=== PATIENT | male | born 1965 | race African-American/Black ===

== ENCOUNTER 2018-05-06 07:35 | Inpatient (IN) | payer MEDICAID, OTHER ==
[~2018-05-06] VITALS: Ht 160 cm; Wt 54.7 kg
[~2018-05-06 07:35] MED LIST: CYCL10TA2 PO; HYDR-3164 PO; PRED20TA PO
[2018-05-06] MEDS ORDERED: IV NORMAL SALINE 1000ML BAG 1,000 ML IV SCH (08:00)
[2018-05-06 08:07] LABS: BASO % 1 % (0-3); EOS % 0 % (0-3); HEMATOCRIT 49.2 % (39.0-53.0); HEMOGLOBIN 16.2 g/dL (13.0-17.5); LYMPH # 1.6 x10^3/uL (1.0-4.8); LYMPH % 26 % (24-48); MEAN CORPUSCULAR HEMOGLOBIN 30 pg (25-35); MEAN CORPUSCULAR HGB CONC 33 g/dL (31-37); MEAN CORPUSCULAR VOLUME 92 fL (79-100); MONO # 0.5 x10^3/uL (0.0-1.1); MONO % 8 % (0-9); NEUT % 65 % (31-73); PLATELET COUNT 282 x10^3/uL (140-400); RED BLOOD COUNT 5.33 x10^6/uL (4.30-5.70); RED CELL DISTRIBUTION WIDTH 13.8 % (11.5-14.5); WHITE BLOOD COUNT 6.2 x10^3/uL (4.0-11.0)
[2018-05-06] MEDS ORDERED: ONDANSETRON PF 4 MG/2 ML VIAL. IV ONE ×2 (08:15→09:30)
[2018-05-06] MEDS: fentaNYL PF VIAL 100 MCG/2 ML VIAL IV PRN ×3 (08:19→11:18)
[2018-05-06 08:38] LABS: CALCIUM 9.4 mg/dL (8.5-10.1); CREATININE 0.8 mg/dL (0.7-1.3); GFR 123.3; POTASSIUM 4.1 mmol/L (3.5-5.1)
[2018-05-06 08:43] LABS: ALBUMIN 3.9 g/dL (3.4-5.0); ALBUMIN/GLOBULIN RATIO 0.8 (1.0-1.7); TOTAL BILIRUBIN 0.5 mg/dL (0.2-1.0); TOTAL PROTEIN 8.7 g/dL (6.4-8.2)
[2018-05-06 08:44] LABS: BILIRUBIN,URINE NEGATIVE (NEG); CLARITY,URINE CLEAR; COLOR,URINE YELLOW; NITRITE,URINE NEGATIVE (NEG); PH,URINE 7.5; PROTEIN,URINE NEGATIVE (NEG-TRACE)
[2018-05-06 08:53] LABS: AMORPHOUS SEDIMENT,UR PRESENT /HPF; BACTERIA,URINE FEW /HPF (0-FEW); RBC,URINE 0 /HPF (0-2); WBC,URINE OCC /HPF (0-4)
[2018-05-06] MEDS ORDERED: IOHEXOL 300 MG/ML 100ML VIAL. IV ONE (09:30)
[2018-05-06] MEDS ORDERED: CONTRAST GIVEN. MC PRN (09:30)
[2018-05-06 09:32] LABS: PLT ESTIMATE ADEQUATE (ADEQUATE)
--- NOTE | 2018-05-06 10:09 | RAD ---
CT ABD PELV W/ IV CONTRST ONLY Indication: Right-sided abdominal pain for 2 days. Exposure: One or more of the following individualized dose reduction techniques were utilized for this examination: 1. Automated exposure control 2. Adjustment of the mA and/or kV according to patient size 3. Use of iterative reconstruction technique. Comparison: None are available. Contrast: Intravenous contrast was given. No oral contrast per request. FINDINGS: Lung bases are clear. Small hypodense focus at the anterior left liver measures 15 mm diameter. Could represent a small focal area of fatty deposition or small lesion such as cyst or hemangioma. Spleen unremarkable Hypodense mass of the pancreas at about its mid aspect measures 3.3 cm. This measures greater density than would be seen with a simple cyst. The pancreatic tail distal to this mass is severely atrophic with dilatation of the pancreatic duct at 4 mm. There may be a second smaller hypodense mass at the pancreatic head, measuring 6 mm. No adrenal mass. Low-density lesion of the left upper kidney measures 12 Hounsfield units. Symmetric renal enhancement. No calcified gallstone. The aorta demonstrates calcification but no gross aneurysm. No evidence of pathologically enlarged lymph nodes. No evidence of bowel obstruction. There is moderate retained stool in the colon. No definite acute colitis. A tubular structure. The right lower quadrant, may represent a normal appendix but difficult to be certain. Exam limited due to the paucity of fat in this patient and lack of oral contrast. Urinary bladder not well visualized, not very distended. No evidence of free fluid or pneumoperitoneum. No evidence of bone destruction. IMPRESSION: 1. There is a 3.3 cm mass of the pancreas with distal pancreatic atrophy and ductal dilatation. Nonspecific, but malignant etiology is possible. Workup is necessary. 2. Structure identified in the right lower quadrant may represent normal appendix but difficult to be certain. No definite acute findings. 3. Small hypodense lesion of the anterior liver, may just represent focal fatty deposition or possibly a small lesion such as cyst or hemangioma. In the context of pancreatic mass, however, recommend follow-up CT or MRI. 4. The above findings were discussed with Dr. Juan Monet in the emergency room at 10:02 AM on 05/06/2018. Electronically signed by: Cristian Peter MD (05/06/2018 10:04 AM) [facility]
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
[2018-05-06] MEDS ORDERED: cloNIDine HCL 0.1 MG TABLET PO ONE (11:15)
[2018-05-06] MEDS ORDERED: LACTULOSE 20 GM/30 ML SOLUTION. PO PRN (11:30)
[2018-05-06] MEDS ORDERED: MAGNESIUM HYDROXIDE 2,400 MG/30 ML ORAL.SUSP. PO PRN (11:30)
[2018-05-06] MEDS ORDERED: diphenhydrAMINE 50 MG/ML VIAL IVP ONE (11:30)
[2018-05-06] MEDS ORDERED: ACETAMINOPHEN 325 MG TABLET. PO PRN (11:30)
[2018-05-06] MEDS ORDERED: BISACODYL 10 MG SUPP.RECT. PR PRN (11:30)
[2018-05-06] MEDS ORDERED: METOCLOPRAMIDE HCL 10 MG/2 ML VIAL. IV ONE (11:30)
[2018-05-06] MEDS ORDERED: ONDANSETRON PF 4 MG/2 ML VIAL. IV PRN (11:45)
[2018-05-06] MEDS ORDERED: fentaNYL PF VIAL 100 MCG/2 ML VIAL IV PRN (11:45)
[2018-05-06 12:30] VITALS: BP 148/94
[2018-05-06] MEDS: IV NORMAL SALINE 1000ML BAG 1,000 ML IV SCH ×2 (13:22→21:49)
[2018-05-06] MEDS: oxyCODONE IR 5 MG TABLET PO PRN ×3 (13:27→21:49)
[2018-05-06 15:00] VITALS: BP 130/79
--- NOTE | 2018-05-06 15:05 | PDOC1 ---
History and Physical Date of Admission Date of Admission 05/06/2018 Identification/Chief Complaint Chief Complaint Nica kay Source Source: Chart review, Patient History of Present Illness History of Present Illness Patient is a 53-year-old gentleman with past medical history of hepatitis C and B apparently who was in his usual state of health until approximately 4-5 days prior to his admission. Patient can complain of some discomfort over his lower abdomen. That has progressively gotten worse. Patient is a history of chronic back pain and he is disabled. The patient denies any dietary transgressions denies diarrhea, hematochezia, hematemesis has been reported. The patient has not had treatment for his hepatitis C. Of notice that he has a history of IV drug abuse and according to nursing staff apparently he used heroine last time on the day prior to his admission. Patient has had very poor appetite lately and according to the significant other has had an unintentional weight loss over the last month very noticeable. Noticed that patient has a brother who of pancreatic cancer couple years back. Patient is an avid smoker as well. Patient was evaluated in the emergency department and CAT scan revealed a pancreatic mass of 3.3 cm in diameter. Very suspicious for malignancy and especially in a patient with family history of prostatic cancer and smoking which are too great risk factors for distal disease. Reassurance has been provided to the patient the present time the patient is in good spirits and with better pain control compared to admission. Time of care has been explained in detail to the patient and all concerns were addressed to the best of my abilities. Current Problem List Problem List Problems Medical Problems: (1) Hypertension Status: Acute (2) Intractable abdominal pain Status: Acute (3) Intractable vomiting Status: Acute Current Medications Current Medications Current Medications Medications (Trade) Dose Ordered Sig/Alice Start Time Stop Time Status Last Admin Dose Admin Acetaminophen (Tylenol) 650 mg PRN Q6HRS PRN 05/06/18 11:30 Bisacodyl (Dulcolax Supp) 10 mg PRN DAILY PRN 05/06/18 11:30 Clonidine HCl (Catapres) 0.2 mg 1X ONCE 05/06/18 11:15 05/06/18 11:16 DC 05/06/18 11:17 0.2 MG Diphenhydramine HCl (Benadryl) 25 mg 1X ONCE 05/06/18 11:30 05/06/18 11:31 DC 05/06/18 11:26 25 MG Enoxaparin Sodium (Lovenox 40mg Syringe) 40 mg Q24H 05/06/18 21:00 Fentanyl Citrate (Fentanyl 2ml Vial) 50 mcg PRN Q1HR PRN 05/06/18 11:45 05/07/18 11:44 Hydromorphone HCl (Dilaudid) 0.4 mg PRN Q1HR PRN 05/06/18 11:30 Info (CONTRAST GIVEN -- Rx MONITORING) 1 each PRN DAILY PRN 05/06/18 09:30 05/08/18 09:29 Iohexol (Omnipaque 300 Mg/ml) 75 ml 1X ONCE 05/06/18 09:30 05/06/18 09:31 DC Lactulose (Lactulose) 20 gm PRN Q12HR PRN 05/06/18 11:30 Magnesium Hydroxide (Milk Of Magnesia) 2,400 mg PRN Q12HR PRN 05/06/18 11:30 Metoclopramide HCl (Reglan Vial) 10 mg 1X ONCE 05/06/18 11:30 05/06/18 11:31 DC 05/06/18 11:26 10 MG Ondansetron HCl (Zofran) 4 mg PRN Q8HRS PRN 05/06/18 11:45 05/07/18 11:44 Oxycodone HCl (Roxicodone) 5 mg PRN Q3HRS PRN 05/06/18 11:30 05/06/18 13:27 5 MG Senna/Docusate Sodium (Senna Plus) 1 tab BID 05/06/18 21:00 Sodium Chloride 1,000 ml @ 125 mls/hr Q8H 05/06/18 11:36 05/07/18 11:35 05/06/18 13:22 125 MLS/HR Zolpidem Tartrate (Ambien) 5 mg PRN QHS PRN 05/06/18 11:30 Allergies Allergies Allergies Coded Allergies Type Severity Reaction Last Updated Verified ibuprofen Allergy Intermediate rash 11/11/15 Yes ROS Review of System CONSTITUTIONAL: No fever or chills EYES: No recent changes SKIN: No rash or itching CARDIOVASCULAR: No chest pain, syncope, palpitations, or edema RESPIRATORY: No SOB or cough GASTROINTESTINAL: No nausea, vomiting or abdominal pain NEUROLOGICAL: No headaches or weakness ENDOCRINE: No cold or heat intolerance GENITOURINARY: No urgency or frequency of urination MUSCULOSKELETAL: No back pain or joint pain LYMPHATICS: No enlarged lymph nodes PSYCHIATRIC: No anxiety or depression Physical Exam Physical Exam GEN.: No apparent distress. Alert and oriented. HEENT: Head is normocephalic, atraumatic NECK: Supple. LUNGS: Clear to auscultation. HEART: RRR, S1, S2 present. Peripheral pulses intact ABDOMEN: Soft, nontender. Positive bowel sounds. EXTREMITIES: Without any cyanosis. NEUROLOGIC: Normal speech, normal tone PSYCHIATRIC: Normal affect, normal mood. SKIN: No ulcerations Vitals Vitals Vital Signs Date Time Temp Pulse Resp B/P (MAP) Pulse Ox O2 Delivery O2 Flow Rate FiO2 05/06/18 13:27 Room Air 05/06/18 12:30 98.5 63 18 148/94 (112) 97 98.5 Labs Labs Laboratory Tests Test 05/06/18 07:57 05/06/18 08:10 05/06/18 08:33 White Blood Count 6.2 x10^3/uL (4.0-11.0) Red Blood Count 5.33 x10^6/uL (4.30-5.70) Hemoglobin 16.2 g/dL (13.0-17.5) Hematocrit 49.2 % (39.0-53.0) Mean Corpuscular Volume 92 fL (79-100) Mean Corpuscular Hemoglobin 30 pg (25-35) Mean Corpuscular Hemoglobin Concent 33 g/dL (31-37) Red Cell Distribution Width 13.8 % (11.5-14.5) Platelet Count 282 x10^3/uL (140-400) Neutrophils (%) (Auto) 65 % (31-73) Lymphocytes (%) (Auto) 26 % (24-48) Monocytes (%) (Auto) 8 % (0-9) Eosinophils (%) (Auto) 0 % (0-3) Basophils (%) (Auto) 1 % (0-3) Neutrophils # (Auto) 4.0 x10^3uL (1.8-7.7) Lymphocytes # (Auto) 1.6 x10^3/uL (1.0-4.8) Monocytes # (Auto) 0.5 x10^3/uL (0.0-1.1) Eosinophils # (Auto) 0.0 x10^3/uL (0.0-0.7) Basophils # (Auto) 0.0 x10^3/uL (0.0-0.2) Platelet Estimate Adequate (ADEQUATE) Large Platelets Few Giant Platelets Few Sodium Level 137 mmol/L (136-145) Potassium Level 4.1 mmol/L (3.5-5.1) Chloride Level 99 mmol/L (98-107) Carbon Dioxide Level 26 mmol/L (21-32) Anion Gap 12 (6-14) Blood Urea Nitrogen 16 mg/dL (8-26) Creatinine 0.8 mg/dL (0.7-1.3) Estimated GFR (Cockcroft-Gault) 123.3 BUN/Creatinine Ratio 20 (6-20) Glucose Level 115 mg/dL (70-99) Calcium Level 9.4 mg/dL (8.5-10.1) Total Bilirubin 0.5 mg/dL (0.2-1.0) Aspartate Amino Transf (AST/SGOT) 79 U/L (15-37) Alanine Aminotransferase (ALT/SGPT) 139 U/L (16-63) Alkaline Phosphatase 107 U/L (46-116) Total Protein 8.7 g/dL (6.4-8.2) Albumin 3.9 g/dL (3.4-5.0) Albumin/Globulin Ratio 0.8 (1.0-1.7) Lipase 212 U/L (73-393) Urine Collection Type Unknown Urine Color Yellow Urine Clarity Clear Urine pH 7.5 Urine Specific [place] 1.025 Urine Protein Negative mg/dL (NEG-TRACE) Urine Glucose (UA) Negative mg/dL (NEG) Urine Ketones (Stick) Negative mg/dL (NEG) Urine Blood Negative (NEG) Urine Nitrite Negative (NEG) Urine Bilirubin Negative (NEG) Urine Urobilinogen Dipstick 1.0 mg/dL (0.2 mg/dL) Urine Leukocyte Esterase Negative (NEG) Urine RBC 0 /HPF (0-2) Urine WBC Occ /HPF (0-4) Urine Amorphous Sediment Present /HPF Urine Bacteria Few /HPF (0-FEW) Urine Mucus Mod /LPF Laboratory Tests Test 05/06/18 07:57 05/06/18 08:10 05/06/18 08:33 White Blood Count 6.2 x10^3/uL (4.0-11.0) Red Blood Count 5.33 x10^6/uL (4.30-5.70) Hemoglobin 16.2 g/dL (13.0-17.5) Hematocrit 49.2 % (39.0-53.0) Mean Corpuscular Volume 92 fL (79-100) Mean Corpuscular Hemoglobin 30 pg (25-35) Mean Corpuscular Hemoglobin Concent 33 g/dL (31-37) Red Cell Distribution Width 13.8 % (11.5-14.5) Platelet Count 282 x10^3/uL (140-400) Neutrophils (%) (Auto) 65 % (31-73) Lymphocytes (%) (Auto) 26 % (24-48) Monocytes (%) (Auto) 8 % (0-9) Eosinophils (%) (Auto) 0 % (0-3) Basophils (%) (Auto) 1 % (0-3) Neutrophils # (Auto) 4.0 x10^3uL (1.8-7.7) Lymphocytes # (Auto) 1.6 x10^3/uL (1.0-4.8) Monocytes # (Auto) 0.5 x10^3/uL (0.0-1.1) Eosinophils # (Auto) 0.0 x10^3/uL (0.0-0.7) Basophils # (Auto) 0.0 x10^3/uL (0.0-0.2) Platelet Estimate Adequate (ADEQUATE) Large Platelets Few Giant Platelets Few Sodium Level 137 mmol/L (136-145) Potassium Level 4.1 mmol/L (3.5-5.1) Chloride Level 99 mmol/L (98-107) Carbon Dioxide Level 26 mmol/L (21-32) Anion Gap 12 (6-14) Blood Urea Nitrogen 16 mg/dL (8-26) Creatinine 0.8 mg/dL (0.7-1.3) Estimated GFR (Cockcroft-Gault) 123.3 BUN/Creatinine Ratio 20 (6-20) Glucose Level 115 mg/dL (70-99) Calcium Level 9.4 mg/dL (8.5-10.1) Total Bilirubin 0.5 mg/dL (0.2-1.0) Aspartate Amino Transf (AST/SGOT) 79 U/L (15-37) Alanine Aminotransferase (ALT/SGPT) 139 U/L (16-63) Alkaline Phosphatase 107 U/L (46-116) Total Protein 8.7 g/dL (6.4-8.2) Albumin 3.9 g/dL (3.4-5.0) Albumin/Globulin Ratio 0.8 (1.0-1.7) Lipase 212 U/L (73-393) Urine Collection Type Unknown Urine Color Yellow Urine Clarity Clear Urine pH 7.5 Urine Specific [place] 1.025 Urine Protein Negative mg/dL (NEG-TRACE) Urine Glucose (UA) Negative mg/dL (NEG) Urine Ketones (Stick) Negative mg/dL (NEG) Urine Blood Negative (NEG) Urine Nitrite Negative (NEG) Urine Bilirubin Negative (NEG) Urine Urobilinogen Dipstick 1.0 mg/dL (0.2 mg/dL) Urine Leukocyte Esterase Negative (NEG) Urine RBC 0 /HPF (0-2) Urine WBC Occ /HPF (0-4) Urine Amorphous Sediment Present /HPF Urine Bacteria Few /HPF (0-FEW) Urine Mucus Mod /LPF VTE Prophylaxis Ordered VTE Prophylaxis Devices: No VTE Pharmacological Prophylaxi: Yes Assessment/Plan Assessment/Plan Pancreatic mass Unintentional weight loss over the last month or 15 pounds suspicious for malignancy related weight loss History of hepatitis C History of illegal drug abuse History of tobacco abuse COPD Plan: admit to medical floor MRCP on tuesday pain management monitor hemodynamics further recommendation based on clinical course DVT proophylaxis: HANH Sandoval MD May 06, 2018 15:05
[2018-05-06] MEDS: HYDROmorphone 2 MG/ML VIAL IV PRN ×2 (15:48→23:16)
[2018-05-06] MEDS: NICOTINE 21MG PATCH. TD PRN (15:49)
[2018-05-06 19:35] VITALS: BP 132/84
[2018-05-06] MEDS: ZOLPIDEM 5 MG TABLET. PO PRN ×2 (21:49→23:16)
[2018-05-06] MEDS: SENNOSIDES/DOCUSATE 8.6/50MG TABLET. PO SCH (21:50)
[2018-05-06] MEDS: ENOXAPARIN 40 MG/0.4 ML SYRINGE. SQ SCH (21:51)
[2018-05-06 23:19] VITALS: BP 133/86
[2018-05-07] VITALS (7 sets, daily range): BP systolic 149–197; BP diastolic 73–116
[2018-05-07] MEDS: ONDANSETRON PF 4 MG/2 ML VIAL. IV PRN ×2 (04:07→15:53)
[2018-05-07] MEDS: IV NORMAL SALINE 1000ML BAG 1,000 ML IV SCH ×2 (07:27→17:00)
[2018-05-07] MEDS: LABETALOL 20 MG/4 ML DISP.SYRIN. IVP PRN ×2 (07:29→21:00)
[2018-05-07] MEDS: NICOTINE 21MG PATCH. TD PRN (08:57)
[2018-05-07] MEDS: oxyCODONE IR 5 MG TABLET PO PRN (08:58)
[2018-05-07] MEDS: HYDROmorphone 2 MG/ML VIAL IV PRN ×2 (08:58→15:56)
[2018-05-07] MEDS: SENNOSIDES/DOCUSATE 8.6/50MG TABLET. PO SCH ×2 (09:00→21:00)
[2018-05-07] MEDS ORDERED: PROCHLORPERAZINE 5 MG TABLET. PO PRN ×2 (10:30→10:45)
--- NOTE | 2018-05-07 11:04 | PDOC ---
PROGRESS NOTES History of Present Illness History of Present Illness Assessment/Plan Assessment/Plan Pancreatic mass 3.3 cm mass of the pancreas with distal pancreatic atrophy and ductal dilatation. Unintentional weight loss over the last month or 15 pounds suspicious for malignancy related weight loss History of hepatitis C History of illegal drug abuse History of tobacco abuse history of hep b/c with IV drug use COPD PERSISTENT NAUSEA Plan: MRCP admit to medical floor MRCP on 05/08 pain management monitor hemodynamics further recommendation based on clinical course DVT proophylaxis: lovenox Vitals Vitals Vital Signs Date Time Temp Pulse Resp B/P (MAP) Pulse Ox O2 Delivery O2 Flow Rate FiO2 05/07/18 08:58 97 Room Air 05/07/18 07:29 57 188/100 05/07/18 07:00 98.9 20 98.9 Physical Exam Physical Exam Physical Exam Physical Exam GEN.: No apparent distress. Alert and oriented. HEENT: Head is normocephalic, atraumatic NECK: Supple. LUNGS: Clear to auscultation. HEART: RRR, S1, S2 present. Peripheral pulses intact ABDOMEN: Soft, nontender. Positive bowel sounds. EXTREMITIES: Without any cyanosis. NEUROLOGIC: Normal speech, normal tone PSYCHIATRIC: Normal affect, normal mood. SKIN: No ulcerations General: Alert, Oriented X3, Cooperative, mild distress Heart: Regular rate Lungs: Clear Extremities: No clubbing, No cyanosis, No edema Skin: No significant lesion Labs LABS CT ABD PELV W/ IV CONTRST ONLY Indication: Right-sided abdominal pain for 2 days. Exposure: One or more of the following individualized dose reduction techniques were utilized for this examination: 1. Automated exposure control 2. Adjustment of the mA and/or kV according to patient size 3. Use of iterative reconstruction technique. Comparison: None are available. Contrast: Intravenous contrast was given. No oral contrast per request. FINDINGS: Lung bases are clear. Small hypodense focus at the anterior left liver measures 15 mm diameter. Could represent a small focal area of fatty deposition or small lesion such as cyst or hemangioma. Spleen unremarkable Hypodense mass of the pancreas at about its mid aspect measures 3.3 cm. This measures greater density than would be seen with a simple cyst. The pancreatic tail distal to this mass is severely atrophic with dilatation of the pancreatic duct at 4 mm. There may be a second smaller hypodense mass at the pancreatic head, measuring 6 mm. No adrenal mass. Low-density lesion of the left upper kidney measures 12 Hounsfield units. Symmetric renal enhancement. No calcified gallstone. The aorta demonstrates calcification but no gross aneurysm. No evidence of pathologically enlarged lymph nodes. No evidence of bowel obstruction. There is moderate retained stool in the colon. No definite acute colitis. A tubular structure. The right lower quadrant, may represent a normal appendix but difficult to be certain. Exam limited due to the paucity of fat in this patient and lack of oral contrast. Urinary bladder not well visualized, not very distended. No evidence of free fluid or pneumoperitoneum. No evidence of bone destruction. 3.3 cm mass of the pancreas with distal pancreatic atrophy and ductal dilatation. Nonspecific, but malignant etiology is possible. Workup is necessary. Assessment and Plan Assessmemt and Plan Problems Medical Problems: (1) Hypertension Status: Acute (2) Intractable abdominal pain Status: Acute (3) Intractable vomiting Status: Acute Comment Review of Relevant I have reviewed the following items himanshu (where applicable) has been applied. Labs Laboratory Tests Test 05/06/18 07:57 05/06/18 08:10 05/06/18 08:33 White Blood Count 6.2 x10^3/uL (4.0-11.0) Red Blood Count 5.33 x10^6/uL (4.30-5.70) Hemoglobin 16.2 g/dL (13.0-17.5) Hematocrit 49.2 % (39.0-53.0) Mean Corpuscular Volume 92 fL (79-100) Mean Corpuscular Hemoglobin 30 pg (25-35) Mean Corpuscular Hemoglobin Concent 33 g/dL (31-37) Red Cell Distribution Width 13.8 % (11.5-14.5) Platelet Count 282 x10^3/uL (140-400) Neutrophils (%) (Auto) 65 % (31-73) Lymphocytes (%) (Auto) 26 % (24-48) Monocytes (%) (Auto) 8 % (0-9) Eosinophils (%) (Auto) 0 % (0-3) Basophils (%) (Auto) 1 % (0-3) Neutrophils # (Auto) 4.0 x10^3uL (1.8-7.7) Lymphocytes # (Auto) 1.6 x10^3/uL (1.0-4.8) Monocytes # (Auto) 0.5 x10^3/uL (0.0-1.1) Eosinophils # (Auto) 0.0 x10^3/uL (0.0-0.7) Basophils # (Auto) 0.0 x10^3/uL (0.0-0.2) Platelet Estimate Adequate (ADEQUATE) Large Platelets Few Giant Platelets Few Sodium Level 137 mmol/L (136-145) Potassium Level 4.1 mmol/L (3.5-5.1) Chloride Level 99 mmol/L (98-107) Carbon Dioxide Level 26 mmol/L (21-32) Anion Gap 12 (6-14) Blood Urea Nitrogen 16 mg/dL (8-26) Creatinine 0.8 mg/dL (0.7-1.3) Estimated GFR (Cockcroft-Gault) 123.3 BUN/Creatinine Ratio 20 (6-20) Glucose Level 115 mg/dL (70-99) Calcium Level 9.4 mg/dL (8.5-10.1) Total Bilirubin 0.5 mg/dL (0.2-1.0) Aspartate Amino Transf (AST/SGOT) 79 U/L (15-37) Alanine Aminotransferase (ALT/SGPT) 139 U/L (16-63) Alkaline Phosphatase 107 U/L (46-116) Total Protein 8.7 g/dL (6.4-8.2) Albumin 3.9 g/dL (3.4-5.0) Albumin/Globulin Ratio 0.8 (1.0-1.7) Lipase 212 U/L (73-393) Urine Collection Type Unknown Urine Color Yellow Urine Clarity Clear Urine pH 7.5 Urine Specific [place] 1.025 Urine Protein Negative mg/dL (NEG-TRACE) Urine Glucose (UA) Negative mg/dL (NEG) Urine Ketones (Stick) Negative mg/dL (NEG) Urine Blood Negative (NEG) Urine Nitrite Negative (NEG) Urine Bilirubin Negative (NEG) Urine Urobilinogen Dipstick 1.0 mg/dL (0.2 mg/dL) Urine Leukocyte Esterase Negative (NEG) Urine RBC 0 /HPF (0-2) Urine WBC Occ /HPF (0-4) Urine Amorphous Sediment Present /HPF Urine Bacteria Few /HPF (0-FEW) Urine Mucus Mod /LPF Medications Current Medications Fentanyl Citrate (Fentanyl 2ml Vial) 50 mcg PRN Q15MIN PRN IV PAIN GREATER THAN 3/10 Last administered on 05/06/18 11:18; Start 05/06/18 at 08:00; Stop 01/13 at 07:59; Status DC Sodium Chloride 1,000 ml @ 1,000 mls/hr Q1H IV Last administered on 05/06/18at 08:20; Start 05/06/18 at 08:00; Stop 05/06/18 at 08:59; Status DC Ondansetron HCl (Zofran) 4 mg 1X ONCE IV Last administered on 05/06/18 08:19; Start 05/06/18 at 08:15; Stop 05/06/18 at 08:16; Status DC Ondansetron HCl (Zofran) 4 mg 1X ONCE IV Last administered on 05/06/18at 09:25; Start 05/06/18 at 09:30; Stop 05/06/18 at 09:31; Status DC Iohexol (Omnipaque 300 Mg/ml) 75 ml 1X ONCE IV ; Start 05/06/18 at 09:30; Stop 05/06/18 at 09:31; Status DC Info (CONTRAST GIVEN -- Rx MONITORING) 1 each PRN DAILY PRN MC SEE COMMENTS; Start 05/06/18 at 09:30; Stop 05/08/18 at 09:29 Clonidine HCl (Catapres) 0.2 mg 1X ONCE PO Last administered on 05/06/18 11:17 ; Start 05/06/18 at 11:15; Stop 05/06/18 at 11:16; Status DC Metoclopramide HCl (Reglan Vial) 10 mg 1X ONCE IV Last administered on 11:26; Start 05/06/18 at 11:30; Stop 05/06/18 at 11:31; Status DC Diphenhydramine HCl (Benadryl) 25 mg 1X ONCE IVP Last administered on 11:26; Start 05/06/18 at 11:30; Stop 05/06/18 at 11:31; Status DC Ondansetron HCl (Zofran) 4 mg PRN Q6HRS PRN IV NAUSEA/VOMITING, 1sT CHOICE Last administered on 05/07/18at 04:07; Start 05/06/18 at 11:30 Zolpidem Tartrate (Ambien) 5 mg PRN QHS PRN PO INSOMNIA, MAY REPEAT IN 1HR Last administered on 05/06/18 23:16; Start 05/06/18 at 11:30 Oxycodone HCl (Roxicodone) 5 mg PRN Q3HRS PRN PO BREAKTHROUGH PAIN Last administered on 05/07/18 08:58; Start 05/06/18 at 11:30 Hydromorphone HCl (Dilaudid) 0.4 mg PRN Q1HR PRN IV PAIN Last administered on 08:58; Start 05/06/18 at 11:30 Acetaminophen (Tylenol) 650 mg PRN Q6HRS PRN PO Headaches, Temp > 101.5F; Start 05/06/18 at 11:30 Senna/Docusate Sodium (Senna Plus) 1 tab BID PO Last administered on 05/06/18 21:50; Start 05/06/18 at 21:00 Magnesium Hydroxide (Milk Of Magnesia) 2,400 mg PRN Q12HR PRN PO CONSTIPATION 1ST CHOICE; Start 05/06/18 at 11:30 Lactulose (Lactulose) 20 gm PRN Q12HR PRN PO CONSTIPATION 2ND CHOICE; Start 05/06/18 at 11:30 Bisacodyl (Dulcolax Supp) 10 mg PRN DAILY PRN [place] CONSTIPATION; Start 05/06/18 at 11:30 Enoxaparin Sodium (Lovenox 40mg Syringe) 40 mg Q24H SQ Last administered on 05/06 21:51; Start 05/06/18 at 21:00 Ondansetron HCl (Zofran) 4 mg PRN Q8HRS PRN IV NAUSEA/VOMITING Last administered on 05/07/18 08:57; Start 05/06/18 at 11:45; Stop 05/07/18 at 10:35 ; Status DC Fentanyl Citrate (Fentanyl 2ml Vial) 50 mcg PRN Q1HR PRN IV PAIN Last administered on 05/07/18 04:04; Start 05/06/18 at 11:45; Stop 05/07/18 at 11:44 Sodium Chloride 1,000 ml @ 125 mls/hr Q8H IV Last administered on 05/07/18 07 :27; Start 05/06/18 at 11:36; Stop 05/07/18 at 11:35 Nicotine (Nicoderm Cq 21mg) 1 patch PRN DAILY PRN TD SMOKING CESSATION Last administered on 05/07/18at 08:57; Start 05/06/18 at 15:30 Labetalol HCl (Normodyne Iv Push) 10 mg PRN Q4HRS PRN IVP HYPERTENSION, SEE COMMENTS Last administered on 05/07/18at 07:29; Start 05/07/18 at 06:15 Lorazepam (Ativan) 0.5 mg PRN Q6HRS PRN IV ANXIETY / AGITATION Last administered on 05/07/18 11:00; Start 05/07/18 at 10:30 Prochlorperazine Maleate (Compazine) 5 mg PRN Q6HRS PRN PO NAUSEA/VOMITING, 2nd CHOICE Last administered on 05/07/18at 11:01; Start 05/07/18 at 10:30 Prochlorperazine Maleate (Compazine) 10 mg PRN Q6HRS PRN PO NAUSEA/VOMITING, 2nd CHOICE; Start 05/07/18 at 10:45 Active Scripts Active Prednisone 20 Mg Tablet 40 Mg PO DAILY Cyclobenzaprine Hcl 10 Mg Tablet 10 Mg PO TID [place] 5-325 Tablet (Acetaminophen/Hydrocodone Bitart) 1 Each Tablet 1 Tab PO PRN Q6HRS PRN Vitals/I & O Vital Sign - Last 24 Hours 05/06/18 05/06/18 05/06/18 05/06/18 11:17 11:18 11:45 12:05 Pulse 66 64 62 Resp 18 18 18 B/P (MAP) 198/101 216/105 (142) 139/95 (110) Pulse Ox 99 97 97 O2 Delivery Room Air Room Air Room Air 05/06/18 05/06/18 05/06/18 05/06/18 12:30 12:30 13:00 13:27 Temp 98.5 98.5 Pulse 63 Resp 18 B/P (MAP) 148/94 (112) Pulse Ox 97 O2 Delivery Room Air Room Air Room Air Room Air 05/06/18 05/06/18 05/06/18 05/06/18 15:00 15:48 17:49 17:51 Pulse 70 Resp 18 B/P (MAP) 130/79 (96) Pulse Ox 98 O2 Delivery Room Air Room Air Room Air Room Air 05/06/18 05/06/18 05/06/18 05/06/18 18:45 19:35 20:00 23:19 Temp 98.2 98.4 98.2 98.4 Pulse 66 68 Resp 18 18 B/P (MAP) 132/84 (100) 133/86 (102) Pulse Ox 98 96 O2 Delivery Room Air Room Air Room Air Room Air 05/07/18 05/07/18 05/07/18 05/07/18 03:42 04:45 07:00 07:29 Temp 97.5 98.9 97.5 98.9 Pulse 60 60 63 57 Resp 18 20 B/P (MAP) 186/112 (136) 173/94 (120) 197/116 (143) 188/100 Pulse Ox 99 97 O2 Delivery Room Air Room Air 05/07/18 05/07/18 08:58 08:58 Pulse Ox 97 97 O2 Delivery Room Air Room Air Intake and Output 05/06/18 05/06/18 05/07/18 15:01 23:01 07:01 Intake Total 1000 ml 1180 ml Balance 1000 ml 1180 ml GIO HERNANDEZ MD May 07, 2018 11:04
[2018-05-07] MEDS ORDERED: diphenhydrAMINE HCL 25 MG CAPSULE PO PRN (14:15)
--- NOTE | 2018-05-07 14:18 | PDOC2 ---
CONSULT Date of Consult Date of Consult DATE: 05/07/18 TIME: 14:15 Reason for Consult Reason for Consult: Weight loss/n/v/pancreatic mass with fhx of pancreatic cancer Current Problem List Problem List Problems Medical Problems: (1) Hypertension Status: Acute (2) Intractable abdominal pain Status: Acute (3) Intractable vomiting Status: Acute Current Medications Current Medications Current Medications Fentanyl Citrate (Fentanyl 2ml Vial) 50 mcg PRN Q15MIN PRN IV PAIN GREATER THAN 3/10 Last administered on 05/06/18at 11:18; Start 05/06/18 at 08:00; Stop 01/13 at 07:59; Status DC Sodium Chloride 1,000 ml @ 1,000 mls/hr Q1H IV Last administered on 05/06/18at 08:20; Start 05/06/18 at 08:00; Stop 05/06/18 at 08:59; Status DC Ondansetron HCl (Zofran) 4 mg 1X ONCE IV Last administered on 05/06/18at 08:19; Start 05/06/18 at 08:15; Stop 05/06/18 at 08:16; Status DC Ondansetron HCl (Zofran) 4 mg 1X ONCE IV Last administered on 05/06/18at 09:25; Start 05/06/18 at 09:30; Stop 05/06/18 at 09:31; Status DC Iohexol (Omnipaque 300 Mg/ml) 75 ml 1X ONCE IV ; Start 05/06/18 at 09:30; Stop 05/06/18 at 09:31; Status DC Info (CONTRAST GIVEN -- Rx MONITORING) 1 each PRN DAILY PRN MC SEE COMMENTS; Start 05/06/18 at 09:30; Stop 05/08/18 at 09:29 Clonidine HCl (Catapres) 0.2 mg 1X ONCE PO Last administered on 05/06/18at 11:17 ; Start 05/06/18 at 11:15; Stop 05/06/18 at 11:16; Status DC Metoclopramide HCl (Reglan Vial) 10 mg 1X ONCE IV Last administered on at 11:26; Start 05/06/18 at 11:30; Stop 05/06/18 at 11:31; Status DC Diphenhydramine HCl (Benadryl) 25 mg 1X ONCE IVP Last administered on 11:26; Start 05/06/18 at 11:30; Stop 05/06/18 at 11:31; Status DC Ondansetron HCl (Zofran) 4 mg PRN Q6HRS PRN IV NAUSEA/VOMITING, 1sT CHOICE Last administered on 05/07/18 04:07; Start 05/06/18 at 11:30 Zolpidem Tartrate (Ambien) 5 mg PRN QHS PRN PO INSOMNIA, MAY REPEAT IN 1HR Last administered on 05/06/18 23:16; Start 05/06/18 at 11:30 Oxycodone HCl (Roxicodone) 5 mg PRN Q3HRS PRN PO BREAKTHROUGH PAIN Last administered on 05/07/18 08:58; Start 05/06/18 at 11:30 Hydromorphone HCl (Dilaudid) 0.4 mg PRN Q1HR PRN IV PAIN Last administered on 08:58; Start 05/06/18 at 11:30 Acetaminophen (Tylenol) 650 mg PRN Q6HRS PRN PO Headaches, Temp > 101.5F; Start 05/06/18 at 11:30 Senna/Docusate Sodium (Senna Plus) 1 tab BID PO Last administered on 05/06/18 21:50; Start 05/06/18 at 21:00 Magnesium Hydroxide (Milk Of Magnesia) 2,400 mg PRN Q12HR PRN PO CONSTIPATION 1ST CHOICE; Start 05/06/18 at 11:30 Lactulose (Lactulose) 20 gm PRN Q12HR PRN PO CONSTIPATION 2ND CHOICE; Start 05/06/18 at 11:30 Bisacodyl (Dulcolax Supp) 10 mg PRN DAILY PRN [place] CONSTIPATION; Start 05/06/18 at 11:30 Enoxaparin Sodium (Lovenox 40mg Syringe) 40 mg Q24H SQ Last administered on 05/06 21:51; Start 05/06/18 at 21:00 Ondansetron HCl (Zofran) 4 mg PRN Q8HRS PRN IV NAUSEA/VOMITING Last administered on 05/07/18 08:57; Start 05/06/18 at 11:45; Stop 05/07/18 at 10:35 ; Status DC Fentanyl Citrate (Fentanyl 2ml Vial) 50 mcg PRN Q1HR PRN IV PAIN Last administered on 05/07/18at 04:04; Start 05/06/18 at 11:45; Stop 05/07/18 at 11:44 ; Status DC Sodium Chloride 1,000 ml @ 125 mls/hr Q8H IV Last administered on 05/07/18at 07 :27; Start 05/06/18 at 11:36; Stop 05/07/18 at 11:35; Status DC Nicotine (Nicoderm Cq 21mg) 1 patch PRN DAILY PRN TD SMOKING CESSATION Last administered on 05/07/18at 08:57; Start 05/06/18 at 15:30 Labetalol HCl (Normodyne Iv Push) 10 mg PRN Q4HRS PRN IVP HYPERTENSION, 1ST CHOICE Last administered on 05/07/18at 07:29; Start 05/07/18 at 06:15 Lorazepam (Ativan) 0.5 mg PRN Q6HRS PRN IV ANXIETY / AGITATION Last administered on 05/07/18at 11:00; Start 05/07/18 at 10:30 Prochlorperazine Maleate (Compazine) 5 mg PRN Q6HRS PRN PO NAUSEA/VOMITING, 2nd CHOICE Last administered on 05/07/18at 11:01; Start 05/07/18 at 10:30 Prochlorperazine Maleate (Compazine) 10 mg PRN Q6HRS PRN PO NAUSEA/VOMITING, 2nd CHOICE; Start 05/07/18 at 10:45 Hydralazine HCl (Apresoline Inj) 10 mg PRN Q6HRS PRN IVP ELEVATED BP, 2ND CHOICE; Start 05/07/18 at 12:15 Active Scripts Active Prednisone 20 Mg Tablet 40 Mg PO DAILY Cyclobenzaprine Hcl 10 Mg Tablet 10 Mg PO TID [place] 5-325 Tablet (Acetaminophen/Hydrocodone Bitart) 1 Each Tablet 1 Tab PO PRN Q6HRS PRN Allergies Allergies: Coded Allergies: ibuprofen (Verified Allergy, Intermediate, rash, 11/11/15) Vitals VITALS Vital Signs Date Time Temp Pulse Resp B/P (MAP) Pulse Ox O2 Delivery O2 Flow Rate FiO2 05/07/18 12:25 149/73 (98) 05/07/18 11:00 98.7 65 18 98 Room Air 98.7 Labs Labs Laboratory Tests Test 05/06/18 07:57 05/06/18 08:10 05/06/18 08:33 White Blood Count 6.2 x10^3/uL (4.0-11.0) Red Blood Count 5.33 x10^6/uL (4.30-5.70) Hemoglobin 16.2 g/dL (13.0-17.5) Hematocrit 49.2 % (39.0-53.0) Mean Corpuscular Volume 92 fL (79-100) Mean Corpuscular Hemoglobin 30 pg (25-35) Mean Corpuscular Hemoglobin Concent 33 g/dL (31-37) Red Cell Distribution Width 13.8 % (11.5-14.5) Platelet Count 282 x10^3/uL (140-400) Neutrophils (%) (Auto) 65 % (31-73) Lymphocytes (%) (Auto) 26 % (24-48) Monocytes (%) (Auto) 8 % (0-9) Eosinophils (%) (Auto) 0 % (0-3) Basophils (%) (Auto) 1 % (0-3) Neutrophils # (Auto) 4.0 x10^3uL (1.8-7.7) Lymphocytes # (Auto) 1.6 x10^3/uL (1.0-4.8) Monocytes # (Auto) 0.5 x10^3/uL (0.0-1.1) Eosinophils # (Auto) 0.0 x10^3/uL (0.0-0.7) Basophils # (Auto) 0.0 x10^3/uL (0.0-0.2) Platelet Estimate Adequate (ADEQUATE) Large Platelets Few Giant Platelets Few Sodium Level 137 mmol/L (136-145) Potassium Level 4.1 mmol/L (3.5-5.1) Chloride Level 99 mmol/L (98-107) Carbon Dioxide Level 26 mmol/L (21-32) Anion Gap 12 (6-14) Blood Urea Nitrogen 16 mg/dL (8-26) Creatinine 0.8 mg/dL (0.7-1.3) Estimated GFR (Cockcroft-Gault) 123.3 BUN/Creatinine Ratio 20 (6-20) Glucose Level 115 mg/dL (70-99) Calcium Level 9.4 mg/dL (8.5-10.1) Total Bilirubin 0.5 mg/dL (0.2-1.0) Aspartate Amino Transf (AST/SGOT) 79 U/L (15-37) Alanine Aminotransferase (ALT/SGPT) 139 U/L (16-63) Alkaline Phosphatase 107 U/L (46-116) Total Protein 8.7 g/dL (6.4-8.2) Albumin 3.9 g/dL (3.4-5.0) Albumin/Globulin Ratio 0.8 (1.0-1.7) Lipase 212 U/L (73-393) Urine Collection Type Unknown Urine Color Yellow Urine Clarity Clear Urine pH 7.5 Urine Specific [place] 1.025 Urine Protein Negative mg/dL (NEG-TRACE) Urine Glucose (UA) Negative mg/dL (NEG) Urine Ketones (Stick) Negative mg/dL (NEG) Urine Blood Negative (NEG) Urine Nitrite Negative (NEG) Urine Bilirubin Negative (NEG) Urine Urobilinogen Dipstick 1.0 mg/dL (0.2 mg/dL) Urine Leukocyte Esterase Negative (NEG) Urine RBC 0 /HPF (0-2) Urine WBC Occ /HPF (0-4) Urine Amorphous Sediment Present /HPF Urine Bacteria Few /HPF (0-FEW) Urine Mucus Mod /LPF Assessment/Plan Assessment/Plan Pancreatic mass- with fhx of pancreatic cancer and personal history of hep b/c with IV drug use Plan Ca 19-9 level MRCP FNA with either CT guidance and/or EUS possible hep b/c anti-viral therapy if aptient can remain drug free Full note4 dictated SAMIR ALBERTS MD May 07, 2018 14:18
[2018-05-07] MEDS: hydrALAZINE 20 MG/ML VIAL. IVP PRN (15:55)
[2018-05-07 16:29] LABS: BASO % 1 % (0-3); EOS % 0 % (0-3); HEMOGLOBIN 16.2 g/dL (13.0-17.5); LYMPH # 1.9 x10^3/uL (1.0-4.8); LYMPH % 30 % (24-48); MEAN CORPUSCULAR HEMOGLOBIN 31 pg (25-35); MEAN CORPUSCULAR HGB CONC 33 g/dL (31-37); MEAN CORPUSCULAR VOLUME 93 fL (79-100); MONO # 0.7 x10^3/uL (0.0-1.1); MONO % 11 % (0-9); NEUT # 3.6 x10^3uL (1.8-7.7); NEUT % 58 % (31-73); PLATELET COUNT 254 x10^3/uL (140-400); RED BLOOD COUNT 5.28 x10^6/uL (4.30-5.70); RED CELL DISTRIBUTION WIDTH 13.5 % (11.5-14.5); WHITE BLOOD COUNT 6.1 x10^3/uL (4.0-11.0)
[2018-05-07 16:32] LABS: CALCIUM 9.2 mg/dL (8.5-10.1); CREATININE 0.8 mg/dL (0.7-1.3); GFR 123.3; POTASSIUM 3.8 mmol/L (3.5-5.1)
[2018-05-07] MEDS: ENOXAPARIN 40 MG/0.4 ML SYRINGE. SQ SCH (20:59)
--- NOTE | 2018-05-07 21:25 | CONS ---
DATE OF CONSULTATION: 05/07/2018 GASTROENTEROLOGY CONSULTATION REASON FOR CONSULTATION: Hep B, hep C, weight loss and pancreatic mass on CT scan. HISTORY OF PRESENT ILLNESS: This is a 53-year-old -[place] gentleman who past medical history is significant for long-standing heroin abuse as well as hep B, hep C and hypertension, admitted to the hospital with intractable discomfort and pain, may in fact have been going through withdrawal. It may explain his nausea and vomiting. He is also worried for the fact that his brother had pancreatic cancer and several years ago. He is a smoker as well. PAST MEDICAL HISTORY: IV drug use with heroin, hep B, hep C and chronic hypertension. ALLERGIES: IBUPROFEN. MEDICATIONS: Include hydralazine, Ativan, labetalol, nicotine, bisacodyl, lactulose, magnesium hydroxide, oxycodone and zolpidem. FAMILY AND SOCIAL HISTORY: Positive for pancreatic cancer with his brother. He is a smoker. REVIEW OF SYSTEMS: Per records. PHYSICAL EXAMINATION: GENERAL: Reveals a thin -[place] male. VITAL SIGNS: Temperature is 97, pulse 65, respiratory rate is 18 and blood pressure is 197/96. HEENT EXAMINATION: Reveals a normocephalic, atraumatic head. Pupils and extraocular muscles are not tested. Sclerae anicteric. NECK: Supple. LUNGS: Clear. CARDIOVASCULAR EXAMINATION: Reveals an S1 and S2, without S3, S4 or appreciable murmur. ABDOMEN: Examination reveals a soft abdomen with epigastric tenderness to palpation, without appreciable hepatosplenomegaly. EXTREMITIES: Examination reveals no cyanosis, clubbing or edema. LABORATORY STUDIES: Sodium 137, potassium 4.1, chloride 99, bicarb 26, BUN 16, creatinine 0.8, glucose 115 and calcium 9.4. Total bilirubin 0.5, AST of 79, ALT 139 and alkaline phosphatase 107. Total protein 8.7. Albumin 3.9. Lipase 212. Hemoglobin is 16.2, hematocrit is 49.2, white count is 6.2 and platelet count 282,000. CT scan reveals a 3-cm distal pancreatic mass with atrophy of the gland distally to this and ductal dilatation. CA 19-9 and MRCP are presently pending. IMPRESSION AND PLAN: Abdominal pain, weight loss and polypharmacy abuse, most likely is multifactorial in etiology and family history of pancreatic cancer. Pancreatic cancer in this patient certainly is possible as well as chronic hepatitis B and hep C. Therefore, recommend awaiting CA 19-9 levels and MRCP to further assess symptoms. Fine-needle aspiration with EUS and/or with CT-guided aspiration would potential be needed. SAMIR ALBERTS MD DR: JACKSON/silas JOB#: [id number] / [id number]
[2018-05-08] MEDS: ONDANSETRON PF 4 MG/2 ML VIAL. IV PRN ×2 (01:44→09:05)
[2018-05-08] MEDS: HYDROmorphone 2 MG/ML VIAL IV PRN ×2 (01:45→09:05)
[2018-05-08 01:49] VITALS: BP 164/101
[2018-05-08] MEDS: hydrALAZINE 20 MG/ML VIAL. IVP PRN ×2 (01:54→08:52)
[2018-05-08 03:18] VITALS: BP 144/83
[2018-05-08 04:22] LABS: BASO % 1 % (0-3); EOS % 0 % (0-3); HEMATOCRIT 46.9 % (39.0-53.0); HEMOGLOBIN 15.7 g/dL (13.0-17.5); LYMPH # 2.3 x10^3/uL (1.0-4.8); LYMPH % 34 % (24-48); MEAN CORPUSCULAR HEMOGLOBIN 31 pg (25-35); MEAN CORPUSCULAR HGB CONC 33 g/dL (31-37); MEAN CORPUSCULAR VOLUME 92 fL (79-100); MONO # 0.9 x10^3/uL (0.0-1.1); MONO % 13 % (0-9); NEUT # 3.5 x10^3uL (1.8-7.7); NEUT % 51 % (31-73); PLATELET COUNT 276 x10^3/uL (140-400); RED BLOOD COUNT 5.13 x10^6/uL (4.30-5.70); RED CELL DISTRIBUTION WIDTH 13.7 % (11.5-14.5); WHITE BLOOD COUNT 6.8 x10^3/uL (4.0-11.0)
[2018-05-08 04:43] LABS: ALBUMIN 3.7 g/dL (3.4-5.0); ALBUMIN/GLOBULIN RATIO 0.8 (1.0-1.7); CALCIUM 9.6 mg/dL (8.5-10.1); CREATININE 0.7 mg/dL (0.7-1.3); GFR 143.9; TOTAL BILIRUBIN 0.9 mg/dL (0.2-1.0); TOTAL PROTEIN 8.5 g/dL (6.4-8.2)
[2018-05-08 04:44] LABS: POTASSIUM 4.2 mmol/L (3.5-5.1)
[2018-05-08 07:00] VITALS: BP 175/104
[2018-05-08] MEDS: SENNOSIDES/DOCUSATE 8.6/50MG TABLET. PO SCH (08:46)
[2018-05-08] MEDS: IV NORMAL SALINE 1000ML BAG 1,000 ML IV SCH (09:04)
--- NOTE | 2018-05-08 09:46 | PDOC ---
PROGRESS NOTES History of Present Illness History of Present Illness Assessment/Plan Assessment/Plan Pancreatic mass 3.3 cm mass of the pancreas with distal pancreatic atrophy and ductal dilatation. Unintentional weight loss over the last month or 15 pounds suspicious for malignancy related weight loss History of hepatitis C History of illegal drug abuse History of tobacco abuse history of hep b/c with IV drug use elevated ca 19-9 COPD PERSISTENT NAUSEA Plan: MRI ABDOMEN TODAY admit MRCP on 05/08 pain management monitor hemodynamics further recommendation based on clinical course DVT proophylaxis: lovenox Vitals Vitals Vital Signs Date Time Temp Pulse Resp B/P (MAP) Pulse Ox O2 Delivery O2 Flow Rate FiO2 05/08/18 09:05 16 Room Air 05/08/18 08:52 79 175/104 05/08/18 07:00 99.5 94 99.5 Physical Exam Physical Exam Physical Exam Physical Exam GEN.: No apparent distress. Alert and oriented. HEENT: Head is normocephalic, atraumatic NECK: Supple. LUNGS: Clear to auscultation. HEART: RRR, S1, S2 present. Peripheral pulses intact ABDOMEN: Soft, nontender. Positive bowel sounds. EXTREMITIES: Without any cyanosis. NEUROLOGIC: Normal speech, normal tone PSYCHIATRIC: Normal affect, normal mood. SKIN: No ulcerations General: Alert, Oriented X3, Cooperative, mild distress Heart: Regular rate Lungs: Clear Abdomen: Normal bowel sounds Extremities: No clubbing, No cyanosis, No edema Skin: No significant lesion Labs LABS Laboratory Tests Test 05/07/18 15:15 05/08/18 03:15 05/08/18 03:45 White Blood Count 6.1 x10^3/uL (4.0-11.0) 6.8 x10^3/uL (4.0-11.0) Red Blood Count 5.28 x10^6/uL (4.30-5.70) 5.13 x10^6/uL (4.30-5.70) Hemoglobin 16.2 g/dL (13.0-17.5) 15.7 g/dL (13.0-17.5) Hematocrit 49.0 % (39.0-53.0) 46.9 % (39.0-53.0) Mean Corpuscular Volume 93 fL (79-100) 92 fL (79-100) Mean Corpuscular Hemoglobin 31 pg (25-35) 31 pg (25-35) Mean Corpuscular Hemoglobin Concent 33 g/dL (31-37) 33 g/dL (31-37) Red Cell Distribution Width 13.5 % (11.5-14.5) 13.7 % (11.5-14.5) Platelet Count 254 x10^3/uL (140-400) 276 x10^3/uL (140-400) Neutrophils (%) (Auto) 58 % (31-73) 51 % (31-73) Lymphocytes (%) (Auto) 30 % (24-48) 34 % (24-48) Monocytes (%) (Auto) 11 % (0-9) 13 % (0-9) Eosinophils (%) (Auto) 0 % (0-3) 0 % (0-3) Basophils (%) (Auto) 1 % (0-3) 1 % (0-3) Neutrophils # (Auto) 3.6 x10^3uL (1.8-7.7) 3.5 x10^3uL (1.8-7.7) Lymphocytes # (Auto) 1.9 x10^3/uL (1.0-4.8) 2.3 x10^3/uL (1.0-4.8) Monocytes # (Auto) 0.7 x10^3/uL (0.0-1.1) 0.9 x10^3/uL (0.0-1.1) Eosinophils # (Auto) 0.0 x10^3/uL (0.0-0.7) 0.0 x10^3/uL (0.0-0.7) Basophils # (Auto) 0.0 x10^3/uL (0.0-0.2) 0.0 x10^3/uL (0.0-0.2) Sodium Level 136 mmol/L (136-145) 132 mmol/L (136-145) Potassium Level 3.8 mmol/L (3.5-5.1) 4.2 mmol/L (3.5-5.1) Chloride Level 97 mmol/L (98-107) 98 mmol/L (98-107) Carbon Dioxide Level 28 mmol/L (21-32) 23 mmol/L (21-32) Anion Gap 11 (6-14) 11 (6-14) Blood Urea Nitrogen 6 mg/dL (8-26) 7 mg/dL (8-26) Creatinine 0.8 mg/dL (0.7-1.3) 0.7 mg/dL (0.7-1.3) Estimated GFR (Cockcroft-Gault) 123.3 143.9 Glucose Level 105 mg/dL (70-99) 113 mg/dL (70-99) Lactic Acid Level 2.2 mmol/L (0.4-2.0) Calcium Level 9.2 mg/dL (8.5-10.1) 9.6 mg/dL (8.5-10.1) Lipase 1241 U/L (73-393) BUN/Creatinine Ratio 10 (6-20) Total Bilirubin 0.9 mg/dL (0.2-1.0) Aspartate Amino Transf (AST/SGOT) 63 U/L (15-37) Alanine Aminotransferase (ALT/SGPT) 124 U/L (16-63) Alkaline Phosphatase 105 U/L (46-116) Total Protein 8.5 g/dL (6.4-8.2) Albumin 3.7 g/dL (3.4-5.0) Albumin/Globulin Ratio 0.8 (1.0-1.7) Assessment and Plan Assessmemt and Plan Problems Medical Problems: (1) Hypertension Status: Acute (2) Intractable abdominal pain Status: Acute (3) Intractable vomiting Status: Acute Comment Review of Relevant I have reviewed the following items himanshu (where applicable) has been applied. Labs Laboratory Tests Test 05/07/18 15:15 05/08/18 03:15 05/08/18 03:45 White Blood Count 6.1 x10^3/uL (4.0-11.0) 6.8 x10^3/uL (4.0-11.0) Red Blood Count 5.28 x10^6/uL (4.30-5.70) 5.13 x10^6/uL (4.30-5.70) Hemoglobin 16.2 g/dL (13.0-17.5) 15.7 g/dL (13.0-17.5) Hematocrit 49.0 % (39.0-53.0) 46.9 % (39.0-53.0) Mean Corpuscular Volume 93 fL (79-100) 92 fL (79-100) Mean Corpuscular Hemoglobin 31 pg (25-35) 31 pg (25-35) Mean Corpuscular Hemoglobin Concent 33 g/dL (31-37) 33 g/dL (31-37) Red Cell Distribution Width 13.5 % (11.5-14.5) 13.7 % (11.5-14.5) Platelet Count 254 x10^3/uL (140-400) 276 x10^3/uL (140-400) Neutrophils (%) (Auto) 58 % (31-73) 51 % (31-73) Lymphocytes (%) (Auto) 30 % (24-48) 34 % (24-48) Monocytes (%) (Auto) 11 % (0-9) 13 % (0-9) Eosinophils (%) (Auto) 0 % (0-3) 0 % (0-3) Basophils (%) (Auto) 1 % (0-3) 1 % (0-3) Neutrophils # (Auto) 3.6 x10^3uL (1.8-7.7) 3.5 x10^3uL (1.8-7.7) Lymphocytes # (Auto) 1.9 x10^3/uL (1.0-4.8) 2.3 x10^3/uL (1.0-4.8) Monocytes # (Auto) 0.7 x10^3/uL (0.0-1.1) 0.9 x10^3/uL (0.0-1.1) Eosinophils # (Auto) 0.0 x10^3/uL (0.0-0.7) 0.0 x10^3/uL (0.0-0.7) Basophils # (Auto) 0.0 x10^3/uL (0.0-0.2) 0.0 x10^3/uL (0.0-0.2) Sodium Level 136 mmol/L (136-145) 132 mmol/L (136-145) Potassium Level 3.8 mmol/L (3.5-5.1) 4.2 mmol/L (3.5-5.1) Chloride Level 97 mmol/L (98-107) 98 mmol/L (98-107) Carbon Dioxide Level 28 mmol/L (21-32) 23 mmol/L (21-32) Anion Gap 11 (6-14) 11 (6-14) Blood Urea Nitrogen 6 mg/dL (8-26) 7 mg/dL (8-26) Creatinine 0.8 mg/dL (0.7-1.3) 0.7 mg/dL (0.7-1.3) Estimated GFR (Cockcroft-Gault) 123.3 143.9 Glucose Level 105 mg/dL (70-99) 113 mg/dL (70-99) Lactic Acid Level 2.2 mmol/L (0.4-2.0) Calcium Level 9.2 mg/dL (8.5-10.1) 9.6 mg/dL (8.5-10.1) Lipase 1241 U/L (73-393) BUN/Creatinine Ratio 10 (6-20) Total Bilirubin 0.9 mg/dL (0.2-1.0) Aspartate Amino Transf (AST/SGOT) 63 U/L (15-37) Alanine Aminotransferase (ALT/SGPT) 124 U/L (16-63) Alkaline Phosphatase 105 U/L (46-116) Total Protein 8.5 g/dL (6.4-8.2) Albumin 3.7 g/dL (3.4-5.0) Albumin/Globulin Ratio 0.8 (1.0-1.7) Laboratory Tests Test 05/07/18 15:15 05/08/18 03:15 05/08/18 03:45 White Blood Count 6.1 x10^3/uL (4.0-11.0) 6.8 x10^3/uL (4.0-11.0) Red Blood Count 5.28 x10^6/uL (4.30-5.70) 5.13 x10^6/uL (4.30-5.70) Hemoglobin 16.2 g/dL (13.0-17.5) 15.7 g/dL (13.0-17.5) Hematocrit 49.0 % (39.0-53.0) 46.9 % (39.0-53.0) Mean Corpuscular Volume 93 fL (79-100) 92 fL (79-100) Mean Corpuscular Hemoglobin 31 pg (25-35) 31 pg (25-35) Mean Corpuscular Hemoglobin Concent 33 g/dL (31-37) 33 g/dL (31-37) Red Cell Distribution Width 13.5 % (11.5-14.5) 13.7 % (11.5-14.5) Platelet Count 254 x10^3/uL (140-400) 276 x10^3/uL (140-400) Neutrophils (%) (Auto) 58 % (31-73) 51 % (31-73) Lymphocytes (%) (Auto) 30 % (24-48) 34 % (24-48) Monocytes (%) (Auto) 11 % (0-9) 13 % (0-9) Eosinophils (%) (Auto) 0 % (0-3) 0 % (0-3) Basophils (%) (Auto) 1 % (0-3) 1 % (0-3) Neutrophils # (Auto) 3.6 x10^3uL (1.8-7.7) 3.5 x10^3uL (1.8-7.7) Lymphocytes # (Auto) 1.9 x10^3/uL (1.0-4.8) 2.3 x10^3/uL (1.0-4.8) Monocytes # (Auto) 0.7 x10^3/uL (0.0-1.1) 0.9 x10^3/uL (0.0-1.1) Eosinophils # (Auto) 0.0 x10^3/uL (0.0-0.7) 0.0 x10^3/uL (0.0-0.7) Basophils # (Auto) 0.0 x10^3/uL (0.0-0.2) 0.0 x10^3/uL (0.0-0.2) Sodium Level 136 mmol/L (136-145) 132 mmol/L (136-145) Potassium Level 3.8 mmol/L (3.5-5.1) 4.2 mmol/L (3.5-5.1) Chloride Level 97 mmol/L (98-107) 98 mmol/L (98-107) Carbon Dioxide Level 28 mmol/L (21-32) 23 mmol/L (21-32) Anion Gap 11 (6-14) 11 (6-14) Blood Urea Nitrogen 6 mg/dL (8-26) 7 mg/dL (8-26) Creatinine 0.8 mg/dL (0.7-1.3) 0.7 mg/dL (0.7-1.3) Estimated GFR (Cockcroft-Gault) 123.3 143.9 Glucose Level 105 mg/dL (70-99) 113 mg/dL (70-99) Lactic Acid Level 2.2 mmol/L (0.4-2.0) Calcium Level 9.2 mg/dL (8.5-10.1) 9.6 mg/dL (8.5-10.1) Lipase 1241 U/L (73-393) BUN/Creatinine Ratio 10 (6-20) Total Bilirubin 0.9 mg/dL (0.2-1.0) Aspartate Amino Transf (AST/SGOT) 63 U/L (15-37) Alanine Aminotransferase (ALT/SGPT) 124 U/L (16-63) Alkaline Phosphatase 105 U/L (46-116) Total Protein 8.5 g/dL (6.4-8.2) Albumin 3.7 g/dL (3.4-5.0) Albumin/Globulin Ratio 0.8 (1.0-1.7) Medications Current Medications Fentanyl Citrate (Fentanyl 2ml Vial) 50 mcg PRN Q15MIN PRN IV PAIN GREATER THAN 3/10 Last administered on 05/06/18at 11:18; Start 05/06/18 at 08:00; Stop 01/13 at 07:59; Status DC Sodium Chloride 1,000 ml @ 1,000 mls/hr Q1H IV Last administered on 05/06/18at 08:20; Start 05/06/18 at 08:00; Stop 05/06/18 at 08:59; Status DC Ondansetron HCl (Zofran) 4 mg 1X ONCE IV Last administered on 05/06/18at 08:19; Start 05/06/18 at 08:15; Stop 05/06/18 at 08:16; Status DC Ondansetron HCl (Zofran) 4 mg 1X ONCE IV Last administered on 05/06/18at 09:25; Start 05/06/18 at 09:30; Stop 05/06/18 at 09:31; Status DC Iohexol (Omnipaque 300 Mg/ml) 75 ml 1X ONCE IV ; Start 05/06/18 at 09:30; Stop 05/06/18 at 09:31; Status DC Info (CONTRAST GIVEN -- Rx MONITORING) 1 each PRN DAILY PRN MC SEE COMMENTS; Start 05/06/18 at 09:30; Stop 05/08/18 at 09:29; Status DC Clonidine HCl (Catapres) 0.2 mg 1X ONCE PO Last administered on 05/06/18 11:17 ; Start 05/06/18 at 11:15; Stop 05/06/18 at 11:16; Status DC Metoclopramide HCl (Reglan Vial) 10 mg 1X ONCE IV Last administered on 11:26; Start 05/06/18 at 11:30; Stop 05/06/18 at 11:31; Status DC Diphenhydramine HCl (Benadryl) 25 mg 1X ONCE IVP Last administered on 11:26; Start 05/06/18 at 11:30; Stop 05/06/18 at 11:31; Status DC Ondansetron HCl (Zofran) 4 mg PRN Q6HRS PRN IV NAUSEA/VOMITING, 1sT CHOICE Last administered on 05/08/18 09:05; Start 05/06/18 at 11:30 Zolpidem Tartrate (Ambien) 5 mg PRN QHS PRN PO INSOMNIA, MAY REPEAT IN 1HR Last administered on 05/06/18 23:16; Start 05/06/18 at 11:30 Oxycodone HCl (Roxicodone) 5 mg PRN Q3HRS PRN PO BREAKTHROUGH PAIN Last administered on 05/07/18 08:58; Start 05/06/18 at 11:30 Hydromorphone HCl (Dilaudid) 0.4 mg PRN Q1HR PRN IV PAIN Last administered on 09:05; Start 05/06/18 at 11:30 Acetaminophen (Tylenol) 650 mg PRN Q6HRS PRN PO Headaches, Temp > 101.5F; Start 05/06/18 at 11:30 Senna/Docusate Sodium (Senna Plus) 1 tab BID PO Last administered on 05/06/18 21:50; Start 05/06/18 at 21:00 Magnesium Hydroxide (Milk Of Magnesia) 2,400 mg PRN Q12HR PRN PO CONSTIPATION 1ST CHOICE; Start 05/06/18 at 11:30 Lactulose (Lactulose) 20 gm PRN Q12HR PRN PO CONSTIPATION 2ND CHOICE; Start 05/06/18 at 11:30 Bisacodyl (Dulcolax Supp) 10 mg PRN DAILY PRN AR CONSTIPATION; Start 05/06/18 at 11:30 Enoxaparin Sodium (Lovenox 40mg Syringe) 40 mg Q24H SQ Last administered on 20:59; Start 05/06/18 at 21:00 Ondansetron HCl (Zofran) 4 mg PRN Q8HRS PRN IV NAUSEA/VOMITING Last administered on 05/07/18 08:57; Start 05/06/18 at 11:45; Stop 05/07/18 at 10:35 ; Status DC Fentanyl Citrate (Fentanyl 2ml Vial) 50 mcg PRN Q1HR PRN IV PAIN Last administered on 05/07/18 04:04; Start 05/06/18 at 11:45; Stop 05/07/18 at 11:44 ; Status DC Sodium Chloride 1,000 ml @ 125 mls/hr Q8H IV Last administered on 05/07/18 07 :27; Start 05/06/18 at 11:36; Stop 05/07/18 at 11:35; Status DC Nicotine (Nicoderm Cq 21mg) 1 patch PRN DAILY PRN TD SMOKING CESSATION Last administered on 05/07/18 08:57; Start 05/06/18 at 15:30 Labetalol HCl (Normodyne Iv Push) 10 mg PRN Q4HRS PRN IVP HYPERTENSION, 1ST CHOICE Last administered on 05/07/18 21:00; Start 05/07/18 at 06:15 Lorazepam (Ativan) 0.5 mg PRN Q6HRS PRN IV ANXIETY / AGITATION Last administered on 05/07/18 21:00; Start 05/07/18 at 10:30 Prochlorperazine Maleate (Compazine) 5 mg PRN Q6HRS PRN PO NAUSEA/VOMITING, 2nd CHOICE Last administered on 2/10/19at 11:01; Start 05/07/18 at 10:30 Prochlorperazine Maleate (Compazine) 10 mg PRN Q6HRS PRN PO NAUSEA/VOMITING, 2nd CHOICE; Start 05/07/18 at 10:45 Hydralazine HCl (Apresoline Inj) 10 mg PRN Q6HRS PRN IVP ELEVATED BP, 2ND CHOICE Last administered on 05/08/18at 08:52; Start 05/07/18 at 12:15 Diphenhydramine HCl (Benadryl) 50 mg PRN Q6HRS PRN PO ITCHING; Start 05/07/18 at 14:15 Sodium Chloride 1,000 ml @ 80 mls/hr [id number] IV Last administered on at 09:04; Start 05/07/18 at 17:00 Active Scripts Active Prednisone 20 Mg Tablet 40 Mg PO DAILY Cyclobenzaprine Hcl 10 Mg Tablet 10 Mg PO TID [place] 5-325 Tablet (Acetaminophen/Hydrocodone Bitart) 1 Each Tablet 1 Tab PO PRN Q6HRS PRN Vitals/I & O Vital Sign - Last 24 Hours 05/07/18 05/07/18 05/07/18 05/07/18 11:00 12:25 14:36 15:00 Temp 98.7 98.7 98.7 98.7 Pulse 65 64 Resp 18 18 B/P (MAP) 197/96 (129) 149/73 (98) 196/112 (140) Pulse Ox 98 97 O2 Delivery Room Air Room Air Room Air 05/07/18 05/07/18 05/07/18 05/07/18 15:55 15:56 19:30 19:42 Temp 98.5 98.5 Pulse 65 83 Resp 18 B/P (MAP) 149/73 177/88 (117) Pulse Ox 98 98 O2 Delivery Room Air Room Air Room Air 05/07/18 05/07/18 05/08/18 05/08/18 20:00 21:00 01:45 01:49 Temp 98.5 98.5 Pulse 83 81 Resp 18 B/P (MAP) 177/88 164/101 (122) Pulse Ox 98 98 O2 Delivery Room Air Room Air Room Air 2/11/19 2/11/19 2/11/19 2/11/19 01:54 03:18 07:00 08:52 Temp 98.9 99.5 98.9 99.5 Pulse 81 77 79 79 Resp 20 18 B/P (MAP) 164/101 144/83 (103) 175/104 (127) 175/104 Pulse Ox 95 94 O2 Delivery Room Air Room Air 05/08/18 09:05 Resp 16 O2 Delivery Room Air Intake and Output 05/07/18 05/07/18 05/08/18 15:01 23:01 07:01 Intake Total 240 ml Output Total 500 ml Balance 240 ml -500 ml GIO HERNANDEZ MD May 08, 2018 09:46
--- NOTE | 2018-05-08 10:02 | PDOC ---
Subjective: Subjective: Awaiting MRI, some abd pain and ongoing hiccups. Objective: Vital Signs: Vital Signs Date Time Temp Pulse Resp B/P (MAP) Pulse Ox O2 Delivery O2 Flow Rate FiO2 05/08/18 09:48 18 Room Air 05/08/18 08:52 79 175/104 05/08/18 07:00 99.5 94 99.5 Labs: Laboratory Tests Test 05/07/18 15:15 05/08/18 03:15 05/08/18 03:45 White Blood Count 6.1 x10^3/uL 6.8 x10^3/uL Red Blood Count 5.28 x10^6/uL 5.13 x10^6/uL Hemoglobin 16.2 g/dL 15.7 g/dL Hematocrit 49.0 % 46.9 % Mean Corpuscular Volume 93 fL 92 fL Mean Corpuscular Hemoglobin 31 pg 31 pg Mean Corpuscular Hemoglobin Concent 33 g/dL 33 g/dL Red Cell Distribution Width 13.5 % 13.7 % Platelet Count 254 x10^3/uL 276 x10^3/uL Neutrophils (%) (Auto) 58 % 51 % Lymphocytes (%) (Auto) 30 % 34 % Monocytes (%) (Auto) 11 % 13 % Eosinophils (%) (Auto) 0 % 0 % Basophils (%) (Auto) 1 % 1 % Neutrophils # (Auto) 3.6 x10^3uL 3.5 x10^3uL Lymphocytes # (Auto) 1.9 x10^3/uL 2.3 x10^3/uL Monocytes # (Auto) 0.7 x10^3/uL 0.9 x10^3/uL Eosinophils # (Auto) 0.0 x10^3/uL 0.0 x10^3/uL Basophils # (Auto) 0.0 x10^3/uL 0.0 x10^3/uL Sodium Level 136 mmol/L 132 mmol/L Potassium Level 3.8 mmol/L 4.2 mmol/L Chloride Level 97 mmol/L 98 mmol/L Carbon Dioxide Level 28 mmol/L 23 mmol/L Anion Gap 11 11 Blood Urea Nitrogen 6 mg/dL 7 mg/dL Creatinine 0.8 mg/dL 0.7 mg/dL Estimated GFR (Cockcroft-Gault) 123.3 143.9 Glucose Level 105 mg/dL 113 mg/dL Lactic Acid Level 2.2 mmol/L Calcium Level 9.2 mg/dL 9.6 mg/dL Lipase 1241 U/L BUN/Creatinine Ratio 10 Total Bilirubin 0.9 mg/dL Aspartate Amino Transf (AST/SGOT) 63 U/L Alanine Aminotransferase (ALT/SGPT) 124 U/L Alkaline Phosphatase 105 U/L Total Protein 8.5 g/dL Albumin 3.7 g/dL Albumin/Globulin Ratio 0.8 Imaging: CT A/P 05/06 IMPRESSION: 1. There is a 3.3 cm mass of the pancreas with distal pancreatic atrophy and ductal dilatation. Nonspecific, but malignant etiology is possible. Workup is necessary. 2. Structure identified in the right lower quadrant may represent normal appendix but difficult to be certain. No definite acute findings. 3. Small hypodense lesion of the anterior liver, may just represent focal fatty deposition or possibly a small lesion such as cyst or hemangioma. In the context of pancreatic mass, however, recommend follow-up CT or MRI. 4. The above findings were discussed with Dr. Juan Monet in the emergency room at 10:02 AM on 05/06/2018. PE: GEN: slightly uncomfortable, hiccups LUNGS: CTAB HEART: RRR ABD: epigastric discomfort NEURO/PSYCH: A & O 3 A/P: Abd pain, hiccups, weight loss Elevated lipase Abnormal CT - non-specific 3.3cm pancreatic mass w/ distal pancreatic atrophy and ductal dilatation, small hypodense lesion of anterior liver (possibly cyst or hemangioma or focal fatty deposition) H/o IVDU HTN -- MRCP planned for today, await this. [id number] pending. Will check viral hepatitis serologies for confirmation/completeness, also tox screen. JESSICA HOFFMAN May 08, 2018 10:02
[2018-05-08] MEDS ORDERED: PANTOPRAZOLE IV PUSH 40 MG VIAL. IVP SCH (10:15)
[2018-05-08 10:39] LABS: BARBITURATES NEG (NEG); BENZODIAZEPINES NEG (NEG); CANNABINOIDS NEG (NEG); COCAINE NEG (NEG); METHADONE NEG (NEG)
[2018-05-08 10:43] LABS: AMPHETAMINE/METHAMPHETAMINE NEG (NEG)
[2018-05-08 10:54] LABS: PHENCYCLIDINE POS (NEG)
[2018-05-08 10:55] LABS: OPIATES POS (NEG)
[2018-05-08 11:00] VITALS: BP 155/95
--- NOTE | 2018-05-08 13:12 | NUR ---
SW following for discharge planning. Discussed with RN, RN advised pt lives with a friend. Pt having an MRI of abdomen today. SW referral states heroin history, although RN believes pt used heroin two days before coming to [facility]. SW will continue to follow.
--- NOTE | 2018-05-08 16:01 | NUR ---
Patient was reported by his friend that he had put on his jacket and left and would be right back, no staff witnessed this happen. Security was notified regarding this. Security then contacted [facility] for home check. Patient has been gone for multiple hours and is considered to have eloped.
--- NOTE | 2018-05-08 16:06 | NUR ---
SW following. Dr. Gonzalez advised pt left AMA. No further SW needs.
[2018-05-10 11:25] LABS: HCV ULTRA QUANT PCR 1170000 IU/mL (.)
== END 2018-05-08 16:00 | disposition left against medical advice (07) | DRG 439 ==
LOC: ER 07:35 → 4 NORTH 11:34
PROVIDERS: ADMIT Internal Medicine; ATTEND Internal Medicine
DX: K86.89 Other specified diseases of pancreas (principal); B18.1 Chronic viral hepatitis B without delta-agent; I10 Essential (primary) hypertension; B19.20 Unspecified viral hepatitis C without hepatic coma; G89.29 Other chronic pain; F17.200 Nicotine dependence, unspecified, uncomplicated; J44.9 Chronic obstructive pulmonary disease, unspecified; R06.6 Hiccough; R74.8 Abnormal levels of other serum enzymes; F11.10 Opioid abuse, uncomplicated; Z53.21 Procedure and treatment not carried out due to patient leaving prior to being seen by health care provider; Z88.6 Allergy status to analgesic agent; Z80.0 Family history of malignant neoplasm of digestive organs
CPT/HCPCS: 36415; 74177; 80048; 80053; 80307; 81001; 83605; 83690; 85025; 86301; 86705; 86709; 86803; 87340; 87521; 96361; 96374; 96375; 96376; C9113; J0360; J1170; J1200; J1650; J2060; J2405; J2765; J3010; J3490; J7030; Q0164; 99285-25

== ENCOUNTER 2018-05-31 17:00 | Emergency (ER) | payer OTHER ==
[~2018-05-31] VITALS: Ht 175.3 cm; Wt 65.8 kg
[2018-05-31 17:37] LABS: BILIRUBIN,URINE NEGATIVE (NEG); CLARITY,URINE CLEAR; COLOR,URINE YELLOW; NITRITE,URINE NEGATIVE (NEG); PROTEIN,URINE NEGATIVE (NEG-TRACE); UROBILINOGEN,URINE 0.2 mg/dL (0.2 mg/dL)
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
[2018-05-31 17:51] LABS: BACTERIA,URINE 0 /HPF (0-FEW); RBC,URINE 0 /HPF (0-2); SQUAMOUS EPITHELIAL CELL,UR OCC /LPF; WBC,URINE OCC /HPF (0-4)
[2018-05-31 17:52] LABS: BASO % 1 % (0-3); EOS # 0.2 x10^3/uL (0.0-0.7); EOS % 3 % (0-3); HEMATOCRIT 42.7 % (39.0-53.0); HEMOGLOBIN 14.1 g/dL (13.0-17.5); LYMPH # 1.9 x10^3/uL (1.0-4.8); LYMPH % 37 % (24-48); MEAN CORPUSCULAR HEMOGLOBIN 31 pg (25-35); MEAN CORPUSCULAR HGB CONC 33 g/dL (31-37); MEAN CORPUSCULAR VOLUME 93 fL (79-100); MONO # 0.6 x10^3/uL (0.0-1.1); MONO % 13 % (0-9); NEUT # 2.3 x10^3uL (1.8-7.7); NEUT % 47 % (31-73); PLATELET COUNT 184 x10^3/uL (140-400); RED BLOOD COUNT 4.61 x10^6/uL (4.30-5.70); RED CELL DISTRIBUTION WIDTH 14.2 % (11.5-14.5)
--- NOTE | 2018-05-31 17:55 | RAD ---
CT HEAD WO CONTRAST History: Altered mental status Comparison: 11/11/2015 Technique: Noncontrast CT imaging was performed of the head. Exposure: One or more of the following individualized dose reduction techniques were utilized for this examination: 1. Automated exposure control 2. Adjustment of the mA and/or kV according to patient size 3. Use of iterative reconstruction technique. Findings: No acute extra-axial or parenchymal hemorrhage is identified. There is no significant intra-axial mass effect, midline shift, or extra-axial fluid collection. The maradiaga-white differentiation of the major vascular territories is preserved. The ventricles, sulci, and cisterns are within normal limits in size and configuration. Mastoid air cells are aerated. There is posterior left maxillary sinus mucous retention cyst 1.8 cm. No acute calvarial abnormality is identified. Impression: 1. No acute intracranial abnormality is identified. Electronically signed by: Arnulfo Gresham MD (05/31/2018 5:52 PM) [facility]
[2018-05-31 18:02] LABS: PROTHROMBIN TIME PATIENT 13.2 SEC (11.7-14.0)
[2018-05-31 18:06] LABS: CALCIUM 9.2 mg/dL (8.5-10.1); CREATININE 0.7 mg/dL (0.7-1.3); GFR 143.9; POTASSIUM 4.1 mmol/L (3.5-5.1)
[2018-05-31 18:12] LABS: ALBUMIN 3.7 g/dL (3.4-5.0); ALBUMIN/GLOBULIN RATIO 0.9 (1.0-1.7); MAGNESIUM 2.2 mg/dL (1.8-2.4); TOTAL BILIRUBIN 0.3 mg/dL (0.2-1.0); TOTAL PROTEIN 7.7 g/dL (6.4-8.2)
[2018-05-31 18:20] LABS: SALIC 7.9 mg/dL (2.8-20.0)
[2018-05-31 18:21] LABS: ACETAMIN < 2 mcg/ml (10-30)
[2018-05-31 18:37] LABS: BARBITURATES NEG (NEG); BENZODIAZEPINES NEG (NEG); CANNABINOIDS NEG (NEG); COCAINE NEG (NEG); METHADONE NEG (NEG); OPIATES POS (NEG); PHENCYCLIDINE POS (NEG)
[2018-05-31 18:43] LABS: AMPHETAMINE/METHAMPHETAMINE NEG (NEG)
[2018-05-31 19:00] VITALS: BP 186/100
--- NOTE | 2018-05-31 19:44 | EKG ---
[facility] [address] [place] [address] Test Date: 2018-05-31 Test Time: 17:56:30 Pat Name: RUDDY CHANG Department: Room: Gender: M Law Clerk: KOMAL : 1965 Requested By: JESSICA STRICKLAND Order Number: [id number] Reading MD: Manuel Pantoja MD Measurements Intervals [place] Rate: 80 P: 56 IN: 150 QRS: 28 QRSD: 84 T: 39 QT: 342 QTc: 398 Interpretive Statements SINUS RHYTHM Electronically Signed On 06-01-2018 11:16:17 SPECIAL EDUCATION PROFESSOR by Manuel Pantoja MD
== END 2018-05-31 19:37 | disposition home or self-care (01) ==
LOC: ER 17:00
DX: R41.82 Altered mental status, unspecified (principal); F16.10 Hallucinogen abuse, uncomplicated; F19.10 Other psychoactive substance abuse, uncomplicated; Z88.8 Allergy status to other drugs, medicaments and biological substances
CPT/HCPCS: 36415; 70450; 80053; 80307; 80329; 81001; 82140; 83735; 84484; 85025; 85610; 85730; 93005; 99284; G0480; G6039

== ENCOUNTER → 2018-06-05 | Outpatient (CLI) | payer OTHER ==
[2018-05-31 19:00] VITALS: BP 186/100
[~2018-06-05] MED LIST changes: +AMLO5TAB10 PO; +CARV3.1210 PO; +DOCU-109 PO; +LISI10TA2 PO; +LORA-434 PO; +MORP15TA3 PO; +MORP30TA83 PO; +NALO25TA2 PO; +OXYC1TAB22 PO; +POLY17PO28 PO; +Pantoprazole PO
--- NOTE | 2018-06-05 09:59 | RAD ---
MRCP WO CONTRAST dated 06/05/2018 8:15 AM Indication: ABDOMINAL PAIN, ABNORMAL LABS, NO SX HX, NO PRIORS abnormal CT .. Comparison: CT dated 05/06/2018. Technique: Routine multiplanar multisequence imaging performed. Sequences performed to include thin and thick slab MRCP images in 3-D rotational reconstructed MRCP images. No contrast administered. Findings: Again noted is a masslike area of signal abnormality at the pancreatic body/tail. The lesion is hypointense in signal on T1 and heterogeneous and mildly hyperintense on T2, measuring about 4.2 cm maximum dimension. There is associated diffusion restriction. Evaluation is somewhat limited in the absence of contrast material. There is atrophy of the pancreatic tail with dilation of the distal pancreatic duct, unchanged. Minimal inflammatory stranding in the peripancreatic fat in the region. No peripancreatic fluid collection or ascites. Pancreatic head is unremarkable. The intrahepatic and extra hepatic biliary tree are normal in caliber. No filling defect or ampullary mass. The proximal pancreatic duct is normal in caliber. Gallbladder unremarkable. There multiple T2 hyperintense nodular foci within the liver show associated diffusion restriction. Largest lesion is located in the medial segment left lobe and measures 1.4 cm maximum dimension. There are at least 4 lesions in the left lobe and 6 lesions in the right lobe, most of which measure 10 mm in size or less. Spleen is normal in size. There is a T2 hyperintense focus at the midpole left kidney that measures 3.1 cm, likely cyst. Right kidney unremarkable. No hydronephrosis. Adrenal glands unremarkable. There are a few borderline enlarged lymph nodes of the arcadio hepatis and portacaval region measuring up to 12 mm short axis. There are also borderline enlarged lymph nodes at the left periaortic region and perigastric region. No apparent bony abnormality. IMPRESSION: 1. Heterogeneous mass at the pancreatic body/tail, most consistent with primary pancreatic malignancy. This is probably not significantly changed from the recent CT. There is atrophy of the pancreatic tail with dilation of the distal pancreatic duct. 2. Multiple liver lesions, indeterminate in the absence of contrast material but most consistent with metastatic disease. 3. Mild lymphadenopathy at the arcadio hepatis and retroperitoneum, reactive versus neoplastic. Electronically signed by: Cristian Collins MD (06/05/2018 9:55 AM) [facility]
== END | disposition home or self-care (01) ==
LOC: MRI 08:10
PROVIDERS: ATTEND Internal Medicine Gastroenterology
DX: K86.89 Other specified diseases of pancreas (principal); K76.89 Other specified diseases of liver; R59.0 Localized enlarged lymph nodes; R79.9 Abnormal finding of blood chemistry, unspecified
CPT/HCPCS: 74181

== ENCOUNTER 2018-06-13 09:40 | Emergency (ER) | payer OTHER ==
[~2018-06-13] VITALS: Ht 162.6 cm; Wt 63.5 kg
[~2018-06-13 09:40] MED LIST changes: -AMLO5TAB10 PO; -CARV3.1210 PO; -DOCU-109 PO; -LISI10TA2 PO; -LORA-434 PO; -MORP15TA3 PO; -MORP30TA83 PO; -NALO25TA2 PO; -OXYC1TAB22 PO; -POLY17PO28 PO; -Pantoprazole PO
[2018-06-13] MEDS ORDERED: ONDANSETRON PF 4 MG/2 ML VIAL. IV ONE (10:30)
[2018-06-13] MEDS ORDERED: IV NORMAL SALINE 1000ML BAG 1,000 ML IV ONE (10:30)
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
[2018-06-13 11:12] LABS: BASO % 1 % (0-3); EOS # 0.1 x10^3/uL (0.0-0.7); EOS % 1 % (0-3); HEMATOCRIT 44.4 % (39.0-53.0); HEMOGLOBIN 14.6 g/dL (13.0-17.5); LYMPH # 1.3 x10^3/uL (1.0-4.8); LYMPH % 19 % (24-48); MEAN CORPUSCULAR HEMOGLOBIN 31 pg (25-35); MEAN CORPUSCULAR HGB CONC 33 g/dL (31-37); MEAN CORPUSCULAR VOLUME 93 fL (79-100); MONO # 0.8 x10^3/uL (0.0-1.1); MONO % 12 % (0-9); NEUT # 4.7 x10^3uL (1.8-7.7); NEUT % 68 % (31-73); PLATELET COUNT 234 x10^3/uL (140-400); RED BLOOD COUNT 4.76 x10^6/uL (4.30-5.70); RED CELL DISTRIBUTION WIDTH 14.5 % (11.5-14.5); WHITE BLOOD COUNT 6.9 x10^3/uL (4.0-11.0)
[2018-06-13 11:17] LABS: CALCIUM 9.7 mg/dL (8.5-10.1); CREATININE 0.7 mg/dL (0.7-1.3); GFR 143.9
[2018-06-13 11:21] LABS: PROTHROMBIN TIME PATIENT 12.8 SEC (11.7-14.0)
[2018-06-13 11:25] LABS: ALBUMIN 4.1 g/dL (3.4-5.0); ALBUMIN/GLOBULIN RATIO 0.9 (1.0-1.7); TOTAL BILIRUBIN 0.5 mg/dL (0.2-1.0); TOTAL PROTEIN 8.7 g/dL (6.4-8.2)
[2018-06-13 12:25] LABS: BILIRUBIN,URINE NEGATIVE (NEG); CLARITY,URINE CLOUDY; COLOR,URINE YELLOW; NITRITE,URINE NEGATIVE (NEG); PROTEIN,URINE 30 mg/dL (NEG-TRACE)
[2018-06-13 12:28] VITALS: BP 165/79
--- NOTE | 2018-06-13 12:32 | RAD ---
EXAM: Frontal view of the chest, AP views of the abdomen in upright and supine positions. CLINICAL INDICATION: abdominal pain and vomiting COMPARISON: CT 05/06/2018. MRI 06/05/2018 FINDINGS: The heart is not enlarged. Mediastinal and hilar contours are normal. Calcified granuloma left mid-upper lung. No focal parenchymal airspace opacity. No pleural effusion or pneumothorax. No abnormal small or large bowel dilatation. Moderate colonic stool content. There is a relative absence of small bowel loops in the central upper abdomen, possibly decompressed bowel loops however soft tissue mass effect is not excluded. Soft tissue mass was not seen on recent prior abdominal MRI and therefore likely decompressed bowel loops.. No suspicious calcifications are seen. No free intraperitoneal gas. Impression: 1. No evidence for acute cardiopulmonary process 2. No evidence of bowel obstruction. Electronically signed by: Bishop Andres MD (06/13/2018 12:29 PM) [id number]
[2018-06-13 12:33] LABS: AMORPHOUS SEDIMENT,UR PRESENT /HPF; AMPHETAMINE/METHAMPHETAMINE NEG (NEG); BACTERIA,URINE FEW /HPF (0-FEW); BARBITURATES NEG (NEG); BENZODIAZEPINES NEG (NEG); CANNABINOIDS NEG (NEG); COCAINE NEG (NEG); METHADONE NEG (NEG); OPIATES POS (NEG); PHENCYCLIDINE POS (NEG); RBC,URINE 0 /HPF (0-2)
== END 2018-06-13 13:10 | disposition home or self-care (01) ==
LOC: ER 09:40
DX: R10.13 Epigastric pain (principal); R11.2 Nausea with vomiting, unspecified; Z86.19 Personal history of other infectious and parasitic diseases; Z88.8 Allergy status to other drugs, medicaments and biological substances
CPT/HCPCS: 36415; 74022; 80053; 80307; 81001; 83690; 85025; 85610; 85730; 96361; 96374; 99284; J2405; J7030

== ENCOUNTER 2018-08-05 20:18 | Inpatient (IN) | payer OTHER ==
[~2018-08-05] VITALS: Ht 162.6 cm; Wt 55.9 kg
[2018-08-05] MEDS ORDERED: MORPHINE SULFATE 10 MG/ML VIAL. IV ONE (20:30)
[2018-08-05] MEDS ORDERED: ONDANSETRON PF 4 MG/2 ML VIAL. IV ONE (20:30)
[2018-08-05] MEDS ORDERED: FAMOTIDINE 20 MG/2 ML VIAL IVP ONE (20:30)
[2018-08-05 20:57] LABS: BASO # 0.1 x10^3/uL (0.0-0.2); BASO % 1 % (0-3); EOS # 0.1 x10^3/uL (0.0-0.7); EOS % 1 % (0-3); HEMATOCRIT 44.7 % (39.0-53.0); HEMOGLOBIN 14.8 g/dL (13.0-17.5); LYMPH # 0.8 x10^3/uL (1.0-4.8); LYMPH % 10 % (24-48); MEAN CORPUSCULAR HEMOGLOBIN 30 pg (25-35); MEAN CORPUSCULAR HGB CONC 33 g/dL (31-37); MEAN CORPUSCULAR VOLUME 91 fL (79-100); MONO # 0.9 x10^3/uL (0.0-1.1); MONO % 10 % (0-9); NEUT # 6.8 x10^3uL (1.8-7.7); NEUT % 79 % (31-73); PLATELET COUNT 260 x10^3/uL (140-400); RED BLOOD COUNT 4.92 x10^6/uL (4.30-5.70); WHITE BLOOD COUNT 8.6 x10^3/uL (4.0-11.0)
[2018-08-05] MEDS ORDERED: IV NORMAL SALINE 1000ML BAG 1,000 ML IV ONE ×2 (21:00)
[2018-08-05 21:06] LABS: PROTHROMBIN TIME PATIENT 13.9 SEC (11.7-14.0)
[2018-08-05 21:09] LABS: CALCIUM 9.7 mg/dL (8.5-10.1); CREATININE 0.8 mg/dL (0.7-1.3); GFR 123.3; POTASSIUM 3.9 mmol/L (3.5-5.1)
[2018-08-05 21:14] LABS: ALBUMIN 3.9 g/dL (3.4-5.0); ALBUMIN/GLOBULIN RATIO 0.8 (1.0-1.7); TOTAL BILIRUBIN 0.9 mg/dL (0.2-1.0); TOTAL PROTEIN 8.6 g/dL (6.4-8.2)
[2018-08-05] MEDS ORDERED: CONTRAST GIVEN. MC PRN (21:30)
[2018-08-05] MEDS ORDERED: IOHEXOL 300 MG/ML 100ML VIAL. IV ONE (21:30)
[2018-08-05] MEDS ORDERED: MORPHINE SULFATE 4 MG/ML VIAL. IV PRN (21:45)
--- NOTE | 2018-08-05 21:55 | RAD ---
CT ABD PELV W/ IV CONTRST ONLY Indication: Right upper quadrant pain. Exposure: One or more of the following individualized dose reduction techniques were utilized for this examination: 1. Automated exposure control 2. Adjustment of the mA and/or kV according to patient size 3. Use of iterative reconstruction technique. Technique: Intravenous contrast was given. No oral contrast per request. COMPARISON: 05/06/2018. There is a small nodule in the anterior right lung base on image 1 measuring 3 mm. There are numerous masses throughout both lobes of the liver, measuring up to 4 cm in diameter. These have developed since prior study. Spleen is not enlarged. Limited pancreatic evaluation due to poor separation from adjacent unopacified bowel loops. However, a hypodense mass of the pancreas appears to have increased in size since the prior study, now extending all the way through the tail of the pancreas. Some of this low density could also represent severe pancreatic duct dilatation. There is very little pancreatic tissue in the body and tail. No evidence of adrenal mass. Kidneys demonstrate symmetric enhancement. There is a hypodense lesion of the upper pole of the left kidney which measures 3 cm and 9 Hounsfield units compatible with a cyst. Gallbladder is contracted without evidence of calcified stone. There is mild pericholecystic fluid. The aorta is nonaneurysmal, mildly calcified. There is very little peritoneal and retroperitoneal fat in this patient. Difficult to exclude lymph node enlargement. This also significantly compromises bowel evaluation, in addition to the lack of oral contrast. There is some stool throughout the colon, and no evidence of obstructive type distention of the small bowel. Difficult to rule out enteritis or colitis. Appendix not visualized. Urinary bladder demonstrates mild wall thickening. No obvious ascites or pneumoperitoneum. Vertebral body height and alignment are intact. There is no evidence of aggressive bone destruction. IMPRESSION: 1. Numerous hepatic lesions are now identified, most likely metastatic tumor deposits. Abscesses could be considered if there are clinical signs of infection. 2. Pancreatic mass appears to have substantially increased in size, now extends all the way through the body and tail the pancreas with very little pancreatic tissue in this area. 3. Limited abdominal and bowel evaluation due to the lack of peritoneal and retroperitoneal fat in this patient. 4. Mild urinary bladder wall thickening, possible cystitis. 5. Small 3 mm nodule right anterior lung. Nonspecific but possibly metastatic in this clinical context. 6. Findings were discussed with Dr. Castillo in the emergency room at the time of this report. Electronically signed by: Cristian Peter MD (08/05/2018 9:52 PM) [id number]
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
[2018-08-05] MEDS: IV NORMAL SALINE 1000ML BAG 1,000 ML IV SCH (23:45)
[2018-08-05 23:54] VITALS: BP 191/105
[2018-08-06] MEDS ORDERED: hydrALAZINE 20 MG/ML VIAL. IVP PRN (01:45)
[2018-08-06] MEDS: MORPHINE SULFATE 4 MG/ML VIAL. IV PRN ×5 (01:52→19:50)
--- NOTE | 2018-08-06 03:05 | NUR ---
The patient, RUDDY CHANG, 53 y/o, M admitted by JEAN PAUL BALDWIN MD, was given written information regarding hospital policies, unit procedures and contact persons. Valuables were checked and left in room with patient. Pt was oriented to room, bathroom, and call light/tv control.
--- NOTE | 2018-08-06 03:06 | NUR ---
Pt is not happy with telemetry unit. Took leads off and was refusing to put back on. I was able to get it back on and advised the importance of it. Pt doesn't feel he needs it and it's "not helping him". Advised that he can speak with the dr in the morning about the possibility of discontinuing tele. If pt decides to remove again, will contact the dr for further orders. Will continue to monitor.
[2018-08-06 03:27] VITALS: BP 154/88
[2018-08-06 04:29] LABS: BASO # 0.1 x10^3/uL (0.0-0.2); BASO % 1 % (0-3); EOS % 0 % (0-3); HEMATOCRIT 47.3 % (39.0-53.0); HEMOGLOBIN 15.6 g/dL (13.0-17.5); LYMPH % 11 % (24-48); MEAN CORPUSCULAR HEMOGLOBIN 30 pg (25-35); MEAN CORPUSCULAR HGB CONC 33 g/dL (31-37); MEAN CORPUSCULAR VOLUME 90 fL (79-100); MONO # 0.8 x10^3/uL (0.0-1.1); MONO % 9 % (0-9); NEUT % 79 % (31-73); PLATELET COUNT 268 x10^3/uL (140-400); RED BLOOD COUNT 5.23 x10^6/uL (4.30-5.70); RED CELL DISTRIBUTION WIDTH 14.2 % (11.5-14.5); WHITE BLOOD COUNT 8.8 x10^3/uL (4.0-11.0)
[2018-08-06 05:26] LABS: ALBUMIN 3.4 g/dL (3.4-5.0); ALBUMIN/GLOBULIN RATIO 0.7 (1.0-1.7); CALCIUM 9.1 mg/dL (8.5-10.1); CREATININE 0.6 mg/dL (0.7-1.3); GFR 171.9; TOTAL PROTEIN 8.3 g/dL (6.4-8.2)
[2018-08-06] MEDS: ONDANSETRON PF 4 MG/2 ML VIAL. IV PRN ×2 (05:53→13:53)
[2018-08-06] MEDS: IV NORMAL SALINE 1000ML BAG 1,000 ML IV SCH (06:40)
[2018-08-06 07:00] VITALS: BP 183/85
[2018-08-06] MEDS: FAMOTIDINE 20 MG/2 ML VIAL IVP SCH ×2 (08:42→20:32)
[2018-08-06] MEDS ORDERED: MAGNESIUM HYDROXIDE 2,400 MG/30 ML ORAL.SUSP. PO PRN (09:30)
--- NOTE | 2018-08-06 09:30 | PDOC2 ---
CONSULT Date of Consult Date of Consult DATE: 08/06/18 TIME: 09:22 Reason for Consult Reason for Consult: Abdominal pain, nausea and vomiting, pancreatic mass History of Present Illness Reason for Visit: This is a 53-year-old male who is known from previous admissions here to have a pancreatic mass in the body and tail of his pancreas which is now increased in size. It is associated with lesions in the liver that are suspicious for metastatic disease but we don't have a tissue diagnosis. His CA 199 was slightly elevated back in April. He is known to have a history of heroin use and alcohol abuse and may have underlying pancreatitis as well. Also concerning is his brother of pancreatic cancer. He also has a history of hepatitis C that is untreated and has no physician follow-up according to the patient. He presents now with recurrent abdominal pain, nausea with bilious vomiting and constipation. He is on pain medication at home. He had a MRCP in May confirming the pancreatic mass. Past Medical History Heme/Onc: Other (pancreatic mass) Hepatobiliary: Hep A/B/C (hepatitis C, chronic alcohol abuse), Other (pancreatitis and pancreatic mass) Family History Family History: Cancer (pancreatic) Social History <1 pack per day ALCOHOL: other Drugs: Heroin (reportedly in the past) Current Medications Current Medications Current Medications Famotidine (Pepcid Vial) 20 mg 1X ONCE IVP Last administered on 08/05/18at 20:46; Start 08/05/18 at 20:30; Stop 08/05/18 at 20:31; Status DC Ondansetron HCl (Zofran) 4 mg 1X ONCE IV Last administered on 08/05/18 20:46; Start 08/05/18 at 20:30; Stop 08/05/18 at 20:31; Status DC Morphine Sulfate (Morphine Sulfate) 5 mg 1X ONCE IV Last administered on 08/05 20:46; Start 08/05/18 at 20:30; Stop 08/05/18 at 20:31; Status DC Sodium Chloride 1,000 ml @ 1,000 mls/hr 1X ONCE IV Last administered on 08/05/18at 20:48; Start 08/05/18 at 21:00; Stop 08/05/18 at 21:59; Status DC Sodium Chloride 1,000 ml @ 1,000 mls/hr 1X ONCE IV Last administered on 08/05/18at 21:41; Start 08/05/18 at 21:00; Stop 08/05/18 at 21:59; Status DC Iohexol (Omnipaque 300 Mg/ml) 75 ml 1X ONCE IV Last administered on 08/05/18at 21:27; Start 08/05/18 at 21:30; Stop 08/05/18 at 21:31; Status DC Info (CONTRAST GIVEN -- Rx MONITORING) 1 each PRN DAILY PRN MC SEE COMMENTS; Start 08/05/18 at 21:30; Stop 08/07/18 at 21:29 Morphine Sulfate (Morphine Sulfate) 4 mg Q4HRS PRN IV PAIN Last administered on 08/05/18at 21:51; Start 08/05/18 at 21:45; Stop 08/05/18 at 21:57; Status DC Ondansetron HCl (Zofran) 4 mg PRN Q6HRS PRN IV NAUSEA/VOMITING 1ST CHOICE Last administered on 08/06/18 05:53; Start 08/05/18 at 21:45 Sodium Chloride 1,000 ml @ 125 mls/hr Q8H IV Last administered on 08/06/18at 0 6:40; Start 08/05/18 at 22:00; Stop 08/06/18 at 21:59 Famotidine (Pepcid Vial) 20 mg BID IVP Last administered on 08/06/18at 08:42; Start 08/06/18 at 09:00 Morphine Sulfate (Morphine Sulfate) 4 mg PRN Q4HRS PRN IV SEVERE PAIN Last administered on 08/06/18at 05:54; Start 08/05/18 at 22:00 Hydralazine HCl (Apresoline Inj) 20 mg PRN Q4HRS PRN IVP ELEVATED BP, SEE COMMENTS Last administered on 08/06/18at 01:52; Start 08/06/18 at 01:45 Active Scripts Active Prednisone 20 Mg Tablet 40 Mg PO DAILY Cyclobenzaprine Hcl 10 Mg Tablet 10 Mg PO TID [place] 5-325 Tablet (Acetaminophen/Hydrocodone Bitart) 1 Each Tablet 1 Tab PO PRN Q6HRS PRN Allergies Allergies: Coded Allergies: ibuprofen (Verified Allergy, Intermediate, rash, 11/11/15) Physical Exam General: Alert, Oriented X3, mild distress HEENT: PERRLA Lungs: Clear to auscultation Heart: Regular rate, Normal S1, Normal S2 Abdomen: Normal bowel sounds, Soft, No masses, Other (mild to moderately tender in the periumbilical region) Extremities: No clubbing, No cyanosis Psych/Mental Status: Mental status NL Vitals VITALS Vital Signs Date Time Temp Pulse Resp B/P (MAP) Pulse Ox O2 Delivery O2 Flow Rate FiO2 08/06/18 07:00 98.3 72 14 183/85 (117) 98 Room Air 98.3 Labs Labs Laboratory Tests Test 08/05/18 20:40 08/06/18 03:55 White Blood Count 8.6 x10^3/uL (4.0-11.0) 8.8 x10^3/uL (4.0-11.0) Red Blood Count 4.92 x10^6/uL (4.30-5.70) 5.23 x10^6/uL (4.30-5.70) Hemoglobin 14.8 g/dL (13.0-17.5) 15.6 g/dL (13.0-17.5) Hematocrit 44.7 % (39.0-53.0) 47.3 % (39.0-53.0) Mean Corpuscular Volume 91 fL (79-100) 90 fL (79-100) Mean Corpuscular Hemoglobin 30 pg (25-35) 30 pg (25-35) Mean Corpuscular Hemoglobin Concent 33 g/dL (31-37) 33 g/dL (31-37) Red Cell Distribution Width 14.0 % (11.5-14.5) 14.2 % (11.5-14.5) Platelet Count 260 x10^3/uL (140-400) 268 x10^3/uL (140-400) Neutrophils (%) (Auto) 79 % (31-73) 79 % (31-73) Lymphocytes (%) (Auto) 10 % (24-48) 11 % (24-48) Monocytes (%) (Auto) 10 % (0-9) 9 % (0-9) Eosinophils (%) (Auto) 1 % (0-3) 0 % (0-3) Basophils (%) (Auto) 1 % (0-3) 1 % (0-3) Neutrophils # (Auto) 6.8 x10^3uL (1.8-7.7) 7.0 x10^3uL (1.8-7.7) Lymphocytes # (Auto) 0.8 x10^3/uL (1.0-4.8) 1.0 x10^3/uL (1.0-4.8) Monocytes # (Auto) 0.9 x10^3/uL (0.0-1.1) 0.8 x10^3/uL (0.0-1.1) Eosinophils # (Auto) 0.1 x10^3/uL (0.0-0.7) 0.0 x10^3/uL (0.0-0.7) Basophils # (Auto) 0.1 x10^3/uL (0.0-0.2) 0.1 x10^3/uL (0.0-0.2) Prothrombin Time 13.9 SEC (11.7-14.0) Prothromb Time International Ratio 1.1 (0.8-1.1) Activated Partial Thromboplast Time 27 SEC (24-38) Sodium Level 132 mmol/L (136-145) 131 mmol/L (136-145) Potassium Level 3.9 mmol/L (3.5-5.1) 4.0 mmol/L (3.5-5.1) Chloride Level 94 mmol/L (98-107) 96 mmol/L (98-107) Carbon Dioxide Level 26 mmol/L (21-32) 22 mmol/L (21-32) Anion Gap 12 (6-14) 13 (6-14) Blood Urea Nitrogen 8 mg/dL (8-26) 7 mg/dL (8-26) Creatinine 0.8 mg/dL (0.7-1.3) 0.6 mg/dL (0.7-1.3) Estimated GFR (Cockcroft-Gault) 123.3 171.9 BUN/Creatinine Ratio 10 (6-20) 12 (6-20) Glucose Level 98 mg/dL (70-99) 108 mg/dL (70-99) Calcium Level 9.7 mg/dL (8.5-10.1) 9.1 mg/dL (8.5-10.1) Total Bilirubin 0.9 mg/dL (0.2-1.0) 1.0 mg/dL (0.2-1.0) Aspartate Amino Transf (AST/SGOT) 79 U/L (15-37) 65 U/L (15-37) Alanine Aminotransferase (ALT/SGPT) 80 U/L (16-63) 70 U/L (16-63) Alkaline Phosphatase 422 U/L (46-116) 393 U/L (46-116) Troponin I Quantitative < 0.017 ng/mL (0.000-0.055) Total Protein 8.6 g/dL (6.4-8.2) 8.3 g/dL (6.4-8.2) Albumin 3.9 g/dL (3.4-5.0) 3.4 g/dL (3.4-5.0) Albumin/Globulin Ratio 0.8 (1.0-1.7) 0.7 (1.0-1.7) Lipase 229 U/L (73-393) Ethyl Alcohol Level < 10 mg/dL (0-10) Laboratory Tests Test 08/05/18 20:40 08/06/18 03:55 White Blood Count 8.6 x10^3/uL (4.0-11.0) 8.8 x10^3/uL (4.0-11.0) Red Blood Count 4.92 x10^6/uL (4.30-5.70) 5.23 x10^6/uL (4.30-5.70) Hemoglobin 14.8 g/dL (13.0-17.5) 15.6 g/dL (13.0-17.5) Hematocrit 44.7 % (39.0-53.0) 47.3 % (39.0-53.0) Mean Corpuscular Volume 91 fL (79-100) 90 fL (79-100) Mean Corpuscular Hemoglobin 30 pg (25-35) 30 pg (25-35) Mean Corpuscular Hemoglobin Concent 33 g/dL (31-37) 33 g/dL (31-37) Red Cell Distribution Width 14.0 % (11.5-14.5) 14.2 % (11.5-14.5) Platelet Count 260 x10^3/uL (140-400) 268 x10^3/uL (140-400) Neutrophils (%) (Auto) 79 % (31-73) 79 % (31-73) Lymphocytes (%) (Auto) 10 % (24-48) 11 % (24-48) Monocytes (%) (Auto) 10 % (0-9) 9 % (0-9) Eosinophils (%) (Auto) 1 % (0-3) 0 % (0-3) Basophils (%) (Auto) 1 % (0-3) 1 % (0-3) Neutrophils # (Auto) 6.8 x10^3uL (1.8-7.7) 7.0 x10^3uL (1.8-7.7) Lymphocytes # (Auto) 0.8 x10^3/uL (1.0-4.8) 1.0 x10^3/uL (1.0-4.8) Monocytes # (Auto) 0.9 x10^3/uL (0.0-1.1) 0.8 x10^3/uL (0.0-1.1) Eosinophils # (Auto) 0.1 x10^3/uL (0.0-0.7) 0.0 x10^3/uL (0.0-0.7) Basophils # (Auto) 0.1 x10^3/uL (0.0-0.2) 0.1 x10^3/uL (0.0-0.2) Prothrombin Time 13.9 SEC (11.7-14.0) Prothromb Time International Ratio 1.1 (0.8-1.1) Activated Partial Thromboplast Time 27 SEC (24-38) Sodium Level 132 mmol/L (136-145) 131 mmol/L (136-145) Potassium Level 3.9 mmol/L (3.5-5.1) 4.0 mmol/L (3.5-5.1) Chloride Level 94 mmol/L (98-107) 96 mmol/L (98-107) Carbon Dioxide Level 26 mmol/L (21-32) 22 mmol/L (21-32) Anion Gap 12 (6-14) 13 (6-14) Blood Urea Nitrogen 8 mg/dL (8-26) 7 mg/dL (8-26) Creatinine 0.8 mg/dL (0.7-1.3) 0.6 mg/dL (0.7-1.3) Estimated GFR (Cockcroft-Gault) 123.3 171.9 BUN/Creatinine Ratio 10 (6-20) 12 (6-20) Glucose Level 98 mg/dL (70-99) 108 mg/dL (70-99) Calcium Level 9.7 mg/dL (8.5-10.1) 9.1 mg/dL (8.5-10.1) Total Bilirubin 0.9 mg/dL (0.2-1.0) 1.0 mg/dL (0.2-1.0) Aspartate Amino Transf (AST/SGOT) 79 U/L (15-37) 65 U/L (15-37) Alanine Aminotransferase (ALT/SGPT) 80 U/L (16-63) 70 U/L (16-63) Alkaline Phosphatase 422 U/L (46-116) 393 U/L (46-116) Troponin I Quantitative < 0.017 ng/mL (0.000-0.055) Total Protein 8.6 g/dL (6.4-8.2) 8.3 g/dL (6.4-8.2) Albumin 3.9 g/dL (3.4-5.0) 3.4 g/dL (3.4-5.0) Albumin/Globulin Ratio 0.8 (1.0-1.7) 0.7 (1.0-1.7) Lipase 229 U/L (73-393) Ethyl Alcohol Level < 10 mg/dL (0-10) Images Images CT scan with pancreatic mass and lesions in the liver likely metastatic disease to the liver Assessment/Plan Assessment/Plan Recurrent abdominal pain with nausea and vomiting. Likely related to underlying pancreatic mass and possibly ongoing alcohol use although he denies it. He does not have good follow-up and we don't have a tissue diagnosis yet. He will need chronic pain management and oncology consultation. Constipation. He can't remember the last time he had a bowel movement. This could be related to his pain medications. He has not had a colonoscopy. Pancreatic mass with lesions in the liver all suspicious for pancreatic cancer. :Plan: Repeat CA-19-9. Consider CT-guided biopsy of either the pancreatic lesion or the liver lesions to confirm a tissue diagnosis. Oncology consultation Treat constipation Treat nausea and vomiting We'll hold on further endoscopic studies at this time. CRUZ KENNEDY MD August 06, 2018 09:30
[2018-08-06] MEDS ORDERED: MAGNESIUM HYDROXIDE 2,400 MG/30 ML ORAL.SUSP. PO ONE (10:00)
[2018-08-06] MEDS ORDERED: METHYLNALTREXONE 12 MG/0.6 ML VIAL. SQ ONE (10:00)
[2018-08-06] MEDS ORDERED: LABETALOL 20 MG/4 ML DISP.SYRIN. IVP PRN (10:15)
[2018-08-06] MEDS: HYDROcodone/APAP 5/325MG 1 TAB TABLET PO PRN ×2 (10:33→23:17)
[2018-08-06] MEDS: hydrALAZINE 20 MG/ML VIAL. IVP PRN ×2 (10:58→19:51)
[2018-08-06 11:00] VITALS: BP 200/108
--- NOTE | 2018-08-06 11:13 | PDOC1 ---
History and Physical Date of Admission Date of Admission DATE: 08/06/18 TIME: 11:08 Identification/Chief Complaint Chief Complaint Abdominal pain, significant weight loss Source Source: Caregiver, Chart review, Patient History of Present Illness History of Present Illness 53-year-old -Portuguese male who does not really take any home meds, but was here April for abdominal pain and was found to have increased CA 19- 9 of 102 and a pancreatic mass in the body and head/tail. I'm unsure as to what happened he was discharged -he never followed up as outpatient. Now he comes in because of abdominal pain, nausea, vomiting. GI consulted ordered for recheck CA-19-9. I did confront the patient about 102 levels of CA-19-9 in April, I did ask him about weight loss and he said significant amount of weight loss but he could not or preferred not to elucidate to me how much. I did tell him it is concerning for cancer. I did tell him about the plan of needing a tissue biopsy and he is agreeable to it. GI has recommended CT-guided possible tissue biopsy hence I have consulted IR He does have family history of pancreatic Cancer in the brother Past Medical History Cardiovascular: No pertinent hx Pulmonary: No pertinent hx GI: No pertinent hx Heme/Onc: No pertinent hx, Other (pancreatic mass) Hepatobiliary: No pertinent hx, Hep A/B/C (hepatitis C, chronic alcohol abuse), Other (pancreatitis and pancreatic mass) Psych: No pertinent hx Rheumatologic: No pertinent hx Infectious disease: No pertinent hx ENT: No pertinent hx Renal/: No pertinent hx Endocrine: No pertinent hx Dermatology: No pertinent hx Past Surgical History Past Surgical History: No pertinent history Family History Family History: Cancer (pancreatic) Family History: Other (pancreatic cancer in the brother) Social History Smoke: <1 pack per day ALCOHOL: occassional Drugs: Heroin (reportedly in the past) Current Medications Current Medications Current Medications Famotidine (Pepcid Vial) 20 mg 1X ONCE IVP Last administered on 08/05/18at 20:46; Start 08/05/18 at 20:30; Stop 08/05/18 at 20:31; Status DC Ondansetron HCl (Zofran) 4 mg 1X ONCE IV Last administered on 08/05/18at 20:46; Start 08/05/18 at 20:30; Stop 08/05/18 at 20:31; Status DC Morphine Sulfate (Morphine Sulfate) 5 mg 1X ONCE IV Last administered on 08/05/18at 20:46; Start 08/05/18 at 20:30; Stop 08/05/18 at 20:31; Status DC Sodium Chloride 1,000 ml @ 1,000 mls/hr 1X ONCE IV Last administered on 08/05/18at 20:48; Start 08/05/18 at 21:00; Stop 08/05/18 at 21:59; Status DC Sodium Chloride 1,000 ml @ 1,000 mls/hr 1X ONCE IV Last administered on 08/05/18at 21:41; Start 08/05/18 at 21:00; Stop 08/05/18 at 21:59; Status DC Iohexol (Omnipaque 300 Mg/ml) 75 ml 1X ONCE IV Last administered on 08/05/18at 21:27; Start 08/05/18 at 21:30; Stop 08/05/18 at 21:31; Status DC Info (CONTRAST GIVEN -- Rx MONITORING) 1 each PRN DAILY PRN MC SEE COMMENTS; Start 08/05/18 at 21:30; Stop 08/07/18 at 21:29 Morphine Sulfate (Morphine Sulfate) 4 mg Q4HRS PRN IV PAIN Last administered on 08/05/18at 21:51; Start 08/05/18 at 21:45; Stop 08/05/18 at 21:57; Status DC Ondansetron HCl (Zofran) 4 mg PRN Q6HRS PRN IV NAUSEA/VOMITING 1ST CHOICE Last administered on 08/06/18at 05:53; Start 08/05/18 at 21:45 Sodium Chloride 1,000 ml @ 125 mls/hr Q8H IV Last administered on 08/06/18at 06:40; Start 08/05/18 at 22:00; Stop 08/06/18 at 10:06; Status DC Famotidine (Pepcid Vial) 20 mg BID IVP Last administered on 08/06/18at 08:42; Start 08/06/18 at 09:00 Morphine Sulfate (Morphine Sulfate) 4 mg PRN Q4HRS PRN IV SEVERE PAIN Last administered on 08/06/18at 10:29; Start 08/05/18 at 22:00 Hydralazine HCl (Apresoline Inj) 20 mg PRN Q4HRS PRN IVP ELEVATED BP, SEE C OMMENTS Last administered on 08/06/18at 01:52; Start 08/06/18 at 01:45; Stop 08/06/18 at 10:10; Status DC Methylnaltrexone [place] (Relistor) 12 mg 1X ONCE SQ Last administered on 08/06/18at 10:26; Start 08/06/18 at 10:00; Stop 08/06/18 at 10:01; Status DC Magnesium Hydroxide (Milk Of Magnesia) 2,400 mg PRN DAILY PRN PO CONSTIPATION; Start 08/06/18 at 09:30 Magnesium Hydroxide (Milk Of Magnesia) 2,400 mg 1X ONCE PO Last administered on 08/06/18at 10:26; Start 08/06/18 at 10:00; Stop 08/06/18 at 10:01; Status DC Prochlorperazine Edisylate (Compazine) 10 mg PRN Q6HRS PRN IV NAUSEA/VOMITING, 2nd CHOICE; Start 08/06/18 at 10:15 Hydralazine HCl (Apresoline Inj) 10 mg PRN Q4HRS PRN IVP ELEVATED BP, 1st CHOICE Last administered on 08/06/18at 10:58; Start 08/06/18 at 10:15 Labetalol HCl (Normodyne Iv Push) 10 mg PRN Q2HR PRN IVP HYPERTENSION, 2nd CHOICE; Start 08/06/18 at 10:15 Cyclobenzaprine HCl (Flexeril) 10 mg TID PO ; Start 08/06/18 at 14:00 Acetaminophen/ Hydrocodone Bitart (Lortab 5/325) 1 tab PRN Q6HRS PRN PO PAIN Last administered on 08/06/18at 10:33; Start 08/06/18 at 10:15 Active Scripts Active Prednisone 20 Mg Tablet 40 Mg PO DAILY Cyclobenzaprine Hcl 10 Mg Tablet 10 Mg PO TID [place] 5-325 Tablet (Acetaminophen/Hydrocodone Bitart) 1 Each Tablet 1 Tab PO PRN Q6HRS PRN Allergies Allergies: Coded Allergies: ibuprofen (Verified Allergy, Intermediate, rash, 11/11/15) ROS Review of System signif weight loss, abdominal pain, nausea-refer to history of present illness, the rest of ROS 14 point negative Physical Exam General: Alert, Oriented X3, Cooperative, No acute distress HEENT: Atraumatic, PERRLA, EOMI, Other (no jaundice, no pruritus) Lungs: Clear to auscultation, Normal air movement Heart: S1S2, RRR, no thrills, no rubs, no gallops, no murmurs Cardiovascular: S1, S2 Breasts: Normal, Rt breast nml w/o mass, Lt breast nml w/o mass, Nipples normal Abdomen: Normal bowel sounds, Soft, No tenderness, No hepatosplenomegaly, No masses Rectal Exam: not examined PELVIC: Nml ext genitalia Extremities: No clubbing, No cyanosis, No edema, Normal pulses, No tenderness/swelling Skin: No rashes, No breakdown, No significant lesion Neuro: Normal gait, Normal speech, Strength at 5/5 X4 ext, Normal tone, Sensation intact, Cranial nerves 3-12 NL, Reflexes 2+ Psych/Mental Status: Mental status NL, Mood NL Vitals Vitals Vital Signs Date Time Temp Pulse Resp B/P (MAP) Pulse Ox O2 Delivery O2 Flow Rate FiO2 08/06/18 10:58 72 183/85 08/06/18 10:33 98 Room Air 08/06/18 07:00 98.3 14 98.3 Labs Labs Laboratory Tests Test 08/05/18 20:40 08/06/18 03:55 White Blood Count 8.6 x10^3/uL (4.0-11.0) 8.8 x10^3/uL (4.0-11.0) Red Blood Count 4.92 x10^6/uL (4.30-5.70) 5.23 x10^6/uL (4.30-5.70) Hemoglobin 14.8 g/dL (13.0-17.5) 15.6 g/dL (13.0-17.5) Hematocrit 44.7 % (39.0-53.0) 47.3 % (39.0-53.0) Mean Corpuscular Volume 91 fL (79-100) 90 fL (79-100) Mean Corpuscular Hemoglobin 30 pg (25-35) 30 pg (25-35) Mean Corpuscular Hemoglobin Concent 33 g/dL (31-37) 33 g/dL (31-37) Red Cell Distribution Width 14.0 % (11.5-14.5) 14.2 % (11.5-14.5) Platelet Count 260 x10^3/uL (140-400) 268 x10^3/uL (140-400) Neutrophils (%) (Auto) 79 % (31-73) 79 % (31-73) Lymphocytes (%) (Auto) 10 % (24-48) 11 % (24-48) Monocytes (%) (Auto) 10 % (0-9) 9 % (0-9) Eosinophils (%) (Auto) 1 % (0-3) 0 % (0-3) Basophils (%) (Auto) 1 % (0-3) 1 % (0-3) Neutrophils # (Auto) 6.8 x10^3uL (1.8-7.7) 7.0 x10^3uL (1.8-7.7) Lymphocytes # (Auto) 0.8 x10^3/uL (1.0-4.8) 1.0 x10^3/uL (1.0-4.8) Monocytes # (Auto) 0.9 x10^3/uL (0.0-1.1) 0.8 x10^3/uL (0.0-1.1) Eosinophils # (Auto) 0.1 x10^3/uL (0.0-0.7) 0.0 x10^3/uL (0.0-0.7) Basophils # (Auto) 0.1 x10^3/uL (0.0-0.2) 0.1 x10^3/uL (0.0-0.2) Prothrombin Time 13.9 SEC (11.7-14.0) Prothromb Time International Ratio 1.1 (0.8-1.1) Activated Partial Thromboplast Time 27 SEC (24-38) Sodium Level 132 mmol/L (136-145) 131 mmol/L (136-145) Potassium Level 3.9 mmol/L (3.5-5.1) 4.0 mmol/L (3.5-5.1) Chloride Level 94 mmol/L (98-107) 96 mmol/L (98-107) Carbon Dioxide Level 26 mmol/L (21-32) 22 mmol/L (21-32) Anion Gap 12 (6-14) 13 (6-14) Blood Urea Nitrogen 8 mg/dL (8-26) 7 mg/dL (8-26) Creatinine 0.8 mg/dL (0.7-1.3) 0.6 mg/dL (0.7-1.3) Estimated GFR (Cockcroft-Gault) 123.3 171.9 BUN/Creatinine Ratio 10 (6-20) 12 (6-20) Glucose Level 98 mg/dL (70-99) 108 mg/dL (70-99) Calcium Level 9.7 mg/dL (8.5-10.1) 9.1 mg/dL (8.5-10.1) Total Bilirubin 0.9 mg/dL (0.2-1.0) 1.0 mg/dL (0.2-1.0) Aspartate Amino Transf (AST/SGOT) 79 U/L (15-37) 65 U/L (15-37) Alanine Aminotransferase (ALT/SGPT) 80 U/L (16-63) 70 U/L (16-63) Alkaline Phosphatase 422 U/L (46-116) 393 U/L (46-116) Troponin I Quantitative < 0.017 ng/mL (0.000-0.055) Total Protein 8.6 g/dL (6.4-8.2) 8.3 g/dL (6.4-8.2) Albumin 3.9 g/dL (3.4-5.0) 3.4 g/dL (3.4-5.0) Albumin/Globulin Ratio 0.8 (1.0-1.7) 0.7 (1.0-1.7) Lipase 229 U/L (73-393) Ethyl Alcohol Level < 10 mg/dL (0-10) Laboratory Tests Test 08/05/18 20:40 08/06/18 03:55 White Blood Count 8.6 x10^3/uL (4.0-11.0) 8.8 x10^3/uL (4.0-11.0) Red Blood Count 4.92 x10^6/uL (4.30-5.70) 5.23 x10^6/uL (4.30-5.70) Hemoglobin 14.8 g/dL (13.0-17.5) 15.6 g/dL (13.0-17.5) Hematocrit 44.7 % (39.0-53.0) 47.3 % (39.0-53.0) Mean Corpuscular Volume 91 fL (79-100) 90 fL (79-100) Mean Corpuscular Hemoglobin 30 pg (25-35) 30 pg (25-35) Mean Corpuscular Hemoglobin Concent 33 g/dL (31-37) 33 g/dL (31-37) Red Cell Distribution Width 14.0 % (11.5-14.5) 14.2 % (11.5-14.5) Platelet Count 260 x10^3/uL (140-400) 268 x10^3/uL (140-400) Neutrophils (%) (Auto) 79 % (31-73) 79 % (31-73) Lymphocytes (%) (Auto) 10 % (24-48) 11 % (24-48) Monocytes (%) (Auto) 10 % (0-9) 9 % (0-9) Eosinophils (%) (Auto) 1 % (0-3) 0 % (0-3) Basophils (%) (Auto) 1 % (0-3) 1 % (0-3) Neutrophils # (Auto) 6.8 x10^3uL (1.8-7.7) 7.0 x10^3uL (1.8-7.7) Lymphocytes # (Auto) 0.8 x10^3/uL (1.0-4.8) 1.0 x10^3/uL (1.0-4.8) Monocytes # (Auto) 0.9 x10^3/uL (0.0-1.1) 0.8 x10^3/uL (0.0-1.1) Eosinophils # (Auto) 0.1 x10^3/uL (0.0-0.7) 0.0 x10^3/uL (0.0-0.7) Basophils # (Auto) 0.1 x10^3/uL (0.0-0.2) 0.1 x10^3/uL (0.0-0.2) Prothrombin Time 13.9 SEC (11.7-14.0) Prothromb Time International Ratio 1.1 (0.8-1.1) Activated Partial Thromboplast Time 27 SEC (24-38) Sodium Level 132 mmol/L (136-145) 131 mmol/L (136-145) Potassium Level 3.9 mmol/L (3.5-5.1) 4.0 mmol/L (3.5-5.1) Chloride Level 94 mmol/L (98-107) 96 mmol/L (98-107) Carbon Dioxide Level 26 mmol/L (21-32) 22 mmol/L (21-32) Anion Gap 12 (6-14) 13 (6-14) Blood Urea Nitrogen 8 mg/dL (8-26) 7 mg/dL (8-26) Creatinine 0.8 mg/dL (0.7-1.3) 0.6 mg/dL (0.7-1.3) Estimated GFR (Cockcroft-Gault) 123.3 171.9 BUN/Creatinine Ratio 10 (6-20) 12 (6-20) Glucose Level 98 mg/dL (70-99) 108 mg/dL (70-99) Calcium Level 9.7 mg/dL (8.5-10.1) 9.1 mg/dL (8.5-10.1) Total Bilirubin 0.9 mg/dL (0.2-1.0) 1.0 mg/dL (0.2-1.0) Aspartate Amino Transf (AST/SGOT) 79 U/L (15-37) 65 U/L (15-37) Alanine Aminotransferase (ALT/SGPT) 80 U/L (16-63) 70 U/L (16-63) Alkaline Phosphatase 422 U/L (46-116) 393 U/L (46-116) Troponin I Quantitative < 0.017 ng/mL (0.000-0.055) Total Protein 8.6 g/dL (6.4-8.2) 8.3 g/dL (6.4-8.2) Albumin 3.9 g/dL (3.4-5.0) 3.4 g/dL (3.4-5.0) Albumin/Globulin Ratio 0.8 (1.0-1.7) 0.7 (1.0-1.7) Lipase 229 U/L (73-393) Ethyl Alcohol Level < 10 mg/dL (0-10) VTE Prophylaxis Ordered VTE Prophylaxis Devices: Yes VTE Pharmacological Prophylaxi: Yes Assessment/Plan Assessment/Plan Pancreatic mass in the body/tail concerning for malignancy High CA-19-9 levels-102 in April 2018 Occasional smoker Alcohol use Heroine user Plan: npo post midnight-I have consulted IR for CT-guided tissue biopsy CA-19-9 was 102 in April Follow GI/GS recommendations Discussed with him my plan of care agreeable Smoking cessation one-to-one less than 30 minutes today The same done for alcohol JEAN PAUL BALDWIN MD August 06, 2018 11:13
[2018-08-06] MEDS ORDERED: NICOTINE 21MG PATCH. TD PRN (11:15)
[2018-08-06 15:00] VITALS: BP 186/96
[2018-08-06] MEDS: CYCLOBENZAPRINE 10 MG TABLET. PO SCH ×2 (15:47→20:32)
--- NOTE | 2018-08-06 15:55 | EKG ---
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
[2018-08-06 19:33] VITALS: BP 186/101
[2018-08-06 23:21] VITALS: BP 167/98
[2018-08-07] VITALS (18 sets, daily range): BP systolic 131–173; BP diastolic 81–106
[2018-08-07] MEDS: PROCHLORPERAZINE 10 MG/2 ML VIAL. IV PRN ×2 (00:36→08:14)
[2018-08-07] MEDS: MORPHINE SULFATE 4 MG/ML VIAL. IV PRN ×3 (00:37→12:15)
[2018-08-07] MEDS: hydrALAZINE 20 MG/ML VIAL. IVP PRN (04:06)
[2018-08-07] MEDS: ONDANSETRON PF 4 MG/2 ML VIAL. IV PRN (05:38)
[2018-08-07] MEDS: HYDROcodone/APAP 5/325MG 1 TAB TABLET PO PRN ×2 (05:38→16:36)
--- NOTE | 2018-08-07 07:32 | NUR ---
Patient transferred to room 517 for med-surg. civil engineer helper RN gave report. Patient transferred via wheelchair, made comfortable in room.
--- NOTE | 2018-08-07 07:48 | PDOC ---
GI PROGRESS NOTES Date Date/Time DATE: 08/07/18 TIME: 07:45 Subjective Subjective Patient complaining of insomnia and would like Benadryl ordered. Pain is present but managed with pain medications. Awaiting interventional radiology consultation regarding biopsy Objective Vitals Vital Signs Date Time Temp Pulse Resp B/P (MAP) Pulse Ox O2 Delivery O2 Flow Rate FiO2 08/07/18 06:42 Room Air 08/07/18 05:38 Room Air 08/07/18 05:38 Room Air 08/07/18 05:03 Room Air 08/07/18 04:06 99 173/103 08/07/18 03:48 99.3 99 20 173/103 (126) 99 Room Air 99.3 08/07/18 00:37 Room Air 08/06/18 23:21 98.6 91 18 167/98 (121) 97 Room Air 98.6 08/06/18 23:17 Room Air 08/06/18 19:51 71 186/101 08/06/18 19:50 Room Air 08/06/18 19:33 99.5 71 20 186/101 (129) 100 Room Air 99.5 08/06/18 19:30 Room Air 08/06/18 15:48 99 Room Air 08/06/18 15:00 98.8 71 14 186/96 (126) 99 Room Air 98.8 08/06/18 11:00 98.2 71 14 200/108 (138) 98 Room Air 98.2 08/06/18 10:58 72 183/85 08/06/18 10:33 98 Room Air 08/06/18 10:29 98 Room Air 08/06/18 08:00 Room Air Physical Exam Physical Exam Alert thin Chest clear Abdomen soft mildly tender no masses appreciated Assessment Assessment Pancreatic mass with possible liver metastases. We are awaiting tissue diagnosis to allow treatment options and management decisions. Have asked interventional radiology to consider biopsy Abdominal pain from pancreatic mass and prior pancreatitis. Continue pain management. CRUZ KENNEDY MD August 07, 2018 07:48
[2018-08-07] MEDS: CYCLOBENZAPRINE 10 MG TABLET. PO SCH ×3 (08:14→20:53)
[2018-08-07] MEDS: FAMOTIDINE 20 MG/2 ML VIAL IVP SCH ×2 (08:14→20:53)
[2018-08-07] MEDS ORDERED: ZOLPIDEM 5 MG TABLET. PO PRN (09:15)
[2018-08-07] MEDS ORDERED: LIDOCAINE WITH 8.4% SOD BICARB 3 ML DISP.SYRIN. ONE (09:24)
[2018-08-07] MEDS ORDERED: GELATIN SPONGE SIZE 12-7MM SPONGE. ONE (09:24)
[2018-08-07] MEDS ORDERED: fentaNYL PF VIAL 100 MCG/2 ML VIAL IV ONE (10:15)
[2018-08-07] MEDS ORDERED: MIDAZOLAM HCL/PF 2 MG/2 ML VIAL. IV ONE (10:15)
[2018-08-07] MEDS ORDERED: LIDOCAINE WITH 8.4% SOD BICARB 3 ML DISP.SYRIN. IJ ONE (10:15)
[2018-08-07] MEDS ORDERED: GELATIN SPONGE SIZE 12-7MM SPONGE. TP ONE (10:15)
[2018-08-07] MEDS ORDERED: ENALAPRILAT 1.25 MG/ML VIAL. IVP ONE (10:30)
[2018-08-07] MEDS ORDERED: amLODIPine BESYLATE 5 MG TABLET PO ONE (10:45)
--- NOTE | 2018-08-07 10:45 | NUR ---
post liver bx- report called to D[facility] TABAR[facility] room 517- pt's b/p is elevated and will need to be medicated to keep SB/p around 150 or less.
[2018-08-07] MEDS ORDERED: fentaNYL PF VIAL 100 MCG/2 ML VIAL ONE (12:32)
[2018-08-07] MEDS ORDERED: MIDAZOLAM HCL/PF 2 MG/2 ML VIAL. ONE (12:32)
[2018-08-07] MEDS ORDERED: diphenhydrAMINE 50 MG/ML VIAL IVP PRN (14:15)
[2018-08-07] MEDS ORDERED: KETOROLAC 30 MG/ML VIAL. IV ONE (14:15)
[2018-08-07] MEDS ORDERED: diphenhydrAMINE 50 MG/ML VIAL IVP ONE (14:15)
--- NOTE | 2018-08-07 14:42 | PDOC ---
PROGRESS NOTES Chief Complaint Chief Complaint acute abdominal pain Pancreatic mass in the body/tail concerning for malignancy High CA-19-9 levels-102 in April 2018 Occasional smoker polysubstance abuse history History of Present Illness History of Present Illness biopsy today bp control, 2 meds given, try to DC on norvasc only pain an issue, Vitals Vitals Vital Signs Date Time Temp Pulse Resp B/P (MAP) Pulse Ox O2 Delivery O2 Flow Rate FiO2 08/07/18 13:00 88 16 160/97 (118) 97 08/07/18 12:15 Room Air 08/07/18 12:09 98.9 98.9 08/07/18 10:30 2.0 Physical Exam General: Alert, Oriented X3, Cooperative, No acute distress Heart: Regular rate, Normal S1, Normal S2 Lungs: Clear Abdomen: Normal bowel sounds, Soft, No tenderness, No hepatosplenomegaly, No masses Extremities: No clubbing, No cyanosis, No edema, Normal pulses, No tenderness/swelling Skin: No rashes, No breakdown, No significant lesion Review of Systems Review of Systems abd pain nausea insomnia Comment Review of Relevant I have reviewed the following items himanshu (where applicable) has been applied. Labs Laboratory Tests Test 08/05/18 20:40 08/06/18 03:55 White Blood Count 8.6 x10^3/uL (4.0-11.0) 8.8 x10^3/uL (4.0-11.0) Red Blood Count 4.92 x10^6/uL (4.30-5.70) 5.23 x10^6/uL (4.30-5.70) Hemoglobin 14.8 g/dL (13.0-17.5) 15.6 g/dL (13.0-17.5) Hematocrit 44.7 % (39.0-53.0) 47.3 % (39.0-53.0) Mean Corpuscular Volume 91 fL (79-100) 90 fL (79-100) Mean Corpuscular Hemoglobin 30 pg (25-35) 30 pg (25-35) Mean Corpuscular Hemoglobin Concent 33 g/dL (31-37) 33 g/dL (31-37) Red Cell Distribution Width 14.0 % (11.5-14.5) 14.2 % (11.5-14.5) Platelet Count 260 x10^3/uL (140-400) 268 x10^3/uL (140-400) Neutrophils (%) (Auto) 79 % (31-73) 79 % (31-73) Lymphocytes (%) (Auto) 10 % (24-48) 11 % (24-48) Monocytes (%) (Auto) 10 % (0-9) 9 % (0-9) Eosinophils (%) (Auto) 1 % (0-3) 0 % (0-3) Basophils (%) (Auto) 1 % (0-3) 1 % (0-3) Neutrophils # (Auto) 6.8 x10^3uL (1.8-7.7) 7.0 x10^3uL (1.8-7.7) Lymphocytes # (Auto) 0.8 x10^3/uL (1.0-4.8) 1.0 x10^3/uL (1.0-4.8) Monocytes # (Auto) 0.9 x10^3/uL (0.0-1.1) 0.8 x10^3/uL (0.0-1.1) Eosinophils # (Auto) 0.1 x10^3/uL (0.0-0.7) 0.0 x10^3/uL (0.0-0.7) Basophils # (Auto) 0.1 x10^3/uL (0.0-0.2) 0.1 x10^3/uL (0.0-0.2) Prothrombin Time 13.9 SEC (11.7-14.0) Prothromb Time International Ratio 1.1 (0.8-1.1) Activated Partial Thromboplast Time 27 SEC (24-38) Sodium Level 132 mmol/L (136-145) 131 mmol/L (136-145) Potassium Level 3.9 mmol/L (3.5-5.1) 4.0 mmol/L (3.5-5.1) Chloride Level 94 mmol/L (98-107) 96 mmol/L (98-107) Carbon Dioxide Level 26 mmol/L (21-32) 22 mmol/L (21-32) Anion Gap 12 (6-14) 13 (6-14) Blood Urea Nitrogen 8 mg/dL (8-26) 7 mg/dL (8-26) Creatinine 0.8 mg/dL (0.7-1.3) 0.6 mg/dL (0.7-1.3) Estimated GFR (Cockcroft-Gault) 123.3 171.9 BUN/Creatinine Ratio 10 (6-20) 12 (6-20) Glucose Level 98 mg/dL (70-99) 108 mg/dL (70-99) Calcium Level 9.7 mg/dL (8.5-10.1) 9.1 mg/dL (8.5-10.1) Total Bilirubin 0.9 mg/dL (0.2-1.0) 1.0 mg/dL (0.2-1.0) Aspartate Amino Transf (AST/SGOT) 79 U/L (15-37) 65 U/L (15-37) Alanine Aminotransferase (ALT/SGPT) 80 U/L (16-63) 70 U/L (16-63) Alkaline Phosphatase 422 U/L (46-116) 393 U/L (46-116) Troponin I Quantitative < 0.017 ng/mL (0.000-0.055) Total Protein 8.6 g/dL (6.4-8.2) 8.3 g/dL (6.4-8.2) Albumin 3.9 g/dL (3.4-5.0) 3.4 g/dL (3.4-5.0) Albumin/Globulin Ratio 0.8 (1.0-1.7) 0.7 (1.0-1.7) Lipase 229 U/L (73-393) Ethyl Alcohol Level < 10 mg/dL (0-10) Medications Current Medications Famotidine (Pepcid Vial) 20 mg 1X ONCE IVP Last administered on 08/05/18at 20:46; Start 08/05/18 at 20:30; Stop 08/05/18 at 20:31; Status DC Ondansetron HCl (Zofran) 4 mg 1X ONCE IV Last administered on 08/05/18at 20:46; Start 08/05/18 at 20:30; Stop 08/05/18 at 20:31; Status DC Morphine Sulfate (Morphine Sulfate) 5 mg 1X ONCE IV Last administered on 08/05/18at 20:46; Start 08/05/18 at 20:30; Stop 08/05/18 at 20:31; Status DC Sodium Chloride 1,000 ml @ 1,000 mls/hr 1X ONCE IV Last administered on 08/05/18at 20:48; Start 08/05/18 at 21:00; Stop 08/05/18 at 21:59; Status DC Sodium Chloride 1,000 ml @ 1,000 mls/hr 1X ONCE IV Last administered on 08/05/18at 21:41; Start 08/05/18 at 21:00; Stop 08/05/18 at 21:59; Status DC Iohexol (Omnipaque 300 Mg/ml) 75 ml 1X ONCE IV Last administered on 08/05/18at 21:27; Start 08/05/18 at 21:30; Stop 08/05/18 at 21:31; Status DC Info (CONTRAST GIVEN -- Rx MONITORING) 1 each PRN DAILY PRN MC SEE COMMENTS; Start 08/05/18 at 21:30; Stop 08/07/18 at 21:29 Morphine Sulfate (Morphine Sulfate) 4 mg Q4HRS PRN IV PAIN Last administered on 08/05/18at 21:51; Start 08/05/18 at 21:45; Stop 08/05/18 at 21:57; Status DC Ondansetron HCl (Zofran) 4 mg PRN Q6HRS PRN IV NAUSEA/VOMITING 1ST CHOICE Last administered on 08/07/18at 05:38; Start 08/05/18 at 21:45 Sodium Chloride 1,000 ml @ 125 mls/hr Q8H IV Last administered on 08/06/18at 06:40; Start 08/05/18 at 22:00; Stop 08/06/18 at 10:06; Status DC Famotidine (Pepcid Vial) 20 mg BID IVP Last administered on 08/07/18at 08:14; Start 08/06/18 at 09:00 Morphine Sulfate (Morphine Sulfate) 4 mg PRN Q4HRS PRN IV SEVERE PAIN Last administered on 08/07/18at 12:15; Start 08/05/18 at 22:00; Stop 08/07/18 at 14:10; Status DC Hydralazine HCl (Apresoline Inj) 20 mg PRN Q4HRS PRN IVP ELEVATED BP, SEE COMMENTS Last administered on 08/06/18at 01:52; Start 08/06/18 at 01:45; Stop 08/06/18 at 10:10; Status DC Methylnaltrexone [place] (Relistor) 12 mg 1X ONCE SQ Last administered on 08/06/18at 10:26; Start 08/06/18 at 10:00; Stop 08/06/18 at 10:01; Status DC Magnesium Hydroxide (Milk Of Magnesia) 2,400 mg PRN DAILY PRN PO CONSTIPATION; Start 08/06/18 at 09:30 Magnesium Hydroxide (Milk Of Magnesia) 2,400 mg 1X ONCE PO Last administered on 08/06/18at 10:26; Start 08/06/18 at 10:00; Stop 08/06/18 at 10:01; Status DC Prochlorperazine Edisylate (Compazine) 10 mg PRN Q6HRS PRN IV NAUSEA/VOMITING, 2nd CHOICE Last administered on 08/07/18at 08:14; Start 08/06/18 at 10:15 Hydralazine HCl (Apresoline Inj) 10 mg PRN Q4HRS PRN IVP ELEVATED BP, 1st CHOICE Last administered on 08/07/18at 04:06; Start 08/06/18 at 10:15 Labetalol HCl (Normodyne Iv Push) 10 mg PRN Q2HR PRN IVP HYPERTENSION, 2nd CHOICE; Start 08/06/18 at 10:15 Cyclobenzaprine HCl (Flexeril) 10 mg TID PO Last administered on 08/07/18at 08:14; Start 08/06/18 at 14:00 Acetaminophen/ Hydrocodone Bitart (Lortab 5/325) 1 tab PRN Q6HRS PRN PO PAIN Last administered on 08/07/18at 05:38; Start 08/06/18 at 10:15; Stop 08/07/18 at 14:10; Status DC Nicotine (Nicoderm Cq 21mg) 1 patch PRN DAILY PRN TD SMOKING CESSATION; Start 08/06/18 at 11:15 Diphenhydramine HCl (Benadryl) 25 mg PRN QHS PRN PO INSOMNIA, 1ST CHOICE; Start 08/07/18 at 07:45 Diphenhydramine HCl (Benadryl) 25 mg PRN Q6HRS PRN PO ITCHING; Start 08/07/18 at 09:15 Zolpidem Tartrate (Ambien) 5 mg PRN QHS PRN PO INSOMNIA, 2ND CHOICE; Start 08/07/18 at 09:15 Lidocaine/Sodium Bicarbonate (Buffered Lidocaine 1%) 3 ml STK-MED ONCE .ROUTE ; Start 08/07/18 at 09:24; Stop 08/07/18 at 09:25; Status DC Gelatin (Gelfoam Size 12-7mm) 1 each STK-MED ONCE .ROUTE ; Start 08/07/18 at 09:24; Stop 08/07/18 at 09:25; Status DC Lidocaine/Sodium Bicarbonate (Buffered Lidocaine 1%) 3 ml 1X ONCE IJ Last administered on 08/07/18at 10:29; Start 08/07/18 at 10:15; Stop 08/07/18 at 10:16; Status DC Midazolam HCl (Versed) 2 mg 1X ONCE IV Last administered on 08/07/18at 10:30; Start 08/07/18 at 10:15; Stop 08/07/18 at 10:16; Status DC Fentanyl Citrate (Fentanyl 2ml Vial) 100 mcg 1X ONCE IV Last administered on 08/07/18at 10:30; Start 08/07/18 at 10:15; Stop 08/07/18 at 10:16; Status DC Gelatin (Gelfoam Size 12-7mm) 1 each 1X ONCE TP Last administered on 08/07/18at 10:30; Start 08/07/18 at 10:15; Stop 08/07/18 at 10:16; Status DC Enalaprilat (Vasotec Inj) 1.25 mg 1X ONCE IVP Last administered on 08/07/18at 10:59; Start 08/07/18 at 10:30; Stop 08/07/18 at 10:34; Status DC Amlodipine Besylate (Norvasc) 5 mg 1X ONCE PO Last administered on 08/07/18at 10:58; Start 08/07/18 at 10:45; Stop 08/07/18 at 10:46; Status DC Amlodipine Besylate (Norvasc) 5 mg DAILY PO ; Start 08/08/18 at 09:00 Midazolam HCl (Versed) 2 mg STK-MED ONCE .ROUTE ; Start 08/07/18 at 12:32; Stop 08/07/18 at 12:33; Status DC Fentanyl Citrate (Fentanyl 2ml Vial) 100 mcg STK-MED ONCE .ROUTE ; Start 08/07/18 at 12:32; Stop 08/07/18 at 12:33; Status DC Acetaminophen/ Hydrocodone Bitart (Lortab 5/325) 2 tab PRN Q6HRS PRN PO PAIN; Start 08/07/18 at 14:15 Diphenhydramine HCl (Benadryl) 25 mg PRN Q6HRS PRN IVP ITCHING; Start 08/07/18 at 14:15 Diphenhydramine HCl (Benadryl) 50 mg 1X ONCE IVP ; Start 08/07/18 at 14:15; Stop 08/07/18 at 14:16; Status DC Hydromorphone HCl (Dilaudid) 1 mg PRN Q4HRS PRN IVP PAIN; Start 08/07/18 at 14:15 Ketorolac Tromethamine (Toradol 30mg Vial) 30 mg 1X ONCE IV ; Start 08/07/18 at 14:15; Stop 08/07/18 at 14:16; Status DC Active Scripts Active Prednisone 20 Mg Tablet 40 Mg PO DAILY Cyclobenzaprine Hcl 10 Mg Tablet 10 Mg PO TID [place] 5-325 Tablet (Acetaminophen/Hydrocodone Bitart) 1 Each Tablet 1 Tab PO PRN Q6HRS PRN Vitals/I & O Vital Sign - Last 24 Hours 08/06/18 08/06/18 08/06/18 08/06/18 15:00 15:48 19:30 19:33 Temp 98.8 99.5 98.8 99.5 Pulse 71 71 Resp 14 20 B/P (MAP) 186/96 (126) 186/101 (129) Pulse Ox 99 99 100 O2 Delivery Room Air Room Air Room Air Room Air 08/06/18 08/06/18 08/06/18 08/06/18 19:50 19:51 23:17 23:21 Temp 98.6 98.6 Pulse 71 91 Resp 18 B/P (MAP) 186/101 167/98 (121) Pulse Ox 97 O2 Delivery Room Air Room Air Room Air 08/07/18 08/07/18 08/07/18 08/07/18 00:37 03:48 04:06 05:03 Temp 99.3 99.3 Pulse 99 99 Resp 20 B/P (MAP) 173/103 (126) 173/103 Pulse Ox 99 O2 Delivery Room Air Room Air Room Air 08/07/18 08/07/18 08/07/18 08/07/18 05:38 05:38 06:42 07:15 Temp 98.9 98.9 Pulse 90 Resp 16 B/P (MAP) 159/91 (113) Pulse Ox 98 O2 Delivery Room Air Room Air Room Air Room Air 08/07/18 08/07/18 08/07/18 08/07/18 08:00 10:07 10:12 10:17 Pulse 90 94 95 Resp 22 19 16 Pulse Ox 99 97 97 O2 Delivery Room Air Nasal Cannula Nasal Cannula Nasal Cannula O2 Flow Rate 2.0 2.0 2.0 08/07/18 08/07/18 08/07/18 08/07/18 10:22 10:27 10:30 10:40 Temp 98.4 98.4 Pulse 89 93 90 Resp 14 16 16 14 B/P (MAP) 162/106 (124) Pulse Ox 98 97 97 97 O2 Delivery Nasal Cannula Nasal Cannula Nasal Cannula Room Air O2 Flow Rate 2.0 2.0 2.0 08/07/18 08/07/18 08/07/18 08/07/18 10:58 10:59 10:59 11:15 Pulse 95 90 90 93 Resp 16 16 B/P (MAP) 150/105 150/105 150/105 (120) 169/106 (127) Pulse Ox 97 97 O2 Delivery Room Air Room Air 08/07/18 08/07/18 08/07/18 08/07/18 11:29 11:45 12:09 12:15 Temp 98.9 98.9 Pulse 87 94 100 Resp 16 16 18 B/P (MAP) 148/85 (106) 131/81 (98) 133/85 (101) Pulse Ox 98 98 96 O2 Delivery Room Air Room Air Room Air Room Air 08/07/18 13:00 Pulse 88 Resp 16 B/P (MAP) 160/97 (118) Pulse Ox 97 Intake and Output 08/06/18 08/06/18 08/07/18 14:59 22:59 06:59 Intake Total 0 ml Output Total 400 ml 850 ml Balance -400 ml -850 ml SOL CERVANTES MD August 07, 2018 14:42
[2018-08-07] MEDS: HYDROmorphone 2 MG/ML VIAL IVP PRN ×2 (14:55→20:02)
--- NOTE | 2018-08-07 14:59 | NUR ---
SW following pt for anticipated dc needs. Chart reviewed. Pt lives at home with family. No dc recommendation or SW needs noted at this time. Will continue to follow.
[2018-08-07] MEDS: ENALAPRILAT 2.5 MG/2 ML VIAL. IVP PRN (20:01)
[2018-08-08] MEDS: ONDANSETRON PF 4 MG/2 ML VIAL. IV PRN (01:31)
[2018-08-08] MEDS: HYDROcodone/APAP 5/325MG 1 TAB TABLET PO PRN ×2 (01:36→08:28)
[2018-08-08 03:00] VITALS: BP 171/110
[2018-08-08] MEDS: ENALAPRILAT 2.5 MG/2 ML VIAL. IVP PRN ×2 (03:17→08:29)
--- NOTE | 2018-08-08 04:54 | CONS ---
DATE OF CONSULTATION: 08/07/2018 REQUESTING PHYSICIAN: Dr. Karen Ferrera. REASON FOR CONSULTATION: Pancreatic mass. HISTORY OF PRESENT ILLNESS: The patient is a 53-year-old -[place] gentleman who was admitted to [facility] on 08/05/2018 with complaints of abdominal pain, nausea and vomiting. He also reports a 20-pound weight loss. He was admitted to [facility] in 04/2018 and he had a CA 19-9 was elevated at 102. He underwent CT scan of the abdomen and pelvis on 05/06/2018 which revealed a 3.3 cm mass of the pancreas with distal pancreatic atrophy and ductal dilatation. Small hypodense lesion in the anterior liver was also noted. GI was consulted and he underwent MRCP on 06/05/2018, which revealed heterogenous mass at the pancreatic body/tail which is most consistent with primary pancreatic malignancy. Multiple liver lesions are indeterminate. Mild lymphadenopathy in the arcadio hepatis and retroperitoneum could be reactive versus metastatic disease. CT scan of the abdomen and pelvis with IV contrast on 08/05/2018 revealed numerous hepatic lesions are now identified throughout both lobes of the liver measuring up to 4 cm in diameter. A hypodense mass in the pancreas appears to have increased in size extending all the way to the tail of the pancreas. GI was consulted and the patient underwent liver biopsy on 08/07/2018 and the results are pending. PAST MEDICAL HISTORY: Hepatitis C, chronic alcohol abuse, pancreatitis. FAMILY HISTORY: Brother of pancreatic cancer. SOCIAL HISTORY: He has history of heavy alcohol use that he quit in 2017. He also has history of heroin use in the past. He used to smoke less than a pack a day that he quit in 2017. REVIEW OF SYSTEMS: A 12-point review of system was performed. Pertinent positives are mentioned in the history of present illness. Rest of the system review is negative. PHYSICAL EXAMINATION: GENERAL APPEARANCE: The patient is a 53-year-old -[place] gentleman who is in no acute cardiorespiratory distress. VITAL SIGNS: Blood pressure 161/104, temperature 98.9, heart rate 93, respiratory rate 18. HEENT: Atraumatic, normocephalic. EYES: No icterus. NECK: Supple. CHEST: Bilaterally symmetrical. No crepitations or rhonchi heard. HEART: S1, S2 normal. ABDOMEN: Soft, nontender. CENTRAL NERVOUS SYSTEM: No focal neurological deficits. LYMPHATICS: No lymphadenopathy. SKIN: No rashes. PSYCHOLOGIC: Mood and affect are appropriate. MUSCULOSKELETAL: No joint effusions. LABORATORY DATA: WBC 8.8, hemoglobin 15.6, platelet count 268. Creatinine 0.6, AST 65, ALT 70, alkaline phosphatase 393. Total protein 8.3, albumin 3.4. CA 19-9 was 102 on 05/07/2018. IMPRESSION AND PLAN: 1. Pancreatic mass with multiple liver lesions is concerning for primary pancreatic malignancy with liver metastasis. He has already had a biopsy of the liver on 08/07/2018. I will follow up on the results. CA 19-9 is pending. I discussed with the patient's the clinical concern for primary pancreatic cancer and liver metastasis. If it is confirmed, then he would need palliative chemotherapy. 2. Hepatitis C. Continue management per Gastroenterology. 3. Elevated liver function tests due to liver metastasis. 4. I will also plan for a staging CT chest and bone scan tomorrow. NELSON MORRISSEY MD DR: ANSON/silas JOB#: [id number] / [id number]
[2018-08-08] MEDS: HYDROmorphone 2 MG/ML VIAL IVP PRN ×4 (05:58→19:05)
[2018-08-08] MEDS: diphenhydrAMINE HCL 25 MG CAPSULE PO PRN ×4 (06:16→19:04)
[2018-08-08 07:00] VITALS: BP 167/110
[2018-08-08] MEDS: amLODIPine BESYLATE 5 MG TABLET PO SCH (08:28)
[2018-08-08] MEDS: CYCLOBENZAPRINE 10 MG TABLET. PO SCH ×3 (08:28→21:10)
--- NOTE | 2018-08-08 08:28 | PDOC ---
PROGRESS NOTES Subjective Subjective HPI - f/u of Pancreatic mass with multiple liver lesions is concerning for primary pancreatic malignancy with liver metastasis ROS - has abd pain Objective Objective Vital Signs Date Time Temp Pulse Resp B/P (MAP) Pulse Ox O2 Delivery O2 Flow Rate FiO2 08/08/18 05:58 16 97 Room Air 08/08/18 03:17 83 171/110 08/08/18 03:00 98.7 98.7 08/07/18 10:30 2.0 Intake and Output 08/08/18 06:59 Intake Total 580 ml Balance 580 ml Intake Oral 580 ml # Voids 4 Physical Exam General: Alert, Oriented X3, No acute distress HEENT: Atraumatic, EOMI MUSCULOSKELETAL: No deformity Neck: Supple Neuro: Normal speech Psych/Mental Status: Mental status NL Assessment Assessment IMPRESSION AND PLAN: 1. Pancreatic mass with multiple liver lesions is concerning for primary pancreatic malignancy with liver metastasis. He has already had a biopsy of the liver on 08/07/2018. I will follow up on the results. CA 19-9 is pending. I will order CT chest and bone scan. 2. Hepatitis C. Continue management per Gastroenterology. 3. Elevated liver function tests due to liver metastasis. Comment Review of Relevant I have reviewed the following items himanshu (where applicable) has been applied. Medications Current Medications Famotidine (Pepcid Vial) 20 mg 1X ONCE IVP Last administered on 08/05/18at 20:46; Start 08/05/18 at 20:30; Stop 08/05/18 at 20:31; Status DC Ondansetron HCl (Zofran) 4 mg 1X ONCE IV Last administered on 08/05/18at 20:46; Start 08/05/18 at 20:30; Stop 08/05/18 at 20:31; Status DC Morphine Sulfate (Morphine Sulfate) 5 mg 1X ONCE IV Last administered on 08/05/18 20:46; Start 08/05/18 at 20:30; Stop 08/05/18 at 20:31; Status DC Sodium Chloride 1,000 ml @ 1,000 mls/hr 1X ONCE IV Last administered on 08/05/18at 20:48; Start 08/05/18 at 21:00; Stop 08/05/18 at 21:59; Status DC Sodium Chloride 1,000 ml @ 1,000 mls/hr 1X ONCE IV Last administered on 08/05/18 21:41; Start 08/05/18 at 21:00; Stop 08/05/18 at 21:59; Status DC Iohexol (Omnipaque 300 Mg/ml) 75 ml 1X ONCE IV Last administered on 08/05/18at 21:27; Start 08/05/18 at 21:30; Stop 08/05/18 at 21:31; Status DC Info (CONTRAST GIVEN -- Rx MONITORING) 1 each PRN DAILY PRN MC SEE COMMENTS; Start 08/05/18 at 21:30; Stop 08/07/18 at 21:29; Status DC Morphine Sulfate (Morphine Sulfate) 4 mg Q4HRS PRN IV PAIN Last administered on 08/05/18 21:51; Start 08/05/18 at 21:45; Stop 08/05/18 at 21:57; Status DC Ondansetron HCl (Zofran) 4 mg PRN Q6HRS PRN IV NAUSEA/VOMITING 1ST CHOICE Last administered on 08/08/18at 01:31; Start 08/05/18 at 21:45 Sodium Chloride 1,000 ml @ 125 mls/hr Q8H IV Last administered on 08/06/18 06:40; Start 08/05/18 at 22:00; Stop 08/06/18 at 10:06; Status DC Famotidine (Pepcid Vial) 20 mg BID IVP Last administered on 08/07/18at 20:53; Start 08/06/18 at 09:00 Morphine Sulfate (Morphine Sulfate) 4 mg PRN Q4HRS PRN IV SEVERE PAIN Last administered on 08/07/18at 12:15; Start 08/05/18 at 22:00; Stop 08/07/18 at 14:10; Status DC Hydralazine HCl (Apresoline Inj) 20 mg PRN Q4HRS PRN IVP ELEVATED BP, SEE COMMENTS Last administered on 08/06/18at 01:52; Start 08/06/18 at 01:45; Stop 08/06/18 at 10:10; Status DC Methylnaltrexone [place] [address] (Relistor) 12 mg 1X ONCE SQ Last administered on 08/06/18at 10:26; Start 08/06/18 at 10:00; Stop 08/06/18 at 10:01; Status DC Magnesium Hydroxide (Milk Of Magnesia) 2,400 mg PRN DAILY PRN PO CONSTIPATION L ast administered on 08/08/18at 01:33; Start 08/06/18 at 09:30 Magnesium Hydroxide (Milk Of Magnesia) 2,400 mg 1X ONCE PO Last administered on 08/06/18at 10:26; Start 08/06/18 at 10:00; Stop 08/06/18 at 10:01; Status DC Prochlorperazine Edisylate (Compazine) 10 mg PRN Q6HRS PRN IV NAUSEA/VOMITING, 2nd CHOICE Last administered on 08/07/18at 08:14; Start 08/06/18 at 10:15 Hydralazine HCl (Apresoline Inj) 10 mg PRN Q4HRS PRN IVP ELEVATED BP, 1st CHOICE Last administered on 08/07/18at 04:06; Start 08/06/18 at 10:15 Labetalol HCl (Normodyne Iv Push) 10 mg PRN Q2HR PRN IVP HYPERTENSION, 2nd CHOICE; Start 08/06/18 at 10:15 Cyclobenzaprine HCl (Flexeril) 10 mg TID PO Last administered on 08/07/18at 20:53; Start 08/06/18 at 14:00 Acetaminophen/ Hydrocodone Bitart (Lortab 5/325) 1 tab PRN Q6HRS PRN PO PAIN Last administered on 08/07/18at 05:38; Start 08/06/18 at 10:15; Stop 08/07/18 at 14:10; Status DC Nicotine (Nicoderm Cq 21mg) 1 patch PRN DAILY PRN TD SMOKING CESSATION; Start 08/06/18 at 11:15 Diphenhydramine HCl (Benadryl) 25 mg PRN QHS PRN PO INSOMNIA, 1ST CHOICE; Start 08/07/18 at 07:45 Diphenhydramine HCl (Benadryl) 25 mg PRN Q6HRS PRN PO ITCHING Last administered on 08/08/18at 06:16; Start 08/07/18 at 09:15 Zolpidem Tartrate (Ambien) 5 mg PRN QHS PRN PO INSOMNIA, 2ND CHOICE; Start 08/07/18 at 09:15 Lidocaine/Sodium Bicarbonate (Buffered Lidocaine 1%) 3 ml STK-MED ONCE .ROUTE ; Start 08/07/18 at 09:24; Stop 08/07/18 at 09:25; Status DC Gelatin (Gelfoam Size 12-7mm) 1 each STK-MED ONCE .ROUTE ; Start 08/07/18 at 09:24; Stop 08/07/18 at 09:25; Status DC Lidocaine/Sodium Bicarbonate (Buffered Lidocaine 1%) 3 ml 1X ONCE IJ Last administered on 08/07/18at 10:29; Start 08/07/18 at 10:15; Stop 08/07/18 at 10:16; Status DC Midazolam HCl (Versed) 2 mg 1X ONCE IV Last administered on 08/07/18at 10:30; Start 08/07/18 at 10:15; Stop 08/07/18 at 10:16; Status DC Fentanyl Citrate (Fentanyl 2ml Vial) 100 mcg 1X ONCE IV Last administered on 08/07/18at 10:30; Start 08/07/18 at 10:15; Stop 08/07/18 at 10:16; Status DC Gelatin (Gelfoam Size 12-7mm) 1 each 1X ONCE TP Last administered on 08/07/18at 10:30; Start 08/07/18 at 10:15; Stop 08/07/18 at 10:16; Status DC Enalaprilat (Vasotec Inj) 1.25 mg 1X ONCE IVP Last administered on 08/07/18at 10:59; Start 08/07/18 at 10:30; Stop 08/07/18 at 10:34; Status DC Amlodipine Besylate (Norvasc) 5 mg 1X ONCE PO Last administered on 08/07/18at 10:58; Start 08/07/18 at 10:45; Stop 08/07/18 at 10:46; Status DC Amlodipine Besylate (Norvasc) 5 mg DAILY PO ; Start 08/08/18 at 09:00 Midazolam HCl (Versed) 2 mg STK-MED ONCE .ROUTE ; Start 08/07/18 at 12:32; Stop 08/07/18 at 12:33; Status DC Fentanyl Citrate (Fentanyl 2ml Vial) 100 mcg STK-MED ONCE .ROUTE ; Start 08/07/18 at 12:32; Stop 08/07/18 at 12:33; Status DC Acetaminophen/ Hydrocodone Bitart (Lortab 5/325) 2 tab PRN Q6HRS PRN PO PAIN Last administered on 08/08/18at 01:36; Start 08/07/18 at 14:15 Diphenhydramine HCl (Benadryl) 25 mg PRN Q6HRS PRN IVP ITCHING; Start 08/07/18 at 14:15 Diphenhydramine HCl (Benadryl) 50 mg 1X ONCE IVP Last administered on 08/07/18at 14:55; Start 08/07/18 at 14:15; Stop 08/07/18 at 14:16; Status DC Hydromorphone HCl (Dilaudid) 1 mg PRN Q4HRS PRN IVP PAIN Last administered on 08/08/18at 05:58; Start 08/07/18 at 14:15 Ketorolac Tromethamine (Toradol 30mg Vial) 30 mg 1X ONCE IV Last administered on 08/07/18at 14:54; Start 08/07/18 at 14:15; Stop 08/07/18 at 14:16; Status DC Enalaprilat (Vasotec Inj) 2.5 mg PRN Q6HRS PRN IVP HYPERTENSION, SEE COMMENTS Last administered on 08/08/18at 03:17; Start 08/07/18 at 20:00 Active Scripts Active Prednisone 20 Mg Tablet 40 Mg PO DAILY Cyclobenzaprine Hcl 10 Mg Tablet 10 Mg PO TID [place] 5-325 Tablet (Acetaminophen/Hydrocodone Bitart) 1 Each Tablet 1 Tab PO PRN Q6HRS PRN Vitals/I & O Vital Sign - Last 24 Hours 08/07/18 08/07/18 08/07/18 08/07/18 10:07 10:12 10:17 10:22 Pulse 90 94 95 89 Resp 22 19 16 14 Pulse Ox 99 97 97 98 O2 Delivery Nasal Cannula Nasal Cannula Nasal Cannula Nasal Cannula O2 Flow Rate 2.0 2.0 2.0 2.0 08/07/18 08/07/18 08/07/18 08/07/18 10:27 10:30 10:40 10:58 Temp 98.4 98.4 Pulse 93 90 95 Resp 16 16 14 B/P (MAP) 162/106 (124) 150/105 Pulse Ox 97 97 97 O2 Delivery Nasal Cannula Nasal Cannula Room Air O2 Flow Rate 2.0 2.0 08/07/18 08/07/18 08/07/18 08/07/18 10:59 10:59 11:00 11:15 Pulse 90 90 93 Resp 16 16 B/P (MAP) 150/105 150/105 (120) 169/106 (127) Pulse Ox 97 97 O2 Delivery Room Air Room Air Room Air 08/07/18 08/07/18 08/07/18 08/07/18 11:29 11:45 12:09 12:15 Temp 98.9 98.9 Pulse 87 94 100 Resp 16 16 18 B/P (MAP) 148/85 (106) 131/81 (98) 133/85 (101) Pulse Ox 98 98 96 O2 Delivery Room Air Room Air Room Air Room Air 08/07/18 08/07/18 08/07/18 08/07/18 13:00 13:00 14:55 15:00 Temp 98.9 98.9 Pulse 88 93 Resp 16 18 B/P (MAP) 160/97 (118) 161/104 (123) Pulse Ox 97 98 O2 Delivery Room Air Room Air Room Air 08/07/18 08/07/18 08/07/18 08/07/18 16:36 19:00 20:00 20:01 Temp 99.6 99.6 Pulse 83 Resp 18 B/P (MAP) 166/99 (121) 166/99 Pulse Ox 93 O2 Delivery Room Air Room Air Room Air 08/07/18 08/07/18 08/07/18 08/08/18 20:02 20:35 23:00 01:36 Temp 99.0 99.0 Pulse 90 Resp 16 16 B/P (MAP) 144/90 (108) Pulse Ox 96 96 O2 Delivery Room Air Room Air Room Air 08/08/18 08/08/18 08/08/18 08/08/18 02:45 03:00 03:17 05:58 Temp 98.7 98.7 Pulse 83 83 Resp 16 18 16 B/P (MAP) 171/110 (130) 171/110 Pulse Ox 97 97 O2 Delivery Room Air Room Air Room Air Intake and Output 08/07/18 08/07/18 08/08/18 14:59 22:59 06:59 Intake Total 100 ml 240 ml 240 ml Balance 100 ml 240 ml 240 ml NELSON MORRISSEY MD August 08, 2018 08:28
[2018-08-08] MEDS: FAMOTIDINE 20 MG/2 ML VIAL IVP SCH (08:29)
[2018-08-08] MEDS ORDERED: IOHEXOL 300 MG/ML 100ML VIAL. IV ONE (08:45)
[2018-08-08] MEDS ORDERED: CONTRAST GIVEN. MC PRN (09:00)
--- NOTE | 2018-08-08 09:37 | PDOC ---
PROGRESS NOTES Chief Complaint Chief Complaint acute abdominal pain Pancreatic mass in the body/tail concerning for malignancy High CA-19-9 levels-102 in April 2018 Occasional smoker polysubstance abuse history History of Present Illness History of Present Illness still having severe pain, wants more IV pain meds I discussed pain control plan at length, will increase hydro dose to 7.5mg, 2 tabs PRN, and add MS contin 15 BID try to avoid IV meds, hx IV drug use discussed biopsy done, results pending, he has met with Dr. Sethi and can follow outpatient, may be able to DC if pain controlled, he complains of severe pain bp control better Vitals Vitals Vital Signs Date Time Temp Pulse Resp B/P (MAP) Pulse Ox O2 Delivery O2 Flow Rate FiO2 08/08/18 08:29 88 167/110 08/08/18 08:28 18 97 Room Air 08/08/18 07:00 99.1 99.1 08/07/18 10:30 2.0 Physical Exam General: Alert, Oriented X3, No acute distress Heart: Regular rate, Normal S1, Normal S2 Lungs: Clear Abdomen: Normal bowel sounds, Soft, No tenderness, No hepatosplenomegaly, No masses Extremities: No clubbing, No cyanosis, No edema, Normal pulses, No tenderness/swelling Skin: No rashes, No breakdown, No significant lesion Review of Systems Review of Systems abd pain, nausea, weak Comment Review of Relevant I have reviewed the following items himanshu (where applicable) has been applied. Medications Current Medications Famotidine (Pepcid Vial) 20 mg 1X ONCE IVP Last administered on 08/05/18 20:46; Start 08/05/18 at 20:30; Stop 08/05/18 at 20:31; Status DC Ondansetron HCl (Zofran) 4 mg 1X ONCE IV Last administered on 08/05/18 20:46; Start 08/05/18 at 20:30; Stop 08/05/18 at 20:31; Status DC Morphine Sulfate (Morphine Sulfate) 5 mg 1X ONCE IV Last administered on 08/05/18 20:46; Start 08/05/18 at 20:30; Stop 08/05/18 at 20:31; Status DC Sodium Chloride 1,000 ml @ 1,000 mls/hr 1X ONCE IV Last administered on 08/05/18at 20:48; Start 08/05/18 at 21:00; Stop 08/05/18 at 21:59; Status DC Sodium Chloride 1,000 ml @ 1,000 mls/hr 1X ONCE IV Last administered on 08/05/18 21:41; Start 08/05/18 at 21:00; Stop 08/05/18 at 21:59; Status DC Iohexol (Omnipaque 300 Mg/ml) 75 ml 1X ONCE IV Last administered on 08/05/18at 21:27; Start 08/05/18 at 21:30; Stop 08/05/18 at 21:31; Status DC Info (CONTRAST GIVEN -- Rx MONITORING) 1 each PRN DAILY PRN MC SEE COMMENTS; Start 08/05/18 at 21:30; Stop 08/07/18 at 21:29; Status DC Morphine Sulfate (Morphine Sulfate) 4 mg Q4HRS PRN IV PAIN Last administered on 08/05/18at 21:51; Start 08/05/18 at 21:45; Stop 08/05/18 at 21:57; Status DC Ondansetron HCl (Zofran) 4 mg PRN Q6HRS PRN IV NAUSEA/VOMITING 1ST CHOICE Last administered on 08/08/18 01:31; Start 08/05/18 at 21:45 Sodium Chloride 1,000 ml @ 125 mls/hr Q8H IV Last administered on 08/06/18at 06:40; Start 08/05/18 at 22:00; Stop 08/06/18 at 10:06; Status DC Famotidine (Pepcid Vial) 20 mg BID IVP Last administered on 08/08/18at 08:29; Start 08/06/18 at 09:00 Morphine Sulfate (Morphine Sulfate) 4 mg PRN Q4HRS PRN IV SEVERE PAIN Last administered on 08/07/18at 12:15; Start 08/05/18 at 22:00; Stop 08/07/18 at 14:10; Status DC Hydralazine HCl (Apresoline Inj) 20 mg PRN Q4HRS PRN IVP ELEVATED BP, SEE COMMENTS Last administered on 08/06/18at 01:52; Start 08/06/18 at 01:45; Stop 08/06/18 at 10:10; Status DC Methylnaltrexone Coffey (Relistor) 12 mg 1X ONCE SQ Last administered on 08/06/18at 10:26; Start 08/06/18 at 10:00; Stop 08/06/18 at 10:01; Status DC Magnesium Hydroxide (Milk Of Magnesia) 2,400 mg PRN DAILY PRN PO CONSTIPATION Last administered on 08/08/18at 01:33; Start 08/06/18 at 09:30 Magnesium Hydroxide (Milk Of Magnesia) 2,400 mg 1X ONCE PO Last administered on 08/06/18at 10:26; Start 08/06/18 at 10:00; Stop 08/06/18 at 10:01; Status DC Prochlorperazine Edisylate (Compazine) 10 mg PRN Q6HRS PRN IV NAUSEA/VOMITING, 2nd CHOICE Last administered on 08/07/18at 08:14; Start 08/06/18 at 10:15 Hydralazine HCl (Apresoline Inj) 10 mg PRN Q4HRS PRN IVP ELEVATED BP, 1st CHOICE Last administered on 08/07/18at 04:06; Start 08/06/18 at 10:15 Labetalol HCl (Normodyne Iv Push) 10 mg PRN Q2HR PRN IVP HYPERTENSION, 2nd CHOICE; Start 08/06/18 at 10:15 Cyclobenzaprine HCl (Flexeril) 10 mg TID PO Last administered on 08/08/18at 08:28; Start 08/06/18 at 14:00 Acetaminophen/ Hydrocodone Bitart (Lortab 5/325) 1 tab PRN Q6HRS PRN PO PAIN Last administered on 08/07/18at 05:38; Start 08/06/18 at 10:15; Stop 08/07/18 at 14:10; Status DC Nicotine (Nicoderm Cq 21mg) 1 patch PRN DAILY PRN TD SMOKING CESSATION; Start 08/06/18 at 11:15 Diphenhydramine HCl (Benadryl) 25 mg PRN QHS PRN PO INSOMNIA, 1ST CHOICE; Start 08/07/18 at 07:45 Diphenhydramine HCl (Benadryl) 25 mg PRN Q6HRS PRN PO ITCHING Last administered on 08/08/18at 06:16; Start 08/07/18 at 09:15 Zolpidem Tartrate (Ambien) 5 mg PRN QHS PRN PO INSOMNIA, 2ND CHOICE; Start 08/07/18 at 09:15 Lidocaine/Sodium Bicarbonate (Buffered Lidocaine 1%) 3 ml STK-MED ONCE .ROUTE ; Start 08/07/18 at 09:24; Stop 08/07/18 at 09:25; Status DC Gelatin (Gelfoam Size 12-7mm) 1 each STK-MED ONCE .ROUTE ; Start 08/07/18 at 09:24; Stop 08/07/18 at 09:25; Status DC Lidocaine/Sodium Bicarbonate (Buffered Lidocaine 1%) 3 ml 1X ONCE IJ Last admi nistered on 08/07/18at 10:29; Start 08/07/18 at 10:15; Stop 08/07/18 at 10:16; Status DC Midazolam HCl (Versed) 2 mg 1X ONCE IV Last administered on 08/07/18 10:30; Start 08/07/18 at 10:15; Stop 08/07/18 at 10:16; Status DC Fentanyl Citrate (Fentanyl 2ml Vial) 100 mcg 1X ONCE IV Last administered on 08/07/18at 10:30; Start 08/07/18 at 10:15; Stop 08/07/18 at 10:16; Status DC Gelatin (Gelfoam Size 12-7mm) 1 each 1X ONCE TP Last administered on 08/07/18at 10:30; Start 08/07/18 at 10:15; Stop 08/07/18 at 10:16; Status DC Enalaprilat (Vasotec Inj) 1.25 mg 1X ONCE IVP Last administered on 08/07/18at 10:59; Start 08/07/18 at 10:30; Stop 08/07/18 at 10:34; Status DC Amlodipine Besylate (Norvasc) 5 mg 1X ONCE PO Last administered on 08/07/18at 10:58; Start 08/07/18 at 10:45; Stop 08/07/18 at 10:46; Status DC Amlodipine Besylate (Norvasc) 5 mg DAILY PO Last administered on 08/08/18at 08:28; Start 08/08/18 at 09:00 Midazolam HCl (Versed) 2 mg STK-MED ONCE .ROUTE ; Start 08/07/18 at 12:32; Stop 08/07/18 at 12:33; Status DC Fentanyl Citrate (Fentanyl 2ml Vial) 100 mcg STK-MED ONCE .ROUTE ; Start 08/07/18 at 12:32; Stop 08/07/18 at 12:33; Status DC Acetaminophen/ Hydrocodone Bitart (Lortab 5/325) 2 tab PRN Q6HRS PRN PO PAIN Last administered on 08/08/18at 08:28; Start 08/07/18 at 14:15 Diphenhydramine HCl (Benadryl) 25 mg PRN Q6HRS PRN IVP ITCHING; Start 08/07/18 at 14:15 Diphenhydramine HCl (Benadryl) 50 mg 1X ONCE IVP Last administered on 08/07/18at 14:55; Start 08/07/18 at 14:15; Stop 08/07/18 at 14:16; Status DC Hydromorphone HCl (Dilaudid) 1 mg PRN Q4HRS PRN IVP PAIN Last administered on 08/08/18at 05:58; Start 08/07/18 at 14:15 Ketorolac Tromethamine (Toradol 30mg Vial) 30 mg 1X ONCE IV Last administered on 08/07/18at 14:54; Start 08/07/18 at 14:15; Stop 08/07/18 at 14:16; Status DC Enalaprilat (Vasotec Inj) 2.5 mg PRN Q6HRS PRN IVP HYPERTENSION, SEE COMMENTS Last administered on 08/08/18at 08:29; Start 08/07/18 at 20:00 Iohexol (Omnipaque 300 Mg/ml) 75 ml 1X ONCE IV ; Start 08/08/18 at 08:45; Stop 08/08/18 at 08:47; Status DC Info (CONTRAST GIVEN -- Rx MONITORING) 1 each PRN DAILY PRN MC SEE COMMENTS; Start 08/08/18 at 09:00; Stop 08/10/18 at 08:59 Active Scripts Active Prednisone 20 Mg Tablet 40 Mg PO DAILY Cyclobenzaprine Hcl 10 Mg Tablet 10 Mg PO TID [place] 5-325 Tablet (Acetaminophen/Hydrocodone Bitart) 1 Each Tablet 1 Tab PO PRN Q6HRS PRN Vitals/I & O Vital Sign - Last 24 Hours 08/07/18 08/07/18 08/07/1813/19 10:07 10:12 10:17 10:22 Pulse 90 94 95 89 Resp 22 19 16 14 Pulse Ox 99 97 97 98 O2 Delivery Nasal Cannula Nasal Cannula Nasal Cannula Nasal Cannula O2 Flow Rate 2.0 2.0 2.0 2.0 08/07/18 08/07/18 08/07/18 08/07/18 10:27 10:30 10:40 10:58 Temp 98.4 98.4 Pulse 93 90 95 Resp 16 16 14 B/P (MAP) 162/106 (124) 150/105 Pulse Ox 97 97 97 O2 Delivery Nasal Cannula Nasal Cannula Room Air O2 Flow Rate 2.0 2.0 08/07/18 08/07/18 08/07/18 08/07/18 10:59 10:59 11:00 11:15 Pulse 90 90 93 Resp 16 16 B/P (MAP) 150/105 150/105 (120) 169/106 (127) Pulse Ox 97 97 O2 Delivery Room Air Room Air Room Air 08/07/18 08/07/18 08/07/18 08/07/18 11:29 11:45 12:09 12:15 Temp 98.9 98.9 Pulse 87 94 100 Resp 16 16 18 B/P (MAP) 148/85 (106) 131/81 (98) 133/85 (101) Pulse Ox 98 98 96 O2 Delivery Room Air Room Air Room Air Room Air 08/07/18 08/07/18 08/07/18 08/07/18 13:00 13:00 14:55 15:00 Temp 98.9 98.9 Pulse 88 93 Resp 16 18 B/P (MAP) 160/97 (118) 161/104 (123) Pulse Ox 97 98 O2 Delivery Room Air Room Air Room Air 08/07/18 08/07/18 08/07/18 08/07/18 16:36 19:00 20:00 20:01 Temp 99.6 99.6 Pulse 83 Resp 18 B/P (MAP) 166/99 (121) 166/99 Pulse Ox 93 O2 Delivery Room Air Room Air Room Air 08/07/18 08/07/18 08/08/18 08/08/18 20:02 23:00 01:36 02:45 Temp 99.0 99.0 Pulse 90 Resp 16 16 16 B/P (MAP) 144/90 (108) Pulse Ox 96 96 O2 Delivery Room Air Room Air Room Air 08/08/18 08/08/18 08/08/18 08/08/18 03:00 03:17 05:58 06:28 Temp 98.7 98.7 Pulse 83 83 Resp 18 16 18 B/P (MAP) 171/110 (130) 171/110 Pulse Ox 97 97 O2 Delivery Room Air Room Air Room Air 08/08/18 08/08/18 08/08/18 08/08/18 07:00 08:28 08:28 08:29 Temp 99.1 99.1 Pulse 88 88 88 Resp 18 18 B/P (MAP) 167/110 (129) 167/110 167/110 Pulse Ox 97 97 O2 Delivery Room Air Room Air Intake and Output 08/07/18 08/07/18 08/08/18 15:00 23:00 07:00 Intake Total 100 ml 240 ml 240 ml Balance 100 ml 240 ml 240 ml SOL CERVANTES MD August 08, 2018 09:37
[2018-08-08] MEDS ORDERED: POLYETHYLENE GLYCOL 3350 17 GM PACKET. PO ONE (10:00)
[2018-08-08] MEDS ORDERED: LISINOPRIL 10 MG TABLET PO ONE (10:00)
[2018-08-08] MEDS: DOCUSATE SODIUM 100 MG CAPSULE. PO SCH (10:12)
[2018-08-08] MEDS: MORPHINE ER 15 MG TABLET.ER PO SCH ×2 (10:18→21:10)
[2018-08-08 11:00] VITALS: BP 175/108
[2018-08-08] MEDS ORDERED: amLODIPine BESYLATE 5 MG TABLET PO ONE (11:30)
[2018-08-08] MEDS: CARVEDILOL 3.125 MG TABLET. PO SCH ×2 (11:33→17:49)
--- NOTE | 2018-08-08 11:50 | PDOC ---
Objective: Objective: Reviewed w/ RN - plans for more imaging today (CT chest, bone scan), has 10/ abd pain, hasn't stooled, not eating much. 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 Encourage PO intake - can try Ensure, etc.,?nutrition consult Increase Miralax, consider Amitiza or similar w/ narcotic use. JESSICA HOFFMAN August 08, 2018 11:50
--- NOTE | 2018-08-08 13:11 | RAD ---
Ultrasound-guided biopsy, right hepatic mass 08/07/2018 Indication: Multiple right hepatic masses consistent with metastatic disease. Probable pancreatic origin. Discussion: The risks and benefits of the procedure were discussed with the patient. Informed consent was obtained. A timeout procedure was performed. The anterior abdomen was prepped and draped using sterile barrier technique. All elements of maximal sterile barrier technique including the use of a cap, mask, sterile gown, sterile gloves, large sterile sheet, appropriate hand hygiene, and 2% chlorhexidine for cutaneous antisepsis (or acceptable alternative antiseptic per current guidelines) were followed for this procedure. % Lidocaine was administered for local anesthesia. Under direct ultrasound guidance a 17 kg advanced into a hypodense mass in the right liver. Multiple core biopsy samples were obtained and placed in formalin. Gelfoam embolization of the biopsy tract was performed. Sterile dressing was applied. The patient tolerated the procedure well without immediate complication. The procedure was performed under conscious sedation including continuous cardiopulmonary monitoring via dedicated sedation nurse. [id number] sedation time: 20 minutes Impression: Ultrasound-guided biopsy, right hepatic lesion, suspicious for metastatic pancreatic cancer
[2018-08-08] MEDS: HYDROcodone/APAP 7.5/325MG 1 TAB TABLET PO PRN ×2 (13:31→17:48)
--- NOTE | 2018-08-08 14:16 | RAD ---
Examination: BONE SCAN WHOLE BODY History: Pancreatic mass. Left lower jaw pain. Comparison/Correlation: 08/05/2018 CT with contrast, CT abdomen and pelvis with contrast Findings: A total of 2 mCi technetium 99m MDP was intravenously administered for purposes of total-body bone scintigraphy. Intense uptake of radiotracer involving the left mandible presumably related to dental disease is present. Uptake involving the maxilla also is present of a lesser intensity bilaterally. Uptake of radiotracer involving the xiphoid process inferiorly is noted likely and may relate to costochondral uptake. Uptake of radiotracer tracer by kidneys and urinary bladder is unremarkable. A small focus of uptake overlying the left atrium and the left femoral head are present and are probably artifactual. These are seen on the frontal projection but not on the posterior projection. No suspicious corresponding CT finding is evident. Impression: No definite abnormal uptake to suggest bony metastatic disease. Electronically signed by: Jose Nice MD (08/08/2018 2:13 PM) [facility]
[2018-08-08 15:00] VITALS: BP 136/84
--- NOTE | 2018-08-08 15:35 | RAD ---
CT chest with contrast dated 08/08/2018. Comparison made abdomen CT dated 08/05/2018. CLINICAL INDICATION: History of lung nodule and pancreatic Mass. Evaluate for metastatic disease. TECHNIQUE: Contiguous axial imaging of the chest performed following the intravenous and demonstration of 75 cc Omnipaque 300. One or more of the following individualized dose reduction techniques were utilized for this examination: 1. Automated exposure control 2. Adjustment of the mA and/or kV according to patient size 3. Use of iterative reconstruction technique. Findings: Central airways are patent. There are a few scattered calcified granuloma. Vague noncalcified subpleural nodule in the right middle lobe on image 40 measures 4 mm, unchanged. No additional noncalcified pulmonary nodule or mass. No pleural effusion. Heart size within normal limits. No pericardial effusion. Mild ectasia of the ascending thoracic aorta measuring 3.6 cm transverse. No mediastinal, hilar or axillary lymphadenopathy. Calcified precarinal lymph node. Thyroid gland unremarkable. Limited images of the upper abdomen show multiple low-density lesions scattered throughout the liver compatible with metastatic disease, unchanged. There is also a large pancreatic mass, similar appearance. Bone windows show no acute findings. Mild multilevel spondylosis. IMPRESSION: 1. Small noncalcified pulmonary nodule in the right middle lobe, nonspecific. Follow-up imaging to ensure stability. 2. Extensive hepatic metastasis with large pancreatic mass, unchanged. Please see recent abdomen pelvic CT report for further information. 3. Old granulomatous disease. Electronically signed by: Cristian Collins MD (08/08/2018 3:32 PM) [id number]
[2018-08-08 19:00] VITALS: BP 137/89
[2018-08-08] MEDS: POLYETHYLENE GLYCOL 3350 17 GM PACKET. PO SCH (21:11)
[2018-08-08 23:00] VITALS: BP 135/87
[2018-08-09 03:00] VITALS: BP 137/97
[2018-08-09] MEDS: diphenhydrAMINE HCL 25 MG CAPSULE PO PRN ×2 (03:40→21:11)
[2018-08-09] MEDS: ONDANSETRON PF 4 MG/2 ML VIAL. IV PRN ×3 (03:40→21:11)
[2018-08-09] MEDS: HYDROmorphone 2 MG/ML VIAL IVP PRN ×2 (03:41→11:35)
[2018-08-09 04:42] LABS: CALCIUM 9.4 mg/dL (8.5-10.1); CREATININE 0.7 mg/dL (0.7-1.3); GFR 143.9; POTASSIUM 4.6 mmol/L (3.5-5.1)
[2018-08-09] MEDS: HYDROcodone/APAP 7.5/325MG 1 TAB TABLET PO PRN ×3 (06:29→19:34)
[2018-08-09 07:00] VITALS: BP 148/96
[2018-08-09] MEDS: DOCUSATE SODIUM 100 MG CAPSULE. PO SCH (08:05)
[2018-08-09] MEDS: PANTOPRAZOLE 40 MG TABLET.DR. PO SCH (08:06)
[2018-08-09] MEDS: CYCLOBENZAPRINE 10 MG TABLET. PO SCH ×3 (08:06→21:05)
[2018-08-09] MEDS: MORPHINE ER 15 MG TABLET.ER PO SCH ×2 (08:06→21:05)
[2018-08-09] MEDS: CARVEDILOL 3.125 MG TABLET. PO SCH ×2 (08:07→16:48)
[2018-08-09] MEDS: LISINOPRIL 10 MG TABLET PO SCH (08:07)
[2018-08-09] MEDS: amLODIPine BESYLATE 5 MG TABLET PO SCH (08:08)
[2018-08-09] MEDS: POLYETHYLENE GLYCOL 3350 17 GM PACKET. PO SCH ×2 (08:08→21:06)
[2018-08-09] MEDS ORDERED: POLYETHYLENE GLYCOL 3350 17 GM PACKET. PO SCH (09:00)
[2018-08-09 11:00] VITALS: BP 149/96
--- NOTE | 2018-08-09 12:53 | PDOC ---
Subjective: Subjective: Abd pain, tolerating PO. Objective: Objective: Reviewed w/ RN - ate 50% of breakfast, 01/04 abd pain, hasn't stooled. Vital Signs: Vital Signs Date Time Temp Pulse Resp B/P (MAP) Pulse Ox O2 Delivery O2 Flow Rate FiO2 08/09/18 12:06 Room Air 08/09/18 11:00 98.5 73 18 149/96 (113) 98 98.5 08/09/18 06:29 2.0 Labs: Laboratory Tests Test 08/09/18 03:40 Sodium Level 130 mmol/L Potassium Level 4.6 mmol/L Chloride Level 94 mmol/L Carbon Dioxide Level 27 mmol/L Anion Gap 9 Blood Urea Nitrogen 9 mg/dL Creatinine 0.7 mg/dL Estimated GFR (Cockcroft-Gault) 143.9 Glucose Level 106 mg/dL Calcium Level 9.4 mg/dL Imaging: Bone Scan 08/08 Impression: No definite abnormal uptake to suggest bony metastatic disease. Chest CT 08/08 IMPRESSION: 1. Small noncalcified pulmonary nodule in the right middle lobe, nonspecific. Follow-up imaging to ensure stability. 2. Extensive hepatic metastasis with large pancreatic mass, unchanged. Please see recent abdomen pelvic CT report for further information. 3. Old granulomatous disease. PE: GEN: NAD - had blanket over head, about 25% of lunch consumed LUNGS: CTAB HEART: RRR ABD: quiet BS, soft, epigastric and periumbilical discomfort NEURO/PSYCH: A & O 3 A/P: Pancreatic mass, hepatic lesions - liver biopsy pending, CA19-9 rising Abd pain, decreased appetite Hep C -- Try Amitiza. ?Ensure, etc. D/w RN - ?plans to remain inpt until liver biopsy resulted? JESSICA HOFFMAN August 09, 2018 12:53
--- NOTE | 2018-08-09 13:57 | PDOC ---
PROGRESS NOTES Chief Complaint Chief Complaint acute abdominal pain Pancreatic mass in the body/tail concerning for malignancy High CA-19-9 levels-102 in April 2018 Occasional smoker polysubstance abuse history Awaiting for pathology We'll start Amitiza Mag citrate Reassess in the a.m. History of Present Illness History of Present Illness abdominal pain is his only concern, he has not had a bowel movement for a week. Patient with no acute events reported overnight. continues to have abdominal pain. Discussed etiology most likely. No pathology results are available at the present time Vitals Vitals Vital Signs Date Time Temp Pulse Resp B/P (MAP) Pulse Ox O2 Delivery O2 Flow Rate FiO2 08/09/18 12:06 Room Air 08/09/18 11:00 98.5 73 18 149/96 (113) 98 98.5 08/09/18 06:29 2.0 Physical Exam General: Alert, Oriented X3, No acute distress Heart: Regular rate, Normal S1, Normal S2 Lungs: Clear Abdomen: Normal bowel sounds, Soft, No tenderness, No hepatosplenomegaly, No masses Extremities: No clubbing, No cyanosis, No edema, Normal pulses, No tenderness/swelling Skin: No rashes, No breakdown, No significant lesion Labs LABS Laboratory Tests Test 08/09/18 03:40 Sodium Level 130 mmol/L (136-145) Potassium Level 4.6 mmol/L (3.5-5.1) Chloride Level 94 mmol/L (98-107) Carbon Dioxide Level 27 mmol/L (21-32) Anion Gap 9 (6-14) Blood Urea Nitrogen 9 mg/dL (8-26) Creatinine 0.7 mg/dL (0.7-1.3) Estimated GFR (Cockcroft-Gault) 143.9 Glucose Level 106 mg/dL (70-99) Calcium Level 9.4 mg/dL (8.5-10.1) Review of Systems Review of Systems Pertinent as per history of present illness otherwise 14 point review of system is negative Comment Review of Relevant I have reviewed the following items himanshu (where applicable) has been applied. Labs Laboratory Tests Test 08/09/18 03:40 Sodium Level 130 mmol/L (136-145) Potassium Level 4.6 mmol/L (3.5-5.1) Chloride Level 94 mmol/L (98-107) Carbon Dioxide Level 27 mmol/L (21-32) Anion Gap 9 (6-14) Blood Urea Nitrogen 9 mg/dL (8-26) Creatinine 0.7 mg/dL (0.7-1.3) Estimated GFR (Cockcroft-Gault) 143.9 Glucose Level 106 mg/dL (70-99) Calcium Level 9.4 mg/dL (8.5-10.1) Laboratory Tests Test 08/09/18 03:40 Sodium Level 130 mmol/L (136-145) Potassium Level 4.6 mmol/L (3.5-5.1) Chloride Level 94 mmol/L (98-107) Carbon Dioxide Level 27 mmol/L (21-32) Anion Gap 9 (6-14) Blood Urea Nitrogen 9 mg/dL (8-26) Creatinine 0.7 mg/dL (0.7-1.3) Estimated GFR (Cockcroft-Gault) 143.9 Glucose Level 106 mg/dL (70-99) Calcium Level 9.4 mg/dL (8.5-10.1) Medications Current Medications Famotidine (Pepcid Vial) 20 mg 1X ONCE IVP Last administered on 08/05/18at 20:46; Start 08/05/18 at 20:30; Stop 08/05/18 at 20:31; Status DC Ondansetron HCl (Zofran) 4 mg 1X ONCE IV Last administered on 08/05/18 20:46; Start 08/05/18 at 20:30; Stop 08/05/18 at 20:31; Status DC Morphine Sulfate (Morphine Sulfate) 5 mg 1X ONCE IV Last administered on 08/05/18 20:46; Start 08/05/18 at 20:30; Stop 08/05/18 at 20:31; Status DC Sodium Chloride 1,000 ml @ 1,000 mls/hr 1X ONCE IV Last administered on 08/05/18at 20:48; Start 08/05/18 at 21:00; Stop 08/05/18 at 21:59; Status DC Sodium Chloride 1,000 ml @ 1,000 mls/hr 1X ONCE IV Last administered on 08/05/18at 21:41; Start 08/05/18 at 21:00; Stop 08/05/18 at 21:59; Status DC Iohexol (Omnipaque 300 Mg/ml) 75 ml 1X ONCE IV Last administered on 08/05/18 21:27; Start 08/05/18 at 21:30; Stop 08/05/18 at 21:31; Status DC Info (CONTRAST GIVEN -- Rx MONITORING) 1 each PRN DAILY PRN MC SEE COMMENTS; Start 08/05/18 at 21:30; Stop 08/07/18 at 21:29; Status DC Morphine Sulfate (Morphine Sulfate) 4 mg Q4HRS PRN IV PAIN Last administered on 08/05/18at 21:51; Start 08/05/18 at 21:45; Stop 08/05/18 at 21:57; Status DC Ondansetron HCl (Zofran) 4 mg PRN Q6HRS PRN IV NAUSEA/VOMITING 1ST CHOICE Last administered on 08/09/18at 08:16; Start 08/05/18 at 21:45 Sodium Chloride 1,000 ml @ 125 mls/hr Q8H IV Last administered on 08/06/18 06:40; Start 08/05/18 at 22:00; Stop 08/06/18 at 10:06; Status DC Famotidine (Pepcid Vial) 20 mg BID IVP Last administered on 08/08/18 08:29; Start 08/06/18 at 09:00; Stop 08/08/18 at 11:49; Status DC Morphine Sulfate (Morphine Sulfate) 4 mg PRN Q4HRS PRN IV SEVERE PAIN Last administered on 08/07/18at 12:15; Start 08/05/18 at 22:00; Stop 08/07/18 at 14:10; Status DC Hydralazine HCl (Apresoline Inj) 20 mg PRN Q4HRS PRN IVP ELEVATED BP, SEE COMMENTS Last administered on 08/06/18at 01:52; Start 08/06/18 at 01:45; Stop 08/06/18 at 10:10; Status DC Methylnaltrexone [place] (Relistor) 12 mg 1X ONCE SQ Last administered on 08/06/18at 10:26; Start 08/06/18 at 10:00; Stop 08/06/18 at 10:01; Status DC Magnesium Hydroxide (Milk Of Magnesia) 2,400 mg PRN DAILY PRN PO CONSTIPATION Last administered on 08/08/18at 01:33; Start 08/06/18 at 09:30 Magnesium Hydroxide (Milk Of Magnesia) 2,400 mg 1X ONCE PO Last administered on 08/06/18at 10:26; Start 08/06/18 at 10:00; Stop 08/06/18 at 10:01; Status DC Prochlorperazine Edisylate (Compazine) 10 mg PRN Q6HRS PRN IV NAUSEA/VOMITING, 2nd CHOICE Last administered on 08/07/18at 08:14; Start 08/06/18 at 10:15 Hydralazine HCl (Apresoline Inj) 10 mg PRN Q4HRS PRN IVP ELEVATED BP, 1st CHOICE Last administered on 08/07/18at 04:06; Start 08/06/18 at 10:15 Labetalol HCl (Normodyne Iv Push) 10 mg PRN Q2HR PRN IVP HYPERTENSION, 2nd CHOICE; Start 08/06/18 at 10:15 Cyclobenzaprine HCl (Flexeril) 10 mg TID PO Last administered on 08/09/18at 08:06; Start 08/06/18 at 14:00 Acetaminophen/ Hydrocodone Bitart (Lortab 5/325) 1 tab PRN Q6HRS PRN PO PAIN Last administered on 08/07/18at 05:38; Start 08/06/18 at 10:15; Stop 08/07/18 at 14:10; Status DC Nicotine (Nicoderm Cq 21mg) 1 patch PRN DAILY PRN TD SMOKING CESSATION; Start 08/06/18 at 11:15 Diphenhydramine HCl (Benadryl) 25 mg PRN QHS PRN PO INSOMNIA, 1ST CHOICE; Start 08/07/18 at 07:45 Diphenhydramine HCl (Benadryl) 25 mg PRN Q6HRS PRN PO ITCHING Last administered on 08/09/18at 03:40; Start 08/07/18 at 09:15 Zolpidem Tartrate (Ambien) 5 mg PRN QHS PRN PO INSOMNIA, 2ND CHOICE Last administered on 08/08/18at 21:14; Start 08/07/18 at 09:15 Lidocaine/Sodium Bicarbonate (Buffered Lidocaine 1%) 3 ml STK-MED ONCE .ROUTE ; Start 08/07/18 at 09:24; Stop 08/07/18 at 09:25; Status DC Gelatin (Gelfoam Size 12-7mm) 1 each STK-MED ONCE .ROUTE ; Start 08/07/18 at 09:24; Stop 08/07/18 at 09:25; Status DC Lidocaine/Sodium Bicarbonate (Buffered Lidocaine 1%) 3 ml 1X ONCE IJ Last administered on 08/07/18at 10:29; Start 08/07/18 at 10:15; Stop 08/07/18 at 10:16; Status DC Midazolam HCl (Versed) 2 mg 1X ONCE IV Last administered on 08/07/18at 10:30; Start 08/07/18 at 10:15; Stop 08/07/18 at 10:16; Status DC Fentanyl Citrate (Fentanyl 2ml Vial) 100 mcg 1X ONCE IV Last administered on 08/07/18at 10:30; Start 08/07/18 at 10:15; Stop 08/07/18 at 10:16; Status DC Gelatin (Gelfoam Size 12-7mm) 1 each 1X ONCE TP Last administered on 08/07/18at 10:30; Start 08/07/18 at 10:15; Stop 08/07/18 at 10:16; Status DC Enalaprilat (Vasotec Inj) 1.25 mg 1X ONCE IVP Last administered on 08/07/18at 10:59; Start 08/07/18 at 10:30; Stop 08/07/18 at 10:34; Status DC Amlodipine Besylate (Norvasc) 5 mg 1X ONCE PO Last administered on 08/07/18at 10:58; Start 08/07/18 at 10:45; Stop 08/07/18 at 10:46; Status DC Amlodipine Besylate (Norvasc) 5 mg DAILY PO Last administered on 08/09/18at 08:08; Start 08/08/18 at 09:00 Midazolam HCl (Versed) 2 mg STK-MED ONCE .ROUTE ; Start 08/07/18 at 12:32; Stop 08/07/18 at 12:33; Status DC Fentanyl Citrate (Fentanyl 2ml Vial) 100 mcg STK-MED ONCE .ROUTE ; Start 08/07/18 at 12:32; Stop 08/07/18 at 12:33; Status DC Acetaminophen/ Hydrocodone Bitart (Lortab 5/325) 2 tab PRN Q6HRS PRN PO PAIN Last administered on 08/08/18at 08:28; Start 08/07/18 at 14:15; Stop 08/08/18 at 09:36; Status DC Diphenhydramine HCl (Benadryl) 25 mg PRN Q6HRS PRN IVP ITCHING; Start 08/07/18 at 14:15 Diphenhydramine HCl (Benadryl) 50 mg 1X ONCE IVP Last administered on 08/07/18at 14:55; Start 08/07/18 at 14:15; Stop 08/07/18 at 14:16; Status DC Hydromorphone HCl (Dilaudid) 1 mg PRN Q4HRS PRN IVP PAIN Last administered on 08/09/18at 11:35; Start 08/07/18 at 14:15 Ketorolac Tromethamine (Toradol 30mg Vial) 30 mg 1X ONCE IV Last administered on 08/07/18at 14:54; Start 08/07/18 at 14:15; Stop 08/07/18 at 14:16; Status DC Enalaprilat (Vasotec Inj) 2.5 mg PRN Q6HRS PRN IVP HYPERTENSION, SEE COMMENTS Last administered on 08/08/18at 08:29; Start 08/07/18 at 20:00 Iohexol (Omnipaque 300 Mg/ml) 75 ml 1X ONCE IV Last administered on 08/08/18at 08:45; Start 08/08/18 at 08:45; Stop 08/08/18 at 08:47; Status DC Info (CONTRAST GIVEN -- Rx MONITORING) 1 each PRN DAILY PRN MC SEE COMMENTS; Start 08/08/18 at 09:00; Stop 08/10/18 at 08:59 Morphine Sulfate (Ms Contin) 15 mg BID PO Last administered on 08/09/18at 08:06; Start 08/08/18 at 10:00 Acetaminophen/ Hydrocodone Bitart (Lortab 7.5/325) 2 tab PRN Q4HRS PRN PO PAIN Last administered on 08/09/18at 06:29; Start 08/08/18 at 09:45 Lisinopril (Prinivil) 10 mg 1X ONCE PO Last administered on 08/08/18at 10:15; Start 08/08/18 at 10:00; Stop 08/08/18 at 10:01; Status DC Lisinopril (Prinivil) 10 mg DAILY PO Last administered on 08/09/18 08:07; Start 08/09/18 at 09:00 Docusate Sodium (Colace) 100 mg DAILY PO Last administered on 08/09/18at 08:05; Start 08/08/18 at 10:00 Polyethylene Glycol (miraLAX PACKET) 17 gm 1X ONCE PO Last administered on 08/08/18at 10:16; Start 08/08/18 at 10:00; Stop 08/08/18 at 10:01; Status DC Polyethylene Glycol (miraLAX PACKET) 17 gm DAILY PO ; Start 08/09/18 at 09:00; Stop 08/09/18 at 09:00; Status DC Amlodipine Besylate (Norvasc) 5 mg 1X ONCE PO Last administered on 08/08/18at 11:32; Start 08/08/18 at 11:30; Stop 08/08/18 at 11:31; Status DC Carvedilol (Coreg) 3.125 mg BIDWMEALS PO Last administered on 08/09/18at 08:07; Start 08/08/18 at 12:00 Polyethylene Glycol (miraLAX PACKET) 17 gm BID PO Last administered on 08/09/18 08:08; Start 08/08/18 at 21:00 Pantoprazole Sodium (Protonix) 40 mg DAILYAC PO Last administered on 08/09/18at 08:06; Start 08/09/18 at 07:30 Lubiprostone (Amitiza) 24 mcg BIDWMEALS PO ; Start 08/09/18 at 17:00 Active Scripts Active Prednisone 20 Mg Tablet 40 Mg PO DAILY Cyclobenzaprine Hcl 10 Mg Tablet 10 Mg PO TID [place] 5-325 Tablet (Acetaminophen/Hydrocodone Bitart) 1 Each Tablet 1 Tab PO PRN Q6HRS PRN Vitals/I & O Vital Sign - Last 24 Hours 08/08/18 08/08/18 08/08/18 08/08/18 14:18 14:25 15:00 17:48 Temp 98.6 98.6 Pulse 76 Resp 20 16 18 B/P (MAP) 136/84 (101) Pulse Ox 98 98 95 O2 Delivery Room Air Room Air Room Air O2 Flow Rate 2.0 08/08/18 08/08/18 08/08/18 08/08/18 17:49 18:48 19:00 19:05 Temp 98.6 98.6 Pulse 76 80 Resp 18 18 18 B/P (MAP) 136/84 137/89 (105) Pulse Ox 97 95 O2 Delivery Room Air Room Air O2 Flow Rate 2.0 08/08/18 08/08/18 08/08/18 08/09/18 20:00 21:10 23:00 02:00 Temp 97.6 97.6 Pulse 83 Resp 16 18 16 B/P (MAP) 135/87 (103) Pulse Ox 95 96 96 O2 Delivery Room Air Room Air Room Air O2 Flow Rate 2.0 08/09/18 08/09/18 08/09/18 08/09/18 03:00 03:41 04:41 06:29 Temp 99.0 99.0 Pulse 81 Resp 18 16 B/P (MAP) 137/97 (110) Pulse Ox 98 96 96 96 O2 Delivery Room Air Room Air Room Air O2 Flow Rate 2.0 2.0 08/09/18 08/09/18 08/09/18 08/09/18 07:00 07:29 08:00 08:06 Temp 99.0 99.0 Pulse 79 Resp 18 B/P (MAP) 148/96 (113) Pulse Ox 98 O2 Delivery Room Air Room Air Room Air Room Air 08/09/18 08/09/18 08/09/18 08/09/18 08:07 08:07 08:08 11:00 Temp 98.5 98.5 Pulse 79 79 79 73 Resp 18 B/P (MAP) 148/96 148/96 148/96 149/96 (113) Pulse Ox 98 O2 Delivery Room Air 08/09/18 08/09/18 08/09/18 11:35 12:05 12:06 O2 Delivery Room Air Room Air Room Air Intake and Output 08/08/18 08/08/18 08/09/18 14:59 22:59 06:59 Intake Total 840 ml 400 ml 400 ml Output Total 1 ml 1 ml Balance 839 ml 399 ml 400 ml HANH WHITE MD August 09, 2018 13:57
[2018-08-09] MEDS ORDERED: MAGNESIUM CITRATE 296 ML SOLUTION. PO ONE (14:00)
[2018-08-09 15:00] VITALS: BP 150/100
--- NOTE | 2018-08-09 15:03 | NUR ---
Magnesium citrate not given as pt stated he has a bowel movement this afternoon. Pt states his bm was "normal", stool was not assessed by RN.
--- NOTE | 2018-08-09 15:06 | PATHOLOGY ---
[facility] Accession Number: [id number] . 01 Material submitted: . liver - LIVER BIOPSY . 01 Clinical history: . Liver lesions . 02 Diagnosis: Liver tissue, liver lesion needle biopsies: - METASTATIC ADENOCARCINOMA, MODERATELY TO POORLY DIFFERENTIATED. SEE COMMENT. (JPM:jony; 08/08/2018) QMS/08/09/2018 . 02 Comment: Sections of the liver needle biopsy show focal areas of replacement of liver parenchyma by a malignant epithelial neoplasm. The neoplasm is composed of fairly well formed glands and crowded small irregular poorly formed glands. The glands are lined by atypical cells which have eosinophilic cytoplasm and which possess enlarged, rounded to ovoid, moderately pleomorphic nuclei containing prominent nucleoli. There appear to be mucin vacules within the tumor. The remaining liver parenchyma shows focal areas of fibrosis and prominent chronic inflammation. A panel of immunoperoxidase stains is obtained on Block A1 and yields the following results: . Cytokeratin 7: Tumor cells positive Cytokeratin 20: Tumor cells negative Cytokeratin 19: Tumor cells positive CDX2: Tumor cells positive TTF-1: Tumor cells negative . The morphologic and immunophenotypic findings are supportive of the diagnosis of metastatic moderately to poorly differentiated adenocarcinoma and are consistent with metastatic pancreatic adenocarcinoma. The case is also examined by Dr. Davis, who concurs with the diagnosis. The findings are discussed with on 08/08/18. (JPM:jony; 08/09/2018) . Special stains performed: CK7, CK20, CK19, CDX2, and TTF-1 . 02 Electronically signed: . Enzo Fung MD, Pathologist NPI- [id number] . 01 Gross description: . The specimen is received in formalin, labeled "Janusz Jones, is an elongated maradiaga-white needle core measuring 1.5 cm in length and up to 0.1 cm in diameter. The specimen is entirely submitted in A1. (SWS; 08/07/2018) . . SHS/SHS . 02 Pathologist provided ICD-10: C78.7 . 02 CPT . 362807, L47548, S13297 Specimen Comment: A courtesy copy of this report has been sent to Specimen Comment: [phone], , . Specimen Comment: Report sent to ,DR KENNEDY / DR BALDWIN Performed at: 01 [facility] [address], [place] [id number] MD Luis Figueroa MD Phone: [phone] Performed at: 02 [facility] [address] [place], [place] [id number] MD Enzo Fung MD Phone: [phone]
[2018-08-09] MEDS: LUBIPROSTONE 8 MCG CAPSULE PO SCH (16:44)
[2018-08-09] MEDS ORDERED: LUBIPROSTONE 8 MCG CAPSULE PO SCH (17:00)
[2018-08-09 19:00] VITALS: BP 138/95
[2018-08-09 23:00] VITALS: BP 145/92
[2018-08-10 03:00] VITALS: BP 151/104
[2018-08-10] MEDS: HYDROcodone/APAP 7.5/325MG 1 TAB TABLET PO PRN ×3 (03:48→12:12)
[2018-08-10] MEDS: ENALAPRILAT 2.5 MG/2 ML VIAL. IVP PRN (03:54)
[2018-08-10 04:35] VITALS: BP 127/96
[2018-08-10] MEDS: ONDANSETRON PF 4 MG/2 ML VIAL. IV PRN ×2 (06:02→12:12)
[2018-08-10 07:00] VITALS: BP 134/98
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
[2018-08-10] MEDS: PANTOPRAZOLE 40 MG TABLET.DR. PO SCH (07:54)
[2018-08-10] MEDS: DOCUSATE SODIUM 100 MG CAPSULE. PO SCH (07:56)
[2018-08-10] MEDS: amLODIPine BESYLATE 5 MG TABLET PO SCH (07:57)
[2018-08-10] MEDS: PROCHLORPERAZINE 10 MG/2 ML VIAL. IV PRN (07:58)
[2018-08-10] MEDS: LUBIPROSTONE 8 MCG CAPSULE PO SCH (07:58)
[2018-08-10] MEDS: CARVEDILOL 3.125 MG TABLET. PO SCH (07:59)
[2018-08-10] MEDS: CYCLOBENZAPRINE 10 MG TABLET. PO SCH ×2 (07:59→14:00)
[2018-08-10] MEDS: LISINOPRIL 10 MG TABLET PO SCH (07:59)
[2018-08-10] MEDS: POLYETHYLENE GLYCOL 3350 17 GM PACKET. PO SCH (08:02)
--- NOTE | 2018-08-10 08:12 | PDOC ---
PROGRESS NOTES Subjective Subjective HPI - f/u of Stage IV Pancreatic adenocarcinoma with multiple liver metastasis ROS - has abd pain Current Medications Medications (Trade) Dose Ordered Sig/Alice Route PRN Reason Start Time Stop Time Status Last Admin Dose Admin Famotidine (Pepcid Vial) 20 mg 1X ONCE IVP 08/05/18 20:30 08/05/18 20:31 DC 08/05/18 20:46 Ondansetron HCl (Zofran) 4 mg 1X ONCE IV 08/05/18 20:30 08/05/18 20:31 DC 08/05/18 20:46 Morphine Sulfate (Morphine Sulfate) 5 mg 1X ONCE IV 08/05/18 20:30 08/05/18 20:31 DC 08/05/18 20:46 Sodium Chloride 1,000 ml @ 1,000 mls/hr 1X ONCE IV 08/05/18 21:00 08/05/18 21:59 DC 08/05/18 20:48 Sodium Chloride 1,000 ml @ 1,000 mls/hr 1X ONCE IV 08/05/18 21:00 08/05/18 21:59 DC 08/05/18 21:41 Iohexol (Omnipaque 300 Mg/ml) 75 ml 1X ONCE IV 08/05/18 21:30 08/05/18 21:31 DC 08/05/18 21:27 Info (CONTRAST GIVEN -- Rx MONITORING) 1 each PRN DAILY PRN MC SEE COMMENTS 08/05/18 21:30 08/07/18 21:29 DC Morphine Sulfate (Morphine Sulfate) 4 mg Q4HRS PRN IV PAIN 08/05/18 21:45 08/05/18 21:57 DC 08/05/18 21:51 Ondansetron HCl (Zofran) 4 mg PRN Q6HRS PRN IV NAUSEA/VOMITING 1ST CHOICE 08/05/18 21:45 08/10/18 06:02 Sodium Chloride 1,000 ml @ 125 mls/hr Q8H IV 08/05/18 22:00 08/06/18 10:06 DC 08/06/18 06:40 Famotidine (Pepcid Vial) 20 mg BID IVP 08/06/18 09:00 08/08/18 11:49 DC 08/08/18 08:29 Morphine Sulfate (Morphine Sulfate) 4 mg PRN Q4HRS PRN IV SEVERE PAIN 08/05/18 22:00 08/07/18 14:10 DC 08/07/18 12:15 Hydralazine HCl (Apresoline Inj) 20 mg PRN Q4HRS PRN IVP ELEVATED BP, SEE COMMENTS 08/06/18 01:45 08/06/18 10:10 DC 08/06/18 01:52 Methylnaltrexone [place] (Relistor) 12 mg 1X ONCE SQ 08/06/18 10:00 08/06/18 10:01 DC 08/06/18 10:26 Magnesium Hydroxide (Milk Of Magnesia) 2,400 mg PRN DAILY PRN PO CONSTIPATION 08/06/18 09:30 08/08/18 01:33 Magnesium Hydroxide (Milk Of Magnesia) 2,400 mg 1X ONCE PO 08/06/18 10:00 08/06/18 10:01 DC 08/06/18 10:26 Prochlorperazine Edisylate (Compazine) 10 mg PRN Q6HRS PRN IV NAUSEA/VOMITING, 2nd CHOICE 08/06/18 10:15 08/07/18 08:14 Hydralazine HCl (Apresoline Inj) 10 mg PRN Q4HRS PRN IVP ELEVATED BP, 1st CHOICE 08/06/18 10:15 08/07/18 04:06 Labetalol HCl (Normodyne Iv Push) 10 mg PRN Q2HR PRN IVP HYPERTENSION, 2nd CHOICE 08/06/18 10:15 Cyclobenzaprine HCl (Flexeril) 10 mg TID PO 08/06/18 14:00 08/09/18 21:05 Acetaminophen/ Hydrocodone Bitart (Lortab 5/325) 1 tab PRN Q6HRS PRN PO PAIN 08/06/18 10:15 08/07/18 14:10 DC 08/07/18 05:38 Nicotine (Nicoderm Cq 21mg) 1 patch PRN DAILY PRN TD SMOKING CESSATION 08/06/18 11:15 Diphenhydramine HCl (Benadryl) 25 mg PRN QHS PRN PO INSOMNIA, 1ST CHOICE 08/07/18 07:45 08/09/18 21:11 Diphenhydramine HCl (Benadryl) 25 mg PRN Q6HRS PRN PO ITCHING 08/07/18 09:15 08/09/18 03:40 Zolpidem Tartrate (Ambien) 5 mg PRN QHS PRN PO INSOMNIA, 2ND CHOICE 08/07/18 09:15 08/08/18 21:14 Lidocaine/Sodium Bicarbonate (Buffered Lidocaine 1%) 3 ml STK-MED ONCE .ROUTE 08/07/18 09:24 08/07/18 09:25 DC Gelatin (Gelfoam Size 12-7mm) 1 each STK-MED ONCE .ROUTE 08/07/18 09:24 08/07/18 09:25 DC Lidocaine/Sodium Bicarbonate (Buffered Lidocaine 1%) 3 ml 1X ONCE IJ 08/07/18 10:15 08/07/18 10:16 DC 08/07/18 10:29 Midazolam HCl (Versed) 2 mg 1X ONCE IV 08/07/18 10:15 08/07/18 10:16 DC 08/07/18 10:30 Fentanyl Citrate (Fentanyl 2ml Vial) 100 mcg 1X ONCE IV 08/07/18 10:15 08/07/18 10:16 DC 08/07/18 10:30 Gelatin (Gelfoam Size 12-7mm) 1 each 1X ONCE TP 08/07/18 10:15 08/07/18 10:16 DC 08/07/18 10:30 Enalaprilat (Vasotec Inj) 1.25 mg 1X ONCE IVP 08/07/18 10:30 08/07/18 10:34 DC 08/07/18 10:59 Amlodipine Besylate (Norvasc) 5 mg 1X ONCE PO 08/07/18 10:45 08/07/18 10:46 DC 08/07/18 10:58 Amlodipine Besylate (Norvasc) 5 mg DAILY PO 08/08/18 09:00 08/09/18 08:08 Midazolam HCl (Versed) 2 mg STK-MED ONCE .ROUTE 08/07/18 12:32 08/07/18 12:33 DC Fentanyl Citrate (Fentanyl 2ml Vial) 100 mcg STK-MED ONCE .ROUTE 08/07/18 12:32 08/07/18 12:33 DC Acetaminophen/ Hydrocodone Bitart (Lortab 5/325) 2 tab PRN Q6HRS PRN PO PAIN 08/07/18 14:15 08/08/18 09:36 DC 08/08/18 08:28 Diphenhydramine HCl (Benadryl) 25 mg PRN Q6HRS PRN IVP ITCHING 08/07/18 14:15 Diphenhydramine HCl (Benadryl) 50 mg 1X ONCE IVP 08/07/18 14:15 08/07/18 14:16 DC 08/07/18 14:55 Hydromorphone HCl (Dilaudid) 1 mg PRN Q4HRS PRN IVP PAIN 08/07/18 14:15 08/09/18 13:53 DC 08/09/18 11:35 Ketorolac Tromethamine (Toradol 30mg Vial) 30 mg 1X ONCE IV 08/07/18 14:15 08/07/18 14:16 DC 08/07/18 14:54 Enalaprilat (Vasotec Inj) 2.5 mg PRN Q6HRS PRN IVP HYPERTENSION 08/07/18 20:00 08/10/18 03:54 Iohexol (Omnipaque 300 Mg/ml) 75 ml 1X ONCE IV 08/08/18 08:45 08/08/18 08:47 DC 08/08/18 08:45 Info (CONTRAST GIVEN -- Rx MONITORING) 1 each PRN DAILY PRN MC SEE COMMENTS 08/08/18 09:00 08/10/18 08:59 Morphine Sulfate (Ms Contin) 15 mg BID PO 08/08/18 10:00 08/09/18 21:05 Acetaminophen/ Hydrocodone Bitart (Lortab 7.5/325) 2 tab PRN Q4HRS PRN PO PAIN 08/08/18 09:45 08/10/18 03:48 Lisinopril (Prinivil) 10 mg 1X ONCE PO 08/08/18 10:00 08/08/18 10:01 DC 08/08/18 10:15 Lisinopril (Prinivil) 10 mg DAILY PO 08/09/18 09:00 08/09/18 08:07 Docusate Sodium (Colace) 100 mg DAILY PO 08/08/18 10:00 08/09/18 08:05 Polyethylene Glycol (miraLAX PACKET) 17 gm 1X ONCE PO 08/08/18 10:00 08/08/18 10:01 DC 08/08/18 10:16 Polyethylene Glycol (miraLAX PACKET) 17 gm DAILY PO 08/09/18 09:00 08/09/18 09:00 DC Amlodipine Besylate (Norvasc) 5 mg 1X ONCE PO 08/08/18 11:30 08/08/18 11:31 DC 08/08/18 11:32 Carvedilol (Coreg) 3.125 mg BIDWMEALS PO 08/08/18 12:00 08/09/18 16:48 Polyethylene Glycol (miraLAX PACKET) 17 gm BID PO 08/08/18 21:00 08/09/18 21:06 Pantoprazole Sodium (Protonix) 40 mg DAILYAC PO 08/09/18 07:30 08/09/18 08:06 Lubiprostone (Amitiza) 24 mcg BIDWMEALS PO 08/09/18 17:00 08/09/18 16:44 Lubiprostone (Amitiza) 8 mcg BIDWMEALS PO 08/09/18 17:00 UNV Magnesium Citrate (Citroma) 296 ml 1X ONCE PO 08/09/18 14:00 08/09/18 14:01 DC Objective Objective Vital Signs Date Time Temp Pulse Resp B/P (MAP) Pulse Ox O2 Delivery O2 Flow Rate FiO2 08/10/18 04:55 16 Room Air 08/10/18 04:35 92 127/96 (106) 95 08/10/18 03:00 98.8 98.8 08/09/18 06:29 2.0 Intake and Output 08/10/18 07:00 Intake Total 740 ml Balance 740 ml Intake Oral 740 ml # Voids 7 Physical Exam General: Alert, Oriented X3 Neck: No JVD Neuro: Normal speech Psych/Mental Status: Mental status NL Assessment Assessment IMPRESSION AND PLAN: 1. Stage IV Pancreatic adenocarcinoma with multiple liver metastasis. s/p biopsy of the liver on 08/07/2018. CA 19-9 is 189 on 08/06/18. - CT abd/pelvis 08/05/18: Numerous hepatic lesions are now identified, most likely metastatic tumor deposits. Abscesses could be considered if there are clinical signs of infection. Pancreatic mass appears to have substantially increased in size, now extends all the way through the body and tail the pancreas with very little pancreatic tissue in this area. - CT chest 08/08/18: Small noncalcified pulmonary nodule in the right middle lobe - Bone scan 08/08/18 - no mets. I recommended palliative chemo with FOLFIRINOX vs hospice. He understands that this is incurable and prognosis is poor. He prefers chemo. I will also consult palliative care for advance directives and treatment goals. I d/w Dr Ryan. 2. Hepatitis C. Continue management per Gastroenterology. 3. Elevated liver function tests due to liver metastasis. 4. Abd pain - continue pain management. I will consult Dr Hopper. Comment Review of Relevant I have reviewed the following items himanshu (where applicable) has been applied. Labs Laboratory Tests Test 08/09/18 03:40 Sodium Level 130 mmol/L (136-145) Potassium Level 4.6 mmol/L (3.5-5.1) Chloride Level 94 mmol/L (98-107) Carbon Dioxide Level 27 mmol/L (21-32) Anion Gap 9 (6-14) Blood Urea Nitrogen 9 mg/dL (8-26) Creatinine 0.7 mg/dL (0.7-1.3) Estimated GFR (Cockcroft-Gault) 143.9 Glucose Level 106 mg/dL (70-99) Calcium Level 9.4 mg/dL (8.5-10.1) Medications Current Medications Famotidine (Pepcid Vial) 20 mg 1X ONCE IVP Last administered on 08/05/18at 20:46; Start 08/05/18 at 20:30; Stop 08/05/18 at 20:31; Status DC Ondansetron HCl (Zofran) 4 mg 1X ONCE IV Last administered on 08/05/18 20:46; Start 08/05/18 at 20:30; Stop 08/05/18 at 20:31; Status DC Morphine Sulfate (Morphine Sulfate) 5 mg 1X ONCE IV Last administered on 08/05/18 20:46; Start 08/05/18 at 20:30; Stop 08/05/18 at 20:31; Status DC Sodium Chloride 1,000 ml @ 1,000 mls/hr 1X ONCE IV Last administered on 08/05/18at 20:48; Start 08/05/18 at 21:00; Stop 08/05/18 at 21:59; Status DC Sodium Chloride 1,000 ml @ 1,000 mls/hr 1X ONCE IV Last administered on 08/05/18at 21:41; Start 08/05/18 at 21:00; Stop 08/05/18 at 21:59; Status DC Iohexol (Omnipaque 300 Mg/ml) 75 ml 1X ONCE IV Last administered on 08/05/18at 21:27; Start 08/05/18 at 21:30; Stop 08/05/18 at 21:31; Status DC Info (CONTRAST GIVEN -- Rx MONITORING) 1 each PRN DAILY PRN MC SEE COMMENTS; Start 08/05/18 at 21:30; Stop 08/07/18 at 21:29; Status DC Morphine Sulfate (Morphine Sulfate) 4 mg Q4HRS PRN IV PAIN Last administered on 08/05/18at 21:51; Start 08/05/18 at 21:45; Stop 08/05/18 at 21:57; Status DC Ondansetron HCl (Zofran) 4 mg PRN Q6HRS PRN IV NAUSEA/VOMITING 1ST CHOICE Last administered on 08/10/18 06:02; Start 08/05/18 at 21:45 Sodium Chloride 1,000 ml @ 125 mls/hr Q8H IV Last administered on 08/06/18 06:40; Start 08/05/18 at 22:00; Stop 08/06/18 at 10:06; Status DC Famotidine (Pepcid Vial) 20 mg BID IVP Last administered on 08/08/18at 08:29; Start 08/06/18 at 09:00; Stop 08/08/18 at 11:49; Status DC Morphine Sulfate (Morphine Sulfate) 4 mg PRN Q4HRS PRN IV SEVERE PAIN Last adm inistered on 08/07/18at 12:15; Start 08/05/18 at 22:00; Stop 08/07/18 at 14:10; Status DC Hydralazine HCl (Apresoline Inj) 20 mg PRN Q4HRS PRN IVP ELEVATED BP, SEE COMMENTS Last administered on 08/06/18at 01:52; Start 08/06/18 at 01:45; Stop 08/06/18 at 10:10; Status DC Methylnaltrexone [place] (Relistor) 12 mg 1X ONCE SQ Last administered on 08/06/18at 10:26; Start 08/06/18 at 10:00; Stop 08/06/18 at 10:01; Status DC Magnesium Hydroxide (Milk Of Magnesia) 2,400 mg PRN DAILY PRN PO CONSTIPATION Last administered on 08/08/18 01:33; Start 08/06/18 at 09:30 Magnesium Hydroxide (Milk Of Magnesia) 2,400 mg 1X ONCE PO Last administered on 08/06/18at 10:26; Start 08/06/18 at 10:00; Stop 08/06/18 at 10:01; Status DC Prochlorperazine Edisylate (Compazine) 10 mg PRN Q6HRS PRN IV NAUSEA/VOMITING, 2nd CHOICE Last administered on 08/07/18 08:14; Start 08/06/18 at 10:15 Hydralazine HCl (Apresoline Inj) 10 mg PRN Q4HRS PRN IVP ELEVATED BP, 1st CHOICE Last administered on 08/07/18 04:06; Start 08/06/18 at 10:15 Labetalol HCl (Normodyne Iv Push) 10 mg PRN Q2HR PRN IVP HYPERTENSION, 2nd CHOICE; Start 08/06/18 at 10:15 Cyclobenzaprine HCl (Flexeril) 10 mg TID PO Last administered on 08/09/18 21:05; Start 08/06/18 at 14:00 Acetaminophen/ Hydrocodone Bitart (Lortab 5/325) 1 tab PRN Q6HRS PRN PO PAIN Last administered on 08/07/18 05:38; Start 08/06/18 at 10:15; Stop 08/07/18 at 14:10; Status DC Nicotine (Nicoderm Cq 21mg) 1 patch PRN DAILY PRN TD SMOKING CESSATION; Start 08/06/18 at 11:15 Diphenhydramine HCl (Benadryl) 25 mg PRN QHS PRN PO INSOMNIA, 1ST CHOICE Last administered on 08/09/18 21:11; Start 08/07/18 at 07:45 Diphenhydramine HCl (Benadryl) 25 mg PRN Q6HRS PRN PO ITCHING Last administered on 08/09/18 03:40; Start 08/07/18 at 09:15 Zolpidem Tartrate (Ambien) 5 mg PRN QHS PRN PO INSOMNIA, 2ND CHOICE Last administered on 5/14/19at 21:14; Start 08/07/18 at 09:15 Lidocaine/Sodium Bicarbonate (Buffered Lidocaine 1%) 3 ml STK-MED ONCE .ROUTE ; Start 08/07/18 at 09:24; Stop 08/07/18 at 09:25; Status DC Gelatin (Gelfoam Size 12-7mm) 1 each STK-MED ONCE .ROUTE ; Start 08/07/18 at 09:24; Stop 08/07/18 at 09:25; Status DC Lidocaine/Sodium Bicarbonate (Buffered Lidocaine 1%) 3 ml 1X ONCE IJ Last administered on 08/07/18at 10:29; Start 08/07/18 at 10:15; Stop 08/07/18 at 10:16; Status DC Midazolam HCl (Versed) 2 mg 1X ONCE IV Last administered on 08/07/18at 10:30; Start 08/07/18 at 10:15; Stop 08/07/18 at 10:16; Status DC Fentanyl Citrate (Fentanyl 2ml Vial) 100 mcg 1X ONCE IV Last administered on 08/07/18at 10:30; Start 08/07/18 at 10:15; Stop 08/07/18 at 10:16; Status DC Gelatin (Gelfoam Size 12-7mm) 1 each 1X ONCE TP Last administered on 08/07/18at 10:30; Start 08/07/18 at 10:15; Stop 08/07/18 at 10:16; Status DC Enalaprilat (Vasotec Inj) 1.25 mg 1X ONCE IVP Last administered on 08/07/18at 10:59; Start 08/07/18 at 10:30; Stop 08/07/18 at 10:34; Status DC Amlodipine Besylate (Norvasc) 5 mg 1X ONCE PO Last administered on 08/07/18at 10:58; Start 08/07/18 at 10:45; Stop 08/07/18 at 10:46; Status DC Amlodipine Besylate (Norvasc) 5 mg DAILY PO Last administered on 08/09/18at 08:08; Start 08/08/18 at 09:00 Midazolam HCl (Versed) 2 mg STK-MED ONCE .ROUTE ; Start 08/07/18 at 12:32; Stop 08/07/18 at 12:33; Status DC Fentanyl Citrate (Fentanyl 2ml Vial) 100 mcg STK-MED ONCE .ROUTE ; Start 08/07/18 at 12:32; Stop 08/07/18 at 12:33; Status DC Acetaminophen/ Hydrocodone Bitart (Lortab 5/325) 2 tab PRN Q6HRS PRN PO PAIN Last administered on 08/08/18at 08:28; Start 08/07/18 at 14:15; Stop 08/08/18 at 09:36; Status DC Diphenhydramine HCl (Benadryl) 25 mg PRN Q6HRS PRN IVP ITCHING; Start 08/07/18 at 14:15 Diphenhydramine HCl (Benadryl) 50 mg 1X ONCE IVP Last administered on 08/07/18at 14:55; Start 08/07/18 at 14:15; Stop 08/07/18 at 14:16; Status DC Hydromorphone HCl (Dilaudid) 1 mg PRN Q4HRS PRN IVP PAIN Last administered on 08/09/18at 11:35; Start 08/07/18 at 14:15; Stop 08/09/18 at 13:53; Status DC Ketorolac Tromethamine (Toradol 30mg Vial) 30 mg 1X ONCE IV Last administered on 08/07/18at 14:54; Start 08/07/18 at 14:15; Stop 08/07/18 at 14:16; Status DC Enalaprilat (Vasotec Inj) 2.5 mg PRN Q6HRS PRN IVP HYPERTENSION Last administered on 08/10/18at 03:54; Start 08/07/18 at 20:00 Iohexol (Omnipaque 300 Mg/ml) 75 ml 1X ONCE IV Last administered on 08/08/18at 08:45; Start 08/08/18 at 08:45; Stop 08/08/18 at 08:47; Status DC Info (CONTRAST GIVEN -- Rx MONITORING) 1 each PRN DAILY PRN MC SEE COMMENTS; Start 08/08/18 at 09:00; Stop 08/10/18 at 08:59 Morphine Sulfate (Ms Contin) 15 mg BID PO Last administered on 08/09/18at 21:05; Start 08/08/18 at 10:00 Acetaminophen/ Hydrocodone Bitart (Lortab 7.5/325) 2 tab PRN Q4HRS PRN PO PAIN Last administered on 08/10/18at 03:48; Start 08/08/18 at 09:45 Lisinopril (Prinivil) 10 mg 1X ONCE PO Last administered on 08/08/18at 10:15; Start 08/08/18 at 10:00; Stop 08/08/18 at 10:01; Status DC Lisinopril (Prinivil) 10 mg DAILY PO Last administered on 08/09/18at 08:07; Start 08/09/18 at 09:00 Docusate Sodium (Colace) 100 mg DAILY PO Last administered on 08/09/18at 08:05; Start 08/08/18 at 10:00 Polyethylene Glycol (miraLAX PACKET) 17 gm 1X ONCE PO Last administered on 08/08/18at 10:16; Start 08/08/18 at 10:00; Stop 08/08/18 at 10:01; Status DC Polyethylene Glycol (miraLAX PACKET) 17 gm DAILY PO ; Start 08/09/18 at 09:00; Stop 08/09/18 at 09:00; Status DC Amlodipine Besylate (Norvasc) 5 mg 1X ONCE PO Last administered on 08/08/18at 11:32; Start 08/08/18 at 11:30; Stop 08/08/18 at 11:31; Status DC Carvedilol (Coreg) 3.125 mg BIDWMEALS PO Last administered on 08/09/18at 16:48; Start 08/08/18 at 12:00 Polyethylene Glycol (miraLAX PACKET) 17 gm BID PO Last administered on 08/09/18at 21:06; Start 08/08/18 at 21:00 Pantoprazole Sodium (Protonix) 40 mg DAILYAC PO Last administered on 08/09/18at 08:06; Start 08/09/18 at 07:30 Lubiprostone (Amitiza) 24 mcg BIDWMEALS PO Last administered on 08/09/18at 16:44; Start 08/09/18 at 17:00 Lubiprostone (Amitiza) 8 mcg BIDWMEALS PO ; Start 08/09/18 at 17:00; Status UNV Magnesium Citrate (Citroma) 296 ml 1X ONCE PO ; Start 08/09/18 at 14:00; Stop 08/09/18 at 14:01; Status DC Active Scripts Active Prednisone 20 Mg Tablet 40 Mg PO DAILY Cyclobenzaprine Hcl 10 Mg Tablet 10 Mg PO TID [place] 5-325 Tablet (Acetaminophen/Hydrocodone Bitart) 1 Each Tablet 1 Tab PO PRN Q6HRS PRN Vitals/I & O Vital Sign - Last 24 Hours 08/09/18 08/09/18 08/09/18 08/09/18 08:06 08:07 08:07 08:08 Pulse 79 79 79 B/P (MAP) 148/96 148/96 148/96 O2 Delivery Room Air 08/09/18 08/09/18 08/09/18 08/09/18 11:00 11:35 12:05 15:00 Temp 98.5 99.3 98.5 99.3 Pulse 73 83 Resp 18 18 B/P (MAP) 149/96 (113) 150/100 (117) Pulse Ox 98 97 O2 Delivery Room Air Room Air Room Air Room Air 08/09/18 08/09/18 08/09/18 08/09/18 15:01 16:48 19:00 19:34 Temp 99.3 99.3 Pulse 83 81 Resp 18 B/P (MAP) 148/97 138/95 (109) Pulse Ox 96 O2 Delivery Room Air Room Air Room Air 08/09/18 08/09/18 08/09/18 08/10/18 20:04 21:05 23:00 01:05 Temp 98.8 98.8 Pulse 82 Resp 16 18 18 B/P (MAP) 145/92 (109) Pulse Ox 97 O2 Delivery Room Air Room Air Room Air Room Air 08/10/18 08/10/18 08/10/18 08/10/18 03:00 03:48 03:54 04:35 Temp 98.8 98.8 Pulse 79 79 92 Resp 18 16 18 B/P (MAP) 151/104 (120) 151/104 127/96 (106) Pulse Ox 96 95 O2 Delivery Room Air Room Air Room Air 08/10/18 04:55 Resp 16 O2 Delivery Room Air Intake and Output 08/09/18 08/09/18 08/10/18 15:00 23:00 07:00 Intake Total 140 ml 200 ml 400 ml Balance 140 ml 200 ml 400 ml NELSON MORRISSEY MD August 10, 2018 08:12
[2018-08-10] MEDS: MORPHINE ER 15 MG TABLET.ER PO SCH (09:12)
--- NOTE | 2018-08-10 09:46 | PDOC ---
Subjective: Subjective: Says he wants chemo. Not concerned w/ constipation - says he stooled yesterday. Does want more pain meds. Eating a little. Objective: Vital Signs: Vital Signs Date Time Temp Pulse Resp B/P (MAP) Pulse Ox O2 Delivery O2 Flow Rate FiO2 08/10/18 09:12 97 Room Air 2.0 08/10/18 07:59 101 134/98 08/10/18 07:00 97.7 16 97.7 Labs: LIVER BIOPSY Diagnosis: Liver tissue, liver lesion needle biopsies: - METASTATIC ADENOCARCINOMA, MODERATELY TO POORLY DIFFERENTIATED. Imaging: KUB 08/09 IMPRESSION: Increased stool in the colon. PE: GEN: NAD - was asleep LUNGS: CTAB HEART: RRR ABD: tender diffusely - worst RUQ NEURO/PSYCH: A & O 3 A/P: Stage IV pancreatic adenocarcinoma Abd pain, decreased appetite, constipation Hep C -- Plans for palliative care discussion. Continue treatment for constipation w/ Miralax and Amitiza, consider Relistor. Nutrition consult. JESSICA HOFFMAN August 10, 2018 09:46
[2018-08-10] MEDS ORDERED: BISACODYL 5 MG TABLET.DR. PO ONE (10:00)
[2018-08-10 11:00] VITALS: BP 120/64
--- NOTE | 2018-08-10 11:30 | NUR ---
Per Dr. Ryan, patient is NPO in preparation for port-a-cath placement. Consent forms are in process.
--- NOTE | 2018-08-10 12:30 | NUR ---
Telephone call from patient's mother Mrs. Tanya Jones to Dr. Hopper, who discussed patient condition and nurse listened.
[2018-08-10] MEDS ORDERED: HEPARIN PF 500 UNIT/5 ML DISP.SYRIN. IV ONE (13:06)
[2018-08-10] MEDS ORDERED: LIDOCAINE 1%/EPI 1:100,000 20 ML VIAL. ONE (13:06)
[2018-08-10] MEDS ORDERED: fentaNYL PF VIAL 100 MCG/2 ML VIAL IV ONE (13:30)
[2018-08-10] MEDS ORDERED: HEPARIN PF 500 UNIT/5 ML DISP.SYRIN. IV SCH (13:30)
[2018-08-10] MEDS ORDERED: LIDOCAINE 1%/EPI 1:100,000 20 ML VIAL. IJ ONE (13:30)
[2018-08-10] MEDS ORDERED: MIDAZOLAM HCL/PF 2 MG/2 ML VIAL. IV ONE (13:30)
--- NOTE | 2018-08-10 14:11 | PDOC3 ---
Discharge Summary Visit Information Date of Admission: August 05, 2018 Date of Discharge: August 10, 2018 Admitting Diagnosis: Abdominal pain Final Diagnosis Metastatic pancreatic adenocarcinoma Brief Hospital Course Allergies Allergies Coded Allergies Type Severity Reaction Last Updated Verified ibuprofen Allergy Intermediate rash 11/11/15 Yes Vital Signs Vital Signs Date Time Temp Pulse Resp B/P (MAP) Pulse Ox O2 Delivery O2 Flow Rate FiO2 08/10/18 13:12 98 Room Air 2.0 08/10/18 11:00 98.8 102 14 120/64 (82) 98.8 Lab Results Laboratory Tests Test 08/09/18 03:40 Sodium Level 130 mmol/L (136-145) Potassium Level 4.6 mmol/L (3.5-5.1) Chloride Level 94 mmol/L (98-107) Carbon Dioxide Level 27 mmol/L (21-32) Anion Gap 9 (6-14) Blood Urea Nitrogen 9 mg/dL (8-26) Creatinine 0.7 mg/dL (0.7-1.3) Estimated GFR (Cockcroft-Gault) 143.9 Glucose Level 106 mg/dL (70-99) Calcium Level 9.4 mg/dL (8.5-10.1) Brief Hospital Course The patient is a 53-year-old -[place] gentleman who was admitted to [facility] on 08/05/2018 with complaints of abdominal pain, nausea and vomiting. He also reports a 20-pound weight loss. He was admitted to [facility] in 04/2018 and he had a CA 19-9 was elevated at 102. He underwent CT scan of the abdomen and pelvis on 05/06/2018 which revealed a 3.3 cm mass of the pancreas with distal pancreatic atrophy and ductal dilatation. Small hypodense lesion in the anterior liver was also noted. GI was consulted and he underwent MRCP on 06/05/2018, which revealed heterogenous mass at the pancreatic body/tail which is most consistent with primary pancreatic malignancy. Multiple liver lesions are indeterminate. Mild lymphadenopathy in the arcadio hepatis and retro peritoneum could be reactive versus metastatic disease. CT scan of the abdomen and pelvis with IV contrast on 08/05/2018 revealed numerous hepatic lesions are now identified throughout both lobes of the liver measuring up to 4 cm in diameter. A hypodense mass in the pancreas appears to have increased in size extending all the way to the tail of the pancreas. GI was consulted and the patient underwent liver biopsy on 08/07/2018 and the results are positive for pancreatic adenocarcinoma. Seen by Oncology as well and underwent port-a-cath placement and will d/c home with oncology f/u and pain control Greater than 30 minutes spent on discharge. VS Stable General: Alert, Oriented X3, No acute distress Heart: Regular rate, Normal S1, Normal S2 Lungs: Clear Abdomen: Normal bowel sounds, Soft, No tenderness, No hepatosplenomegaly, No masses Extremities: No clubbing, No cyanosis, No edema, Normal pulses, No tenderness/swelling Skin: No rashes, No breakdown, No significant lesion PATHOLOGY - Sections of the liver needle biopsy show focal areas of replacement of liver parenchyma by a malignant epithelial neoplasm. The neoplasm is composed of fairly well formed glands and crowded small irregular poorly formed glands. The glands are lined by atypical cells which have eosinophilic cytoplasm and which possess enlarged, rounded to ovoid, moderately pleomorphic nuclei containing prominent nucleoli. There appear to be mucin vacules within the tumor. The remaining liver parenchyma shows focal areas of fibrosis and prominent chronic inflammation. A panel of immunoperoxidase stains is obtained on Block A1 and yields the following results: . Cytokeratin 7: Tumor cells positive Cytokeratin 20: Tumor cells negative Cytokeratin 19: Tumor cells positive CDX2: Tumor cells positive TTF-1: Tumor cells negative . The morphologic and immunophenotypic findings are supportive of the diagnosis of metastatic moderately to poorly differentiated adenocarcinoma and are consistent with metastatic pancreatic adenocarcinoma. Discharge Information Condition at Discharge: Improved Follow Up: Weeks (2) Disposition/Orders: D/C to Home Scheduled Amlodipine Besylate (Amlodipine Besylate) 5 Mg Tablet, 5 MG PO DAILY for HTN for 30 Days, #30 Ref 5 Prescribed by: TATIANA QUAN MD on 08/10/18 1418 Carvedilol (Carvedilol ) 3.125 Mg Tablet, 3.125 MG PO BIDWMEALS for HTN for 30 Days, #60 Ref 5 Prescribed by: TATIANA QUAN MD on 08/10/18 1418 Cyclobenzaprine Hcl (Cyclobenzaprine Hcl) 10 Mg Tablet, 10 MG PO TID, #20 Prescribed by: MAGDA MELARA APRN on 11/11/15 0851 Last Action: Continued on 08/06/18 1006 by JEAN PAUL BALDWIN Docusate Sodium (Colace) 100 Mg Capsule, 100 MG PO BID for constipation for 30 Days, #60 Ref 5 Prescribed by: TATIANA QUAN MD on 08/10/18 1418 Lisinopril (Lisinopril) 10 Mg Tablet, 10 MG PO DAILY for HTN for 30 Days, #30 Ref 5 Prescribed by: TATIANA QUAN MD on 08/10/18 141 Morphine Sulfate (Morphine Sulfate Er) 15 Mg Tablet.er, 15 MG PO BID for Pancreatic cancer for 30 Days, #60 Prescribed by: TATIANA QUAN MD on 08/10/18 1418 Polyethylene Glycol 3350 (Polyethylene Glycol 3350) 17 Gm Powd.pack, 17 GM PO BID for constipation for 30 Days, #60 Prescribed by: TATIANA QUAN MD on 08/10/18 1418 [Pantoprazole] 40 MG TABLET.DR, 40 MG PO DAILYAC for GERD for 30 Days, #30 Ref 5 Prescribed by: TATIANA QUAN MD on 08/10/18 1418 Scheduled PRN Hydrocodone/Apap 5-325 ([place] 5-325 Tablet) 1 Each Tablet, 1 TAB PO PRN Q6HRS PRN for pancreatic cancer pain for 30 Days, #120 Prescribed by: TATIANA QUAN MD on 08/10/18 1418 Naloxegol Oxalate (Movantik) 25 Mg Tablet, 25 MG PO PRN DAILY PRN for CONSTIPATION for 30 Days, #30 Prescribed by: TATIANA QUAN MD on 08/10/18 1418 Discontinued Medications Prednisone (Prednisone) 20 Mg Tablet, 40 MG PO DAILY, #10 Prescribed by: MAGDA MELARA APRN on 11/11/15 0851 Last Action: HELD on 08/06/18 1006 by TATIANA PARDO MD August 10, 2018 14:11
[2018-08-10 14:12] VITALS: BP 131/81
[2018-08-10] MEDS ORDERED: POLY17PO28 PO (14:18)
[2018-08-10] MEDS ORDERED: AMLO5TAB10 PO (14:18)
[2018-08-10] MEDS ORDERED: MORP15TA3 PO (14:18)
[2018-08-10] MEDS ORDERED: Pantoprazole PO (14:18)
[2018-08-10] MEDS ORDERED: LISI10TA2 PO (14:18)
[2018-08-10] MEDS ORDERED: CARV3.1210 PO (14:18)
[2018-08-10] MEDS ORDERED: NALO25TA2 PO (14:18)
[2018-08-10] MEDS ORDERED: HYDR-3164 PO (14:18)
[2018-08-10] MEDS ORDERED: DOCU-109 PO (14:18)
--- NOTE | 2018-08-10 14:31 | RAD ---
Procedure: Ultrasound and fluoroscopically guided placement of right internal jugular power port.. 08/10/2018 2:28 PM Clinical Indication: for chemo Sedation: [id number] sedation time: 30 minutes. The patient was monitored by a qualified independent observer throughout the time of sedation. Please refer to the medical record for exact doses of medications utilized to achieve moderate sedation. Fluoroscopy time: 0.5 minutes Dose area product: 0.3 Gycm2 Consent: The procedure was explained in its entirety to the patient or the patients designated medical center representative by a member of the treatment team, including a discussion of the risks, benefits and commonly accepted alternatives to the procedure, as well as the expected consequences of no therapy whatsoever. Discussion of the risks included, but was not limited to, those that are most frequent and those that are rare but possibly severe or life-threatening, as well as the possibility of unforeseen complications. Technique and Findings: All elements of maximal sterile barrier technique including the use of a cap, mask, sterile gown, sterile gloves, large sterile sheet, appropriate hand hygiene, and 2% chlorhexidine for cutaneous antisepsis (or acceptable alternative antiseptic per current guidelines) were followed for this procedure. Following informed consent, and a timeout procedure, the patient was prepped and draped in the usual sterile fashion. Ultrasound interrogation of the right neck revealed patency and compressibility of the right internal jugular vein. A 21-gauge micropuncture was then used to gain access to this vein under ultrasound guidance. A hard copy ultrasound image was recorded. The needle was exchanged over a wire for a sheath. A 1 inch incision was made several centimeters inferior to the venotomy site. A catheter was tunneled from this site dermatotomy site in the neck. Catheter was advanced through peel-away sheath such that its tip was in the proximal right atrium with the patient supine. The catheter was trimmed to length and connected to the port reservoir. The port was found to flush and aspirate normally. The wound was closed in layers using 4-0 Vicryl suture. Sterile dressings were applied. Impression: Successful ultrasound and fluoroscopically guided placement of a right internal jugular PowerPort
[2018-08-10 15:00] VITALS: BP 117/81
--- NOTE | 2018-08-10 15:41 | PDOC2 ---
PALLIATIVE CARE Palliative Care Note Palliative Care Consult requested by Dr. Sethi to address treatment goals and advance directives. Medical Assessment per medical record 1. Stage IV Pancreatic adenocarcinoma with multiple liver metastasis. s/p biopsy of the liver on 08/07/2018. CA 19-9 is 189 on 08/06/18. - CT abd/pelvis 08/05/18: Numerous hepatic lesions are now identified, most likely metastatic tumor deposits. Abscesses could be considered if there are clinical signs of infection. Pancreatic mass appears to have substantially increased in size, now extends all the way through the body and tail the pancreas with very little pancreatic tissue in this area. - CT chest 08/08/18: Small noncalcified pulmonary nodule in the right middle lobe - Bone scan 08/08/18 - no mets. recommended palliative chemo with FOLFIRINOX vs hospice. He understands that this is incurable and prognosis is poor. He prefers chemo. per Dr. Sethi 2. Hepatitis C. Continue management per Gastroenterology. 3. Elevated liver function tests due to liver metastasis. 4. Abd pain - continue pain management. Spoke with patient and twin brother. Patient too lethargic to complete AD. Discussed Code status; patient lethargic --brother states that this is up to "God" attempted to reach mother--Tanya Handy [phone]. No answer Plan: Discharge orders written. ELIZABETH CHASE August 10, 2018 15:41
--- NOTE | 2018-08-10 16:36 | NUR ---
Patient was discharged via private vehicle to home in stable condition at this time, at his own request and per doctor discharge order.
--- NOTE | 2018-08-11 02:23 | CONS ---
DATE OF CONSULTATION: 08/10/2018 REFERRING DOCTOR: Dr. Thomas Sehti. DIAGNOSIS: Stage 4 (T2 N0 M1) metastatic adenocarcinoma of the body of the pancreas. He underwent confirmatory liver biopsy on 08/07/2018. We were asked to see him regarding the role of palliative radiation therapy in his care. ICD-10: C25.1, C78.7. HISTORY OF PRESENT ILLNESS: The patient is a 53-year-old gentleman who in 04/2018 was admitted here for abdominal pain, nausea and vomiting and weight loss. At that time, there was a 3.3 cm mass in the body of the pancreas with distal atrophy and ductal dilatation. Small indeterminate lesions were noted in the liver. He now has been readmitted with a 2-week history of recurrent abdominal pain with no additional weight loss. Currently, no nausea or vomiting. He is able to eat. He notes ongoing generalized abdominal pain, worse in the right upper quadrant, somewhat worse since his recent liver biopsy. On admission here, repeat CT scan of the abdomen and pelvis on 08/05/2018 revealed numerous obvious low density lesions in the liver compatible with metastatic disease, pancreatic mass was larger going into the body and tail of the pancreas. No ascites, no retroperitoneal adenopathy was noted. Ultrasound-guided biopsy on 08/07/2018 did reveal moderately to poorly differentiated metastatic adenocarcinoma. PAST MEDICAL HISTORY: Remarkable for hepatitis C, pancreatitis in the past. FAMILY HISTORY: Brother at age 40 from pancreatic cancer. Sister at age 45 from lung cancer. Another brother is alive with a history of pancreatic cancer treated in the past. SOCIAL HISTORY: Lives with his brother. No or children. 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 Has smoked 1-1/2 packs a day for his adult life. Drinks beer. Has been a heroin user in the past. PHYSICAL EXAMINATION: GENERAL: Revealed a thin, pleasant gentleman in no acute distress, ambulating with no difficulty. HEENT: Revealed no scleral icterus. LYMPH NODES: He had no palpable cervical or supraclavicular adenopathy. LUNGS: Clear. HEART: Regular. ABDOMEN: Revealed diffuse tenderness, worse in the right upper quadrant. EXTREMITIES: Reveal no clubbing, cyanosis or edema. LABORATORY STUDIES: 08/06/2018, hemoglobin 15.6, white count 8800, platelet count 268,000. Chemistry panel from 08/06/2018, creatinine 0.6, calcium 9.1, AST 65, ALT 70, alkaline phosphatase 393. CA-19-9 189. ASSESSMENT AND PLAN: In summary, my impression is that of stage 4 (T2 N0 M1) metastatic adenocarcinoma of the body of the pancreas now extending into the tail with progressive symptomatic liver metastases at diagnosis. He underwent biopsy of the liver metastasis confirming this. He does not have localized pain reference from the pancreatic primary and as such palliative radiation is unlikely to benefit him at this time. Rather I recommend the consideration of either palliative systemic chemotherapy or hospice care with supportive measures alone. I reviewed this with the patient. I also reviewed this with his mother who lives in [place] by phone today. I discussed this with Dr. Sethi who concurs with this recommendation as well. Thank you for allowing us to participate in his evaluation. MARGOTH SLADE MD DR: MAT/silas JOB#: [id number] / [id number] SAMIR Snyder MD
[2018-08-17] MEDS ORDERED: MORP15TA3 PO (09:37)
[2018-08-17] MEDS ORDERED: OXYC1TAB22 PO (09:37)
[2018-09-01] MEDS ORDERED: MORP30TA83 PO (11:07)
[2018-09-01] MEDS ORDERED: LORA-434 PO (11:08)
[2018-09-01] MEDS ORDERED: CYCL10TA2 PO (11:08)
== END 2018-08-10 16:36 | disposition home or self-care (01) | DRG 982 ==
LOC: ER 20:18 → 6 SOUTH 20:30 → 5 NORTH 08-07 07:26
PROVIDERS: ADMIT Internal Medicine; ATTEND Internal Medicine
PROC: 0FB13ZX Excision of Right Lobe Liver, Percutaneous Approach, Diagnostic (ICD-10-PCS; principal; 2018-08-07)
PROC: 02H633Z Insertion of Infusion Device into Right Atrium, Percutaneous Approach (ICD-10-PCS; 2018-08-10)
PROC: B244ZZZ Ultrasonography of Right Heart (ICD-10-PCS; 2018-08-10)
PROC: 0JH60WZ Insertion of Totally Implantable Vascular Access Device into Chest Subcutaneous Tissue and Fascia, Open Approach (ICD-10-PCS; 2018-08-10)
DX: C25.1 Malignant neoplasm of body of pancreas (principal); C78.7 Secondary malignant neoplasm of liver and intrahepatic bile duct; E44.1 Mild protein-calorie malnutrition; F17.210 Nicotine dependence, cigarettes, uncomplicated; B19.20 Unspecified viral hepatitis C without hepatic coma; G47.00 Insomnia, unspecified; R59.1 Generalized enlarged lymph nodes; I10 Essential (primary) hypertension; K59.00 Constipation, unspecified; Z72.89 Other problems related to lifestyle; Z88.8 Allergy status to other drugs, medicaments and biological substances; Z80.0 Family history of malignant neoplasm of digestive organs; Z80.1 Family history of malignant neoplasm of trachea, bronchus and lung
CPT/HCPCS: 36415; 36561; 47000; 71260; 74018; 74177; 76937; 76942; 77001; 78306; 80048; 80053; 83690; 84484; 85025; 85610; 85730; 86301; 88307; 88341; 88342; 93005; 96361; 96374; 96375; 99152; 99153; A9503; C1751; C1892; G0480; J0360; J0690; J0780; J1170; J1200; J1885; J2212; J2250; J2270; J2405; J3010; J3490; J7030; Q0163; Q9967; 99285-25

== ENCOUNTER 2018-08-14 12:07 | Inpatient (IN) | payer OTHER ==
[~2018-08-14] VITALS: Ht 160 cm; Wt 52.7 kg
[~2018-08-14 12:07] MED LIST changes: +AMLO5TAB10 PO; +CARV3.1210 PO; +DOCU-109 PO; +LISI10TA2 PO; +MORP15TA3 PO; +NALO25TA2 PO; +POLY17PO28 PO; +Pantoprazole PO
[2018-08-14] MEDS ORDERED: IV NORMAL SALINE 1000ML BAG 1,000 ML IV ONE (13:15)
[2018-08-14] MEDS ORDERED: fentaNYL PF VIAL 100 MCG/2 ML VIAL IV ONE (13:15)
[2018-08-14 13:41] LABS: BASO # 0.1 x10^3/uL (0.0-0.2); BASO % 1 % (0-3); EOS # 0.1 x10^3/uL (0.0-0.7); EOS % 1 % (0-3); HEMATOCRIT 41.1 % (39.0-53.0); HEMOGLOBIN 13.6 g/dL (13.0-17.5); LYMPH # 1.2 x10^3/uL (1.0-4.8); LYMPH % 10 % (24-48); MEAN CORPUSCULAR HEMOGLOBIN 30 pg (25-35); MEAN CORPUSCULAR HGB CONC 33 g/dL (31-37); MEAN CORPUSCULAR VOLUME 90 fL (79-100); MONO # 1.4 x10^3/uL (0.0-1.1); MONO % 12 % (0-9); NEUT # 8.6 x10^3uL (1.8-7.7); NEUT % 76 % (31-73); PLATELET COUNT 301 x10^3/uL (140-400); RED BLOOD COUNT 4.58 x10^6/uL (4.30-5.70); RED CELL DISTRIBUTION WIDTH 13.9 % (11.5-14.5); WHITE BLOOD COUNT 11.4 x10^3/uL (4.0-11.0)
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
[2018-08-14 13:55] LABS: CALCIUM 9.1 mg/dL (8.5-10.1); CREATININE 0.6 mg/dL (0.7-1.3); GFR 171.9; POTASSIUM 4.4 mmol/L (3.5-5.1)
[2018-08-14 14:01] LABS: ALBUMIN/GLOBULIN RATIO 0.6 (1.0-1.7); TOTAL BILIRUBIN 1.6 mg/dL (0.2-1.0); TOTAL PROTEIN 7.8 g/dL (6.4-8.2)
[2018-08-14 14:02] LABS: BILIRUBIN,URINE NEGATIVE (NEG); CLARITY,URINE CLEAR; COLOR,URINE YELLOW; NITRITE,URINE NEGATIVE (NEG); PROTEIN,URINE NEGATIVE (NEG-TRACE)
[2018-08-14 14:13] LABS: AMPHETAMINE/METHAMPHETAMINE NEG (NEG); BARBITURATES NEG (NEG); BENZODIAZEPINES NEG (NEG); CANNABINOIDS NEG (NEG); COCAINE NEG (NEG); METHADONE NEG (NEG); OPIATES POS (NEG); PHENCYCLIDINE NEG (NEG)
[2018-08-14 14:14] LABS: BACTERIA,URINE 0 /HPF (0-FEW); RBC,URINE 0 /HPF (0-2); SQUAMOUS EPITHELIAL CELL,UR OCC /LPF; WBC,URINE OCC /HPF (0-4)
[2018-08-14] MEDS ORDERED: MAGNESIUM CITRATE 296 ML SOLUTION. PO ONE (16:00)
[2018-08-14] MEDS ORDERED: fentaNYL PF VIAL 100 MCG/2 ML VIAL IM ONE (16:00)
[2018-08-14] MEDS ORDERED: ELECTROLYTE (NON-ICU) PROTOCOL MC PRN (16:15)
[2018-08-14] MEDS ORDERED: MAG HYDROX/ALUMINUM HYD/SIMETH 30 ML ORAL.SUSP PO PRN (16:15)
[2018-08-14] MEDS ORDERED: MORPHINE SULFATE 2 MG/ML VIAL. IV PRN (16:15)
[2018-08-14] MEDS ORDERED: IV NORMAL SALINE 1000ML BAG 1,000 ML IV SCH (16:20)
[2018-08-14] MEDS ORDERED: ACETAMINOPHEN 325 MG TABLET. PO PRN (16:30)
[2018-08-14] MEDS ORDERED: fentaNYL PF VIAL 100 MCG/2 ML VIAL IV PRN (16:30)
--- NOTE | 2018-08-14 16:41 | PDOC1 ---
History and Physical Date of Admission Date of Admission DATE: 08/14/18 TIME: 16:31 Identification/Chief Complaint Chief Complaint abdominal pain Problems: (1) Pancreatic cancer metastasized to liver (2) Abdominal pain Source Source: Chart review, Patient History of Present Illness History of Present Illness 53 year old BM with hx of recently dx Stage 4 (T2 N0 M1) adenocarcinoma of the body of the pancreas with mets to liver s/p confirmatory liver biopsy on 08/07/2018. patient discharged on 08/10 with port placement for pallative chemotherapy. states never got pain meds filled at discharge and returns to the ER with abdominal pain and constipation, no BM in 5 days. patient and family at bedside and understand that any chemo treatment is palliative at this point. has not had discussions regarding comfort care yet. patient has no other complaints. denies chest pain, sob nausea vomiting diarrhea. currently lives with family members. CT abdomen and pelvis done in ED and pending. Past Medical History Past Medical History metastatic pancreatic cancer Cardiovascular: No pertinent hx Pulmonary: No pertinent hx GI: No pertinent hx Heme/Onc: No pertinent hx, Other Hepatobiliary: No pertinent hx, Hep A/B/C, Other Psych: No pertinent hx Rheumatologic: No pertinent hx Infectious disease: No pertinent hx Renal/: No pertinent hx Endocrine: No pertinent hx Past Surgical History Past Surgical History: No pertinent history Family History Family History Brother at age 40 from pancreatic cancer. Sister at age 45 from lung cancer. Another brother is alive with a history of pancreatic cancer treated in the past. Family History: Cancer Family History: Other Social History ALCOHOL: occassional Drugs: Heroin Current Problem List Problem List Problems Medical Problems: (1) Constipation Status: Acute (2) Hyponatremia Status: Acute (3) Pancreatic cancer metastasized to liver Status: Acute Current Medications Current Medications Current Medications Fentanyl Citrate (Fentanyl 2ml Vial) 75 mcg 1X ONCE IV Last administered on 08/14/18at 13:40; Start 08/14/18 at 13:15; Stop 08/14/18 at 13:16; Status DC Sodium Chloride 1,000 ml @ 1,000 mls/hr 1X ONCE IV Last administered on 08/14/18at 13:39; Start 08/14/18 at 13:15; Stop 08/14/18 at 14:14; Status DC Fentanyl Citrate (Fentanyl 2ml Vial) 75 mcg 1X ONCE IM Last administered on 08/14/18at 16:04; Start 08/14/18 at 16:00; Stop 08/14/18 at 16:01; Status DC Magnesium Citrate (Citroma) 296 ml 1X ONCE PO Last administered on 08/14/18at 16:03; Start 08/14/18 at 16:00; Stop 08/14/18 at 16:01; Status DC Sodium Chloride 1,000 ml @ 100 mls/hr Q10H IV ; Start 08/14/18 at 16:15 Al Hydroxide/Mg Hydroxide (Mylanta Plus Xs) 30 ml PRN Q3HRS PRN PO HEARTBURN / GAS; Start 08/14/18 at 16:15 Info (Non-Icu Electrolyte Protocol) 1 ea PRN DAILY PRN MC SEE COMMENTS; Start 08/14/18 at 16:15 Morphine Sulfate (Morphine Sulfate) 2 mg PRN Q1HR PRN IV PAIN; Start 08/14/18 at 16:15 Oxycodone/ Acetaminophen (Percocet 5/325) 1 tab PRN Q4HRS PRN PO MILD PAIN, 2ND CHOICE; Start 08/14/18 at 16:15 Senna/Docusate Sodium (Senna Plus) 1 tab BID PO ; Start 08/14/18 at 21:00 Docusate Sodium (Colace) 100 mg BID PO ; Start 08/14/18 at 21:00 Heparin Sodium (Porcine) (Heparin Sodium) 5,000 unit Q12HR SQ ; Start 08/14/18 at 21:00 Active Scripts Active Movantik (Naloxegol Oxalate) 25 Mg Tablet 25 Mg PO PRN DAILY PRN 30 Days Colace (Docusate Sodium) 100 Mg Capsule 100 Mg PO BID 30 Days Polyethylene Glycol 3350 17 Gm Powd.pack 17 Gm PO BID 30 Days [Pantoprazole] 40 MG Tablet.dr 40 Mg PO DAILYAC 30 Days Morphine Sulfate Er (Morphine Sulfate) 15 Mg Tablet.er 15 Mg PO BID 30 Days Lisinopril 10 Mg Tablet 10 Mg PO DAILY 30 Days Amlodipine Besylate 5 Mg Tablet 5 Mg PO DAILY 30 Days Carvedilol (Carvedilol) 3.125 Mg Tablet 3.125 Mg PO BIDWMEALS 30 Days Wittmann 5-325 Tablet (Acetaminophen/Hydrocodone Bitart) 1 Each Tablet 1 Tab PO PRN Q6HRS PRN 30 Days Cyclobenzaprine Hcl 10 Mg Tablet 10 Mg PO TID Allergies Allergies: Coded Allergies: ibuprofen (Verified Allergy, Intermediate, rash, 11/11/15) ROS Review of System CONSTITUTIONAL: No fever or chills EYES: No recent changes SKIN: No rash or itching CARDIOVASCULAR: No chest pain, syncope, palpitations, or edema RESPIRATORY: No SOB or cough GASTROINTESTINAL: No nausea, vomiting or abdominal pain NEUROLOGICAL: No headaches or weakness ENDOCRINE: No cold or heat intolerance GENITOURINARY: No urgency or frequency of urination MUSCULOSKELETAL: No back pain or joint pain LYMPHATICS: No enlarged lymph nodes PSYCHIATRIC: No anxiety or depression Physical Exam Physical Exam GENERAL: No apparent distress. Alert and oriented. HEENT: Head normocephalic, atraumatic. NECK: Supple LUNGS: Clear to auscultation. HEART: RRR, S1, S2 present, pulses intact ABDOMEN: tender abdomen EXTREMITIES: No cyanosis or edema. NEUROLOGIC: Normal speech, normal tone PSYCHIATRIC: Normal affect, normal mood. SKIN: No ulceration. Vitals Vitals Vital Signs Date Time Temp Pulse Resp B/P (MAP) Pulse Ox O2 Delivery O2 Flow Rate FiO2 08/14/18 14:28 92 182/109 (133) 96 Room Air 08/14/18 13:40 16 08/14/18 12:46 99.6 99.6 Labs Labs Laboratory Tests Test 08/14/18 13:30 08/14/18 13:44 White Blood Count 11.4 x10^3/uL (4.0-11.0) Red Blood Count 4.58 x10^6/uL (4.30-5.70) Hemoglobin 13.6 g/dL (13.0-17.5) Hematocrit 41.1 % (39.0-53.0) Mean Corpuscular Volume 90 fL (79-100) Mean Corpuscular Hemoglobin 30 pg (25-35) Mean Corpuscular Hemoglobin Concent 33 g/dL (31-37) Red Cell Distribution Width 13.9 % (11.5-14.5) Platelet Count 301 x10^3/uL (140-400) Neutrophils (%) (Auto) 76 % (31-73) Lymphocytes (%) (Auto) 10 % (24-48) Monocytes (%) (Auto) 12 % (0-9) Eosinophils (%) (Auto) 1 % (0-3) Basophils (%) (Auto) 1 % (0-3) Neutrophils # (Auto) 8.6 x10^3uL (1.8-7.7) Lymphocytes # (Auto) 1.2 x10^3/uL (1.0-4.8) Monocytes # (Auto) 1.4 x10^3/uL (0.0-1.1) Eosinophils # (Auto) 0.1 x10^3/uL (0.0-0.7) Basophils # (Auto) 0.1 x10^3/uL (0.0-0.2) Sodium Level 125 mmol/L (136-145) Potassium Level 4.4 mmol/L (3.5-5.1) Chloride Level 88 mmol/L (98-107) Carbon Dioxide Level 27 mmol/L (21-32) Anion Gap 10 (6-14) Blood Urea Nitrogen 9 mg/dL (8-26) Creatinine 0.6 mg/dL (0.7-1.3) Estimated GFR (Cockcroft-Gault) 171.9 BUN/Creatinine Ratio 15 (6-20) Glucose Level 135 mg/dL (70-99) Calcium Level 9.1 mg/dL (8.5-10.1) Total Bilirubin 1.6 mg/dL (0.2-1.0) Aspartate Amino Transf (AST/SGOT) 62 U/L (15-37) Alanine Aminotransferase (ALT/SGPT) 52 U/L (16-63) Alkaline Phosphatase 719 U/L (46-116) Total Protein 7.8 g/dL (6.4-8.2) Albumin 3.0 g/dL (3.4-5.0) Albumin/Globulin Ratio 0.6 (1.0-1.7) Urine Color Yellow Urine Clarity Clear Urine pH 7.0 Urine Specific [place] 1.010 Urine Protein Negative mg/dL (NEG-TRACE) Urine Glucose (UA) Negative mg/dL (NEG) Urine Ketones (Stick) Negative mg/dL (NEG) Urine Blood Negative (NEG) Urine Nitrite Negative (NEG) Urine Bilirubin Negative (NEG) Urine Urobilinogen Dipstick 2.0 mg/dL (0.2 mg/dL) Urine Leukocyte Esterase Negative (NEG) Urine RBC 0 /HPF (0-2) Urine WBC Occ /HPF (0-4) Urine Squamous Epithelial Cells Occ /LPF Urine Bacteria 0 /HPF (0-FEW) Urine Opiates Screen Pos (NEG) Urine Methadone Screen Neg (NEG) Urine Barbiturates Neg (NEG) Urine Phencyclidine Screen Neg (NEG) Urine Amphetamine/Methamphetamine Neg (NEG) Urine Benzodiazepines Screen Neg (NEG) Urine Cocaine Screen Neg (NEG) Urine Cannabinoids Screen Neg (NEG) Urine Ethyl Alcohol Neg (NEG) Laboratory Tests Test 08/14/18 13:30 08/14/18 13:44 White Blood Count 11.4 x10^3/uL (4.0-11.0) Red Blood Count 4.58 x10^6/uL (4.30-5.70) Hemoglobin 13.6 g/dL (13.0-17.5) Hematocrit 41.1 % (39.0-53.0) Mean Corpuscular Volume 90 fL (79-100) Mean Corpuscular Hemoglobin 30 pg (25-35) Mean Corpuscular Hemoglobin Concent 33 g/dL (31-37) Red Cell Distribution Width 13.9 % (11.5-14.5) Platelet Count 301 x10^3/uL (140-400) Neutrophils (%) (Auto) 76 % (31-73) Lymphocytes (%) (Auto) 10 % (24-48) Monocytes (%) (Auto) 12 % (0-9) Eosinophils (%) (Auto) 1 % (0-3) Basophils (%) (Auto) 1 % (0-3) Neutrophils # (Auto) 8.6 x10^3uL (1.8-7.7) Lymphocytes # (Auto) 1.2 x10^3/uL (1.0-4.8) Monocytes # (Auto) 1.4 x10^3/uL (0.0-1.1) Eosinophils # (Auto) 0.1 x10^3/uL (0.0-0.7) Basophils # (Auto) 0.1 x10^3/uL (0.0-0.2) Sodium Level 125 mmol/L (136-145) Potassium Level 4.4 mmol/L (3.5-5.1) Chloride Level 88 mmol/L (98-107) Carbon Dioxide Level 27 mmol/L (21-32) Anion Gap 10 (6-14) Blood Urea Nitrogen 9 mg/dL (8-26) Creatinine 0.6 mg/dL (0.7-1.3) Estimated GFR (Cockcroft-Gault) 171.9 BUN/Creatinine Ratio 15 (6-20) Glucose Level 135 mg/dL (70-99) Calcium Level 9.1 mg/dL (8.5-10.1) Total Bilirubin 1.6 mg/dL (0.2-1.0) Aspartate Amino Transf (AST/SGOT) 62 U/L (15-37) Alanine Aminotransferase (ALT/SGPT) 52 U/L (16-63) Alkaline Phosphatase 719 U/L (46-116) Total Protein 7.8 g/dL (6.4-8.2) Albumin 3.0 g/dL (3.4-5.0) Albumin/Globulin Ratio 0.6 (1.0-1.7) Urine Color Yellow Urine Clarity Clear Urine pH 7.0 Urine Specific [place] 1.010 Urine Protein Negative mg/dL (NEG-TRACE) Urine Glucose (UA) Negative mg/dL (NEG) Urine Ketones (Stick) Negative mg/dL (NEG) Urine Blood Negative (NEG) Urine Nitrite Negative (NEG) Urine Bilirubin Negative (NEG) Urine Urobilinogen Dipstick 2.0 mg/dL (0.2 mg/dL) Urine Leukocyte Esterase Negative (NEG) Urine RBC 0 /HPF (0-2) Urine WBC Occ /HPF (0-4) Urine Squamous Epithelial Cells Occ /LPF Urine Bacteria 0 /HPF (0-FEW) Urine Opiates Screen Pos (NEG) Urine Methadone Screen Neg (NEG) Urine Barbiturates Neg (NEG) Urine Phencyclidine Screen Neg (NEG) Urine Amphetamine/Methamphetamine Neg (NEG) Urine Benzodiazepines Screen Neg (NEG) Urine Cocaine Screen Neg (NEG) Urine Cannabinoids Screen Neg (NEG) Urine Ethyl Alcohol Neg (NEG) VTE Prophylaxis Ordered VTE Prophylaxis Devices: No VTE Pharmacological Prophylaxi: Yes Assessment/Plan Assessment/Plan ASSESSMENT Abdominal Pain multifactorial due to Metastatic Pancreatic Cancer and C onstipation s/p port placement hyponatremia hx of polysubstance abuse Alkaline Phosphatemia HTN PLAN admit to medical floor bed start IVF, CLD morphine IV for pain aggressive bowel regimen elevated BP due to pain, control with prn BERNAL for now oncology consult consult palliative care in AM unclear living situation, consider referral to hospice house? FULL CODE for now dvt ppx: heparin RODNEY BELL MD August 14, 2018 16:41
[2018-08-14] MEDS ORDERED: hydrALAZINE 25 MG TABLET PO PRN (16:45)
[2018-08-14] MEDS ORDERED: hydrALAZINE 20 MG/ML VIAL. IVP ONE (17:00)
[2018-08-14 17:30] VITALS: BP 178/105
[2018-08-14] MEDS: IV 1/2 NORMAL SALINE 1,000 ML IV SCH (17:39)
[2018-08-14] MEDS: MORPHINE SULFATE 4 MG/ML VIAL. IV PRN ×3 (17:50→23:43)
[2018-08-14] MEDS: ONDANSETRON PF 4 MG/2 ML VIAL. IV PRN (17:54)
--- NOTE | 2018-08-14 18:37 | NUR ---
Patient received to room 532 at 1740 per wheelchair accompanied by two friends. Patient immediately [facility]ke to [facility] with steady gait. Patient verb. understanding room and unit. Patient received hospital information folder and verb. understanding fall protocol. Fall contract witnessed. Patient eating late meal tray, side rails up times two, call light at hand. See assessment and admission.
[2018-08-14 19:00] VITALS: BP 170/92
[2018-08-14] MEDS ORDERED: diphenhydrAMINE HCL 25 MG CAPSULE PO PRN (20:30)
[2018-08-14] MEDS: DOCUSATE SODIUM 100 MG CAPSULE. PO SCH (20:41)
[2018-08-14] MEDS: SENNOSIDES/DOCUSATE 8.6/50MG TABLET. PO SCH (20:41)
[2018-08-14] MEDS: HEPARIN for SUB-Q USE 5,000 UNIT/ML VIAL. SQ SCH (20:45)
[2018-08-14 23:00] VITALS: BP 173/113
[2018-08-15] VITALS (7 sets, daily range): BP systolic 131–181; BP diastolic 88–109
[2018-08-15] MEDS: ONDANSETRON PF 4 MG/2 ML VIAL. IV PRN ×4 (00:19→21:10)
[2018-08-15] MEDS: MORPHINE SULFATE 4 MG/ML VIAL. IV PRN ×6 (02:11→23:02)
[2018-08-15] MEDS: IV 1/2 NORMAL SALINE 1,000 ML IV SCH ×3 (02:15→22:15)
--- NOTE | 2018-08-15 02:15 | NUR ---
Pt. refusing bag of IVF's. Pt. drinking fluids extremely well and urinating well.
[2018-08-15] MEDS: oxyCODONE/APAP 5/325 1 TAB TABLET PO PRN ×2 (05:33→11:10)
[2018-08-15 06:07] LABS: BASO % 0 % (0-3); EOS # 0.1 x10^3/uL (0.0-0.7); EOS % 1 % (0-3); HEMATOCRIT 42.2 % (39.0-53.0); HEMOGLOBIN 14.3 g/dL (13.0-17.5); LYMPH # 1.1 x10^3/uL (1.0-4.8); LYMPH % 9 % (24-48); MEAN CORPUSCULAR HEMOGLOBIN 30 pg (25-35); MEAN CORPUSCULAR HGB CONC 34 g/dL (31-37); MEAN CORPUSCULAR VOLUME 89 fL (79-100); MONO # 1.5 x10^3/uL (0.0-1.1); MONO % 13 % (0-9); NEUT # 8.9 x10^3uL (1.8-7.7); NEUT % 77 % (31-73); PLATELET COUNT 349 x10^3/uL (140-400); RED BLOOD COUNT 4.73 x10^6/uL (4.30-5.70); RED CELL DISTRIBUTION WIDTH 14.3 % (11.5-14.5); WHITE BLOOD COUNT 11.6 x10^3/uL (4.0-11.0)
[2018-08-15 06:18] LABS: CREATININE 0.5 mg/dL (0.7-1.3); GFR 212.1; POTASSIUM 4.5 mmol/L (3.5-5.1)
[2018-08-15 06:32] LABS: CALCIUM 8.8 mg/dL (8.5-10.1)
[2018-08-15] MEDS ORDERED: MAGNESIUM HYDROXIDE 2,400 MG/30 ML ORAL.SUSP. PO PRN (08:15)
[2018-08-15] MEDS ORDERED: MAGNESIUM HYDROXIDE 2,400 MG/30 ML ORAL.SUSP. PO ONE (08:15)
[2018-08-15] MEDS: SENNOSIDES/DOCUSATE 8.6/50MG TABLET. PO SCH ×2 (08:40→20:33)
[2018-08-15] MEDS: DOCUSATE SODIUM 100 MG CAPSULE. PO SCH ×2 (08:40→20:32)
[2018-08-15] MEDS: HEPARIN for SUB-Q USE 5,000 UNIT/ML VIAL. SQ SCH ×2 (08:44→20:33)
[2018-08-15] MEDS: POLYETHYLENE GLYCOL 3350 17 GM PACKET. PO SCH (08:45)
[2018-08-15] MEDS ORDERED: DOCUSATE SODIUM 100 MG CAPSULE. PO SCH (09:00)
--- NOTE | 2018-08-15 09:09 | PDOC ---
PROGRESS NOTES Chief Complaint Chief Complaint Stage 4 pancreatic cancer with metastases to the liver -On palliative chemotherapy via indwelling right Port-A-Cath Hyponatremia-chronic Abdominal pain nausea vomiting-CT pending Reactive leukocytosis Microcytic anemia in a cancer patient Narcotic tolerant History of Present Illness History of Present Illness Multiple doses of pain meds per RN He has bad hiccups and still nauseated and can't find a comfortable position during my rounds today Labs: Sodium 123, the rest of BMP okay WBC 11 with no fevers Heme onc consulted CT abdomen and pelvis is still pending He has a right peripheral IV, with a Port-A-Cath access on the right-RN relays to me a needle that was present on admission Plan Add Thorazine Increase spacing of the pain medicine Wait for CT abdomen and pelvis Wait for heme onc rounds Other supportive treatment/meds Colleague has recommended palliative and that has been put in Vitals Vitals Vital Signs Date Time Temp Pulse Resp B/P (MAP) Pulse Ox O2 Delivery O2 Flow Rate FiO2 08/15/18 08:41 Room Air 08/15/18 07:00 97.9 95 18 181/109 (133) 96 97.9 Physical Exam General: No acute distress, Other (uncomfortable and restless) Heart: Regular rate, Normal S1, Normal S2, No murmurs Lungs: Clear Abdomen: Normal bowel sounds, Soft, No hepatosplenomegaly Extremities: No clubbing, No cyanosis, No edema, Normal pulses Skin: No rashes, No breakdown, No significant lesion Labs LABS Laboratory Tests Test 08/14/18 13:30 08/14/18 13:44 08/15/18 04:50 White Blood Count 11.4 x10^3/uL (4.0-11.0) 11.6 x10^3/uL (4.0-11.0) Red Blood Count 4.58 x10^6/uL (4.30-5.70) 4.73 x10^6/uL (4.30-5.70) Hemoglobin 13.6 g/dL (13.0-17.5) 14.3 g/dL (13.0-17.5) Hematocrit 41.1 % (39.0-53.0) 42.2 % (39.0-53.0) Mean Corpuscular Volume 90 fL (79-100) 89 fL (79-100) Mean Corpuscular Hemoglobin 30 pg (25-35) 30 pg (25-35) Mean Corpuscular Hemoglobin Concent 33 g/dL (31-37) 34 g/dL (31-37) Red Cell Distribution Width 13.9 % (11.5-14.5) 14.3 % (11.5-14.5) Platelet Count 301 x10^3/uL (140-400) 349 x10^3/uL (140-400) Neutrophils (%) (Auto) 76 % (31-73) 77 % (31-73) Lymphocytes (%) (Auto) 10 % (24-48) 9 % (24-48) Monocytes (%) (Auto) 12 % (0-9) 13 % (0-9) Eosinophils (%) (Auto) 1 % (0-3) 1 % (0-3) Basophils (%) (Auto) 1 % (0-3) 0 % (0-3) Neutrophils # (Auto) 8.6 x10^3uL (1.8-7.7) 8.9 x10^3uL (1.8-7.7) Lymphocytes # (Auto) 1.2 x10^3/uL (1.0-4.8) 1.1 x10^3/uL (1.0-4.8) Monocytes # (Auto) 1.4 x10^3/uL (0.0-1.1) 1.5 x10^3/uL (0.0-1.1) Eosinophils # (Auto) 0.1 x10^3/uL (0.0-0.7) 0.1 x10^3/uL (0.0-0.7) Basophils # (Auto) 0.1 x10^3/uL (0.0-0.2) 0.0 x10^3/uL (0.0-0.2) Sodium Level 125 mmol/L (136-145) 123 mmol/L (136-145) Potassium Level 4.4 mmol/L (3.5-5.1) 4.5 mmol/L (3.5-5.1) Chloride Level 88 mmol/L (98-107) 87 mmol/L (98-107) Carbon Dioxide Level 27 mmol/L (21-32) 25 mmol/L (21-32) Anion Gap 10 (6-14) 11 (6-14) Blood Urea Nitrogen 9 mg/dL (8-26) 7 mg/dL (8-26) Creatinine 0.6 mg/dL (0.7-1.3) 0.5 mg/dL (0.7-1.3) Estimated GFR (Cockcroft-Gault) 171.9 212.1 BUN/Creatinine Ratio 15 (6-20) Glucose Level 135 mg/dL (70-99) 108 mg/dL (70-99) Calcium Level 9.1 mg/dL (8.5-10.1) 8.8 mg/dL (8.5-10.1) Total Bilirubin 1.6 mg/dL (0.2-1.0) Aspartate Amino Transf (AST/SGOT) 62 U/L (15-37) Alanine Aminotransferase (ALT/SGPT) 52 U/L (16-63) Alkaline Phosphatase 719 U/L (46-116) Total Protein 7.8 g/dL (6.4-8.2) Albumin 3.0 g/dL (3.4-5.0) Albumin/Globulin Ratio 0.6 (1.0-1.7) Urine Color Yellow Urine Clarity Clear Urine pH 7.0 Urine Specific Morgan 1.010 Urine Protein Negative mg/dL (NEG-TRACE) Urine Glucose (UA) Negative mg/dL (NEG) Urine Ketones (Stick) Negative mg/dL (NEG) Urine Blood Negative (NEG) Urine Nitrite Negative (NEG) Urine Bilirubin Negative (NEG) Urine Urobilinogen Dipstick 2.0 mg/dL (0.2 mg/dL) Urine Leukocyte Esterase Negative (NEG) Urine RBC 0 /HPF (0-2) Urine WBC Occ /HPF (0-4) Urine Squamous Epithelial Cells Occ /LPF Urine Bacteria 0 /HPF (0-FEW) Urine Opiates Screen Pos (NEG) Urine Methadone Screen Neg (NEG) Urine Barbiturates Neg (NEG) Urine Phencyclidine Screen Neg (NEG) Urine Amphetamine/Methamphetamine Neg (NEG) Urine Benzodiazepines Screen Neg (NEG) Urine Cocaine Screen Neg (NEG) Urine Cannabinoids Screen Neg (NEG) Urine Ethyl Alcohol Neg (NEG) Review of Systems Review of Systems Hiccups, nauseated, restless, dry heaving, ROS 14 point negative Assessment and Plan Assessmemt and Plan Problems Medical Problems: (1) Constipation Status: Acute (2) Hyponatremia Status: Acute (3) Pancreatic cancer metastasized to liver Status: Acute Comment Review of Relevant I have reviewed the following items himanshu (where applicable) has been applied. Labs Laboratory Tests Test 08/14/18 13:30 08/14/18 13:44 08/15/18 04:50 White Blood Count 11.4 x10^3/uL (4.0-11.0) 11.6 x10^3/uL (4.0-11.0) Red Blood Count 4.58 x10^6/uL (4.30-5.70) 4.73 x10^6/uL (4.30-5.70) Hemoglobin 13.6 g/dL (13.0-17.5) 14.3 g/dL (13.0-17.5) Hematocrit 41.1 % (39.0-53.0) 42.2 % (39.0-53.0) Mean Corpuscular Volume 90 fL (79-100) 89 fL (79-100) Mean Corpuscular Hemoglobin 30 pg (25-35) 30 pg (25-35) Mean Corpuscular Hemoglobin Concent 33 g/dL (31-37) 34 g/dL (31-37) Red Cell Distribution Width 13.9 % (11.5-14.5) 14.3 % (11.5-14.5) Platelet Count 301 x10^3/uL (140-400) 349 x10^3/uL (140-400) Neutrophils (%) (Auto) 76 % (31-73) 77 % (31-73) Lymphocytes (%) (Auto) 10 % (24-48) 9 % (24-48) Monocytes (%) (Auto) 12 % (0-9) 13 % (0-9) Eosinophils (%) (Auto) 1 % (0-3) 1 % (0-3) Basophils (%) (Auto) 1 % (0-3) 0 % (0-3) Neutrophils # (Auto) 8.6 x10^3uL (1.8-7.7) 8.9 x10^3uL (1.8-7.7) Lymphocytes # (Auto) 1.2 x10^3/uL (1.0-4.8) 1.1 x10^3/uL (1.0-4.8) Monocytes # (Auto) 1.4 x10^3/uL (0.0-1.1) 1.5 x10^3/uL (0.0-1.1) Eosinophils # (Auto) 0.1 x10^3/uL (0.0-0.7) 0.1 x10^3/uL (0.0-0.7) Basophils # (Auto) 0.1 x10^3/uL (0.0-0.2) 0.0 x10^3/uL (0.0-0.2) Sodium Level 125 mmol/L (136-145) 123 mmol/L (136-145) Potassium Level 4.4 mmol/L (3.5-5.1) 4.5 mmol/L (3.5-5.1) Chloride Level 88 mmol/L (98-107) 87 mmol/L (98-107) Carbon Dioxide Level 27 mmol/L (21-32) 25 mmol/L (21-32) Anion Gap 10 (6-14) 11 (6-14) Blood Urea Nitrogen 9 mg/dL (8-26) 7 mg/dL (8-26) Creatinine 0.6 mg/dL (0.7-1.3) 0.5 mg/dL (0.7-1.3) Estimated GFR (Cockcroft-Gault) 171.9 212.1 BUN/Creatinine Ratio 15 (6-20) Glucose Level 135 mg/dL (70-99) 108 mg/dL (70-99) Calcium Level 9.1 mg/dL (8.5-10.1) 8.8 mg/dL (8.5-10.1) Total Bilirubin 1.6 mg/dL (0.2-1.0) Aspartate Amino Transf (AST/SGOT) 62 U/L (15-37) Alanine Aminotransferase (ALT/SGPT) 52 U/L (16-63) Alkaline Phosphatase 719 U/L (46-116) Total Protein 7.8 g/dL (6.4-8.2) Albumin 3.0 g/dL (3.4-5.0) Albumin/Globulin Ratio 0.6 (1.0-1.7) Urine Color Yellow Urine Clarity Clear Urine pH 7.0 Urine Specific Morgan 1.010 Urine Protein Negative mg/dL (NEG-TRACE) Urine Glucose (UA) Negative mg/dL (NEG) Urine Ketones (Stick) Negative mg/dL (NEG) Urine Blood Negative (NEG) Urine Nitrite Negative (NEG) Urine Bilirubin Negative (NEG) Urine Urobilinogen Dipstick 2.0 mg/dL (0.2 mg/dL) Urine Leukocyte Esterase Negative (NEG) Urine RBC 0 /HPF (0-2) Urine WBC Occ /HPF (0-4) Urine Squamous Epithelial Cells Occ /LPF Urine Bacteria 0 /HPF (0-FEW) Urine Opiates Screen Pos (NEG) Urine Methadone Screen Neg (NEG) Urine Barbiturates Neg (NEG) Urine Phencyclidine Screen Neg (NEG) Urine Amphetamine/Methamphetamine Neg (NEG) Urine Benzodiazepines Screen Neg (NEG) Urine Cocaine Screen Neg (NEG) Urine Cannabinoids Screen Neg (NEG) Urine Ethyl Alcohol Neg (NEG) Laboratory Tests Test 08/14/18 13:30 08/14/18 13:44 08/15/18 04:50 White Blood Count 11.4 x10^3/uL (4.0-11.0) 11.6 x10^3/uL (4.0-11.0) Red Blood Count 4.58 x10^6/uL (4.30-5.70) 4.73 x10^6/uL (4.30-5.70) Hemoglobin 13.6 g/dL (13.0-17.5) 14.3 g/dL (13.0-17.5) Hematocrit 41.1 % (39.0-53.0) 42.2 % (39.0-53.0) Mean Corpuscular Volume 90 fL (79-100) 89 fL (79-100) Mean Corpuscular Hemoglobin 30 pg (25-35) 30 pg (25-35) Mean Corpuscular Hemoglobin Concent 33 g/dL (31-37) 34 g/dL (31-37) Red Cell Distribution Width 13.9 % (11.5-14.5) 14.3 % (11.5-14.5) Platelet Count 301 x10^3/uL (140-400) 349 x10^3/uL (140-400) Neutrophils (%) (Auto) 76 % (31-73) 77 % (31-73) Lymphocytes (%) (Auto) 10 % (24-48) 9 % (24-48) Monocytes (%) (Auto) 12 % (0-9) 13 % (0-9) Eosinophils (%) (Auto) 1 % (0-3) 1 % (0-3) Basophils (%) (Auto) 1 % (0-3) 0 % (0-3) Neutrophils # (Auto) 8.6 x10^3uL (1.8-7.7) 8.9 x10^3uL (1.8-7.7) Lymphocytes # (Auto) 1.2 x10^3/uL (1.0-4.8) 1.1 x10^3/uL (1.0-4.8) Monocytes # (Auto) 1.4 x10^3/uL (0.0-1.1) 1.5 x10^3/uL (0.0-1.1) Eosinophils # (Auto) 0.1 x10^3/uL (0.0-0.7) 0.1 x10^3/uL (0.0-0.7) Basophils # (Auto) 0.1 x10^3/uL (0.0-0.2) 0.0 x10^3/uL (0.0-0.2) Sodium Level 125 mmol/L (136-145) 123 mmol/L (136-145) Potassium Level 4.4 mmol/L (3.5-5.1) 4.5 mmol/L (3.5-5.1) Chloride Level 88 mmol/L (98-107) 87 mmol/L (98-107) Carbon Dioxide Level 27 mmol/L (21-32) 25 mmol/L (21-32) Anion Gap 10 (6-14) 11 (6-14) Blood Urea Nitrogen 9 mg/dL (8-26) 7 mg/dL (8-26) Creatinine 0.6 mg/dL (0.7-1.3) 0.5 mg/dL (0.7-1.3) Estimated GFR (Cockcroft-Gault) 171.9 212.1 BUN/Creatinine Ratio 15 (6-20) Glucose Level 135 mg/dL (70-99) 108 mg/dL (70-99) Calcium Level 9.1 mg/dL (8.5-10.1) 8.8 mg/dL (8.5-10.1) Total Bilirubin 1.6 mg/dL (0.2-1.0) Aspartate Amino Transf (AST/SGOT) 62 U/L (15-37) Alanine Aminotransferase (ALT/SGPT) 52 U/L (16-63) Alkaline Phosphatase 719 U/L (46-116) Total Protein 7.8 g/dL (6.4-8.2) Albumin 3.0 g/dL (3.4-5.0) Albumin/Globulin Ratio 0.6 (1.0-1.7) Urine Color Yellow Urine Clarity Clear Urine pH 7.0 Urine Specific Morgan 1.010 Urine Protein Negative mg/dL (NEG-TRACE) Urine Glucose (UA) Negative mg/dL (NEG) Urine Ketones (Stick) Negative mg/dL (NEG) Urine Blood Negative (NEG) Urine Nitrite Negative (NEG) Urine Bilirubin Negative (NEG) Urine Urobilinogen Dipstick 2.0 mg/dL (0.2 mg/dL) Urine Leukocyte Esterase Negative (NEG) Urine RBC 0 /HPF (0-2) Urine WBC Occ /HPF (0-4) Urine Squamous Epithelial Cells Occ /LPF Urine Bacteria 0 /HPF (0-FEW) Urine Opiates Screen Pos (NEG) Urine Methadone Screen Neg (NEG) Urine Barbiturates Neg (NEG) Urine Phencyclidine Screen Neg (NEG) Urine Amphetamine/Methamphetamine Neg (NEG) Urine Benzodiazepines Screen Neg (NEG) Urine Cocaine Screen Neg (NEG) Urine Cannabinoids Screen Neg (NEG) Urine Ethyl Alcohol Neg (NEG) Medications Current Medications Fentanyl Citrate (Fentanyl 2ml Vial) 75 mcg 1X ONCE IV Last administered on 08/14/18at 13:40; Start 08/14/18 at 13:15; Stop 08/14/18 at 13:16; Status DC Sodium Chloride 1,000 ml @ 1,000 mls/hr 1X ONCE IV Last administered on 08/14/18at 13:39; Start 08/14/18 at 13:15; Stop 08/14/18 at 14:14; Status DC Fentanyl Citrate (Fentanyl 2ml Vial) 75 mcg 1X ONCE IM Last administered on 08/14/18at 16:04; Start 08/14/18 at 16:00; Stop 08/14/18 at 16:01; Status DC Magnesium Citrate (Citroma) 296 ml 1X ONCE PO Last administered on 08/14/18at 16:03; Start 08/14/18 at 16:00; Stop 08/14/18 at 16:01; Status DC Sodium Chloride 1,000 ml @ 100 mls/hr Q10H IV Last administered on 08/14/18at 17:39; Start 08/14/18 at 16:15 Al Hydroxide/Mg Hydroxide (Mylanta Plus Xs) 30 ml PRN Q3HRS PRN PO HEARTBURN / GAS; Start 08/14/18 at 16:15 Info (Non-Icu Electrolyte Protocol) 1 ea PRN DAILY PRN MC SEE COMMENTS; Start 08/14/18 at 16:15 Morphine Sulfate (Morphine Sulfate) 2 mg PRN Q1HR PRN IV PAIN; Start 08/14/18 at 16:15 Oxycodone/ Acetaminophen (Percocet 5/325) 1 tab PRN Q4HRS PRN PO MILD PAIN, 2ND CHOICE Last administered on 08/15/18at 05:33; Start 08/14/18 at 16:15 Senna/Docusate Sodium (Senna Plus) 1 tab BID PO Last administered on 08/15/18 08:40; Start 08/14/18 at 21:00 Docusate Sodium (Colace) 100 mg BID PO Last administered on 08/15/18at 08:40; Start 08/14/18 at 21:00 Heparin Sodium (Porcine) (Heparin Sodium) 5,000 unit Q12HR SQ Last administered on 08/15/18at 08:44; Start 08/14/18 at 21:00 Ondansetron HCl (Zofran) 4 mg PRN Q8HRS PRN IV NAUSEA/VOMITING Last administered on 08/15/18at 00:19; Start 08/14/18 at 16:30; Stop 08/15/18 at 00:24; Status DC Morphine Sulfate (Morphine Sulfate) 4 mg PRN Q2HR PRN IV PAIN Last administered on 08/15/18 08:41; Start 08/14/18 at 16:30; Stop 08/15/18 at 16:29 Fentanyl Citrate (Fentanyl 2ml Vial) 50 mcg PRN Q1HR PRN IV PAIN Last administered on 08/15/18at 04:55; Start 08/14/18 at 16:30; Stop 08/15/18 at 16:29 Sodium Chloride 1,000 ml @ 125 mls/hr Q8H IV ; Start 08/14/18 at 16:20; Stop 08/14/18 at 19:29; Status DC Acetaminophen (Tylenol) 650 mg PRN Q4HRS PRN PO FEVER; Start 08/14/18 at 16:30; Stop 08/15/18 at 16:29 Hydralazine HCl (Apresoline Inj) 10 mg 1X ONCE IVP Last administered on 08/14/18at 17:10; Start 08/14/18 at 17:00; Stop 08/14/18 at 17:01; Status DC Hydralazine HCl (Apresoline) 25 mg PRN TID PRN PO for SBP greater than 180 Last administered on 08/14/18at 23:42; Start 08/14/18 at 16:45 Enoxaparin Sodium (Lovenox Per Pharmacy Prophylaxis Dosing) 1 each PRN DAILY PRN MC SEE COMMENTS; Start 08/14/18 at 16:45; Status UNV Diphenhydramine HCl (Benadryl) 25 mg PRN QHS PRN PO INSOMNIA Last administered on 08/14/18at 20:42; Start 08/14/18 at 20:30 Ondansetron HCl (Zofran) 4 mg PRN Q6HRS PRN IV NAUSEA/VOMITING Last administered on 08/15/18at 06:19; Start 08/15/18 at 00:30 Polyethylene Glycol (miraLAX PACKET) 17 gm DAILY PO ; Start 08/15/18 at 09:00 Docusate Sodium (Colace) 100 mg BID PO ; Start 08/15/18 at 09:00 Magnesium Hydroxide (Milk Of Magnesia) 2,400 mg PRN DAILY PRN PO CONSTIPATION; Start 08/15/18 at 08:15 Magnesium Hydroxide (Milk Of Magnesia) 2,400 mg 1X ONCE PO ; Start 08/15/18 at 08:15; Stop 08/15/18 at 08:16; Status DC Active Scripts Active Movantik (Naloxegol Oxalate) 25 Mg Tablet 25 Mg PO PRN DAILY PRN 30 Days Colace (Docusate Sodium) 100 Mg Capsule 100 Mg PO BID 30 Days Polyethylene Glycol 3350 17 Gm Powd.pack 17 Gm PO BID 30 Days [Pantoprazole] 40 MG Tablet.dr 40 Mg PO DAILYAC 30 Days Morphine Sulfate Er (Morphine Sulfate) 15 Mg Tablet.er 15 Mg PO BID 30 Days Lisinopril 10 Mg Tablet 10 Mg PO DAILY 30 Days Amlodipine Besylate 5 Mg Tablet 5 Mg PO DAILY 30 Days Carvedilol (Carvedilol) 3.125 Mg Tablet 3.125 Mg PO BIDWMEALS 30 Days [place] 5-325 Tablet (Acetaminophen/Hydrocodone Bitart) 1 Each Tablet 1 Tab PO PRN Q6HRS PRN 30 Days Cyclobenzaprine Hcl 10 Mg Tablet 10 Mg PO TID Vitals/I & O Vital Sign - Last 24 Hours 08/14/18 08/14/18 08/14/18 08/14/18 12:46 13:01 13:26 13:40 Temp 99.6 99.6 Pulse 92 94 Resp 16 16 B/P (MAP) 168/106 (126) 196/122 (146) 165/109 (127) Pulse Ox 95 95 95 O2 Delivery Room Air Room Air Room Air 08/14/18 08/14/18 08/14/18 08/14/18 13:58 14:28 14:58 15:28 Pulse 90 92 92 94 B/P (MAP) 167/106 (126) 182/109 (133) 180/106 (130) 171/105 (127) Pulse Ox 97 96 96 96 O2 Delivery Room Air Room Air Room Air Room Air 08/14/18 08/14/18 08/14/18 08/14/18 15:58 17:10 17:23 17:30 Temp 98.9 98.9 Pulse 100 98 108 109 Resp 18 B/P (MAP) 186/107 (133) 186/111 184/109 (134) 178/105 (129) Pulse Ox 95 97 O2 Delivery Room Air Room Air 08/14/18 08/14/18 08/14/18 08/14/18 17:50 17:50 19:00 19:05 Temp 97.9 97.9 Pulse 102 Resp 20 18 B/P (MAP) 170/92 (118) Pulse Ox 98 O2 Delivery Room Air Room Air Room Air 08/14/18 08/14/18 08/14/18 08/14/18 21:15 23:00 23:42 23:43 Temp 99.4 99.4 Pulse 97 102 Resp 18 20 17 B/P (MAP) 173/113 (133) 180/102 Pulse Ox 98 97 98 O2 Delivery Room Air Room Air 08/15/18 08/15/18 08/15/18 08/15/18 00:00 02:11 03:00 04:55 Temp 98.8 98.8 Pulse 96 97 Resp 16 20 17 B/P (MAP) 165/90 (115) 168/107 (127) Pulse Ox 98 96 96 O2 Delivery Room Air Room Air 08/15/18 08/15/18 08/15/18 08/15/18 05:21 05:33 06:18 06:19 Resp 17 18 16 16 Pulse Ox 96 96 96 96 O2 Delivery Room Air Room Air Room Air Room Air 08/15/18 08/15/18 08/15/18 06:37 07:00 08:41 Temp 97.9 97.9 Pulse 95 Resp 17 18 B/P (MAP) 181/109 (133) Pulse Ox 96 96 O2 Delivery Room Air Room Air Room Air Intake and Output 08/14/18 08/14/18 08/15/18 15:00 23:00 07:00 Intake Total 1300 ml 4000 ml Output Total 500 ml 2000 ml Balance 800 ml 2000 ml JEAN PAUL BALDWIN MD August 15, 2018 09:09
--- NOTE | 2018-08-15 09:46 | RAD ---
CT of the abdomen and pelvis without contrast. 08/14/2018 1:07 PM Indication: Increasing abdominal pain. Known metastatic pancreatic cancer Comparison Study: None. Technique: Multidetector CT imaging of the abdomen pelvis is obtained without administration of contrast. Findings: No acute abnormality involving the lung bases are identified. Evaluation of the abdomen is somewhat limited without contrast and relative lack of intraperitoneal fat. Extensive metastatic disease throughout the liver is again noted. The gallbladder is poorly evaluated. Spleen is unremarkable. The adrenal glands are poorly visualized but appear grossly unremarkable. Left renal cyst is similar. The kidneys are otherwise grossly unremarkable. Thickening involving the body and tail of pancreas noted. No gross pneumoperitoneum is identified. Probable trace ascites noted. There is extensive stool throughout the colon, increased since comparison study. Findings likely reflect significant constipation. The bladder is grossly unremarkable. No evidence of acute osseous abnormality is identified.Radiopaque metallic foreign bodies within the right pelvis, ileum, and subcutaneous tissues overlying the sacrum are similar consistent with prior entrapment. IMPRESSION: 1.Interval increase in extensive stool throughout the colon. Correlate with clinical evidence of constipation. 2. Pancreatic neoplasm with extensive metastatic disease involving the liver 3. Probable trace ascites CT DOSING PQRS STATEMENT: One or more of the following individualized dose reduction techniques were utilized for this examination: 1. Automated exposure control 2. Adjustment of the mA and/or kV according to patient size 3. Use of iterative reconstruction technique Electronically signed by: Nomi Kapadia MD (08/14/2018 2:09 PM) [facility]
--- NOTE | 2018-08-15 13:15 | PDOC ---
Provider Note Provider Note Med Onc consult: 1. Stage IV pancreatic ca - pt prefers hospice. Will cancel chemo plans. 2. Abd pain - i d/w Dr Kapadia, he will evaluate for celiac plexus block. See dictation NELSON MORRISSEY MD August 15, 2018 13:15
--- NOTE | 2018-08-15 14:37 | PDOC2 ---
PALLIATIVE CARE Palliative Care Note Palliative Care Consult requested by Dr. Trevino Medical Assessment per medical record; Stage 4 pancreatic cancer with metastases to the liver Hyponatremia-chronic Abdominal pain nausea vomiting-CT pending Reactive leukocytosis Microcytic anemia in a cancer patient Narcotic tolerant Patient known to PC. Discharged home last week with plan to followup with Dr. Sethi for palliative chemotherapy. Patient did not follow-up. Patient alert. Receiving Fentanyl for pain.x1; Morphine 4m IV x6 and Zofran for nausea. Patient would like his mother to make his medical decisions if he is unable to do so himself. Has had 2 BM's Patient states he lives with his brother and that is where he will return when discharge. After patient discussion with Dr. Sethi patient would like Hospice rather than palliative chemotherapy. Patient to be evaluated for celiac plexus block for pain management Code Status; Full code. Tanya Jones--mother [phone] No answer [id number] Spoke with Elgin --friend. She provided number for patient's brother. Richie Bonilla) [phone] Message to return call. ELIZABETH CHASE August 15, 2018 14:37
[2018-08-15] MEDS: fentaNYL PF VIAL 100 MCG/2 ML VIAL IV PRN ×2 (15:06→20:57)
--- NOTE | 2018-08-15 15:08 | PDOC ---
Provider Note Provider Note IR NOTE Discussed celiac block with the patient, including risks and benefits. Persistent severe abdominal pain, despite multiple narcotic pain medications. A component is likely related to large pancreatic mass and liver masses. He would like to think about it and perhaps discuss with family. I told him, I was happy to visit with him again, or with family. Will check back tomorrow to see what he decides to do. JIM NATARAJAN MD August 15, 2018 15:08
[2018-08-15] MEDS: PROCHLORPERAZINE 10 MG/2 ML VIAL. IV PRN (17:03)
[2018-08-15] MEDS ORDERED: HYDROmorphone 2 MG/ML VIAL IV PRN (17:15)
[2018-08-16] VITALS (20 sets, daily range): BP systolic 120–172; BP diastolic 83–106
[2018-08-16] MEDS: MORPHINE SULFATE 4 MG/ML VIAL. IV PRN ×3 (01:27→09:40)
[2018-08-16] MEDS: PROCHLORPERAZINE 10 MG/2 ML VIAL. IV PRN (01:30)
[2018-08-16] MEDS: fentaNYL PF VIAL 100 MCG/2 ML VIAL IV PRN ×2 (03:50→06:41)
--- NOTE | 2018-08-16 06:20 | CONS ---
DATE OF CONSULTATION: 08/15/2018 TYPE OF REPORT: Medical oncology consultation report. CONSULTATION REQUESTING PHYSICIAN: Dr. Shane Trevino. REASON FOR CONSULTATION: Pancreatic cancer with liver metastasis. HISTORY OF PRESENT ILLNESS: The patient is a 53-year-old gentleman who has had abdominal pain since April of 2018. He underwent a CT scan of the abdomen and pelvis on 08/05/2018 that revealed numerous hepatic lesions and mass in the pancreas consistent with primary pancreatic cancer with metastatic disease to the liver. He underwent a CT-guided biopsy of the liver lesions on 08/07/2018, which revealed metastatic adenocarcinoma, moderate to poorly differentiated consistent with pancreatic primary. He had a Port-A-Cath placed in with plans for chemotherapy; however, he was unable to keep his appointment. He was readmitted on 08/14/2018 with worsening abdominal pain. PAST MEDICAL HISTORY: Hepatitis C, chronic alcohol abuse and pancreatitis. FAMILY HISTORY: Brother of pancreatic cancer. SOCIAL HISTORY: He has a history of heavy alcohol use that he quit in 2017. He also quit smoking in 2017. REVIEW OF SYSTEMS: A 12-point review of systems performed. Pertinent positives are mentioned in the history of present illness. Rest of the system review is negative. PHYSICAL EXAMINATION: GENERAL APPEARANCE: The patient is a 53-year-old -[place] gentleman who is in no acute cardiorespiratory distress. VITAL SIGNS: Blood pressure 138/89, temperature 97.8. HEENT: Head: Atraumatic and normocephalic. Eyes: No icterus. NECK: Supple. CHEST: Bilaterally symmetrical. HEART: S1 and S2 normal. ABDOMEN: Soft. Tenderness to deep palpation. Hepatomegaly noted. CENTRAL NERVOUS SYSTEM: No focal deficits. LYMPHATICS: No lymphadenopathy. SKIN: No rashes. PSYCHOLOGIC: Mood and affect are appropriate. LABORATORY DATA: WBC 11.6, hemoglobin 14.3 and platelet count 349. Creatinine 0.5, bilirubin 1.6 and alkaline phosphatase 719. IMPRESSION AND PLAN: 1. Pancreatic cancer with multiple liver metastases, diagnosed on 08/07/2018. He had initially agreed to proceed with palliative chemotherapy. However, during this admission, I again had a detailed discussion with him regarding the diagnosis, poor prognosis and palliative chemotherapy options versus hospice care. He has thought about it and since it is incurable, he does not want to proceed with chemotherapy and he wants to focus on pain management, supportive care, palliative care, comfort care with the help of hospice. I discussed with the registered nurse. Palliative care consultation has been requested. 2. Abdominal pain. I discussed with Dr. Nomi Kapadia at multidisciplinary tumor conference. Dr. Kpaadia suggested to consider a celiac plexus block as an option. I will consult Dr. Kapadia, so he can discuss further with the patient. NELSON MORRISSEY MD DR: ANSON/nts JOB#: [id number] / [id number]
[2018-08-16] MEDS: POLYETHYLENE GLYCOL 3350 17 GM PACKET. PO SCH (07:33)
[2018-08-16] MEDS: HEPARIN for SUB-Q USE 5,000 UNIT/ML VIAL. SQ SCH ×2 (07:33→21:52)
[2018-08-16] MEDS: IV 1/2 NORMAL SALINE 1,000 ML IV SCH ×2 (07:33→16:19)
[2018-08-16] MEDS: SENNOSIDES/DOCUSATE 8.6/50MG TABLET. PO SCH ×2 (07:59→21:48)
[2018-08-16] MEDS: DOCUSATE SODIUM 100 MG CAPSULE. PO SCH ×2 (07:59→21:48)
--- NOTE | 2018-08-16 08:50 | PDOC ---
PROGRESS NOTES Chief Complaint Chief Complaint Stage 4 pancreatic cancer with metastases to the liver -On palliative chemotherapy via indwelling right Port-A-Cath Hyponatremia-chronic Abdominal pain nausea vomiting-CT pending Reactive leukocytosis Microcytic anemia in a cancer patient Narcotic tolerant History of Present Illness History of Present Illness Multiple doses of pain meds Still significant pain Heme onc consulted IR Now IR plans for celiac plexus block to help with the pain and patient is now agreeable To keep Port-A-Cath in upon home hospice discharge as discussed with heme onc Plan ATe breakfast today-IR for celiac block Home with hospice with Port-A-Cath intact upon discharge-discussed with Dr. Jossie Hess 123 - chronically low 2 visits today with pt explaining plan Vitals Vitals Vital Signs Date Time Temp Pulse Resp B/P (MAP) Pulse Ox O2 Delivery O2 Flow Rate FiO2 08/16/18 07:42 Room Air 08/16/18 03:00 100.3 106 18 139/91 (107) 98 100.3 Physical Exam General: No acute distress, Other (uncomfortable and restless) Heart: Regular rate, Normal S1, Normal S2, No murmurs Lungs: Clear Abdomen: Normal bowel sounds, Soft, No hepatosplenomegaly Extremities: No clubbing, No cyanosis, No edema, Normal pulses Skin: No rashes, No breakdown, No significant lesion Review of Systems Review of Systems abd pain, the rest of ROS 14 point negative Assessment and Plan Assessmemt and Plan Problems Medical Problems: (1) Constipation Status: Acute (2) Hyponatremia Status: Acute (3) Pancreatic cancer metastasized to liver Status: Acute Comment Review of Relevant I have reviewed the following items himanshu (where applicable) has been applied. Labs Laboratory Tests Test 08/14/18 13:30 08/14/18 13:44 08/15/18 04:50 White Blood Count 11.4 x10^3/uL (4.0-11.0) 11.6 x10^3/uL (4.0-11.0) Red Blood Count 4.58 x10^6/uL (4.30-5.70) 4.73 x10^6/uL (4.30-5.70) Hemoglobin 13.6 g/dL (13.0-17.5) 14.3 g/dL (13.0-17.5) Hematocrit 41.1 % (39.0-53.0) 42.2 % (39.0-53.0) Mean Corpuscular Volume 90 fL (79-100) 89 fL (79-100) Mean Corpuscular Hemoglobin 30 pg (25-35) 30 pg (25-35) Mean Corpuscular Hemoglobin Concent 33 g/dL (31-37) 34 g/dL (31-37) Red Cell Distribution Width 13.9 % (11.5-14.5) 14.3 % (11.5-14.5) Platelet Count 301 x10^3/uL (140-400) 349 x10^3/uL (140-400) Neutrophils (%) (Auto) 76 % (31-73) 77 % (31-73) Lymphocytes (%) (Auto) 10 % (24-48) 9 % (24-48) Monocytes (%) (Auto) 12 % (0-9) 13 % (0-9) Eosinophils (%) (Auto) 1 % (0-3) 1 % (0-3) Basophils (%) (Auto) 1 % (0-3) 0 % (0-3) Neutrophils # (Auto) 8.6 x10^3uL (1.8-7.7) 8.9 x10^3uL (1.8-7.7) Lymphocytes # (Auto) 1.2 x10^3/uL (1.0-4.8) 1.1 x10^3/uL (1.0-4.8) Monocytes # (Auto) 1.4 x10^3/uL (0.0-1.1) 1.5 x10^3/uL (0.0-1.1) Eosinophils # (Auto) 0.1 x10^3/uL (0.0-0.7) 0.1 x10^3/uL (0.0-0.7) Basophils # (Auto) 0.1 x10^3/uL (0.0-0.2) 0.0 x10^3/uL (0.0-0.2) Sodium Level 125 mmol/L (136-145) 123 mmol/L (136-145) Potassium Level 4.4 mmol/L (3.5-5.1) 4.5 mmol/L (3.5-5.1) Chloride Level 88 mmol/L (98-107) 87 mmol/L (98-107) Carbon Dioxide Level 27 mmol/L (21-32) 25 mmol/L (21-32) Anion Gap 10 (6-14) 11 (6-14) Blood Urea Nitrogen 9 mg/dL (8-26) 7 mg/dL (8-26) Creatinine 0.6 mg/dL (0.7-1.3) 0.5 mg/dL (0.7-1.3) Estimated GFR (Cockcroft-Gault) 171.9 212.1 BUN/Creatinine Ratio 15 (6-20) Glucose Level 135 mg/dL (70-99) 108 mg/dL (70-99) Calcium Level 9.1 mg/dL (8.5-10.1) 8.8 mg/dL (8.5-10.1) Total Bilirubin 1.6 mg/dL (0.2-1.0) Aspartate Amino Transf (AST/SGOT) 62 U/L (15-37) Alanine Aminotransferase (ALT/SGPT) 52 U/L (16-63) Alkaline Phosphatase 719 U/L (46-116) Total Protein 7.8 g/dL (6.4-8.2) Albumin 3.0 g/dL (3.4-5.0) Albumin/Globulin Ratio 0.6 (1.0-1.7) Urine Color Yellow Urine Clarity Clear Urine pH 7.0 Urine Specific [place] 1.010 Urine Protein Negative mg/dL (NEG-TRACE) Urine Glucose (UA) Negative mg/dL (NEG) Urine Ketones (Stick) Negative mg/dL (NEG) Urine Blood Negative (NEG) Urine Nitrite Negative (NEG) Urine Bilirubin Negative (NEG) Urine Urobilinogen Dipstick 2.0 mg/dL (0.2 mg/dL) Urine Leukocyte Esterase Negative (NEG) Urine RBC 0 /HPF (0-2) Urine WBC Occ /HPF (0-4) Urine Squamous Epithelial Cells Occ /LPF Urine Bacteria 0 /HPF (0-FEW) Urine Opiates Screen Pos (NEG) Urine Methadone Screen Neg (NEG) Urine Barbiturates Neg (NEG) Urine Phencyclidine Screen Neg (NEG) Urine Amphetamine/Methamphetamine Neg (NEG) Urine Benzodiazepines Screen Neg (NEG) Urine Cocaine Screen Neg (NEG) Urine Cannabinoids Screen Neg (NEG) Urine Ethyl Alcohol Neg (NEG) Medications Current Medications Fentanyl Citrate (Fentanyl 2ml Vial) 75 mcg 1X ONCE IV Last administered on 08/14/18at 13:40; Start 08/14/18 at 13:15; Stop 08/14/18 at 13:16; Status DC Sodium Chloride 1,000 ml @ 1,000 mls/hr 1X ONCE IV Last administered on 08/14/18at 13:39; Start 08/14/18 at 13:15; Stop 08/14/18 at 14:14; Status DC Fentanyl Citrate (Fentanyl 2ml Vial) 75 mcg 1X ONCE IM Last administered on 08/14/18at 16:04; Start 08/14/18 at 16:00; Stop 08/14/18 at 16:01; Status DC Magnesium Citrate (Citroma) 296 ml 1X ONCE PO Last administered on 08/14/18at 16:03; Start 08/14/18 at 16:00; Stop 08/14/18 at 16:01; Status DC Sodium Chloride 1,000 ml @ 100 mls/hr Q10H IV Last administered on 08/14/18at 17:39; Start 08/14/18 at 16:15 Al Hydroxide/Mg Hydroxide (Mylanta Plus Xs) 30 ml PRN Q3HRS PRN PO HEARTBURN / GAS; Start 08/14/18 at 16:15 Info (Non-Icu Electrolyte Protocol) 1 ea PRN DAILY PRN MC SEE COMMENTS; Start 08/14/18 at 16:15 Morphine Sulfate (Morphine Sulfate) 2 mg PRN Q1HR PRN IV PAIN; Start 08/14/18 at 16:15; Stop 08/15/18 at 09:16; Status DC Oxycodone/ Acetaminophen (Percocet 5/325) 1 tab PRN Q4HRS PRN PO MILD PAIN, 2ND CHOICE Last administered on 08/15/18at 11:10; Start 08/14/18 at 16:15 Senna/Docusate Sodium (Senna Plus) 1 tab BID PO Last administered on 08/15/18at 08:40; Start 08/14/18 at 21:00 Docusate Sodium (Colace) 100 mg BID PO Last administered on 08/15/18at 08:40; Start 08/14/18 at 21:00 Heparin Sodium (Porcine) (Heparin Sodium) 5,000 unit Q12HR SQ Last administered on 08/15/18 08:44; Start 08/14/18 at 21:00 Ondansetron HCl (Zofran) 4 mg PRN Q8HRS PRN IV NAUSEA/VOMITING Last administe red on 08/15/18at 00:19; Start 08/14/18 at 16:30; Stop 08/15/18 at 00:24; Status DC Morphine Sulfate (Morphine Sulfate) 4 mg PRN Q2HR PRN IV PAIN Last administered on 08/15/18 08:41; Start 08/14/18 at 16:30; Stop 08/15/18 at 09:07; Status DC Fentanyl Citrate (Fentanyl 2ml Vial) 50 mcg PRN Q1HR PRN IV PAIN Last administered on 08/15/18 04:55; Start 08/14/18 at 16:30; Stop 08/15/18 at 09:07; Status DC Sodium Chloride 1,000 ml @ 125 mls/hr Q8H IV ; Start 08/14/18 at 16:20; Stop 08/14/18 at 19:29; Status DC Acetaminophen (Tylenol) 650 mg PRN Q4HRS PRN PO FEVER; Start 08/14/18 at 16:30; Stop 08/15/18 at 16:29; Status DC Hydralazine HCl (Apresoline Inj) 10 mg 1X ONCE IVP Last administered on 08/14/18 17:10; Start 08/14/18 at 17:00; Stop 08/14/18 at 17:01; Status DC Hydralazine HCl (Apresoline) 25 mg PRN TID PRN PO for SBP greater than 180 Last administered on 08/14/18at 23:42; Start 08/14/18 at 16:45 Enoxaparin Sodium (Lovenox Per Pharmacy Prophylaxis Dosing) 1 each PRN DAILY PRN MC SEE COMMENTS; Start 08/14/18 at 16:45; Status UNV Diphenhydramine HCl (Benadryl) 25 mg PRN QHS PRN PO INSOMNIA Last administered on 08/14/18 20:42; Start 08/14/18 at 20:30 Ondansetron HCl (Zofran) 4 mg PRN Q6HRS PRN IV NAUSEA/VOMITING, 1ST CHOICE Last administered on 5/21/19at 21:10; Start 08/15/18 at 00:30 Polyethylene Glycol (miraLAX PACKET) 17 gm DAILY PO ; Start 08/15/18 at 09:00 Docusate Sodium (Colace) 100 mg BID PO ; Start 08/15/18 at 09:00; Stop 08/15/18 at 15:05; Status DC Magnesium Hydroxide (Milk Of Magnesia) 2,400 mg PRN DAILY PRN PO CONSTIPATION; Start 08/15/18 at 08:15 Magnesium Hydroxide (Milk Of Magnesia) 2,400 mg 1X ONCE PO ; Start 08/15/18 at 08:15; Stop 08/15/18 at 08:16; Status DC Fentanyl Citrate (Fentanyl 2ml Vial) 50 mcg PRN Q2HR PRN IV SEVERE PAIN Last administered on 08/16/18at 06:41; Start 08/15/18 at 09:15 Morphine Sulfate (Morphine Sulfate) 2 mg PRN Q2HR PRN IV MODERATE PAIN Last administered on 08/16/18at 04:57; Start 08/15/18 at 09:15 Chlorpromazine HCl (Thorazine) 10 mg PRN Q6HRS PRN PO HICCUPS Last administered on 08/15/18at 19:30; Start 08/15/18 at 09:15 Prochlorperazine Edisylate (Compazine) 10 mg PRN Q6HRS PRN IV NAUSEA/VOMITING, 2ND CHOICE Last administered on 08/16/18at 01:30; Start 08/15/18 at 09:15 Hydromorphone HCl (Dilaudid) 1 mg PRN Q3HRS PRN IV BREAKTHROUGH PAIN; Start 08/15/18 at 17:15 Active Scripts Active Movantik (Naloxegol Oxalate) 25 Mg Tablet 25 Mg PO PRN DAILY PRN 30 Days Colace (Docusate Sodium) 100 Mg Capsule 100 Mg PO BID 30 Days Polyethylene Glycol 3350 17 Gm Powd.pack 17 Gm PO BID 30 Days [Pantoprazole] 40 MG Tablet.dr 40 Mg PO DAILYAC 30 Days Morphine Sulfate Er (Morphine Sulfate) 15 Mg Tablet.er 15 Mg PO BID 30 Days Lisinopril 10 Mg Tablet 10 Mg PO DAILY 30 Days Amlodipine Besylate 5 Mg Tablet 5 Mg PO DAILY 30 Days Carvedilol (Carvedilol) 3.125 Mg Tablet 3.125 Mg PO BIDWMEALS 30 Days [place] 5-325 Tablet (Acetaminophen/Hydrocodone Bitart) 1 Each Tablet 1 Tab PO PRN Q6HRS PRN 30 Days Cyclobenzaprine Hcl 10 Mg Tablet 10 Mg PO TID Vitals/I & O Vital Sign - Last 24 Hours 08/15/18 08/15/18 08/15/18 08/15/18 11:00 11:10 12:20 15:00 Temp 99.0 97.8 99.0 97.8 Pulse 96 106 Resp 18 18 B/P (MAP) 169/99 (122) 138/89 (105) Pulse Ox 95 94 O2 Delivery Room Air Room Air Room Air Room Air 08/15/18 08/15/18 08/15/18 08/15/18 15:06 16:59 17:45 19:00 Temp 99.0 99.0 Pulse 102 B/P (MAP) 160/92 (114) Pulse Ox 95 O2 Delivery Room Air Room Air Room Air Room Air 08/15/18 08/15/18 08/15/18 08/15/18 19:24 20:00 20:57 23:00 Temp 100.7 100.7 Pulse 110 Resp 18 B/P (MAP) 131/88 (102) Pulse Ox 95 96 O2 Delivery Room Air Room Air Room Air Room Air 08/15/18 08/16/18 08/16/18 08/16/18 23:02 01:27 03:00 03:50 Temp 100.3 100.3 Pulse 106 Resp 18 B/P (MAP) 139/91 (107) Pulse Ox 98 O2 Delivery Room Air Room Air Room Air Room Air 08/16/18 08/16/18 08/16/18 08/16/18 04:57 06:41 07:29 07:42 O2 Delivery Room Air Room Air Room Air Room Air Intake and Output 08/15/18 08/15/18 08/16/18 15:00 23:00 07:00 Intake Total 420 ml 300 ml 200 ml Output Total 600 ml Balance -180 ml 300 ml 200 ml Nutrition Consultation Dietary Evaluation: Recommendations by RD: Increase Calorie Intake, Protein supplementation Comments: ensure enlive tid Expected Outcomes/Goals: to meet > 75% est nutr needs via meals and supplements Interpretation of weight loss: >5% in 1 month Malnutrition Findings: Food and Nutrition Intake (Sev: <50% est energy req 5days Weight Status: Appropriate JEAN PAUL BALDWIN MD August 16, 2018 08:50
--- NOTE | 2018-08-16 08:50 | PDOC ---
PROGRESS NOTES Subjective Subjective HPI - f/u of Pancreatic cancer with multiple liver metastases ROS - has abd pain Objective Objective Vital Signs Date Time Temp Pulse Resp B/P (MAP) Pulse Ox O2 Delivery O2 Flow Rate FiO2 08/16/18 07:42 Room Air 08/16/18 03:00 100.3 106 18 139/91 (107) 98 100.3 Intake and Output 08/16/18 07:00 Intake Total 920 ml Output Total 600 ml Balance 320 ml Intake Oral 920 ml Output Urine Total 600 ml # Voids 5 Physical Exam Heart: Normal S1, Normal S2 General: Alert, Oriented X3 Lungs: Clear to auscultation Neuro: Normal speech Psych/Mental Status: Mental status NL Assessment Assessment Problems Medical Problems: (1) Constipation Status: Acute (2) Hyponatremia Status: Acute (3) Pancreatic cancer metastasized to liver Status: Acute IMPRESSION AND PLAN: 1. Pancreatic cancer with multiple liver metastases, diagnosed on 08/07/2018. He had initially agreed to proceed with palliative chemotherapy. However, during this admission, I again had a detailed discussion with him regarding the diagnosis, poor prognosis and palliative chemotherapy options versus hospice care. He has thought about it and since it is incurable, he does not want to proceed with chemotherapy and he wants to focus on pain management, supportive care, palliative care, comfort care with the help of hospice. I discussed with the registered nurse. Palliative care consultation has been requested. 2. Abdominal pain. I discussed with Dr. Nomi Kapadia at multidisciplinary tumor conference. Dr. Kapadia suggested to consider a celiac plexus block as an option. I d/w pt and he agrees. I d/w Dr. Kapadia and Dr Ferrera. Comment Review of Relevant I have reviewed the following items himanshu (where applicable) has been applied. Labs Laboratory Tests Test 08/14/18 13:30 08/14/18 13:44 08/15/18 04:50 White Blood Count 11.4 x10^3/uL (4.0-11.0) 11.6 x10^3/uL (4.0-11.0) Red Blood Count 4.58 x10^6/uL (4.30-5.70) 4.73 x10^6/uL (4.30-5.70) Hemoglobin 13.6 g/dL (13.0-17.5) 14.3 g/dL (13.0-17.5) Hematocrit 41.1 % (39.0-53.0) 42.2 % (39.0-53.0) Mean Corpuscular Volume 90 fL (79-100) 89 fL (79-100) Mean Corpuscular Hemoglobin 30 pg (25-35) 30 pg (25-35) Mean Corpuscular Hemoglobin Concent 33 g/dL (31-37) 34 g/dL (31-37) Red Cell Distribution Width 13.9 % (11.5-14.5) 14.3 % (11.5-14.5) Platelet Count 301 x10^3/uL (140-400) 349 x10^3/uL (140-400) Neutrophils (%) (Auto) 76 % (31-73) 77 % (31-73) Lymphocytes (%) (Auto) 10 % (24-48) 9 % (24-48) Monocytes (%) (Auto) 12 % (0-9) 13 % (0-9) Eosinophils (%) (Auto) 1 % (0-3) 1 % (0-3) Basophils (%) (Auto) 1 % (0-3) 0 % (0-3) Neutrophils # (Auto) 8.6 x10^3uL (1.8-7.7) 8.9 x10^3uL (1.8-7.7) Lymphocytes # (Auto) 1.2 x10^3/uL (1.0-4.8) 1.1 x10^3/uL (1.0-4.8) Monocytes # (Auto) 1.4 x10^3/uL (0.0-1.1) 1.5 x10^3/uL (0.0-1.1) Eosinophils # (Auto) 0.1 x10^3/uL (0.0-0.7) 0.1 x10^3/uL (0.0-0.7) Basophils # (Auto) 0.1 x10^3/uL (0.0-0.2) 0.0 x10^3/uL (0.0-0.2) Sodium Level 125 mmol/L (136-145) 123 mmol/L (136-145) Potassium Level 4.4 mmol/L (3.5-5.1) 4.5 mmol/L (3.5-5.1) Chloride Level 88 mmol/L (98-107) 87 mmol/L (98-107) Carbon Dioxide Level 27 mmol/L (21-32) 25 mmol/L (21-32) Anion Gap 10 (6-14) 11 (6-14) Blood Urea Nitrogen 9 mg/dL (8-26) 7 mg/dL (8-26) Creatinine 0.6 mg/dL (0.7-1.3) 0.5 mg/dL (0.7-1.3) Estimated GFR (Cockcroft-Gault) 171.9 212.1 BUN/Creatinine Ratio 15 (6-20) Glucose Level 135 mg/dL (70-99) 108 mg/dL (70-99) Calcium Level 9.1 mg/dL (8.5-10.1) 8.8 mg/dL (8.5-10.1) Total Bilirubin 1.6 mg/dL (0.2-1.0) Aspartate Amino Transf (AST/SGOT) 62 U/L (15-37) Alanine Aminotransferase (ALT/SGPT) 52 U/L (16-63) Alkaline Phosphatase 719 U/L (46-116) Total Protein 7.8 g/dL (6.4-8.2) Albumin 3.0 g/dL (3.4-5.0) Albumin/Globulin Ratio 0.6 (1.0-1.7) Urine Color Yellow Urine Clarity Clear Urine pH 7.0 Urine Specific [place] 1.010 Urine Protein Negative mg/dL (NEG-TRACE) Urine Glucose (UA) Negative mg/dL (NEG) Urine Ketones (Stick) Negative mg/dL (NEG) Urine Blood Negative (NEG) Urine Nitrite Negative (NEG) Urine Bilirubin Negative (NEG) Urine Urobilinogen Dipstick 2.0 mg/dL (0.2 mg/dL) Urine Leukocyte Esterase Negative (NEG) Urine RBC 0 /HPF (0-2) Urine WBC Occ /HPF (0-4) Urine Squamous Epithelial Cells Occ /LPF Urine Bacteria 0 /HPF (0-FEW) Urine Opiates Screen Pos (NEG) Urine Methadone Screen Neg (NEG) Urine Barbiturates Neg (NEG) Urine Phencyclidine Screen Neg (NEG) Urine Amphetamine/Methamphetamine Neg (NEG) Urine Benzodiazepines Screen Neg (NEG) Urine Cocaine Screen Neg (NEG) Urine Cannabinoids Screen Neg (NEG) Urine Ethyl Alcohol Neg (NEG) Medications Current Medications Fentanyl Citrate (Fentanyl 2ml Vial) 75 mcg 1X ONCE IV Last administered on 08/14/18at 13:40; Start 08/14/18 at 13:15; Stop 08/14/18 at 13:16; Status DC Sodium Chloride 1,000 ml @ 1,000 mls/hr 1X ONCE IV Last administered on 08/14/18at 13:39; Start 08/14/18 at 13:15; Stop 08/14/18 at 14:14; Status DC Fentanyl Citrate (Fentanyl 2ml Vial) 75 mcg 1X ONCE IM Last administered on 08/14/18 16:04; Start 08/14/18 at 16:00; Stop 08/14/18 at 16:01; Status DC Magnesium Citrate (Citroma) 296 ml 1X ONCE PO Last administered on 08/14/18at 16:03; Start 08/14/18 at 16:00; Stop 08/14/18 at 16:01; Status DC Sodium Chloride 1,000 ml @ 100 mls/hr Q10H IV Last administered on 08/14/18at 17:39; Start 08/14/18 at 16:15 Al Hydroxide/Mg Hydroxide (Mylanta Plus Xs) 30 ml PRN Q3HRS PRN PO HEARTBURN / GAS; Start 08/14/18 at 16:15 Info (Non-Icu Electrolyte Protocol) 1 ea PRN DAILY PRN MC SEE COMMENTS; Start 08/14/18 at 16:15 Morphine Sulfate (Morphine Sulfate) 2 mg PRN Q1HR PRN IV PAIN; Start 08/14/18 at 16:15; Stop 08/15/18 at 09:16; Status DC Oxycodone/ Acetaminophen (Percocet 5/325) 1 tab PRN Q4HRS PRN PO MILD PAIN, 2ND CHOICE Last administered on 08/15/18at 11:10; Start 08/14/18 at 16:15 Senna/Docusate Sodium (Senna Plus) 1 tab BID PO Last administered on 08/15/18at 08:40; Start 08/14/18 at 21:00 Docusate Sodium (Colace) 100 mg BID PO Last administered on 08/15/18at 08:40; Start 08/14/18 at 21:00 Heparin Sodium (Porcine) (Heparin Sodium) 5,000 unit Q12HR SQ Last administered on 08/15/18at 08:44; Start 08/14/18 at 21:00 Ondansetron HCl (Zofran) 4 mg PRN Q8HRS PRN IV NAUSEA/VOMITING Last administered on 08/15/18at 00:19; Start 08/14/18 at 16:30; Stop 08/15/18 at 00:24; Status DC Morphine Sulfate (Morphine Sulfate) 4 mg PRN Q2HR PRN IV PAIN Last administered on 08/15/18at 08:41; Start 08/14/18 at 16:30; Stop 08/15/18 at 09:07; Status DC Fentanyl Citrate (Fentanyl 2ml Vial) 50 mcg PRN Q1HR PRN IV PAIN Last administered on 08/15/18at 04:55; Start 08/14/18 at 16:30; Stop 08/15/18 at 09:07; Status DC Sodium Chloride 1,000 ml @ 125 mls/hr Q8H IV ; Start 08/14/18 at 16:20; Stop 08/14/18 at 19:29; Status DC Acetaminophen (Tylenol) 650 mg PRN Q4HRS PRN PO FEVER; Start 08/14/18 at 16:30; Stop 08/15/18 at 16:29; Status DC Hydralazine HCl (Apresoline Inj) 10 mg 1X ONCE IVP Last administered on 08/14/18at 17:10; Start 08/14/18 at 17:00; Stop 08/14/18 at 17:01; Status DC Hydralazine HCl (Apresoline) 25 mg PRN TID PRN PO for SBP greater than 180 Last administered on 08/14/18at 23:42; Start 08/14/18 at 16:45 Enoxaparin Sodium (Lovenox Per Pharmacy Prophylaxis Dosing) 1 each PRN DAILY PRN MC SEE COMMENTS; Start 08/14/18 at 16:45; Status UNV Diphenhydramine HCl (Benadryl) 25 mg PRN QHS PRN PO INSOMNIA Last administered on 08/14/18at 20:42; Start 08/14/18 at 20:30 Ondansetron HCl (Zofran) 4 mg PRN Q6HRS PRN IV NAUSEA/VOMITING, 1ST CHOICE Last administered on 08/15/18at 21:10; Start 08/15/18 at 00:30 Polyethylene Glycol (miraLAX PACKET) 17 gm DAILY PO ; Start 08/15/18 at 09:00 Docusate Sodium (Colace) 100 mg BID PO ; Start 08/15/18 at 09:00; Stop 08/15/18 at 15:05; Status DC Magnesium Hydroxide (Milk Of Magnesia) 2,400 mg PRN DAILY PRN PO CONSTIPATION; Start 08/15/18 at 08:15 Magnesium Hydroxide (Milk Of Magnesia) 2,400 mg 1X ONCE PO ; Start 08/15/18 at 08:15; Stop 08/15/18 at 08:16; Status DC Fentanyl Citrate (Fentanyl 2ml Vial) 50 mcg PRN Q2HR PRN IV SEVERE PAIN Last administered on 08/16/18at 06:41; Start 08/15/18 at 09:15 Morphine Sulfate (Morphine Sulfate) 2 mg PRN Q2HR PRN IV MODERATE PAIN Last administered on 08/16/18at 04:57; Start 08/15/18 at 09:15 Chlorpromazine HCl (Thorazine) 10 mg PRN Q6HRS PRN PO HICCUPS Last administered on 08/15/18at 19:30; Start 08/15/18 at 09:15 Prochlorperazine Edisylate (Compazine) 10 mg PRN Q6HRS PRN IV NAUSEA/VOMITING, 2ND CHOICE Last administered on 08/16/18at 01:30; Start 08/15/18 at 09:15 Hydromorphone HCl (Dilaudid) 1 mg PRN Q3HRS PRN IV BREAKTHROUGH PAIN; Start 08/15/18 at 17:15 Active Scripts Active Movantik (Naloxegol Oxalate) 25 Mg Tablet 25 Mg PO PRN DAILY PRN 30 Days Colace (Docusate Sodium) 100 Mg Capsule 100 Mg PO BID 30 Days Polyethylene Glycol 3350 17 Gm Powd.pack 17 Gm PO BID 30 Days [Pantoprazole] 40 MG Tablet.dr 40 Mg PO DAILYAC 30 Days Morphine Sulfate Er (Morphine Sulfate) 15 Mg Tablet.er 15 Mg PO BID 30 Days Lisinopril 10 Mg Tablet 10 Mg PO DAILY 30 Days Amlodipine Besylate 5 Mg Tablet 5 Mg PO DAILY 30 Days Carvedilol (Carvedilol) 3.125 Mg Tablet 3.125 Mg PO BIDWMEALS 30 Days [place] 5-325 Tablet (Acetaminophen/Hydrocodone Bitart) 1 Each Tablet 1 Tab PO PRN Q6HRS PRN 30 Days Cyclobenzaprine Hcl 10 Mg Tablet 10 Mg PO TID Vitals/I & O Vital Sign - Last 24 Hours 08/15/18 08/15/18 08/15/18 08/15/18 11:00 11:10 12:20 15:00 Temp 99.0 97.8 99.0 97.8 Pulse 96 106 Resp 18 18 B/P (MAP) 169/99 (122) 138/89 (105) Pulse Ox 95 94 O2 Delivery Room Air Room Air Room Air Room Air 08/15/18 08/15/18 08/15/18 08/15/18 15:06 16:59 17:45 19:00 Temp 99.0 99.0 Pulse 102 B/P (MAP) 160/92 (114) Pulse Ox 95 O2 Delivery Room Air Room Air Room Air Room Air 08/15/18 08/15/18 08/15/18 08/15/18 19:24 20:00 20:57 23:00 Temp 100.7 100.7 Pulse 110 Resp 18 B/P (MAP) 131/88 (102) Pulse Ox 95 96 O2 Delivery Room Air Room Air Room Air Room Air 08/15/18 08/16/18 08/16/18 08/16/18 23:02 01:27 03:00 03:50 Temp 100.3 100.3 Pulse 106 Resp 18 B/P (MAP) 139/91 (107) Pulse Ox 98 O2 Delivery Room Air Room Air Room Air Room Air 08/16/18 08/16/18 08/16/18 08/16/18 04:57 06:41 07:29 07:42 O2 Delivery Room Air Room Air Room Air Room Air Intake and Output 08/15/18 08/15/18 08/16/18 15:00 23:00 07:00 Intake Total 420 ml 300 ml 200 ml Output Total 600 ml Balance -180 ml 300 ml 200 ml Nutrition Consultation Dietary Evaluation: Recommendations by RD: Increase Calorie Intake, Protein supplementation Comments: ensure enlive tid Expected Outcomes/Goals: to meet > 75% est nutr needs via meals and supplements Interpretation of weight loss: >5% in 1 month Malnutrition Findings: Food and Nutrition Intake (Sev: <50% est energy req 5days Weight Status: Appropriate NELSON MORRISSEY MD August 16, 2018 08:50
--- NOTE | 2018-08-16 10:15 | NUR ---
SW consulted for homelessness and arranging hospice. Chart reviewed and discussed with RN, Palliative care. SW spoke with pt and he completed advance directive and a copy placed on chart. Pt is provided with Original AD and copies to take home. Discussed with pt regarding hospice agencies and he does not have a preference. Pt agreeable with [facility] and family is discussing about arranging a place to live/stay for Pt. [facility] phoned and faxed referral to [facility]. Pt acceptance and admission pending. Will continue to follow.
[2018-08-16 11:16] LABS: PROTHROMBIN TIME PATIENT 13.3 SEC (11.7-14.0)
[2018-08-16] MEDS ORDERED: ETHYL ALCOHOL 98% 5 ML VIAL. IJ ONE (11:30)
[2018-08-16] MEDS: MORPHINE ER 15 MG TABLET.ER PO SCH ×2 (13:00→21:48)
[2018-08-16] MEDS ORDERED: LIDOCAINE 1% Multi-Dose 20 ML VIAL. ONE (13:01)
[2018-08-16] MEDS ORDERED: IOHEXOL 240 MG/ML 50ML VIAL. ONE ×2 (13:01→13:50)
[2018-08-16] MEDS ORDERED: fentaNYL PF VIAL 100 MCG/2 ML VIAL ONE ×2 (13:03→14:03)
[2018-08-16] MEDS ORDERED: MIDAZOLAM HCL/PF 2 MG/2 ML VIAL. ONE ×2 (13:03→14:03)
[2018-08-16] MEDS ORDERED: fentaNYL PF VIAL 100 MCG/2 ML VIAL IV ONE (13:30)
[2018-08-16] MEDS ORDERED: IOHEXOL 240 MG/ML 50ML VIAL. IJ ONE (13:30)
[2018-08-16] MEDS ORDERED: LIDOCAINE 1% Multi-Dose 20 ML VIAL. INJ ONE (13:30)
[2018-08-16] MEDS ORDERED: MIDAZOLAM HCL/PF 2 MG/2 ML VIAL. IV ONE (13:30)
--- NOTE | 2018-08-16 13:41 | PDOC2 ---
PALLIATIVE CARE Palliative Care Note Palliative Care Patient in IR for celiac plexus block. Spoke with brother-Noah last evening. Reviewed medical condition. Noah is unable to care for him in his home. Discussed need for AD/DPOA. States he wants to help his brother as much as possible. Patient's mother lives in [place]. He will talk to friends and family to see what they can assist with. Attempted to reach Noah today at 1330. Message to return call. Discussed Hospice Support. Risa MACE did complete AD this am. Will continue to address pain needs and plan for discharge with hospice support. Patient has [place] Medicaid so has option of Nursing Facility if needed. ELIZABETH CHASE August 16, 2018 13:41
--- NOTE | 2018-08-16 14:44 | PDOC ---
Provider Note Provider Note IR NOTE Celiac block under CT showed good pain relief. ETOH neurolysis was performed. Good initial result. No immediate complication. JIM NATARAJAN MD August 16, 2018 14:44
--- NOTE | 2018-08-16 15:30 | NUR ---
PT FAMILY FRIENDS HERE TO VISIT AFTER PROCEDURE, THEY STATED THAT BROTHER ARAM WORKS A CORE MACHINE OPERATOR IN A FACILITY [place] [address] [place] [address], WASN'T SURE THE NAME OF THE FACILITY BUT WERE GOING TO OBTAIN THAT INFORMATION AND LET US KNOW, THEY WERE WONDERING IF IT WAS POSSIBLE TO PLACE PT IN THAT FACILITY WHERE HE WOULD BE CLOSE WITH HIS BROTHER.
--- NOTE | 2018-08-16 16:06 | NUR ---
[facility] following Pt. Spoke with Bob at [facility] and they will be contacting Pt's brother after work hours to discuss discharge plan. [facility] also left a voice mail to pt's brother requesting a call back.
[2018-08-16] MEDS: oxyCODONE/APAP 10/325 1 TAB TABLET PO PRN ×2 (16:36→23:12)
--- NOTE | 2018-08-16 19:42 | NUR ---
PT BROTHER WORKS AT [address], PHONE NUMBER IS [phone], WAS CURIOUS IF PT COULD BE PLACED THERE AT HIS FACILITY.
[2018-08-16] MEDS: HYDROmorphone 2 MG/ML VIAL IV PRN (20:11)
[2018-08-17] MEDS: HYDROmorphone 2 MG/ML VIAL IV PRN ×8 (02:06→23:35)
[2018-08-17 03:00] VITALS: BP 131/86
[2018-08-17] MEDS: IV 1/2 NORMAL SALINE 1,000 ML IV SCH ×2 (04:15→14:15)
[2018-08-17 07:00] VITALS: BP 139/96
--- NOTE | 2018-08-17 08:40 | PDOC ---
PROGRESS NOTES Subjective Subjective HPI - f/u of Pancreatic cancer with multiple liver metastases ROS - has abd pain Objective Objective Vital Signs Date Time Temp Pulse Resp B/P (MAP) Pulse Ox O2 Delivery O2 Flow Rate FiO2 08/17/18 07:00 99.7 96 16 139/96 (110) 96 Room Air 99.7 08/17/18 06:04 2.0 Intake and Output 08/17/18 07:00 Intake Total 450 ml Output Total 300 ml Balance 150 ml Intake Oral 450 ml Output Urine Total 300 ml # Voids 2 Physical Exam Heart: Normal S1, Normal S2 General: Alert, Oriented X3, No acute distress Lungs: Clear to auscultation Neuro: Normal speech Psych/Mental Status: Mental status NL Assessment Assessment Problems Medical Problems: (1) Constipation Status: Acute (2) Hyponatremia Status: Acute (3) Pancreatic cancer metastasized to liver Status: Acute IMPRESSION AND PLAN: 1. Pancreatic cancer with multiple liver metastases, diagnosed on 08/07/2018. He had initially agreed to proceed with palliative chemotherapy. However, during this admission, I again had a detailed discussion with him regarding the diagnosis, poor prognosis and palliative chemotherapy options versus hospice care. He has thought about it and since it is incurable, he does not want to proceed with chemotherapy and he wants to focus on pain management, supportive care, palliative care, comfort care with the help of hospice. I discussed with the registered nurse. Appreciate Palliative care consultation. 2. Abdominal pain. I discussed with Dr. Nomi Kapadia at multidisciplinary tumor conference. s/p celiac plexus block 08/16/18, only temporary relief. I d/w Dr. Kapadia and Dr Ferrera. 3. Consult IR for port removal. Pt says it is painful. Comment Review of Relevant I have reviewed the following items himanshu (where applicable) has been applied. Labs Laboratory Tests Test 08/16/18 11:00 Prothrombin Time 13.3 SEC (11.7-14.0) Prothromb Time International Ratio 1.0 (0.8-1.1) Activated Partial Thromboplast Time 27 SEC (24-38) Laboratory Tests Test 08/16/18 11:00 Prothrombin Time 13.3 SEC (11.7-14.0) Prothromb Time International Ratio 1.0 (0.8-1.1) Activated Partial Thromboplast Time 27 SEC (24-38) Medications Current Medications Fentanyl Citrate (Fentanyl 2ml Vial) 75 mcg 1X ONCE IV Last administered on 08/14/18at 13:40; Start 08/14/18 at 13:15; Stop 08/14/18 at 13:16; Status DC Sodium Chloride 1,000 ml @ 1,000 mls/hr 1X ONCE IV Last administered on 08/14/18at 13:39; Start 08/14/18 at 13:15; Stop 08/14/18 at 14:14; Status DC Fentanyl Citrate (Fentanyl 2ml Vial) 75 mcg 1X ONCE IM Last administered on 08/14/18at 16:04; Start 08/14/18 at 16:00; Stop 08/14/18 at 16:01; Status DC Magnesium Citrate (Citroma) 296 ml 1X ONCE PO Last administered on 08/14/18at 16:03; Start 08/14/18 at 16:00; Stop 08/14/18 at 16:01; Status DC Sodium Chloride 1,000 ml @ 100 mls/hr Q10H IV Last administered on 08/14/18at 17:39; Start 08/14/18 at 16:15 Al Hydroxide/Mg Hydroxide (Mylanta Plus Xs) 30 ml PRN Q3HRS PRN PO HEARTBURN / GAS; Start 08/14/18 at 16:15 Info (Non-Icu Electrolyte Protocol) 1 ea PRN DAILY PRN MC SEE COMMENTS; Start 08/14/18 at 16:15 Morphine Sulfate (Morphine Sulfate) 2 mg PRN Q1HR PRN IV PAIN; Start 08/14/18 at 16:15; Stop 08/15/18 at 09:16; Status DC Oxycodone/ Acetaminophen (Percocet 5/325) 1 tab PRN Q4HRS PRN PO MILD PAIN 1-3 Last administered on 08/15/18at 11:10; Start 08/14/18 at 16:15 Senna/Docusate Sodium (Senna Plus) 1 tab BID PO Last administered on 08/16/18at 21:48; Start 08/14/18 at 21:00 Docusate Sodium (Colace) 100 mg BID PO Last administered on 08/16/18at 21:48; Start 08/14/18 at 21:00 Heparin Sodium (Porcine) (Heparin Sodium) 5,000 unit Q12HR SQ Last administered on 08/16/18at 21:52; Start 08/14/18 at 21:00 Ondansetron HCl (Zofran) 4 mg PRN Q8HRS PRN IV NAUSEA/VOMITING Last administered on 08/15/18at 00:19; Start 08/14/18 at 16:30; Stop 08/15/18 at 00:24; Status DC Morphine Sulfate (Morphine Sulfate) 4 mg PRN Q2HR PRN IV PAIN Last administered on 08/15/18at 08:41; Start 08/14/18 at 16:30; Stop 08/15/18 at 09:07; Status DC Fentanyl Citrate (Fentanyl 2ml Vial) 50 mcg PRN Q1HR PRN IV PAIN Last administered on 08/15/18at 04:55; Start 08/14/18 at 16:30; Stop 08/15/18 at 09:07; Status DC Sodium Chloride 1,000 ml @ 125 mls/hr Q8H IV ; Start 08/14/18 at 16:20; Stop 08/14/18 at 19:29; Status DC Acetaminophen (Tylenol) 650 mg PRN Q4HRS PRN PO FEVER; Start 08/14/18 at 16:30; Stop 08/15/18 at 16:29; Status DC Hydralazine HCl (Apresoline Inj) 10 mg 1X ONCE IVP Last administered on 08/14/18at 17:10; Start 08/14/18 at 17:00; Stop 08/14/18 at 17:01; Status DC Hydralazine HCl (Apresoline) 25 mg PRN TID PRN PO for SBP greater than 180 Last administered on 08/14/18at 23:42; Start 08/14/18 at 16:45 Enoxaparin Sodium (Lovenox Per Pharmacy Prophylaxis Dosing) 1 each PRN DAILY PRN MC SEE COMMENTS; Start 08/14/18 at 16:45; Status UNV Diphenhydramine HCl (Benadryl) 25 mg PRN QHS PRN PO INSOMNIA Last administered on 08/14/18at 20:42; Start 08/14/18 at 20:30 Ondansetron HCl (Zofran) 4 mg PRN Q6HRS PRN IV NAUSEA/VOMITING, 1ST CHOICE Last administered on 08/15/18at 21:10; Start 08/15/18 at 00:30 Polyethylene Glycol (miraLAX PACKET) 17 gm DAILY PO ; Start 08/15/18 at 09:00 Docusate Sodium (Colace) 100 mg BID PO ; Start 08/15/18 at 09:00; Stop 08/15/18 at 15:05; Status DC Magnesium Hydroxide (Milk Of Magnesia) 2,400 mg PRN DAILY PRN PO CONSTIPATION; Start 08/15/18 at 08:15 Magnesium Hydroxide (Milk Of Magnesia) 2,400 mg 1X ONCE PO ; Start 08/15/18 at 08:15; Stop 08/15/18 at 08:16; Status DC Fentanyl Citrate (Fentanyl 2ml Vial) 50 mcg PRN Q2HR PRN IV MODERATE PAIN Last administered on 08/16/18at 06:41; Start 08/15/18 at 09:15 Morphine Sulfate (Morphine Sulfate) 2 mg PRN Q2HR PRN IV MILD PAIN 1-3 Last administered on 08/16/18at 09:40; Start 08/15/18 at 09:15 Chlorpromazine HCl (Thorazine) 10 mg PRN Q6HRS PRN PO HICCUPS Last administered on 08/15/18at 19:30; Start 08/15/18 at 09:15 Prochlorperazine Edisylate (Compazine) 10 mg PRN Q6HRS PRN IV NAUSEA/VOMITING, 2ND CHOICE Last administered on 08/16/18at 01:30; Start 08/15/18 at 09:15 Hydromorphone HCl (Dilaudid) 1 mg PRN Q3HRS PRN IV BREAKTHROUGH PAIN Last administered on 08/16/18at 10:57; Start 08/15/18 at 17:15; Stop 08/16/18 at 12:32; Status DC Oxycodone/ Acetaminophen (Percocet 10/325) 1 tab PRN Q4HRS PRN PO MODERATE PAIN 4-6 Last administered on 08/16/18at 23:12; Start 08/16/18 at 09:00 Alcohol (Alcohol, Dehydrated 98%) 20 ml 1X ONCE IJ ; Start 08/16/18 at 11:30; Stop 08/16/18 at 11:31; Status DC Hydromorphone HCl (Dilaudid) 2 mg PRN Q3HRS PRN IV SEVERE PAIN Last administered on 08/17/18at 05:34; Start 08/16/18 at 12:45 Morphine Sulfate (Ms Contin) 15 mg BID PO Last administered on 08/16/18at 21:48; Start 08/16/18 at 13:00 Iohexol (Omnipaque 240 Mg/ml) 50 ml STK-MED ONCE .ROUTE ; Start 08/16/18 at 13:01; Stop 08/16/18 at 13:02; Status DC Lidocaine HCl (Lidocaine 1% 20ml Vial) 20 ml STK-MED ONCE .ROUTE ; Start 08/16/18 at 13:01; Stop 08/16/18 at 13:02; Status DC Midazolam HCl (Versed) 2 mg STK-MED ONCE .ROUTE ; Start 08/16/18 at 13:03; Stop 08/16/18 at 13:04; Status DC Fentanyl Citrate (Fentanyl 2ml Vial) 100 mcg STK-MED ONCE .ROUTE ; Start 08/16/18 at 13:03; Stop 08/16/18 at 13:04; Status DC Midazolam HCl (Versed) 2 mg 1X ONCE IV ; Start 08/16/18 at 13:30; Stop 08/16/18 at 13:31; Status DC Fentanyl Citrate (Fentanyl 2ml Vial) 100 mcg 1X ONCE IV ; Start 08/16/18 at 13:30; Stop 08/16/18 at 13:31; Status DC Lidocaine HCl (Lidocaine 1% 20ml Vial) 20 ml 1X ONCE INJ ; Start 08/16/18 at 13:30; Stop 08/16/18 at 13:31; Status DC Iohexol (Omnipaque 240 Mg/ml) 50 ml 1X ONCE IJ ; Start 08/16/18 at 13:30; Stop 08/16/18 at 13:31; Status DC Iohexol (Omnipaque 240 Mg/ml) 50 ml STK-MED ONCE .ROUTE ; Start 08/16/18 at 13:50; Stop 08/16/18 at 13:51; Status DC Midazolam HCl (Versed) 2 mg STK-MED ONCE .ROUTE ; Start 08/16/18 at 14:03; Stop 08/16/18 at 14:04; Status DC Fentanyl Citrate (Fentanyl 2ml Vial) 100 mcg STK-MED ONCE .ROUTE ; Start 08/16/18 at 14:03; Stop 08/16/18 at 14:04; Status DC Active Scripts Active Movantik (Naloxegol Oxalate) 25 Mg Tablet 25 Mg PO PRN DAILY PRN 30 Days Colace (Docusate Sodium) 100 Mg Capsule 100 Mg PO BID 30 Days Polyethylene Glycol 3350 17 Gm Powd.pack 17 Gm PO BID 30 Days [Pantoprazole] 40 MG Tablet.dr 40 Mg PO DAILYAC 30 Days Morphine Sulfate Er (Morphine Sulfate) 15 Mg Tablet.er 15 Mg PO BID 30 Days Lisinopril 10 Mg Tablet 10 Mg PO DAILY 30 Days Amlodipine Besylate 5 Mg Tablet 5 Mg PO DAILY 30 Days Carvedilol (Carvedilol) 3.125 Mg Tablet 3.125 Mg PO BIDWMEALS 30 Days [place] 5-325 Tablet (Acetaminophen/Hydrocodone Bitart) 1 Each Tablet 1 Tab PO PRN Q6HRS PRN 30 Days Cyclobenzaprine Hcl 10 Mg Tablet 10 Mg PO TID Vitals/I & O Vital Sign - Last 24 Hours 08/16/18 08/16/18 08/16/18 08/16/18 09:40 10:18 10:57 11:00 Temp 98.8 98.8 Pulse 96 Resp 18 B/P (MAP) 135/89 (104) Pulse Ox 93 96 O2 Delivery Room Air Room Air Room Air Room Air 08/16/18 08/16/18 08/16/18 08/16/18 12:20 13:25 13:30 13:33 Pulse 87 92 89 Resp 20 16 15 Pulse Ox 98 96 96 O2 Delivery Room Air Nasal Cannula Nasal Cannula Nasal Cannula O2 Flow Rate 2.0 2.0 2.0 08/16/18 08/16/18 08/16/18 08/16/18 13:35 13:40 13:45 13:50 Pulse 92 92 88 88 Resp 16 22 16 16 Pulse Ox 97 97 97 97 O2 Delivery Nasal Cannula Nasal Cannula Nasal Cannula Nasal Cannula O2 Flow Rate 2.0 2.0 2.0 2.0 08/16/18 08/16/18 08/16/18 08/16/18 13:55 14:00 14:05 14:10 Pulse 89 88 93 92 Resp Pulse Ox 96 98 98 98 O2 Delivery Nasal Cannula Nasal Cannula Nasal Cannula Nasal Cannula O2 Flow Rate 2.0 2.0 2.0 2.0 5/22/08/16/18 08/16/18 08/16/18 14:15 14:20 14:30 15:00 Temp 97.8 97.8 Pulse 93 93 92 91 Resp 31 27 24 18 B/P (MAP) 138/93 (108) Pulse Ox 97 97 97 98 O2 Delivery Nasal Cannula Nasal Cannula Nasal Cannula Room Air O2 Flow Rate 2.0 2.0 2.0 08/16/18 08/16/18 08/16/18 08/16/18 16:36 19:00 20:00 20:11 Temp 98.9 98.9 Pulse 99 Resp 18 B/P (MAP) 151/98 (115) Pulse Ox 96 98 O2 Delivery Room Air Room Air Room Air Room Air O2 Flow Rate 2.0 2.0 08/16/18 08/16/18 08/16/18 08/17/18 21:48 23:00 23:12 00:12 Temp 98.9 98.9 Pulse 99 Resp 18 B/P (MAP) 141/90 (107) Pulse Ox 98 96 98 98 O2 Delivery Room Air Room Air Room Air Room Air O2 Flow Rate 2.0 2.0 2.0 08/17/18 08/17/18 08/17/18 08/17/18 01:48 02:06 03:00 05:34 Temp 98.1 98.1 Pulse 90 Resp 16 B/P (MAP) 131/86 (101) Pulse Ox 98 98 98 98 O2 Delivery Room Air Room Air Room Air Room Air O2 Flow Rate 2.0 2.0 2.0 08/17/18 08/17/18 06:04 07:00 Temp 99.7 99.7 Pulse 96 Resp 16 B/P (MAP) 139/96 (110) Pulse Ox 98 96 O2 Delivery Room Air Room Air O2 Flow Rate 2.0 Intake and Output 08/16/18 08/16/18 08/17/18 15:00 23:00 07:00 Intake Total 0 ml 0 ml 450 ml Output Total 300 ml Balance 0 ml 0 ml 150 ml Nutrition Consultation Dietary Evaluation: Recommendations by RD: Increase Calorie Intake, Protein supplementation Comments: ensure enlive tid Expected Outcomes/Goals: to meet > 75% est nutr needs via meals and supplements Interpretation of weight loss: >5% in 1 month Malnutrition Findings: Food and Nutrition Intake (Sev: <50% est energy req 5days Weight Status: Appropriate RAJA,NELSON MD August 17, 2018 08:40
[2018-08-17] MEDS: DOCUSATE SODIUM 100 MG CAPSULE. PO SCH ×2 (08:45→21:42)
[2018-08-17] MEDS: MORPHINE ER 15 MG TABLET.ER PO SCH ×2 (08:45→21:42)
[2018-08-17] MEDS: SENNOSIDES/DOCUSATE 8.6/50MG TABLET. PO SCH ×2 (08:45→21:43)
[2018-08-17] MEDS: HEPARIN for SUB-Q USE 5,000 UNIT/ML VIAL. SQ SCH ×2 (08:52→21:46)
[2018-08-17] MEDS: POLYETHYLENE GLYCOL 3350 17 GM PACKET. PO SCH (08:53)
[2018-08-17] MEDS ORDERED: OXYC1TAB22 PO (09:37)
[2018-08-17] MEDS ORDERED: MORP15TA3 PO (09:37)
--- NOTE | 2018-08-17 09:40 | PDOC3 ---
Discharge Summary Visit Information Date of Admission: August 14, 2018 Date of Discharge: August 17, 2018 Admitting Diagnosis Comment: Stage 4 pancreatic cancer with metastases to the liver -On palliative chemotherapy via indwelling right Port-A-Cath s/p celiac plexus block IR 08/16/18 Hyponatremia-chronic Abdominal pain nausea vomiting-CT pending Reactive leukocytosis Microcytic anemia in a cancer patient Narcotic tolerant Final Diagnosis Problems Medical Problems: (1) Constipation Status: Acute (2) Hyponatremia Status: Acute (3) Pancreatic cancer metastasized to liver Status: Acute Brief Hospital Course Allergies Allergies Coded Allergies Type Severity Reaction Last Updated Verified ibuprofen Allergy Intermediate rash 11/11/15 Yes Vital Signs Vital Signs Date Time Temp Pulse Resp B/P (MAP) Pulse Ox O2 Delivery O2 Flow Rate FiO2 08/17/18 07:00 99.7 96 16 139/96 (110) 96 Room Air 99.7 08/17/18 06:04 2.0 Lab Results Laboratory Tests Test 08/16/18 11:00 Prothrombin Time 13.3 SEC (11.7-14.0) Prothromb Time International Ratio 1.0 (0.8-1.1) Activated Partial Thromboplast Time 27 SEC (24-38) Laboratory Tests Test 08/16/18 11:00 Prothrombin Time 13.3 SEC (11.7-14.0) Prothromb Time International Ratio 1.0 (0.8-1.1) Activated Partial Thromboplast Time 27 SEC (24-38) Brief Hospital Course Mr. Jones is a 53 old [place] male recently diagnosed with stage IV pancreatic cancer metastases to the liver, comes in because of pain control. Essentially I needed to start MS Contin twice a day and increase his narcotics from 5-10 mgs. Also requiring Dilaudid IV pushes [id number]. IR got involved out of heme onc recommendation, underwent celiac block plexus with immediate relief but? It's lasting effect. He still required narcotics, moving bowels though,. Port-A-Cath be taken out prior to discharge. 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 We are waiting for PT OT social work evaluation. Consults performed heme onc, IR procedures performed celiac block plexus 08/16/2018 by IR MS contin mouth twice a day all on chart Patient seen and examined, DC time 31 minutes arcadio cath To be taken out prior to discharge Discharge Information Condition at Discharge: Improved, Stable Disposition/Orders: D/C to Home Scheduled Amlodipine Besylate (Amlodipine Besylate) 5 Mg Tablet, 5 MG PO DAILY for HTN for 30 Days, #30 Ref 5 Prescribed by: TATIANA QUAN MD on 08/10/18 1418 Carvedilol (Carvedilol ) 3.125 Mg Tablet, 3.125 MG PO BIDWMEALS for HTN for 30 Days, #60 Ref 5 Prescribed by: TATIANA QUAN MD on 08/10/18 1418 Cyclobenzaprine Hcl (Cyclobenzaprine Hcl) 10 Mg Tablet, 10 MG PO TID, #20 Prescribed by: MAGDA MELARA APRN on 11/11/15 0851 Docusate Sodium (Colace) 100 Mg Capsule, 100 MG PO BID for constipation for 30 Days, #60 Ref 5 Prescribed by: TATIANA QUAN MD on 08/10/18 1418 Lisinopril (Lisinopril) 10 Mg Tablet, 10 MG PO DAILY for HTN for 30 Days, #30 Ref 5 Prescribed by: TATIANA QUAN MD on 08/10/18 1418 Morphine Sulfate (Morphine Sulfate Er) 15 Mg Tablet.er, 15 MG PO BID for Pancreatic cancer for 30 Days, #60 Prescribed by: TATIANA QUAN MD on 08/10/18 1418 Morphine Sulfate (Morphine Sulfate Er) 15 Mg Tablet.er, 15 MG PO BID for cancer pain MDD 1, #30 Prescribed by: JEAN PAUL BALDWIN on 08/17/18 0937 Polyethylene Glycol 3350 (Polyethylene Glycol 3350) 17 Gm Powd.pack, 17 GM PO BID for constipation for 30 Days, #60 Prescribed by: TATIANA QUAN MD on 08/10/18 1418 [Pantoprazole] 40 MG TABLET.DR, 40 MG PO DAILYAC for GERD for 30 Days, #30 Ref 5 Prescribed by: TATIANA QUAN MD on 08/10/18 1418 Scheduled PRN Hydrocodone/Apap 5-325 ([place] 5-325 Tablet) 1 Each Tablet, 1 TAB PO PRN Q6HRS PRN for pancreatic cancer pain for 30 Days, #120 Prescribed by: TATIANA QUAN MD on 08/10/18 1418 Naloxegol Oxalate (Movantik) 25 Mg Tablet, 25 MG PO PRN DAILY PRN for CONSTIPATION for 30 Days, #30 Prescribed by: TATIANA QUAN MD on 08/10/18 1418 Oxycodone/Apap 10-325 (Percocet 10-325 Mg Tablet ) 1 Each Tablet, 1 TAB PO PRN Q4HRS PRN for MODERATE PAIN 4-6 MDD 1, #30 Prescribed by: JEAN PAUL BALDWIN on 08/17/18 0937 Discontinued Medications Prednisone (Prednisone) 20 Mg Tablet, 40 MG PO DAILY, #10 Prescribed by: MAGDA MELARA APRN on 11/11/15 0851 JEAN PAUL BALDWIN MD August 17, 2018 09:40
--- NOTE | 2018-08-17 10:45 | NUR ---
SW following pt. RODRI phoned and faxed [facility] Discussed with Ese at [facility] that pt is ready today with [facility] if they are willing to accept. Pt acceptance and admission pending. Will continue to follow.
[2018-08-17 11:00] VITALS: BP 139/91
--- NOTE | 2018-08-17 11:18 | RAD ---
CT-guided, celiac plexus neurolysis 08/16/2018 Indication: 53-year-old male with pancreatic cancer, extensive hepatic metastasis, and severe pain refractory to her chronic pain medications. Discussion: The risks and benefits of the procedure was discussed with the patient. Informed consent was obtained. A timeout procedure was performed. The anterior abdomen was prepped and draped using sterile barrier technique. All elements of maximal sterile barrier technique including the use of a cap, mask, sterile gown, sterile gloves, large sterile sheet, appropriate hand hygiene, and 2% chlorhexidine for cutaneous antisepsis (or acceptable alternative antiseptic per current guidelines) were followed for this procedure. 1% lidocaine was administered for local anesthesia. Under intermittent CT guidance a 22-gauge Chiba needle was advanced into the expected region of the celiac ganglia. Contrast was administered confirming location. 10 cc of lidocaine was administered as a test block. The patient reported near total relief of pain. 20 cc of absolute ethanol was administered. The needle was removed. Sterile dressings were applied. No immediate complications were identified. The procedures performed under conscious sedation including continuous cardiopulmonary monitoring via dedicated sedation nurse. [id number] moderate sedation time: 66 minutes Impression: CT-guided celiac plexus neurolysis. PQRS Compliance Statement: One or more of the following individualized dose reduction techniques were utilized for this examination: 1. Automated exposure control 2. Adjustment of the mA and/or kV according to patient size 3. Use of iterative reconstruction technique
--- NOTE | 2018-08-17 13:12 | PDOC2 ---
PALLIATIVE CARE Palliative Care Note Palliative Care Patient more alert today. Smiling--states his pain is "better" Discussed discharge plan; if patient is accepted at [facility] (where brother works) patient will go there with [facility] hospice. Discussed Code Status; after review with patient he wants to peacefully and naturally. He understands without attempt of CPR he would likely . Outside the Hospital DNR/DNI form signed by patient and Dr. Ferrera. Patient is to have port removed today. Risa is working on plan for discharge. DNR/DNI ELIZABETH CHASE August 17, 2018 13:12
[2018-08-17] MEDS ORDERED: LIDOCAINE 1%/EPI 1:100,000 20 ML VIAL. ONE (14:01)
[2018-08-17] MEDS ORDERED: LIDOCAINE 1%/EPI 1:100,000 20 ML VIAL. IJ ONE (14:30)
--- NOTE | 2018-08-17 14:53 | RAD ---
Removal of right internal jugular PowerPort 08/17/2018 Clinical Indication: The patient has decided against chemotherapy, findings the right chest port be uncomfortable. Anesthesia: Local only Fluoroscopy time: 0.1 minutes Dose area product: 0.1Gycm2 Consent: The procedure was explained in its entirety to the patient or the patients designated ambulatory service representative by a member of the treatment team, including a discussion of the risks, benefits and commonly accepted alternatives to the procedure, as well as the expected consequences of no therapy whatsoever. Discussion of the risks included, but was not limited to, those that are most frequent and those that are rare but possibly severe or life-threatening, as well as the possibility of unforeseen complications. Technique and Findings: The right upper chest was prepped and draped using sterile barrier technique. All elements of maximal sterile barrier technique including the use of a cap, mask, sterile gown, sterile gloves, large sterile sheet, appropriate hand hygiene, and 2% chlorhexidine for cutaneous antisepsis (or acceptable alternative antiseptic per current guidelines) were followed for this procedure. 1% lidocaine was administered for local anesthesia. Small incision was made overlying the port reservoir. The reservoir and catheter removed intact. The wound was closed in layers using 4-0 Vicryl suture. Sterile dressings were applied. Impression: Successful removal of right internal jugular PowerPort
[2018-08-17 15:00] VITALS: BP 136/92
--- NOTE | 2018-08-17 16:16 | NUR ---
RODRI following pt. Ese from [facility] met with pt and completed Medicaid application as pt only has title 18 coverage. Pt is accepted at [facility] and facility requested CARE assessment. According to [facility] CARE assessments are invalid as of yesterday. RODRI e-mailed CARE coordinater at [facility] regarding this. Addendum: 08/17/18 at 1718 by NAMITA MACE RODRI spoke with Pt's brother, Noah, phone: [phone] about dc plan. RODRI discussed Pt is accepted at [facility] and explained pt will have to give up SSI benefits as pt had questions regarding giving that up. Noah reported it his other brother Alden that works at [facility] and that would be a good place for pt to go upon dc. He reported he will speak about pt regarding giving up his SSI benefits. Discussed with Bob at [facility] who reported Berkley will come to meet with pt. Pt is not able to dc today until issue regarding CARE assessment is confirmed. Ese also reported she will check with corporate regarding this matter. CORY TABARES.
[2018-08-17 19:00] VITALS: BP 169/106
[2018-08-17] MEDS: oxyCODONE/APAP 10/325 1 TAB TABLET PO PRN (19:48)
[2018-08-17 23:00] VITALS: BP 141/96
[2018-08-18] MEDS: IV 1/2 NORMAL SALINE 1,000 ML IV SCH ×2 (00:15→10:15)
[2018-08-18] MEDS: HYDROmorphone 2 MG/ML VIAL IV PRN ×5 (02:39→14:35)
[2018-08-18 02:52] VITALS: BP 130/97
[2018-08-18] MEDS: oxyCODONE/APAP 10/325 1 TAB TABLET PO PRN ×3 (04:57→14:34)
[2018-08-18 07:00] VITALS: BP 139/92
--- NOTE | 2018-08-18 07:52 | SNU/HH DC ---
DISCHARGE ORDERS DISCHARGE INFORMATION: DISCHARGE DATE: August 18, 2018 FINAL DIAGNOSIS Problems Medical Problems: (1) Constipation Status: Acute (2) Hyponatremia Status: Acute (3) Pancreatic cancer metastasized to liver Status: Acute CONDITION ON DISCHARGE: Stable CODE STATUS: Code Status: DNR/DNI PENITENTIARY: SNF STAY <30 DAYS: Yes HOSPICE: HOSPICE: Yes HOSPICE EVAL & TREAT: Yes LTAC: ADMIT TO LTAC: No POST DISCHARGE ORDERS: DIET AFTER DISCHARGE: Regular WOUND/INCISION CARE: No wound care needed FOLLOW-UP: PHYSICIAN FOLLOW-UP: none, on hospice, rt arcadio cath should be out TREATMENT/EQUIPMENT ORDERS: Physical Therapy For: Evalulation/Treatment Occupational Therapy For: Evaluation/Treatment DISCHARGE MEDICATIONS: Home Meds Active Scripts Morphine Sulfate (MORPHINE SULFATE ER) 15 Mg Tablet.er, 15 MG PO BID for cancer pain MDD 1, #30 TAB.SR Prov:JEAN PAUL BALDWIN MD 08/17/18 Oxycodone/Apap 10-325 (PERCOCET 10-325 MG TABLET ) 1 Each Tablet, 1 TAB PO PRN Q4HRS PRN for MODERATE PAIN 4-6 MDD 1, #30 TAB Prov:JEAN PAUL BALDWIN MD 08/17/18 Naloxegol Oxalate (Movantik) 25 Mg Tablet, 25 MG PO PRN DAILY PRN for CONSTIPATION for 30 Days, #30 TAB Prov:TATIANA QUAN MD 08/10/18 Docusate Sodium (COLACE) 100 Mg Capsule, 100 MG PO BID for constipation for 30 Days, #60 CAP 5 Refills Prov:TATIANA QUAN MD 08/10/18 Polyethylene Glycol 3350 (POLYETHYLENE GLYCOL 3350) 17 Gm Powd.pack, 17 GM PO BID for constipation for 30 Days, #60 PKT Prov:TATIANA QUAN MD 08/10/18 [Pantoprazole] 40 MG [address]T.DR Reyna Conflict Check, 40 MG PO DAILYAC for GERD for 30 Days, #30 5 Refills Prov:TATIANA QUAN MD 08/10/18 Morphine Sulfate (MORPHINE SULFATE ER) 15 Mg Tablet.er, 15 MG PO BID for Pancr eatic cancer for 30 Days, #60 TAB.SR Prov:TATIANA QUAN MD 08/10/18 Lisinopril (LISINOPRIL) 10 Mg Tablet, 10 MG PO DAILY for HTN for 30 Days, #30 TAB 5 Refills Prov:TATIANA QUAN MD 08/10/18 Amlodipine Besylate (AMLODIPINE BESYLATE) 5 Mg Tablet, 5 MG PO DAILY for HTN for 30 Days, #30 TAB 5 Refills Prov:TATIANA QUAN MD 08/10/18 Carvedilol (CARVEDILOL ) 3.125 Mg Tablet, 3.125 MG PO BIDWMEALS for HTN for 30 Days, #60 TAB 5 Refills Prov:TATIANA QUAN MD 08/10/18 Hydrocodone/Apap 5-325 ([place] 5-325 TABLET) 1 Each Tablet, 1 TAB PO PRN Q6HRS PRN for pancreatic cancer pain for 30 Days, #120 TAB Prov:TATIANA QUAN MD 08/10/18 Cyclobenzaprine Hcl (CYCLOBENZAPRINE HCL) 10 Mg Tablet, 10 MG PO TID, #20 TAB Prov:MAGDA MELARA APRN 11/11/15 JEAN PAUL BALDWIN MD August 18, 2018 07:52
--- NOTE | 2018-08-18 09:10 | PDOC ---
Provider Note Provider Note He did not DC yesterday because there were some pending i.e. hospice. SNU ar rangements etc. Has been accepted at [facility] and [facility] hospice Right Port-A-Cath is out Pt is is asking for IV Dilaudid from me Plan all med list updated, outside DNR form signed Patient seen and examined dw SW and head case mx JEAN PAUL BALDWIN MD August 18, 2018 09:10
[2018-08-18] MEDS: SENNOSIDES/DOCUSATE 8.6/50MG TABLET. PO SCH (09:23)
[2018-08-18] MEDS: DOCUSATE SODIUM 100 MG CAPSULE. PO SCH (09:23)
[2018-08-18] MEDS: POLYETHYLENE GLYCOL 3350 17 GM PACKET. PO SCH (09:23)
[2018-08-18] MEDS: MORPHINE ER 15 MG TABLET.ER PO SCH (09:23)
[2018-08-18] MEDS: HEPARIN for SUB-Q USE 5,000 UNIT/ML VIAL. SQ SCH (09:27)
[2018-08-18 11:00] VITALS: BP 148/99
--- NOTE | 2018-08-18 11:10 | SNU/HH DC ---
DISCHARGE ORDERS DISCHARGE INFORMATION: DISCHARGE DATE: August 18, 2018 FINAL DIAGNOSIS Problems Medical Problems: (1) Constipation Status: Acute (2) Hyponatremia Status: Acute (3) Pancreatic cancer metastasized to liver Status: Acute CONDITION ON DISCHARGE: Stable CODE STATUS: Code Status: DNR/DNI LONG-TERM: SNF STAY <30 DAYS: Yes HOSPICE: HOSPICE: Yes HOSPICE EVAL & TREAT: Yes LTAC: ADMIT TO LTAC: No POST DISCHARGE ORDERS: ACTIVITY ORDERS: Activity as tolerated WEIGHT BEARING STATUS: As tolerated DIET AFTER DISCHARGE: Regular WOUND/INCISION CARE: No wound care needed FOLLOW-UP: PHYSICIAN FOLLOW-UP: none, on hospice, rt arcadio cath should be out TREATMENT/EQUIPMENT ORDERS: Physical Therapy For: Evalulation/Treatment Occupational Therapy For: Evaluation/Treatment DISCHARGE MEDICATIONS: Home Meds Active Scripts Morphine Sulfate (MORPHINE SULFATE ER) 15 Mg Tablet.er, 15 MG PO BID for cancer pain MDD 1, #30 TAB.SR Prov:JEAN PAUL BALDWIN MD 08/17/18 Oxycodone/Apap 10-325 (PERCOCET 10-325 MG TABLET ) 1 Each Tablet, 1 TAB PO PRN Q4HRS PRN for MODERATE PAIN 4-6 MDD 1, #30 TAB Prov:JEAN PAUL BALDWIN MD 08/17/18 Naloxegol Oxalate (Movantik) 25 Mg Tablet, 25 MG PO PRN DAILY PRN for CONSTIPATION for 30 Days, #30 TAB Prov:TATIANA QUAN MD 08/10/18 Docusate Sodium (COLACE) 100 Mg Capsule, 100 MG PO BID for constipation for 30 Days, #60 CAP 5 Refills Prov:TATIANA QUAN MD 08/10/18 Polyethylene Glycol 3350 (POLYETHYLENE GLYCOL 3350) 17 Gm Powd.pack, 17 GM PO BID for constipation for 30 Days, #60 PKT Prov:TATIANA QUAN MD 08/10/18 [Pantoprazole] [address] Reyna Conflict Check, 40 MG PO DAILYAC for GERD for 30 Days, #30 5 Refills Prov:TATIANA QUAN MD 08/10/18 Morphine Sulfate (MORPHINE SULFATE ER) 15 Mg Tablet.er, 15 MG PO BID for Pancreatic cancer for 30 Days, #60 TAB.SR Prov:TATIANA QUAN MD 08/10/18 Lisinopril (LISINOPRIL) 10 Mg Tablet, 10 MG PO DAILY for HTN for 30 Days, #30 TAB 5 Refills Prov:TATIANA QUAN MD 08/10/18 Amlodipine Besylate (AMLODIPINE BESYLATE) 5 Mg Tablet, 5 MG PO DAILY for HTN for 30 Days, #30 TAB 5 Refills Prov:TATIANA QUAN MD 08/10/18 Carvedilol (CARVEDILOL ) 3.125 Mg Tablet, 3.125 MG PO BIDWMEALS for HTN for 30 Days, #60 TAB 5 Refills Prov:TATIANA QUAN MD 08/10/18 Cyclobenzaprine Hcl (CYCLOBENZAPRINE HCL) 10 Mg Tablet, 10 MG PO TID, #20 TAB Prov:MAGDA MELARA APRN 11/11/15 Discontinued Scripts Hydrocodone/Apap 5-325 (NORCO 5-325 TABLET) 1 Each Tablet, 1 TAB PO PRN Q6HRS PRN for pancreatic cancer pain for 30 Days, #120 TAB Prov:TATIANA QUAN MD 08/10/18 JEAN PAUL BALDWIN MD August 18, 2018 11:10
--- NOTE | 2018-08-18 12:03 | NUR ---
SS following up with discharge planning. Discharge orders received for [facility]. SS phoned and faxed discharge orders to [facility] and [facility]. Pt will discharge today and go to [facility] with [facility]. [facility] to notify SS once transportation has been arranged. Pt, pt's RN, and pt's family notified.
--- NOTE | 2018-08-18 12:06 | NUR ---
SS received email from [employer] stating that current CARE forms could be used until new format is completed. SS completed CARE Assessment forms with pt and faxed to [facility] and [facility].
--- NOTE | 2018-08-18 12:32 | NUR ---
SS following up with discharge planning. [facility] contacted SS and stated that pt would be picked up at 1500.
--- NOTE | 2018-08-18 12:56 | PDOC ---
PROGRESS NOTES Subjective Subjective HPI - f/u of Pancreatic cancer with multiple liver metastases ROS- abd pain is better Objective Objective Vital Signs Date Time Temp Pulse Resp B/P (MAP) Pulse Ox O2 Delivery O2 Flow Rate FiO2 08/18/18 11:43 24 Room Air 08/18/18 11:00 98.2 86 148/99 (115) 97 98.2 08/17/18 20:48 2.0 Intake and Output 08/18/18 06:59 Intake Total 590 ml Balance 590 ml Intake Oral 590 ml # Voids 7 Physical Exam Heart: Normal S1, Normal S2 General: Alert, Oriented X3 Lungs: Clear to auscultation Neuro: Normal speech Psych/Mental Status: Mental status NL Assessment Assessment Problems Medical Problems: (1) Constipation Status: Acute (2) Hyponatremia Status: Acute (3) Pancreatic cancer metastasized to liver Status: Acute IMPRESSION AND PLAN: 1. Pancreatic cancer with multiple liver metastases, diagnosed on 08/07/2018. He had initially agreed to proceed with palliative chemotherapy. However, during this admission, I again had a detailed discussion with him regarding the diagnosis, poor prognosis and palliative chemotherapy options versus hospice care. He has thought about it and since it is incurable, he does not want to proceed with chemotherapy and he wants to focus on pain management, supportive care, palliative care, comfort care with the help of hospice. I discussed with the registered nurse. Appreciate Palliative care consultation. 2. Abdominal pain. I discussed with Dr. Nomi Kapadia at multidisciplinary tumor conference. s/p celiac plexus block 08/16/18, only temporary relief. I d/w Dr. Kapadia and Dr Ferrera. 3. Consulted IR, s/p port removal. Pt says that he feels much better now. Comment Review of Relevant I have reviewed the following items himanshu (where applicable) has been applied. Medications Current Medications Fentanyl Citrate (Fentanyl 2ml Vial) 75 mcg 1X ONCE IV Last administered on 08/14/18at 13:40; Start 08/14/18 at 13:15; Stop 08/14/18 at 13:16; Status DC Sodium Chloride 1,000 ml @ 1,000 mls/hr 1X ONCE IV Last administered on 08/14/18at 13:39; Start 08/14/18 at 13:15; Stop 08/14/18 at 14:14; Status DC Fentanyl Citrate (Fentanyl 2ml Vial) 75 mcg 1X ONCE IM Last administered on 08/14/18 16:04; Start 08/14/18 at 16:00; Stop 08/14/18 at 16:01; Status DC Magnesium Citrate (Citroma) 296 ml 1X ONCE PO Last administered on 08/14/18at 16:03; Start 08/14/18 at 16:00; Stop 08/14/18 at 16:01; Status DC Sodium Chloride 1,000 ml @ 100 mls/hr Q10H IV Last administered on 08/14/18at 17:39; Start 08/14/18 at 16:15 Al Hydroxide/Mg Hydroxide (Mylanta Plus Xs) 30 ml PRN Q3HRS PRN PO HEARTBURN / GAS; Start 08/14/18 at 16:15 Info (Non-Icu Electrolyte Protocol) 1 ea PRN DAILY PRN MC SEE COMMENTS; Start 08/14/18 at 16:15 Morphine Sulfate (Morphine Sulfate) 2 mg PRN Q1HR PRN IV PAIN; Start 08/14/18 at 16:15; Stop 08/15/18 at 09:16; Status DC Oxycodone/ Acetaminophen (Percocet 5/325) 1 tab PRN Q4HRS PRN PO MILD PAIN 1-3 Last administered on 08/15/18at 11:10; Start 08/14/18 at 16:15 Senna/Docusate Sodium (Senna Plus) 1 tab BID PO Last administered on 08/18/18 09:23; Start 08/14/18 at 21:00 Docusate Sodium (Colace) 100 mg BID PO Last administered on 08/18/18 09:23; Start 08/14/18 at 21:00 Heparin Sodium (Porcine) (Heparin Sodium) 5,000 unit Q12HR SQ Last administered on 08/18/18 09:27; Start 08/14/18 at 21:00 Ondansetron HCl (Zofran) 4 mg PRN Q8HRS PRN IV NAUSEA/VOMITING Last administer ed on 08/15/18at 00:19; Start 08/14/18 at 16:30; Stop 08/15/18 at 00:24; Status DC Morphine Sulfate (Morphine Sulfate) 4 mg PRN Q2HR PRN IV PAIN Last administered on 08/15/18at 08:41; Start 08/14/18 at 16:30; Stop 08/15/18 at 09:07; Status DC Fentanyl Citrate (Fentanyl 2ml Vial) 50 mcg PRN Q1HR PRN IV PAIN Last administered on 08/15/18at 04:55; Start 08/14/18 at 16:30; Stop 08/15/18 at 09:07; Status DC Sodium Chloride 1,000 ml @ 125 mls/hr Q8H IV ; Start 08/14/18 at 16:20; Stop 08/14/18 at 19:29; Status DC Acetaminophen (Tylenol) 650 mg PRN Q4HRS PRN PO FEVER; Start 08/14/18 at 16:30; Stop 08/15/18 at 16:29; Status DC Hydralazine HCl (Apresoline Inj) 10 mg 1X ONCE IVP Last administered on 08/14/18at 17:10; Start 08/14/18 at 17:00; Stop 08/14/18 at 17:01; Status DC Hydralazine HCl (Apresoline) 25 mg PRN TID PRN PO for SBP greater than 180 Last administered on 08/14/18at 23:42; Start 08/14/18 at 16:45 Enoxaparin Sodium (Lovenox Per Pharmacy Prophylaxis Dosing) 1 each PRN DAILY PRN MC SEE COMMENTS; Start 08/14/18 at 16:45; Status UNV Diphenhydramine HCl (Benadryl) 25 mg PRN QHS PRN PO INSOMNIA Last administered on 08/14/18at 20:42; Start 08/14/18 at 20:30 Ondansetron HCl (Zofran) 4 mg PRN Q6HRS PRN IV NAUSEA/VOMITING, 1ST CHOICE Last administered on 08/15/18at 21:10; Start 08/15/18 at 00:30 Polyethylene Glycol (miraLAX PACKET) 17 gm DAILY PO Last administered on 08/18/18at 09:23; Start 08/15/18 at 09:00 Docusate Sodium (Colace) 100 mg BID PO ; Start 08/15/18 at 09:00; Stop 08/15/18 at 15:05; Status DC Magnesium Hydroxide (Milk Of Magnesia) 2,400 mg PRN DAILY PRN PO CONSTIPATION; Start 08/15/18 at 08:15 Magnesium Hydroxide (Milk Of Magnesia) 2,400 mg 1X ONCE PO ; Start 08/15/18 at 08:15; Stop 08/15/18 at 08:16; Status DC Fentanyl Citrate (Fentanyl 2ml Vial) 50 mcg PRN Q2HR PRN IV MODERATE PAIN Last administered on 08/16/18 06:41; Start 08/15/18 at 09:15 Morphine Sulfate (Morphine Sulfate) 2 mg PRN Q2HR PRN IV MILD PAIN 1-3 Last administered on 08/16/18 09:40; Start 08/15/18 at 09:15 Chlorpromazine HCl (Thorazine) 10 mg PRN Q6HRS PRN PO HICCUPS Last administered on 08/15/18 19:30; Start 08/15/18 at 09:15 Prochlorperazine Edisylate (Compazine) 10 mg PRN Q6HRS PRN IV NAUSEA/VOMITING, 2ND CHOICE Last administered on 08/16/18at 01:30; Start 08/15/18 at 09:15 Hydromorphone HCl (Dilaudid) 1 mg PRN Q3HRS PRN IV BREAKTHROUGH PAIN Last administered on 08/16/18at 10:57; Start 08/15/18 at 17:15; Stop 08/16/18 at 12:32; Status DC Oxycodone/ Acetaminophen (Percocet 10/325) 1 tab PRN Q4HRS PRN PO MODERATE PAIN 4-6 Last administered on 08/18/18 11:07; Start 08/16/18 at 09:00 Alcohol (Alcohol, Dehydrated 98%) 20 ml 1X ONCE IJ ; Start 08/16/18 at 11:30; Stop 08/16/18 at 11:31; Status DC Hydromorphone HCl (Dilaudid) 2 mg PRN Q3HRS PRN IV SEVERE PAIN Last administ ered on 08/18/18 11:43; Start 08/16/18 at 12:45 Morphine Sulfate (Ms Contin) 15 mg BID PO Last administered on 08/18/18 09:23; Start 08/16/18 at 13:00 Iohexol (Omnipaque 240 Mg/ml) 50 ml STK-MED ONCE .ROUTE ; Start 08/16/18 at 13:01; Stop 08/16/18 at 13:02; Status DC Lidocaine HCl (Lidocaine 1% 20ml Vial) 20 ml STK-MED ONCE .ROUTE ; Start 08/16/18 at 13:01; Stop 08/16/18 at 13:02; Status DC Midazolam HCl (Versed) 2 mg STK-MED ONCE .ROUTE ; Start 08/16/18 at 13:03; Stop 08/16/18 at 13:04; Status DC Fentanyl Citrate (Fentanyl 2ml Vial) 100 mcg STK-MED ONCE .ROUTE ; Start 08/16/18 at 13:03; Stop 08/16/18 at 13:04; Status DC Midazolam HCl (Versed) 2 mg 1X ONCE IV ; Start 08/16/18 at 13:30; Stop 08/16/18 at 13:31; Status DC Fentanyl Citrate (Fentanyl 2ml Vial) 100 mcg 1X ONCE IV ; Start 08/16/18 at 13:30; Stop 08/16/18 at 13:31; Status DC Lidocaine HCl (Lidocaine 1% 20ml Vial) 20 ml 1X ONCE INJ ; Start 08/16/18 at 13:30; Stop 08/16/18 at 13:31; Status DC Iohexol (Omnipaque 240 Mg/ml) 50 ml 1X ONCE IJ ; Start 08/16/18 at 13:30; Stop 08/16/18 at 13:31; Status DC Iohexol (Omnipaque 240 Mg/ml) 50 ml STK-MED ONCE .ROUTE ; Start 08/16/18 at 13:50; Stop 08/16/18 at 13:51; Status DC Midazolam HCl (Versed) 2 mg STK-MED ONCE .ROUTE ; Start 08/16/18 at 14:03; Stop 08/16/18 at 14:04; Status DC Fentanyl Citrate (Fentanyl 2ml Vial) 100 mcg STK-MED ONCE .ROUTE ; Start 08/16/18 at 14:03; Stop 08/16/18 at 14:04; Status DC Lidocaine/ Epinephrine (LIDOCAINE 1%-EPI 1:100,000 Multi-Dose) 20 ml STK-MED ONCE .ROUTE ; Start 08/17/18 at 14:01; Stop 08/17/18 at 14:02; Status DC Lidocaine/ Epinephrine (LIDOCAINE 1%-EPI 1:100,000 Multi-Dose) 20 ml 1X ONCE IJ Last administered on 08/17/18at 14:22; Start 08/17/18 at 14:30; Stop 08/17/18 at 14:31; Status DC Active Scripts Active Morphine Sulfate Er (Morphine Sulfate) 15 Mg Tablet.er 15 Mg PO BID MDD 1 Percocet 10-325 Mg Tablet (Oxycodone/Acetaminophen) 1 Each Tablet 1 Tab PO PRN Q4HRS PRN MDD 1 Movantik (Naloxegol Oxalate) 25 Mg Tablet 25 Mg PO PRN DAILY PRN 30 Days Colace (Docusate Sodium) 100 Mg Capsule 100 Mg PO BID 30 Days Polyethylene Glycol 3350 17 Gm Powd.pack 17 Gm PO BID 30 Days [Pantoprazole] 40 MG Tablet.dr 40 Mg PO DAILYAC 30 Days Morphine Sulfate Er (Morphine Sulfate) 15 Mg Tablet.er 15 Mg PO BID 30 Days Lisinopril 10 Mg Tablet 10 Mg PO DAILY 30 Days Amlodipine Besylate 5 Mg Tablet 5 Mg PO DAILY 30 Days Carvedilol (Carvedilol) 3.125 Mg Tablet 3.125 Mg PO BIDWMEALS 30 Days Cyclobenzaprine Hcl 10 Mg Tablet 10 Mg PO TID Vitals/I & O Vital Sign - Last 24 Hours 08/17/18 08/17/18 08/17/18 08/17/18 15:00 19:00 19:48 20:34 Temp 98.8 98.2 98.8 98.2 Pulse 92 105 Resp 18 18 20 18 B/P (MAP) 136/92 (107) 169/106 (127) Pulse Ox 100 98 100 100 O2 Delivery Room Air Room Air Room Air Room Air O2 Flow Rate 2.0 08/17/18 08/17/18 08/17/18 08/17/18 20:48 21:42 23:00 23:35 Temp 99.0 99.0 Pulse 97 Resp 20 18 20 B/P (MAP) 141/96 (111) Pulse Ox 100 96 100 O2 Delivery Room Air Room Air Room Air O2 Flow Rate 2.0 08/18/18 08/18/18 08/18/18 08/18/18 01:42 02:39 02:52 03:09 Temp 98.0 98.0 Pulse 79 Resp 20 20 18 B/P (MAP) 130/97 (108) Pulse Ox 100 100 95 95 O2 Delivery Room Air Room Air Room Air 08/18/18 08/18/18 08/18/1824/19 04:57 05:45 05:57 07:00 Temp 98.1 98.1 Pulse 81 Resp B/P (MAP) 139/92 (108) Pulse Ox 95 95 95 97 O2 Delivery Room Air Room Air Room Air Room Air 08/18/18 08/18/18 08/18/18 08/18/18 08:00 08:40 09:10 09:23 Resp O2 Delivery Room Air Room Air Room Air Room Air 08/18/18 08/18/18 08/18/18 11:00 11:07 11:43 Temp 98.2 98.2 Pulse 86 Resp B/P (MAP) 148/99 (115) Pulse Ox 97 O2 Delivery Room Air Room Air Room Air Intake and Output0 08/17/18 08/17/18 08/18/18 14:59 22:59 06:59 Intake Total 360 ml 230 ml Balance 360 ml 230 ml Nutrition Consultation Dietary Evaluation: Recommendations by RD: Increase Calorie Intake, Protein supplementation Comments: ensure enlive tid Expected Outcomes/Goals: to meet > 75% est nutr needs via meals and supplements Interpretation of weight loss: >5% in 1 month Malnutrition Findings: Food and Nutrition Intake (Sev: <50% est energy req 5days Weight Status: Appropriate NELSON MORRISSEY MD August 18, 2018 12:56
--- NOTE | 2018-08-18 15:06 | NUR ---
Report called to Funmi TABARES at [facility]. See nursing communication and orders. Patient discharge to [facility] per wheelchair van with all belongings, copied chart, prescriptions, and medication orders.
== END 2018-08-18 15:15 | DRG 948 ==
LOC: ER 12:07 → 5 NORTH 15:23
PROVIDERS: ADMIT Internal Medicine; ATTEND Internal Medicine
PROC: 3E0T3TZ Introduction of Destructive Agent into Peripheral Nerves and Plexi, Percutaneous Approach (ICD-10-PCS; principal; 2018-08-17)
PROC: 0JPT3XZ Removal of Tunneled Vascular Access Device from Trunk Subcutaneous Tissue and Fascia, Percutaneous Approach (ICD-10-PCS; 2018-08-17)
PROC: 05PY33Z Removal of Infusion Device from Upper Vein, Percutaneous Approach (ICD-10-PCS; 2018-08-17)
DX: G89.3 Neoplasm related pain (acute) (chronic) (principal); C25.9 Malignant neoplasm of pancreas, unspecified; E44.0 Moderate protein-calorie malnutrition; E87.1 Hypo-osmolality and hyponatremia; C78.7 Secondary malignant neoplasm of liver and intrahepatic bile duct; E83.39 Other disorders of phosphorus metabolism; D50.9 Iron deficiency anemia, unspecified; K59.00 Constipation, unspecified; I10 Essential (primary) hypertension; Z51.5 Encounter for palliative care; D72.828 Other elevated white blood cell count; Z66 Do not resuscitate; Z59.0 Homelessness; Z88.6 Allergy status to analgesic agent; Z80.0 Family history of malignant neoplasm of digestive organs; Z80.1 Family history of malignant neoplasm of trachea, bronchus and lung; Z79.899 Other long term (current) drug therapy; Z87.891 Personal history of nicotine dependence
CPT/HCPCS: 36415; 36590; 64530; 74176; 77001; 77012; 80048; 80053; 80307; 81001; 85025; 85610; 85730; 96361; 96374; 99152; 99153; C1892; J0360; J0780; J1170; J1644; J2270; J2405; J3010; J3490; J7030; Q0161; Q0163; 99285-25

== ENCOUNTER 2018-08-28 11:25 | Inpatient (IN) | payer OTHER ==
[~2018-08-28] VITALS: Ht 160 cm; Wt 54.4 kg
[~2018-08-28 11:25] MED LIST changes: +OXYC1TAB22 PO
[2018-08-28] MEDS ORDERED: IV NORMAL SALINE 1000ML BAG 1,000 ML IV SCH (11:44)
[2018-08-28 12:23] LABS: BASO # 0.1 x10^3/uL (0.0-0.2); BASO % 1 % (0-3); EOS # 0.3 x10^3/uL (0.0-0.7); EOS % 2 % (0-3); HEMATOCRIT 47.4 % (39.0-53.0); HEMOGLOBIN 15.9 g/dL (13.0-17.5); LYMPH # 0.7 x10^3/uL (1.0-4.8); LYMPH % 5 % (24-48); MEAN CORPUSCULAR HEMOGLOBIN 30 pg (25-35); MEAN CORPUSCULAR HGB CONC 34 g/dL (31-37); MEAN CORPUSCULAR VOLUME 88 fL (79-100); MONO # 1.5 x10^3/uL (0.0-1.1); MONO % 11 % (0-9); NEUT # 11.3 x10^3uL (1.8-7.7); NEUT % 81 % (31-73); PLATELET COUNT 388 x10^3/uL (140-400); RED BLOOD COUNT 5.37 x10^6/uL (4.30-5.70); RED CELL DISTRIBUTION WIDTH 14.2 % (11.5-14.5); WHITE BLOOD COUNT 13.9 x10^3/uL (4.0-11.0)
[2018-08-28 12:35] LABS: CALCIUM 10.7 mg/dL (8.5-10.1); CREATININE 0.7 mg/dL (0.7-1.3); GFR 143.9; POTASSIUM 4.6 mmol/L (3.5-5.1)
[2018-08-28] MEDS ORDERED: MORPHINE SULFATE 4 MG/ML VIAL. IV ONE (12:45)
[2018-08-28 12:49] LABS: ALBUMIN 3.3 g/dL (3.4-5.0); ALBUMIN/GLOBULIN RATIO 0.6 (1.0-1.7); TOTAL BILIRUBIN 4.1 mg/dL (0.2-1.0); TOTAL PROTEIN 9.1 g/dL (6.4-8.2)
--- NOTE | 2018-08-28 12:56 | RAD ---
CT scan of the head without contrast 08/28/2018 Clinical History: Dizziness. Fall. Technique: Unenhanced, contiguous, 5 mm axial sections were obtained through the head. One or more of the following individualized dose reduction techniques were utilized for this study: 1. Automated exposure control. 2. Adjustment of the mA and/or kV according to patient size. 3. Use of iterative reconstruction technique. Findings: Comparison study is dated 05/31/2018. The inferior aspect of the cerebellum is not included on this study. The ventricles and sulci are within normal limits in size and configuration. No focal area of abnormal attenuation is seen involving the brain parenchyma. No extra-axial fluid collection is seen. No skull fracture is seen. Impression: Negative study. Electronically signed by: Titi Hale MD (08/28/2018 12:53 PM) [id number]
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
--- NOTE | 2018-08-28 13:06 | EKG ---
[facility] [address] [place] [address] Test Date: 2018-08-28 Test Time: 11:35:23 Pat Name: RUDDY CHANG Department: Room: Gender: Control Officer: : 1965 Requested By: JERALD GASTELUM Order Number: [id number] Reading MD: Measurements Intervals [place] Rate: 104 P: 90 NV: 146 QRS: 64 QRSD: 82 T: 52 QT: 306 QTc: 408 Interpretive Statements SINUS TACHYCARDIA OTHERWISE NORMAL ECG No previous ECG available for comparison
[2018-08-28 13:12] LABS: BILIRUBIN,URINE LARGE (NEG); CLARITY,URINE CLEAR; COLOR,URINE AMBER; NITRITE,URINE NEGATIVE (NEG); PROTEIN,URINE 30 mg/dL (NEG-TRACE)
[2018-08-28 13:15] LABS: PROTHROMBIN TIME PATIENT 12.5 SEC (11.7-14.0)
[2018-08-28 13:20] LABS: SQUAMOUS EPITHELIAL CELL,UR OCC /LPF
[2018-08-28 13:21] LABS: BACTERIA,URINE FEW /HPF (0-FEW); RBC,URINE 0 /HPF (0-2)
[2018-08-28 13:49] LABS: D-DIMER 12.97 ug/mlFEU (0.00-0.50)
[2018-08-28] MEDS ORDERED: CONTRAST GIVEN. MC PRN (14:00)
[2018-08-28] MEDS ORDERED: IOHEXOL 350 MG/ML 100 ML VIAL. IV ONE (14:00)
--- NOTE | 2018-08-28 14:30 | RAD ---
EXAM: CT ANGIOGRAPHY OF THE CHEST WITH AND WITHOUT INTRAVENOUS CONTRAST. HISTORY: Shortness of breath, pancreatic cancer, elevated d-dimer. TECHNIQUE: Computed tomographic angiography of the chest was performed before and after the intravenous administration of iodinated contrast. 3-D maximum intensity projections were also performed. COMPARISON: 08/08/2018. FINDINGS: Images of the upper abdomen reveal multiple hepatic metastases. The largest in the left hepatic lobe measures 5.1 x 3.9 cm. Previously it measured 3.9 x 3.0 cm. Others have also increased in size. A mass in the pancreatic body/tail is incompletely included and measures approximately 5.6 x 3.8 cm. A cyst in the left kidney measures 3.2 cm. There is a small amount of ascites. Bone windows reveal no suspicious lesions. There are multiple pulmonary emboli within the segmental branches of both lower lobes. A few additional emboli are seen within the segmental branches of the upper lobes. Peripheral regions of airspace opacity in the bases are consistent with pulmonary infarction in this setting. Milder groundglass opacities anteriorly in both upper lobes may also be mild infarcts but are indeterminate. There is no aortic dissection or aneurysm. There is a normal variant origin of the left vertebral artery directly from the aortic arch. There are no pathologically enlarged mediastinal or axillary lymph nodes. Calcified mediastinal lymph nodes are likely secondary to old granulomatous disease. There is no pleural or pericardial effusion. The heart is not enlarged. IMPRESSION: 1. Multiple bilateral pulmonary emboli as above. Pulmonary infarcts involve both lower lobes. 2. 5.6 cm mass in the pancreatic body/tail, incompletely visualized. Extensive hepatic metastatic disease has progressed since 08/08/2018. These findings were called to Dr. Miller by Flavio Mosquera on 08/28/2018 at 2:27 PM. *One or more of the following individualized dose reduction techniques were utilized for this examination: 1. Automated exposure control. 2. Adjustment of the mA and/or kV according to patient size. 3. Use of iterative reconstruction technique. Electronically signed by: Suzy Mosquera MD (08/28/2018 2:27 PM) [facility]
--- NOTE | 2018-08-28 14:31 | RAD ---
EXAM: CHEST 1 VIEW. HISTORY: Shortness of breath, pancreatic cancer. COMPARISON: 08/08/2018. Today's CTA. FINDINGS: A frontal view of the chest is obtained. An airspace opacity and atelectasis in the right lung base correspond with a pulmonary infarct as seen on today's CTA. There is no pneumothorax or pleural effusion. The heart is not enlarged. IMPRESSION: 1. Refer to today's CTA for description of multiple bilateral pulmonary emboli and bilateral lower lobe pulmonary infarcts. Electronically signed by: Suzy Mosquera MD (08/28/2018 2:29 PM) [facility]
[2018-08-28] MEDS ORDERED: HYDROmorphone 2 MG/ML VIAL IV ONE (14:45)
[2018-08-28] MEDS: HYDROmorphone 2 MG/ML VIAL IV PRN ×6 (15:21→23:45)
[2018-08-28] MEDS ORDERED: NON FORMULARY ITEM (Naloxegol Oxalate (Movantik) 25 MG) PO PRN (15:30)
[2018-08-28 16:05] VITALS: BP 170/113
[2018-08-28] MEDS: PANTOPRAZOLE 40 MG TABLET.DR. PO SCH (16:26)
[2018-08-28] MEDS: amLODIPine BESYLATE 5 MG TABLET PO SCH (16:27)
[2018-08-28] MEDS: LISINOPRIL 10 MG TABLET PO SCH (16:28)
--- NOTE | 2018-08-28 16:32 | PDOC1 ---
History and Physical Date of Admission Date of Admission DATE: 08/28/18 TIME: 16:27 Identification/Chief Complaint Chief Complaint chest pain, dyspnea Source Source: Chart review, Patient History of Present Illness History of Present Illness Mr. Jones is a 53 year old male with history of pancreatic cancer on hospice who brought in by EMS because of dizziness and near syncope. Marked chest pain, 10./10 with chronic abdominal pain and nausea and states since this morning he had dizziness that last for about 5 minutes and had 1 episode of near syncope with standing up and a fall without loss of consciousness. Patient complaining of shortness of breath and chronic abdominal pain related to pancreatic cancer and rated his pain 10 over 10. Past Medical History Cardiovascular: No pertinent hx Pulmonary: No pertinent hx GI: No pertinent hx Heme/Onc: Cancer, Other Hepatobiliary: No pertinent hx, Hep A/B/C, Other Psych: No pertinent hx Musculoskeletal: low back pain Rheumatologic: No pertinent hx Infectious disease: No pertinent hx Renal/: No pertinent hx Endocrine: No pertinent hx Past Surgical History Past Surgical History: No pertinent history Family History Family History: Cancer Family History: Other Social History Smoke: Quit ALCOHOL: occassional Drugs: None, Heroin Current Problem List Problem List Problems Medical Problems: (1) Elevated liver function tests Status: Acute (2) Hypercalcemia Status: Acute (3) Jaundice Status: Acute (4) Primary malignant neoplasm of pancreas with metastasis to other site Status: Acute (5) Pulmonary embolism Status: Acute (6) Pulmonary infarction Status: Acute Current Medications Current Medications Current Medications Sodium Chloride 1,000 ml @ 1,000 mls/hr Q1H IV Last administered on 08/28/18at 12:28; Start 08/28/18 at 11:44; Stop 08/28/18 at 12:43; Status DC Morphine Sulfate (Morphine Sulfate) 4 mg 1X ONCE IV Last administered on 08/28/18at 12:38; Start 08/28/18 at 12:45; Stop 08/28/18 at 12:46; Status DC Iohexol (Omnipaque 350 Mg/ml) 90 ml 1X ONCE IV ; Start 08/28/18 at 14:00; Stop 08/28/18 at 14:01; Status DC Info (CONTRAST GIVEN -- Rx MONITORING) 1 each PRN DAILY PRN MC SEE COMMENTS; Start 08/28/18 at 14:00; Stop 08/30/18 at 13:59 Enoxaparin Sodium (Lovenox 60mg Syringe) 60 mg 1X ONCE SQ Last administered on 08/28/18at 14:46; Start 08/28/18 at 14:45; Stop 08/28/18 at 14:46; Status DC Hydromorphone HCl (Dilaudid) 1 mg 1X ONCE IV Last administered on 08/28/18at 14:43; Start 08/28/18 at 14:45; Stop 08/28/18 at 14:46; Status DC Hydromorphone HCl (Dilaudid) 1 mg PRN Q1HR PRN IV MODERATE PAIN Last administered on 08/28/18at 15:21; Start 08/28/18 at 15:15 Amlodipine Besylate (Norvasc) 5 mg DAILY PO ; Start 08/28/18 at 16:30 Carvedilol (Coreg) 3.125 mg BIDWMEALS PO ; Start 08/28/18 at 17:00 Cyclobenzaprine HCl (Flexeril) 10 mg TID PO ; Start 08/28/18 at 21:00 Docusate Sodium (Colace) 100 mg BID PO ; Start 08/28/18 at 21:00 Lisinopril (Prinivil) 10 mg DAILY PO ; Start 08/28/18 at 16:30 Oxycodone/ Acetaminophen (Percocet 10/325) 1 tab PRN Q4HRS PRN PO MODERATE PAIN 4-6; Start 08/28/18 at 15:30 Non-Formulary Medication (Naloxegol Oxalate (Movantik)) 25 mg PRN DAILY PRN PO CONSTIPATION; Start 08/28/18 at 15:30; Status UNV Polyethylene Glycol (miraLAX PACKET) 17 gm BID PO ; Start 08/28/18 at 21:00 Pantoprazole Sodium (Protonix) 40 mg DAILYAC PO ; Start 08/28/18 at 16:30 Morphine Sulfate (Ms Contin) 30 mg BID PO ; Start 08/28/18 at 21:00 Morphine Sulfate (Morphine Sulfate) 10 mg PRN Q4HRS PRN IV SEVERE PAIN; Start 08/28/18 at 15:30 Active Scripts Active Morphine Sulfate Er (Morphine Sulfate) 15 Mg Tablet.er 15 Mg PO BID MDD 1 Percocet 10-325 Mg Tablet (Oxycodone/Acetaminophen) 1 Each Tablet 1 Tab PO PRN Q4HRS PRN MDD 1 Movantik (Naloxegol Oxalate) 25 Mg Tablet 25 Mg PO PRN DAILY PRN 30 Days Colace (Docusate Sodium) 100 Mg Capsule 100 Mg PO BID 30 Days Polyethylene Glycol 3350 17 Gm Powd.pack 17 Gm PO BID 30 Days [Pantoprazole] 40 MG Tablet.dr 40 Mg PO DAILYAC 30 Days Morphine Sulfate Er (Morphine Sulfate) 15 Mg Tablet.er 15 Mg PO BID 30 Days Lisinopril 10 Mg Tablet 10 Mg PO DAILY 30 Days Amlodipine Besylate 5 Mg Tablet 5 Mg PO DAILY 30 Days Carvedilol (Carvedilol) 3.125 Mg Tablet 3.125 Mg PO BIDWMEALS 30 Days Cyclobenzaprine Hcl 10 Mg Tablet 10 Mg PO TID Allergies Allergies: Coded Allergies: ibuprofen (Verified Allergy, Intermediate, rash, 11/11/15) ROS General: YES: Fatigue, Malaise, Appetite PSYCHOLOGICAL ROS: No: Anxiety, Behavioral Disorder, Concentration difficultie, Decreased libido, Depression, Disorientation, Hallucinations, Hostility, Irritablity, Memory difficulties, Mood Swings, Obsessive thoughts, Physical abuse, Sexual abuse, Sleep disturbances, Suicidal ideation, Other Eyes: No Blurry vision, No Decreased vision, No Double vision, No Dry eyes, No Excessive tearing, No Eye Pain, No Itchy Eyes, No Loss of vision, No Photophobia, No Scotomata, No Uses contacts, No Uses glasses, No Other HEENT: YES: Heacaches; No: Visual Changes, Hearing change, Nasal congestion, Nasal discharge, Oral lesions, Sinus pain, Sore Throat, Epistaxis, Sneezing, Snoring, Tinnitus, Ve rtigo, Vocal changes, Other Respiratory: No: Cough, Hemoptysis, Orthopnea, Pleuritic Pain, Shortness of br eath, SOB with excertion, Sputum Changes, Stridor, Tachypnea, Wheezing, Other Cardiovascular: No Chest Pain, No Palpitations, No Orthopnea, No Paroxysmal Noc. Dyspnea, No Edema, No Lt Headedness, No Other Gastrointestinal: No Nausea, No Vomiting, No Abdominal Pain, No Diarrhea, No Constipation, No Melena, No Hematochezia, No Other Genitourinary: No Dysuria, No Frequency, No Incontinence, No Hematuria, No Retention, No Discharge, No Urgency, No Pain, No Flank Pain, No Other, No , No , No , No , No , No , No Musculoskeletal: Yes Joint Pain; No Gait Disturbance, No Joint Stiffness, No Joint Swelling, No Muscle Pain, No Muscular Weakness, No Pain In:, No Swelling In:, No Other Neurological: No Behavorial Changes, No Bowel/Bladder ControlChng, No Confusion, No Dizziness, No Gait Disturbance, No Headaches, No Impaired Coord/balance, No Memory Loss, No Numbness/Tingling, No Seizures, No Speech Problems, No Tremors, No Visual Changes, No Weakness, No Other Skin: No Dry Skin, No Eczema, No Hair Changes, No Lumps, No Mole Changes, No Mottling, No Nail Changes, No Pruritus, No Rash, No Skin Lesion Changes, No Other, No Acne Physical Exam General: Alert, Cooperative, No acute distress, mild distress HEENT: Atraumatic, PERRLA Lungs: Clear to auscultation Heart: S1S2, RRR Abdomen: Normal bowel sounds, Soft Rectal Exam: not examined Extremities: No clubbing, No cyanosis, No edema, Normal pulses Skin: No rashes, No breakdown, No significant lesion Neuro: Normal speech, Normal tone, Sensation intact Psych/Mental Status: Mental status NL, Mood NL Vitals Vitals Vital Signs Date Time Temp Pulse Resp B/P (MAP) Pulse Ox O2 Delivery O2 Flow Rate FiO2 08/28/18 16:05 98.4 101 22 170/113 (132) 100 Room Air 98.4 08/28/18 14:28 2.0 Labs Labs Laboratory Tests Test 08/28/18 12:10 08/28/18 12:50 White Blood Count 13.9 x10^3/uL (4.0-11.0) Red Blood Count 5.37 x10^6/uL (4.30-5.70) Hemoglobin 15.9 g/dL (13.0-17.5) Hematocrit 47.4 % (39.0-53.0) Mean Corpuscular Volume 88 fL (79-100) Mean Corpuscular Hemoglobin 30 pg (25-35) Mean Corpuscular Hemoglobin Concent 34 g/dL (31-37) Red Cell Distribution Width 14.2 % (11.5-14.5) Platelet Count 388 x10^3/uL (140-400) Neutrophils (%) (Auto) 81 % (31-73) Lymphocytes (%) (Auto) 5 % (24-48) Monocytes (%) (Auto) 11 % (0-9) Eosinophils (%) (Auto) 2 % (0-3) Basophils (%) (Auto) 1 % (0-3) Neutrophils # (Auto) 11.3 x10^3uL (1.8-7.7) Lymphocytes # (Auto) 0.7 x10^3/uL (1.0-4.8) Monocytes # (Auto) 1.5 x10^3/uL (0.0-1.1) Eosinophils # (Auto) 0.3 x10^3/uL (0.0-0.7) Basophils # (Auto) 0.1 x10^3/uL (0.0-0.2) Prothrombin Time 12.5 SEC (11.7-14.0) Prothromb Time International Ratio 1.0 (0.8-1.1) D-Dimer (Jannet) 12.97 ug/mlFEU (0.00-0.50) Sodium Level 129 mmol/L (136-145) Potassium Level 4.6 mmol/L (3.5-5.1) Chloride Level 89 mmol/L (98-107) Carbon Dioxide Level 30 mmol/L (21-32) Anion Gap 10 (6-14) Blood Urea Nitrogen 11 mg/dL (8-26) Creatinine 0.7 mg/dL (0.7-1.3) Estimated GFR (Cockcroft-Gault) 143.9 BUN/Creatinine Ratio 16 (6-20) Glucose Level 104 mg/dL (70-99) Calcium Level 10.7 mg/dL (8.5-10.1) Total Bilirubin 4.1 mg/dL (0.2-1.0) Aspartate Amino Transf (AST/SGOT) 96 U/L (15-37) Alanine Aminotransferase (ALT/SGPT) 57 U/L (16-63) Alkaline Phosphatase 1678 U/L (46-116) Troponin I Quantitative < 0.017 ng/mL (0.000-0.055) Total Protein 9.1 g/dL (6.4-8.2) Albumin 3.3 g/dL (3.4-5.0) Albumin/Globulin Ratio 0.6 (1.0-1.7) Lipase 585 U/L (73-393) Urine Collection Type Unknown Urine Color [place] Urine Clarity Clear Urine pH 8.0 Urine Specific [place] 1.015 Urine Protein 30 mg/dL (NEG-TRACE) Urine Glucose (UA) Negative mg/dL (NEG) Urine Ketones (Stick) Negative mg/dL (NEG) Urine Blood Negative (NEG) Urine Nitrite Negative (NEG) Urine Bilirubin Large (NEG) Urine Urobilinogen Dipstick 1.0 mg/dL (0.2 mg/dL) Urine Leukocyte Esterase Trace (NEG) Urine RBC 0 /HPF (0-2) Urine WBC 1-4 /HPF (0-4) Urine Squamous Epithelial Cells Occ /LPF Urine Bacteria Few /HPF (0-FEW) Urine Mucus Mod /LPF Laboratory Tests Test 08/28/18 12:10 08/28/18 12:50 White Blood Count 13.9 x10^3/uL (4.0-11.0) Red Blood Count 5.37 x10^6/uL (4.30-5.70) Hemoglobin 15.9 g/dL (13.0-17.5) Hematocrit 47.4 % (39.0-53.0) Mean Corpuscular Volume 88 fL (79-100) Mean Corpuscular Hemoglobin 30 pg (25-35) Mean Corpuscular Hemoglobin Concent 34 g/dL (31-37) Red Cell Distribution Width 14.2 % (11.5-14.5) Platelet Count 388 x10^3/uL (140-400) Neutrophils (%) (Auto) 81 % (31-73) Lymphocytes (%) (Auto) 5 % (24-48) Monocytes (%) (Auto) 11 % (0-9) Eosinophils (%) (Auto) 2 % (0-3) Basophils (%) (Auto) 1 % (0-3) Neutrophils # (Auto) 11.3 x10^3uL (1.8-7.7) Lymphocytes # (Auto) 0.7 x10^3/uL (1.0-4.8) Monocytes # (Auto) 1.5 x10^3/uL (0.0-1.1) Eosinophils # (Auto) 0.3 x10^3/uL (0.0-0.7) Basophils # (Auto) 0.1 x10^3/uL (0.0-0.2) Prothrombin Time 12.5 SEC (11.7-14.0) Prothromb Time International Ratio 1.0 (0.8-1.1) D-Dimer (Jannet) 12.97 ug/mlFEU (0.00-0.50) Sodium Level 129 mmol/L (136-145) Potassium Level 4.6 mmol/L (3.5-5.1) Chloride Level 89 mmol/L (98-107) Carbon Dioxide Level 30 mmol/L (21-32) Anion Gap 10 (6-14) Blood Urea Nitrogen 11 mg/dL (8-26) Creatinine 0.7 mg/dL (0.7-1.3) Estimated GFR (Cockcroft-Gault) 143.9 BUN/Creatinine Ratio 16 (6-20) Glucose Level 104 mg/dL (70-99) Calcium Level 10.7 mg/dL (8.5-10.1) Total Bilirubin 4.1 mg/dL (0.2-1.0) Aspartate Amino Transf (AST/SGOT) 96 U/L (15-37) Alanine Aminotransferase (ALT/SGPT) 57 U/L (16-63) Alkaline Phosphatase 1678 U/L (46-116) Troponin I Quantitative < 0.017 ng/mL (0.000-0.055) Total Protein 9.1 g/dL (6.4-8.2) Albumin 3.3 g/dL (3.4-5.0) Albumin/Globulin Ratio 0.6 (1.0-1.7) Lipase 585 U/L (73-393) Urine Collection Type Unknown Urine Color [place] Urine Clarity Clear Urine pH 8.0 Urine Specific [place] 1.015 Urine Protein 30 mg/dL (NEG-TRACE) Urine Glucose (UA) Negative mg/dL (NEG) Urine Ketones (Stick) Negative mg/dL (NEG) Urine Blood Negative (NEG) Urine Nitrite Negative (NEG) Urine Bilirubin Large (NEG) Urine Urobilinogen Dipstick 1.0 mg/dL (0.2 mg/dL) Urine Leukocyte Esterase Trace (NEG) Urine RBC 0 /HPF (0-2) Urine WBC 1-4 /HPF (0-4) Urine Squamous Epithelial Cells Occ /LPF Urine Bacteria Few /HPF (0-FEW) Urine Mucus Mod /LPF VTE Prophylaxis Ordered VTE Prophylaxis Devices: Yes VTE Pharmacological Prophylaxi: Yes Assessment/Plan Assessment/Plan acute hypoxia chest pain acute pulmonary embolism pancreatic cancer acute on chronic abdominal pain, narcotic dependence admit SOL CERVANTES MD Aug 28, 2018 16:32
[2018-08-28] MEDS ORDERED: ONDANSETRON PF 4 MG/2 ML VIAL. IV PRN (18:45)
[2018-08-28 19:00] VITALS: BP 153/95
[2018-08-28] MEDS: oxyCODONE/APAP 10/325 1 TAB TABLET PO PRN ×2 (19:17→23:44)
[2018-08-28] MEDS: MORPHINE ER 15 MG TABLET.ER PO SCH (20:01)
[2018-08-28] MEDS: DOCUSATE SODIUM 100 MG CAPSULE. PO SCH (20:02)
[2018-08-28] MEDS: CYCLOBENZAPRINE 10 MG TABLET. PO SCH (20:02)
[2018-08-28] MEDS: CARVEDILOL 3.125 MG TABLET. PO SCH (20:03)
[2018-08-28] MEDS: POLYETHYLENE GLYCOL 3350 17 GM PACKET. PO SCH (21:00)
[2018-08-28 22:50] VITALS: BP 172/116
[2018-08-29] VITALS (7 sets, daily range): BP systolic 157–186; BP diastolic 96–112
[2018-08-29] MEDS: MORPHINE SULFATE 10 MG/ML VIAL. IV PRN ×2 (01:50→07:16)
[2018-08-29] MEDS: oxyCODONE/APAP 10/325 1 TAB TABLET PO PRN ×4 (03:43→23:31)
[2018-08-29] MEDS: HYDROmorphone 2 MG/ML VIAL IV PRN ×3 (03:44→09:23)
[2018-08-29] MEDS: LISINOPRIL 10 MG TABLET PO SCH (07:15)
[2018-08-29] MEDS: DOCUSATE SODIUM 100 MG CAPSULE. PO SCH ×2 (07:15→19:34)
[2018-08-29] MEDS: PANTOPRAZOLE 40 MG TABLET.DR. PO SCH (07:15)
[2018-08-29] MEDS: CARVEDILOL 3.125 MG TABLET. PO SCH ×2 (07:15→14:58)
[2018-08-29] MEDS: CYCLOBENZAPRINE 10 MG TABLET. PO SCH ×3 (07:16→19:34)
[2018-08-29] MEDS ORDERED: LORazepam 1 MG TABLET PO PRN ×2 (09:15→14:00)
[2018-08-29] MEDS: MORPHINE ER 15 MG TABLET.ER PO SCH ×2 (09:25→19:35)
[2018-08-29] MEDS: amLODIPine BESYLATE 5 MG TABLET PO SCH (09:25)
[2018-08-29] MEDS: POLYETHYLENE GLYCOL 3350 17 GM PACKET. PO SCH ×2 (09:27→19:34)
--- NOTE | 2018-08-29 10:59 | PDOC ---
[employer] PROGRESS NOTE Chief Complaint Chief Complaint Near syncope Acute hypoxia Chest pain Acute pulmonary embolism Pancreatic cancer Acute on chronic abdominal pain, narcotic dependence History of Present Illness History of Present Illness Patient is a pleasant middle-aged -Maced[place] male who has pancreatic cancer Last night presented with shortness of breath and near-syncope was noted to have pulmonary emboli on CAT scan of the chest He did get 1 dose Lovenox and admitted This morning I saw him and examined him I discussed the case with the palate care nurse and we plan to start a Dilaudid drip I also called pharmacy and asked him to place him on scheduled Lovenox 1 mg/kg subcutaneous every 12 I've also consult pulmonary and hematology Vitals Vitals Vital Signs Date Time Temp Pulse Resp B/P (MAP) Pulse Ox O2 Delivery O2 Flow Rate FiO2 08/29/18 09:25 103 168/105 08/29/18 07:00 97.4 20 98 Room Air 97.4 08/29/18 02:57 2.0 Physical Exam General: Alert, Cooperative, moderate distress (he is in pain) Lungs: Clear Abdomen: Other (very tender) Extremities: No clubbing, No cyanosis, No edema, Normal pulses Skin: No rashes, No breakdown, No significant lesion Labs Labs: Laboratory Tests Test 08/28/18 12:10 08/28/18 12:50 White Blood Count 13.9 x10^3/uL (4.0-11.0) Red Blood Count 5.37 x10^6/uL (4.30-5.70) Hemoglobin 15.9 g/dL (13.0-17.5) Hematocrit 47.4 % (39.0-53.0) Mean Corpuscular Volume 88 fL (79-100) Mean Corpuscular Hemoglobin 30 pg (25-35) Mean Corpuscular Hemoglobin Concent 34 g/dL (31-37) Red Cell Distribution Width 14.2 % (11.5-14.5) Platelet Count 388 x10^3/uL (140-400) Neutrophils (%) (Auto) 81 % (31-73) Lymphocytes (%) (Auto) 5 % (24-48) Monocytes (%) (Auto) 11 % (0-9) Eosinophils (%) (Auto) 2 % (0-3) Basophils (%) (Auto) 1 % (0-3) Neutrophils # (Auto) 11.3 x10^3uL (1.8-7.7) Lymphocytes # (Auto) 0.7 x10^3/uL (1.0-4.8) Monocytes # (Auto) 1.5 x10^3/uL (0.0-1.1) Eosinophils # (Auto) 0.3 x10^3/uL (0.0-0.7) Basophils # (Auto) 0.1 x10^3/uL (0.0-0.2) Prothrombin Time 12.5 SEC (11.7-14.0) Prothromb Time International Ratio 1.0 (0.8-1.1) D-Dimer (Jannet) 12.97 ug/mlFEU (0.00-0.50) Sodium Level 129 mmol/L (136-145) Potassium Level 4.6 mmol/L (3.5-5.1) Chloride Level 89 mmol/L (98-107) Carbon Dioxide Level 30 mmol/L (21-32) Anion Gap 10 (6-14) Blood Urea Nitrogen 11 mg/dL (8-26) Creatinine 0.7 mg/dL (0.7-1.3) Estimated GFR (Cockcroft-Gault) 143.9 BUN/Creatinine Ratio 16 (6-20) Glucose Level 104 mg/dL (70-99) Calcium Level 10.7 mg/dL (8.5-10.1) Total Bilirubin 4.1 mg/dL (0.2-1.0) Aspartate Amino Transf (AST/SGOT) 96 U/L (15-37) Alanine Aminotransferase (ALT/SGPT) 57 U/L (16-63) Alkaline Phosphatase 1678 U/L (46-116) Troponin I Quantitative < 0.017 ng/mL (0.000-0.055) Total Protein 9.1 g/dL (6.4-8.2) Albumin 3.3 g/dL (3.4-5.0) Albumin/Globulin Ratio 0.6 (1.0-1.7) Lipase 585 U/L (73-393) Urine Collection Type Unknown Urine Color [place] Urine Clarity Clear Urine pH 8.0 Urine Specific [place] 1.015 Urine Protein 30 mg/dL (NEG-TRACE) Urine Glucose (UA) Negative mg/dL (NEG) Urine Ketones (Stick) Negative mg/dL (NEG) Urine Blood Negative (NEG) Urine Nitrite Negative (NEG) Urine Bilirubin Large (NEG) Urine Urobilinogen Dipstick 1.0 mg/dL (0.2 mg/dL) Urine Leukocyte Esterase Trace (NEG) Urine RBC 0 /HPF (0-2) Urine WBC 1-4 /HPF (0-4) Urine Squamous Epithelial Cells Occ /LPF Urine Bacteria Few /HPF (0-FEW) Urine Mucus Mod /LPF Review of Systems Review of Systems Complains of severe pain Assessment and Plan Assessmemt and Plan Problems Medical Problems: (1) Elevated liver function tests Status: Acute (2) Hypercalcemia Status: Acute (3) Jaundice Status: Acute (4) Primary malignant neoplasm of pancreas with metastasis to other site Status: Acute (5) Pulmonary embolism Status: Acute (6) Pulmonary infarction Near syncope Acute hypoxia Chest pain Acute pulmonary embolism Pancreatic cancer Acute on chronic abdominal pain, narcotic dependence Plan Lovenox 1 mg/kg subcutaneous every 12 hours Dilated drip Consult hematology pulmonary medicine Palliative care is following Prognosis probably terminal (he is on hospice at home) Total time 32 minutes Status: Acute Comment Review of Relevant I have reviewed the following items himanshu (where applicable) has been applied. Labs Laboratory Tests Test 08/28/18 12:10 08/28/18 12:50 White Blood Count 13.9 x10^3/uL (4.0-11.0) Red Blood Count 5.37 x10^6/uL (4.30-5.70) Hemoglobin 15.9 g/dL (13.0-17.5) Hematocrit 47.4 % (39.0-53.0) Mean Corpuscular Volume 88 fL (79-100) Mean Corpuscular Hemoglobin 30 pg (25-35) Mean Corpuscular Hemoglobin Concent 34 g/dL (31-37) Red Cell Distribution Width 14.2 % (11.5-14.5) Platelet Count 388 x10^3/uL (140-400) Neutrophils (%) (Auto) 81 % (31-73) Lymphocytes (%) (Auto) 5 % (24-48) Monocytes (%) (Auto) 11 % (0-9) Eosinophils (%) (Auto) 2 % (0-3) Basophils (%) (Auto) 1 % (0-3) Neutrophils # (Auto) 11.3 x10^3uL (1.8-7.7) Lymphocytes # (Auto) 0.7 x10^3/uL (1.0-4.8) Monocytes # (Auto) 1.5 x10^3/uL (0.0-1.1) Eosinophils # (Auto) 0.3 x10^3/uL (0.0-0.7) Basophils # (Auto) 0.1 x10^3/uL (0.0-0.2) Prothrombin Time 12.5 SEC (11.7-14.0) Prothromb Time International Ratio 1.0 (0.8-1.1) D-Dimer (Jannet) 12.97 ug/mlFEU (0.00-0.50) Sodium Level 129 mmol/L (136-145) Potassium Level 4.6 mmol/L (3.5-5.1) Chloride Level 89 mmol/L (98-107) Carbon Dioxide Level 30 mmol/L (21-32) Anion Gap 10 (6-14) Blood Urea Nitrogen 11 mg/dL (8-26) Creatinine 0.7 mg/dL (0.7-1.3) Estimated GFR (Cockcroft-Gault) 143.9 BUN/Creatinine Ratio 16 (6-20) Glucose Level 104 mg/dL (70-99) Calcium Level 10.7 mg/dL (8.5-10.1) Total Bilirubin 4.1 mg/dL (0.2-1.0) Aspartate Amino Transf (AST/SGOT) 96 U/L (15-37) Alanine Aminotransferase (ALT/SGPT) 57 U/L (16-63) Alkaline Phosphatase 1678 U/L (46-116) Troponin I Quantitative < 0.017 ng/mL (0.000-0.055) Total Protein 9.1 g/dL (6.4-8.2) Albumin 3.3 g/dL (3.4-5.0) Albumin/Globulin Ratio 0.6 (1.0-1.7) Lipase 585 U/L (73-393) Urine Collection Type Unknown Urine Color [place] Urine Clarity Clear Urine pH 8.0 Urine Specific [place] 1.015 Urine Protein 30 mg/dL (NEG-TRACE) Urine Glucose (UA) Negative mg/dL (NEG) Urine Ketones (Stick) Negative mg/dL (NEG) Urine Blood Negative (NEG) Urine Nitrite Negative (NEG) Urine Bilirubin Large (NEG) Urine Urobilinogen Dipstick 1.0 mg/dL (0.2 mg/dL) Urine Leukocyte Esterase Trace (NEG) Urine RBC 0 /HPF (0-2) Urine WBC 1-4 /HPF (0-4) Urine Squamous Epithelial Cells Occ /LPF Urine Bacteria Few /HPF (0-FEW) Urine Mucus Mod /LPF Laboratory Tests Test 08/28/18 12:10 08/28/18 12:50 White Blood Count 13.9 x10^3/uL (4.0-11.0) Red Blood Count 5.37 x10^6/uL (4.30-5.70) Hemoglobin 15.9 g/dL (13.0-17.5) Hematocrit 47.4 % (39.0-53.0) Mean Corpuscular Volume 88 fL (79-100) Mean Corpuscular Hemoglobin 30 pg (25-35) Mean Corpuscular Hemoglobin Concent 34 g/dL (31-37) Red Cell Distribution Width 14.2 % (11.5-14.5) Platelet Count 388 x10^3/uL (140-400) Neutrophils (%) (Auto) 81 % (31-73) Lymphocytes (%) (Auto) 5 % (24-48) Monocytes (%) (Auto) 11 % (0-9) Eosinophils (%) (Auto) 2 % (0-3) Basophils (%) (Auto) 1 % (0-3) Neutrophils # (Auto) 11.3 x10^3uL (1.8-7.7) Lymphocytes # (Auto) 0.7 x10^3/uL (1.0-4.8) Monocytes # (Auto) 1.5 x10^3/uL (0.0-1.1) Eosinophils # (Auto) 0.3 x10^3/uL (0.0-0.7) Basophils # (Auto) 0.1 x10^3/uL (0.0-0.2) Prothrombin Time 12.5 SEC (11.7-14.0) Prothromb Time International Ratio 1.0 (0.8-1.1) D-Dimer (Jannet) 12.97 ug/mlFEU (0.00-0.50) Sodium Level 129 mmol/L (136-145) Potassium Level 4.6 mmol/L (3.5-5.1) Chloride Level 89 mmol/L (98-107) Carbon Dioxide Level 30 mmol/L (21-32) Anion Gap 10 (6-14) Blood Urea Nitrogen 11 mg/dL (8-26) Creatinine 0.7 mg/dL (0.7-1.3) Estimated GFR (Cockcroft-Gault) 143.9 BUN/Creatinine Ratio 16 (6-20) Glucose Level 104 mg/dL (70-99) Calcium Level 10.7 mg/dL (8.5-10.1) Total Bilirubin 4.1 mg/dL (0.2-1.0) Aspartate Amino Transf (AST/SGOT) 96 U/L (15-37) Alanine Aminotransferase (ALT/SGPT) 57 U/L (16-63) Alkaline Phosphatase 1678 U/L (46-116) Troponin I Quantitative < 0.017 ng/mL (0.000-0.055) Total Protein 9.1 g/dL (6.4-8.2) Albumin 3.3 g/dL (3.4-5.0) Albumin/Globulin Ratio 0.6 (1.0-1.7) Lipase 585 U/L (73-393) Urine Collection Type Unknown Urine Color [place] Urine Clarity Clear Urine pH 8.0 Urine Specific [place] 1.015 Urine Protein 30 mg/dL (NEG-TRACE) Urine Glucose (UA) Negative mg/dL (NEG) Urine Ketones (Stick) Negative mg/dL (NEG) Urine Blood Negative (NEG) Urine Nitrite Negative (NEG) Urine Bilirubin Large (NEG) Urine Urobilinogen Dipstick 1.0 mg/dL (0.2 mg/dL) Urine Leukocyte Esterase Trace (NEG) Urine RBC 0 /HPF (0-2) Urine WBC 1-4 /HPF (0-4) Urine Squamous Epithelial Cells Occ /LPF Urine Bacteria Few /HPF (0-FEW) Urine Mucus Mod /LPF Medications Current Medications Sodium Chloride 1,000 ml @ 1,000 mls/hr Q1H IV Last administered on 08/28/18at 12:28; Start 08/28/18 at 11:44; Stop 08/28/18 at 12:43; Status DC Morphine Sulfate (Morphine Sulfate) 4 mg 1X ONCE IV Last administered on 08/28/18 12:38; Start 08/28/18 at 12:45; Stop 08/28/18 at 12:46; Status DC Iohexol (Omnipaque 350 Mg/ml) 90 ml 1X ONCE IV Last administered on 08/28/18at 14:00; Start 08/28/18 at 14:00; Stop 08/28/18 at 14:01; Status DC Info (CONTRAST GIVEN -- Rx MONITORING) 1 each PRN DAILY PRN MC SEE COMMENTS; Start 08/28/18 at 14:00; Stop 08/30/18 at 13:59 Enoxaparin Sodium (Lovenox 60mg Syringe) 60 mg 1X ONCE SQ Last administered on 08/28/18 14:46; Start 08/28/18 at 14:45; Stop 08/28/18 at 14:46; Status DC Hydromorphone HCl (Dilaudid) 1 mg 1X ONCE IV Last administered on 08/28/18 14:43; Start 08/28/18 at 14:45; Stop 08/28/18 at 14:46; Status DC Hydromorphone HCl (Dilaudid) 1 mg PRN Q1HR PRN IV MODERATE PAIN Last administered on 08/29/18 09:23; Start 08/28/18 at 15:15 Amlodipine Besylate (Norvasc) 5 mg DAILY PO Last administered on 08/29/18 09:25; Start 08/28/18 at 16:30 Carvedilol (Coreg) 3.125 mg BIDWMEALS PO Last administered on 08/29/18 07:15; Start 08/28/18 at 17:00 Cyclobenzaprine HCl (Flexeril) 10 mg TID PO Last administered on 08/29/18 07:16; Start 08/28/18 at 21:00 Docusate Sodium (Colace) 100 mg BID PO Last administered on 08/29/18 07:15; Start 08/28/18 at 21:00 Lisinopril (Prinivil) 10 mg DAILY PO Last administered on 08/29/18 07:15; Start 08/28/18 at 16:30 Oxycodone/ Acetaminophen (Percocet 10/325) 1 tab PRN Q4HRS PRN PO MODERATE PAIN 4-6 Last administered on 08/29/18 09:49; Start 08/28/18 at 15:30 Non-Formulary Medication (Naloxegol Oxalate (Movantik)) 25 mg PRN DAILY PRN PO CONSTIPATION; Start 08/28/18 at 15:30; Status UNV Polyethylene Glycol (miraLAX PACKET) 17 gm BID PO Last administered on 08/29/18 09:27; Start 08/28/18 at 21:00 Pantoprazole Sodium (Protonix) 40 mg DAILYAC PO Last administered on 08/29/18 07:15; Start 08/28/18 at 16:30 Morphine Sulfate (Ms Contin) 30 mg BID PO Last administered on 08/29/18 09:25; Start 08/28/18 at 21:00 Morphine Sulfate (Morphine Sulfate) 10 mg PRN Q4HRS PRN IV SEVERE PAIN Last administered on 08/29/18 07:16; Start 08/28/18 at 15:30 Ondansetron HCl (Zofran) 8 mg PRN Q8HRS PRN IV NAUSEA/VOMITING; Start 08/28/18 at 18:45 Lorazepam (Ativan) 1 mg PRN Q4HRS PRN PO ANXIETY / AGITATION Last administered on 08/29/18 09:25; Start 08/29/18 at 09:15 Active Scripts Active Morphine Sulfate Er (Morphine Sulfate) 15 Mg Tablet.er 15 Mg PO BID MDD 1 Percocet 10-325 Mg Tablet (Oxycodone/Acetaminophen) 1 Each Tablet 1 Tab PO PRN Q4HRS PRN MDD 1 Movantik (Naloxegol Oxalate) 25 Mg Tablet 25 Mg PO PRN DAILY PRN 30 Days Colace (Docusate Sodium) 100 Mg Capsule 100 Mg PO BID 30 Days Polyethylene Glycol 3350 17 Gm Powd.pack 17 Gm PO BID 30 Days [Pantoprazole] 40 MG Tablet.dr 40 Mg PO DAILYAC 30 Days Morphine Sulfate Er (Morphine Sulfate) 15 Mg Tablet.er 15 Mg PO BID 30 Days Lisinopril 10 Mg Tablet 10 Mg PO DAILY 30 Days Amlodipine Besylate 5 Mg Tablet 5 Mg PO DAILY 30 Days Carvedilol (Carvedilol) 3.125 Mg Tablet 3.125 Mg PO BIDWMEALS 30 Days Cyclobenzaprine Hcl 10 Mg Tablet 10 Mg PO TID Vitals/I & O Vital Sign - Last 24 Hours 08/28/18 08/28/18 08/28/18 08/28/18 11:25 11:56 12:28 12:38 Temp 98.7 98.7 Pulse 105 102 104 Resp 20 18 B/P (MAP) 173/109 (130) 164/108 (126) 169/106 (127) Pulse Ox 100 99 99 100 O2 Delivery Room Air Room Air Room Air 08/28/18 08/28/18 08/28/18 08/28/18 12:56 13:22 13:58 14:28 Pulse 105 102 110 108 Resp 20 B/P (MAP) 186/112 (136) 178/104 (128) 160/93 (115) 159/100 (119) Pulse Ox 100 99 100 100 O2 Delivery Room Air Room Air Room Air Nasal Cannula O2 Flow Rate 2.0 08/28/18 08/28/18 08/28/18 08/28/18 15:22 15:28 16:05 16:26 Temp 98.4 98.4 Pulse 106 101 Resp B/P (MAP) 175/108 (130) 165/99 (121) 170/113 (132) Pulse Ox 99 100 O2 Delivery Room Air Room Air 08/28/18 08/28/18 08/28/18 08/28/18 16:27 16:28 16:28 16:30 Pulse 101 101 B/P (MAP) 170/113 170/113 Pulse Ox 100 O2 Delivery Room Air O2 Flow Rate 2.0 08/28/18 08/28/18 08/28/18 08/28/18 16:58 19:00 19:17 19:18 Temp 98.1 98.1 Pulse 109 Resp 20 B/P (MAP) 153/95 (114) Pulse Ox 100 99 O2 Delivery Room Air Room Air Room Air O2 Flow Rate 2.0 2.0 08/28/18 08/28/18 08/28/18 08/28/18 20:00 20:01 20:03 21:04 Pulse 109 B/P (MAP) 153/95 O2 Delivery Room Air Room Air Room Air 08/28/18 08/28/18 08/28/18 08/28/18 22:19 22:50 23:44 23:45 Temp 98.5 98.5 Pulse 112 Resp 20 B/P (MAP) 172/116 (134) Pulse Ox 100 O2 Delivery Room Air Room Air Room Air Room Air O2 Flow Rate 2.0 08/29/18 08/29/18 08/29/18 08/29/18 00:01 01:50 02:20 02:57 Temp 98.5 98.5 Pulse 103 Resp 20 B/P (MAP) 168/105 (126) Pulse Ox 99 O2 Delivery Room Air Room Air Room Air Room Air O2 Flow Rate 2.0 08/29/18 08/29/18 08/29/18 08/29/18 03:43 03:44 04:43 05:39 O2 Delivery Room Air Room Air Room Air Room Air 08/29/18 08/29/18 08/29/18 08/29/18 06:09 07:00 07:15 07:15 Temp 97.4 97.4 Pulse 95 103 103 Resp 20 B/P (MAP) 173/104 (127) 168/105 168/105 Pulse Ox 98 O2 Delivery Room Air Room Air 08/29/18 09:25 Pulse 103 B/P (MAP) 168/105 Intake and Output 08/28/18 08/28/18 08/29/18 15:00 23:00 07:00 Intake Total 1000 ml Balance 1000 ml KIM MOLINA III DO Aug 29, 2018 10:59
[2018-08-29] MEDS ORDERED: ANTI-COAG MONITOR BY PHARMACY. MC PRN (11:00)
[2018-08-29] MEDS ORDERED: NALOXONE 0.4 MG/ML VIAL. IV PRN (11:15)
[2018-08-29] MEDS: MORPHINE SULFATE/PF 30 ML IV PRN ×2 (11:23→20:14)
--- NOTE | 2018-08-29 11:51 | PDOC2 ---
PALLIATIVE CARE Palliative Care Note Palliative Care Consult requested by Dr. Reyes to address goals of care. Medical Assessment per medical record; 1) Elevated liver function tests (2) Hypercalcemia 3) Jaundice (4) Primary malignant neoplasm of pancreas with metastasis to other site (5) Pulmonary embolism (6) Pulmonary infarction Met with patient. Complains of severe abdominal pain. Patient has required Dilaudid 9mg since admission. Morphine 20 mg. Morphine 30mg SR BID. Ativan 1mg IV Spoke with Dr. Prince. Will order Dilaudid drip. Attempted to reach Noah Jones brother/DPOA [phone] Message to return call. Copy of AD placed on record. Code Status; DNR/DNI. Spoke with [facility] for update. Plan: Pain Management DNR/DNI Family Meeting ELIZABETH CHASE Aug 29, 2018 11:51
--- NOTE | 2018-08-29 12:30 | NUR ---
Patient originally doing well with morphine drip at 4 mg per hour, sleeping peacefully, making jokes. Visitors are currently in room, and now patient is stating we are doing nothing to control is pain, and is showing high levels of anxiety. Will administer another dose of PRN Ativan, and if this does not help, will use PRN Dilaudid. Discussed meal options with patient and I have called down and ordered him a pizza. Will continue to monitor.
--- NOTE | 2018-08-29 13:00 | NUR ---
Pain management discussed with Pat RN/palliative care. Agreed to try and do Morphine IV drip, only, at 4 mg/hr, but if pt still appears to be in pain, will not give IV Dilaudid, will first try Ativan for anxiety, and then Percocet for break through. Paused drip for 1.5 hours, restarted at 1700 prior to transfer to room 528. Patient was slightly lethargic and confused momentarily, prior to pause. RN on that floor updated.
[2018-08-29] MEDS: LORazepam 1 MG TABLET PO SCH ×4 (14:05→23:30)
--- NOTE | 2018-08-29 14:36 | PDOC ---
PULMONARY PROGRESS NOTES Vitals Vital Signs Date Time Temp Pulse Resp B/P (MAP) Pulse Ox O2 Delivery O2 Flow Rate FiO2 08/29/18 11:07 99.0 92 18 165/96 (119) 98 Room Air 99.0 08/29/18 02:57 2.0 Lungs: Clear Cardiovascular: S1, S2 Labs Laboratory Tests Test 08/28/18 12:10 08/28/18 12:50 White Blood Count 13.9 x10^3/uL (4.0-11.0) Red Blood Count 5.37 x10^6/uL (4.30-5.70) Hemoglobin 15.9 g/dL (13.0-17.5) Hematocrit 47.4 % (39.0-53.0) Mean Corpuscular Volume 88 fL (79-100) Mean Corpuscular Hemoglobin 30 pg (25-35) Mean Corpuscular Hemoglobin Concent 34 g/dL (31-37) Red Cell Distribution Width 14.2 % (11.5-14.5) Platelet Count 388 x10^3/uL (140-400) Neutrophils (%) (Auto) 81 % (31-73) Lymphocytes (%) (Auto) 5 % (24-48) Monocytes (%) (Auto) 11 % (0-9) Eosinophils (%) (Auto) 2 % (0-3) Basophils (%) (Auto) 1 % (0-3) Neutrophils # (Auto) 11.3 x10^3uL (1.8-7.7) Lymphocytes # (Auto) 0.7 x10^3/uL (1.0-4.8) Monocytes # (Auto) 1.5 x10^3/uL (0.0-1.1) Eosinophils # (Auto) 0.3 x10^3/uL (0.0-0.7) Basophils # (Auto) 0.1 x10^3/uL (0.0-0.2) Prothrombin Time 12.5 SEC (11.7-14.0) Prothromb Time International Ratio 1.0 (0.8-1.1) D-Dimer (Jannet) 12.97 ug/mlFEU (0.00-0.50) Sodium Level 129 mmol/L (136-145) Potassium Level 4.6 mmol/L (3.5-5.1) Chloride Level 89 mmol/L (98-107) Carbon Dioxide Level 30 mmol/L (21-32) Anion Gap 10 (6-14) Blood Urea Nitrogen 11 mg/dL (8-26) Creatinine 0.7 mg/dL (0.7-1.3) Estimated GFR (Cockcroft-Gault) 143.9 BUN/Creatinine Ratio 16 (6-20) Glucose Level 104 mg/dL (70-99) Calcium Level 10.7 mg/dL (8.5-10.1) Total Bilirubin 4.1 mg/dL (0.2-1.0) Aspartate Amino Transf (AST/SGOT) 96 U/L (15-37) Alanine Aminotransferase (ALT/SGPT) 57 U/L (16-63) Alkaline Phosphatase 1678 U/L (46-116) Troponin I Quantitative < 0.017 ng/mL (0.000-0.055) Total Protein 9.1 g/dL (6.4-8.2) Albumin 3.3 g/dL (3.4-5.0) Albumin/Globulin Ratio 0.6 (1.0-1.7) Lipase 585 U/L (73-393) Urine Collection Type Unknown Urine Color [place] Urine Clarity Clear Urine pH 8.0 Urine Specific [place] 1.015 Urine Protein 30 mg/dL (NEG-TRACE) Urine Glucose (UA) Negative mg/dL (NEG) Urine Ketones (Stick) Negative mg/dL (NEG) Urine Blood Negative (NEG) Urine Nitrite Negative (NEG) Urine Bilirubin Large (NEG) Urine Urobilinogen Dipstick 1.0 mg/dL (0.2 mg/dL) Urine Leukocyte Esterase Trace (NEG) Urine RBC 0 /HPF (0-2) Urine WBC 1-4 /HPF (0-4) Urine Squamous Epithelial Cells Occ /LPF Urine Bacteria Few /HPF (0-FEW) Urine Mucus Mod /LPF Medications Active Scripts Medications Dose Route/Sig Max Daily Dose Days Date Category Morphine Sulfate Er (Morphine Sulfate) 15 Mg Tablet.er 15 Mg PO BID MDD 1 08/17/18 Rx Percocet 10-325 Mg Tablet (Oxycodone/Acetaminophen) 1 Each Tablet 1 Tab PO PRN Q4HRS PRN MDD 1 08/17/18 Rx Movantik (Naloxegol Oxalate) 25 Mg Tablet 25 Mg PO PRN DAILY PRN 30 08/10/18 Rx Colace (Docusate Sodium) 100 Mg Capsule 100 Mg PO BID 30 08/10/18 Rx Polyethylene Glycol 3350 17 Gm Powd.pack 17 Gm PO BID 08/10/18 Rx [Pantoprazole] 40 MG Tablet.dr 40 Mg PO DAILYAC 08/10/18 Rx Morphine Sulfate Er (Morphine Sulfate) 15 Mg Tablet.er 15 Mg PO BID 08/10/18 Rx Lisinopril 10 Mg Tablet 10 Mg PO DAILY 08/10/18 Rx Amlodipine Besylate 5 Mg Tablet 5 Mg PO DAILY 08/10/18 Rx Carvedilol (Carvedilol) 3.125 Mg Tablet 3.125 Mg PO BIDWMEALS 08/10/18 Rx Cyclobenzaprine Hcl 10 Mg Tablet 10 Mg PO TID 11/11/15 Rx Impression . NOTE DICTATED PE/INFARCTS WILL CHECK VENOUS DOPPLER COMFORT ARAIZA MD Aug 29, 2018 14:36
--- NOTE | 2018-08-29 15:29 | RAD ---
EXAM: Bilateral lower extremity venous Doppler. HISTORY: Shortness of breath, pulmonary embolism. COMPARISON: None. FINDINGS: Grayscale and Doppler analysis of the both lower extremity deep venous systems was performed with graded compression and augmentation. The common femoral, greater saphenous, superficial femoral, popliteal and calf veins were assessed. There is no evidence of deep venous thrombosis. IMPRESSION: 1. No evidence of deep venous thrombosis. Electronically signed by: Suzy Mosquera MD (08/29/2018 3:26 PM) [facility]
--- NOTE | 2018-08-29 15:56 | NUR ---
SW following pt for anticipated dc needs. Chart reviewed and discussed with Palliative care. SW confirmed with Ese at [facility] that pt is LTC resident and is able to return upon dc. Pt was on service with [facility] at facility. SW will continue to follow.
--- NOTE | 2018-08-29 16:46 | NUR ---
Twin brother at bedside, very adamant that patient "gets what he deserves". I asked him to explain what he was talking about, and he said his brother had "made lots of poor choices and this is why he has cancer. 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 Will continue to monitor.
[2018-08-29] MEDS ORDERED: cloNIDine HCL 0.2 MG TABLET PO PRN (17:45)
[2018-08-30] MEDS: HYDROmorphone 2 MG/ML VIAL IV PRN ×4 (02:26→14:46)
[2018-08-30 03:00] VITALS: BP 193/122
[2018-08-30] MEDS: LORazepam 1 MG TABLET PO SCH ×5 (03:50→20:40)
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
[2018-08-30 07:00] VITALS: BP 144/89
[2018-08-30] MEDS: PANTOPRAZOLE 40 MG TABLET.DR. PO SCH (08:18)
[2018-08-30] MEDS: CARVEDILOL 3.125 MG TABLET. PO SCH ×2 (08:18→16:58)
[2018-08-30] MEDS: CYCLOBENZAPRINE 10 MG TABLET. PO SCH ×3 (08:18→20:38)
[2018-08-30] MEDS: MORPHINE ER 15 MG TABLET.ER PO SCH ×2 (08:19→20:28)
[2018-08-30] MEDS: LISINOPRIL 10 MG TABLET PO SCH (08:20)
[2018-08-30] MEDS: POLYETHYLENE GLYCOL 3350 17 GM PACKET. PO SCH ×2 (08:21→20:39)
[2018-08-30] MEDS: amLODIPine BESYLATE 5 MG TABLET PO SCH (08:21)
[2018-08-30] MEDS: DOCUSATE SODIUM 100 MG CAPSULE. PO SCH ×2 (08:21→20:41)
[2018-08-30] MEDS: MORPHINE SULFATE 10 MG/ML VIAL. IV PRN (08:35)
--- NOTE | 2018-08-30 08:45 | PDOC ---
PULMONARY PROGRESS NOTES Subjective NOT MORE SOA SLEEPY Vitals Vital Signs Date Time Temp Pulse Resp B/P (MAP) Pulse Ox O2 Delivery O2 Flow Rate FiO2 08/30/18 08:35 98 Room Air 2.0 08/30/18 08:21 93 193/122 08/30/18 08:19 22 08/30/18 07:00 98.3 98.3 Lungs: Clear Cardiovascular: S1, S2 Abdomen: Soft Neuro Exam: Alert Extremities: No Edema Skin: Warm Labs Laboratory Tests Test 08/28/18 12:10 08/28/18 12:50 White Blood Count 13.9 x10^3/uL (4.0-11.0) Red Blood Count 5.37 x10^6/uL (4.30-5.70) Hemoglobin 15.9 g/dL (13.0-17.5) Hematocrit 47.4 % (39.0-53.0) Mean Corpuscular Volume 88 fL (79-100) Mean Corpuscular Hemoglobin 30 pg (25-35) Mean Corpuscular Hemoglobin Concent 34 g/dL (31-37) Red Cell Distribution Width 14.2 % (11.5-14.5) Platelet Count 388 x10^3/uL (140-400) Neutrophils (%) (Auto) 81 % (31-73) Lymphocytes (%) (Auto) 5 % (24-48) Monocytes (%) (Auto) 11 % (0-9) Eosinophils (%) (Auto) 2 % (0-3) Basophils (%) (Auto) 1 % (0-3) Neutrophils # (Auto) 11.3 x10^3uL (1.8-7.7) Lymphocytes # (Auto) 0.7 x10^3/uL (1.0-4.8) Monocytes # (Auto) 1.5 x10^3/uL (0.0-1.1) Eosinophils # (Auto) 0.3 x10^3/uL (0.0-0.7) Basophils # (Auto) 0.1 x10^3/uL (0.0-0.2) Prothrombin Time 12.5 SEC (11.7-14.0) Prothromb Time International Ratio 1.0 (0.8-1.1) D-Dimer (Jannet) 12.97 ug/mlFEU (0.00-0.50) Sodium Level 129 mmol/L (136-145) Potassium Level 4.6 mmol/L (3.5-5.1) Chloride Level 89 mmol/L (98-107) Carbon Dioxide Level 30 mmol/L (21-32) Anion Gap 10 (6-14) Blood Urea Nitrogen 11 mg/dL (8-26) Creatinine 0.7 mg/dL (0.7-1.3) Estimated GFR (Cockcroft-Gault) 143.9 BUN/Creatinine Ratio 16 (6-20) Glucose Level 104 mg/dL (70-99) Calcium Level 10.7 mg/dL (8.5-10.1) Total Bilirubin 4.1 mg/dL (0.2-1.0) Aspartate Amino Transf (AST/SGOT) 96 U/L (15-37) Alanine Aminotransferase (ALT/SGPT) 57 U/L (16-63) Alkaline Phosphatase 1678 U/L (46-116) Troponin I Quantitative < 0.017 ng/mL (0.000-0.055) Total Protein 9.1 g/dL (6.4-8.2) Albumin 3.3 g/dL (3.4-5.0) Albumin/Globulin Ratio 0.6 (1.0-1.7) Lipase 585 U/L (73-393) Urine Collection Type Unknown Urine Color [place] Urine Clarity Clear Urine pH 8.0 Urine Specific [place] 1.015 Urine Protein 30 mg/dL (NEG-TRACE) Urine Glucose (UA) Negative mg/dL (NEG) Urine Ketones (Stick) Negative mg/dL (NEG) Urine Blood Negative (NEG) Urine Nitrite Negative (NEG) Urine Bilirubin Large (NEG) Urine Urobilinogen Dipstick 1.0 mg/dL (0.2 mg/dL) Urine Leukocyte Esterase Trace (NEG) Urine RBC 0 /HPF (0-2) Urine WBC 1-4 /HPF (0-4) Urine Squamous Epithelial Cells Occ /LPF Urine Bacteria Few /HPF (0-FEW) Urine Mucus Mod /LPF Medications Active Scripts Medications Dose Route/Sig Max Daily Dose Days Date Category Morphine Sulfate Er (Morphine Sulfate) 15 Mg Tablet.er 15 Mg PO BID MDD 1 08/17/18 Rx Percocet 10-325 Mg Tablet (Oxycodone/Acetaminophen) 1 Each Tablet 1 Tab PO PRN Q4HRS PRN MDD 1 08/17/18 Rx Movantik (Naloxegol Oxalate) 25 Mg Tablet 25 Mg PO PRN DAILY PRN 30 08/10/18 Rx Colace (Docusate Sodium) 100 Mg Capsule 100 Mg PO BID 30 08/10/18 Rx Polyethylene Glycol 3350 17 Gm Powd.pack 17 Gm PO BID 30 08/10/18 Rx [Pantoprazole] 40 MG Tablet.dr 40 Mg PO DAILYAC 30 08/10/18 Rx Morphine Sulfate Er (Morphine Sulfate) 15 Mg Tablet.er 15 Mg PO BID 30 08/10/18 Rx Lisinopril 10 Mg Tablet 10 Mg PO DAILY 30 08/10/18 Rx Amlodipine Besylate 5 Mg Tablet 5 Mg PO DAILY 30 08/10/18 Rx Carvedilol (Carvedilol) 3.125 Mg Tablet 3.125 Mg PO BIDWMEALS 30 08/10/18 Rx Cyclobenzaprine Hcl 10 Mg Tablet 10 Mg PO TID 11/11/15 Rx Impression . IMPRESSION: 1. Acute hypoxemic respiratory failure. 2. Acute pulmonary embolism with infarct. 3. End-stage pancreatic cancer. 4. Hypercalcemia. 5. Chronic kidney insufficiency. IMPRESSION: 1. No evidence of deep venous thrombosis. Plan . HOME ON [facility] BY ME D/W FAMILY 1. Continue oxygen supplementation. 2. Anticoagulation. The patient is currently receiving Lovenox 1 mg per kg. 3. Consult pain. COMFORT ARAIZA MD Aug 30, 2018 08:45
--- NOTE | 2018-08-30 10:45 | NUR ---
Patient's friends of family came to visit: Bryanna Rodriguez; patient approved code and information exchange.
[2018-08-30 11:00] VITALS: BP 105/78
--- NOTE | 2018-08-30 12:49 | CONS ---
DATE OF CONSULTATION: 08/29/2018 MEDICAL ONCOLOGY CONSULTATION REQUESTING PHYSICIAN: Emani Prince DO. REASON FOR CONSULTATION: Metastatic pancreatic cancer now admitted with pulmonary embolism. HISTORY OF PRESENT ILLNESS: The patient is a 53-year-old -[place] gentleman who was diagnosed with stage 4 pancreatic cancer and he underwent a CT-guided biopsy of the liver on 08/07/2018, which revealed metastatic adenocarcinoma. CT scan in 07/2018 revealed numerous hepatic metastatic disease and mass in the pancreas. The patient was discharged to hospice care at that time per patient wishes. He was admitted to [facility] on 08/28/2018 with complaints of chest pain. CT angiogram of the chest on 08/28/2018 revealed multiple bilateral pulmonary emboli and pulmonary infarcts involving both lower lobes. Venous Doppler of the lower extremities on 08/29/2018 revealed no evidence of DVT. He was started on anticoagulation and I was consulted for further recommendations. PAST MEDICAL HISTORY: Hepatitis C, chronic alcohol abuse, pancreatitis. FAMILY HISTORY: Brother of pancreatic cancer. SOCIAL HISTORY: He has a history of heavy alcohol use that he quit in 2017. He also quit smoking in 2017. REVIEW OF SYSTEMS: A 12-point review of system was performed. Pertinent positives are mentioned in the history of present illness. Rest of the system review is negative. PHYSICAL EXAMINATION: GENERAL APPEARANCE: The patient is a 53-year-old -[place] gentleman who is in no acute cardiorespiratory distress. VITAL SIGNS: Blood pressure 173/110, temperature 97 degrees. HEAD: Atraumatic, normocephalic. EYES: No icterus. NECK: Supple. CHEST: Bilaterally symmetrical. HEART: S1, S2 normal. ABDOMEN: Soft, mild tenderness in the epigastric region. CENTRAL NERVOUS SYSTEM: No focal deficits. LYMPHATICS: No lymphadenopathy. SKIN: No rashes. PSYCHOLOGIC: Mood and affect are appropriate. LABORATORY DATA: WBC 13.9, hemoglobin 15.9, platelet count 388. Creatinine 0.7. IMPRESSION AND PLAN: 1. Stage 4 pancreatic cancer with liver metastasis diagnosed in 07/2018. The patient prefers comfort care and supportive care with the help of hospice. Plan to discharge to hospice when stable. 2. Acute pulmonary embolism diagnosed on 08/28/2018. Continue anticoagulation, he is currently on Lovenox. Okay to switch to oral anticoagulation at the time of discharge. Appreciate pulmonary consultation. NELSON MORRISSEY MD DR: Cathi JOB#: [id number] / [id number]
--- NOTE | 2018-08-30 12:54 | PDOC ---
[facility] PROGRESS NOTE Chief Complaint Chief Complaint Near syncope Acute hypoxia Chest pain Acute pulmonary embolism Pancreatic cancer Acute on chronic abdominal pain, narcotic dependence History of Present Illness History of Present Illness Patient seen and examined twice this morning I discussed case with Carrington Chisholm she is here examined the patient with me on the second visit patient now agrees to try the PERSONAL [employer]LE ADVISOR pump again last night To refuse to have it Patient is a pleasant middle-aged -[place] male who has pancreatic cancer Last night presented with shortness of breath and near-syncope was noted to have pulmonary emboli on CAT scan of the chest He did get 1 dose Lovenox and admitted This morning I saw him and examined him I discussed the case with the palate care nurse and we plan to start a Dilaudid drip I also called pharmacy and asked him to place him on scheduled Lovenox 1 mg/kg subcutaneous every 12 I've also consult pulmonary and hematology Vitals Vitals Vital Signs Date Time Temp Pulse Resp B/P (MAP) Pulse Ox O2 Delivery O2 Flow Rate FiO2 08/30/18 12:19 98 Room Air 2.0 08/30/18 12:04 24 08/30/18 11:00 99.0 89 105/78 (87) 99.0 Physical Exam General: Alert, Cooperative, moderate distress (he is in pain), Other (seems to be in a lot of pain) Heart: Regular rate, Normal S1 Lungs: Clear Abdomen: Other (very tender) Extremities: No clubbing, No cyanosis, No edema, Normal pulses Skin: No rashes, No breakdown, No significant lesion Assessment and Plan Assessmemt and Plan Problems Medical Problems: (1) Elevated liver function tests Status: Acute (2) Hypercalcemia Status: Acute (3) Jaundice Status: Acute (4) Primary malignant neoplasm of pancreas with metastasis to other site Status: Acute (5) Pulmonary embolism Status: Acute (6) Pulmonary infarction Status: Acute Metastatic pancreatic cancer Near syncope Acute hypoxia Chest pain Acute pulmonary embolism Pancreatic cancer Acute on chronic abdominal pain, narcotic dependence Plan Lovenox 1 mg/kg subcutaneous every 12 hours Dilated drip hematology pulmonary medicine following Palliative care is following Prognosis probably terminal (he is on hospice at home) Total time 32 minutes Comment Review of Relevant I have reviewed the following items himanshu (where applicable) has been applied. Labs Microbiology 08/28/18 Urine Culture - Final, Complete 08/28/18 Urine Culture Result 1 (LAYO) - Final, Complete Medications Current Medications Sodium Chloride 1,000 ml @ 1,000 mls/hr Q1H IV Last administered on 08/28/18 12:28; Start 08/28/18 at 11:44; Stop 08/28/18 at 12:43; Status DC Morphine Sulfate (Morphine Sulfate) 4 mg 1X ONCE IV Last administered on 08/28/18at 12:38; Start 08/28/18 at 12:45; Stop 08/28/18 at 12:46; Status DC Iohexol (Omnipaque 350 Mg/ml) 90 ml 1X ONCE IV Last administered on 08/28/18 14:00; Start 08/28/18 at 14:00; Stop 08/28/18 at 14:01; Status DC Info (CONTRAST GIVEN -- Rx MONITORING) 1 each PRN DAILY PRN MC SEE COMMENTS; Start 08/28/18 at 14:00; Stop 08/30/18 at 13:59 Enoxaparin Sodium (Lovenox 60mg Syringe) 60 mg 1X ONCE SQ Last administered on 08/28/18at 14:46; Start 08/28/18 at 14:45; Stop 08/28/18 at 14:46; Status DC Hydromorphone HCl (Dilaudid) 1 mg 1X ONCE IV Last administered on 08/28/18 14:43; Start 08/28/18 at 14:45; Stop 08/28/18 at 14:46; Status DC Hydromorphone HCl (Dilaudid) 1 mg PRN Q1HR PRN IV MODERATE PAIN Last a dministered on 08/30/18 12:04; Start 08/28/18 at 15:15 Amlodipine Besylate (Norvasc) 5 mg DAILY PO Last administered on 08/30/18 08:21; Start 08/28/18 at 16:30 Carvedilol (Coreg) 3.125 mg BIDWMEALS PO Last administered on 08/30/18 08:18; Start 08/28/18 at 17:00 Cyclobenzaprine HCl (Flexeril) 10 mg TID PO Last administered on 08/30/18 08:18; Start 08/28/18 at 21:00 Docusate Sodium (Colace) 100 mg BID PO Last administered on 08/29/18 19:34; Start 08/28/18 at 21:00 Lisinopril (Prinivil) 10 mg DAILY PO Last administered on 08/30/18 08:20; Start 08/28/18 at 16:30 Oxycodone/ Acetaminophen (Percocet 10/325) 1 tab PRN Q4HRS PRN PO MODERATE PAIN 4-6 Last administered on 08/29/18 23:31; Start 08/28/18 at 15:30 Non-Formulary Medication (Naloxegol Oxalate (Movantik)) 25 mg PRN DAILY PRN PO CONSTIPATION; Start 08/28/18 at 15:30; Status UNV Polyethylene Glycol (miraLAX PACKET) 17 gm BID PO Last administered on 08/29/18 19:34; Start 08/28/18 at 21:00 Pantoprazole Sodium (Protonix) 40 mg DAILYAC PO Last administered on 08/30/18 08:18; Start 08/28/18 at 16:30 Morphine Sulfate (Ms Contin) 30 mg BID PO Last administered on 08/30/18 08:19; Start 08/28/18 at 21:00 Morphine Sulfate (Morphine Sulfate) 10 mg PRN Q4HRS PRN IV SEVERE PAIN Last administered on 08/30/18 08:35; Start 08/28/18 at 15:30 Ondansetron HCl (Zofran) 8 mg PRN Q8HRS PRN IV NAUSEA/VOMITING; Start 08/28/18 at 18:45 Lorazepam (Ativan) 1 mg PRN Q4HRS PRN PO ANXIETY / AGITATION Last administered on 08/29/18at 09:25; Start 08/29/18 at 09:15; Stop 08/29/18 at 11:29; Status DC Enoxaparin Sodium (Lovenox 60mg Syringe) 55 mg Q12HR SQ Last administered on 08/30/18 08:22; Start 08/29/18 at 11:30 Info (Anti-Coagulation Monitoring By Pharmacy) 1 each PRN DAILY PRN MC SEE COMMENTS; Start 08/29/18 at 11:00 Naloxone HCl (Narcan) 0.4 mg PRN Q2MIN PRN IV SEE INSTRUCTIONS; Start 08/29/18 at 11:15 Morphine Sulfate 30 ml @ 0 mls/hr CONT PRN PRN IV PER PROTOCOL Last administered on 08/29/18at 20:14; Start 08/29/18 at 11:15 Lorazepam (Ativan) 1 mg Q4HRS PRN PO ANXIETY / AGITATION Last administered on 08/29/18at 12:37; Start 08/29/18 at 14:00; Stop 08/29/18 at 14:00; Status DC Lorazepam (Ativan) 1 mg PRN Q4HRS PRN PO ANXIETY / AGITATION; Start 08/29/18 at 12:15 Lorazepam (Ativan) 1 mg Q4HRS PO Last administered on 08/30/18at 11:50; Start 08/29/18 at 14:00 Clonidine HCl (Catapres) 0.2 mg PRN Q6HRS PRN PO HYPERTENSION Last administered on 08/30/18at 03:51; Start 08/29/18 at 17:45 Active Scripts Active Morphine Sulfate Er (Morphine Sulfate) 15 Mg Tablet.er 15 Mg PO BID MDD 1 Percocet 10-325 Mg Tablet (Oxycodone/Acetaminophen) 1 Each Tablet 1 Tab PO PRN Q4HRS PRN MDD 1 Movantik (Naloxegol Oxalate) 25 Mg Tablet 25 Mg PO PRN DAILY PRN 30 Days Colace (Docusate Sodium) 100 Mg Capsule 100 Mg PO BID 30 Days Polyethylene Glycol 3350 17 Gm Powd.pack 17 Gm PO BID 30 Days [Pantoprazole] 40 MG Tablet.dr 40 Mg PO DAILYAC 30 Days Morphine Sulfate Er (Morphine Sulfate) 15 Mg Tablet.er 15 Mg PO BID 30 Days Lisinopril 10 Mg Tablet 10 Mg PO DAILY 30 Days Amlodipine Besylate 5 Mg Tablet 5 Mg PO DAILY 30 Days Carvedilol (Carvedilol) 3.125 Mg Tablet 3.125 Mg PO BIDWMEALS 30 Days Cyclobenzaprine Hcl 10 Mg Tablet 10 Mg PO TID Vitals/I & O Vital Sign - Last 24 Hours 08/29/18 08/29/18 08/29/18 08/29/18 14:58 15:00 17:00 19:00 Temp 97.0 97.0 98.4 97.0 97.0 98.4 Pulse 95 95 95 98 Resp 24 20 18 B/P (MAP) 173/110 173/110 (131) 157/110 (126) 160/105 (123) Pulse Ox 99 96 100 O2 Delivery Room Air Nasal Cannula Nasal Cannula 08/29/18 08/29/18 08/29/18 08/29/18 19:35 20:00 20:14 20:44 O2 Delivery Room Air Room Air Room Air Room Air 08/29/18 08/29/18 08/30/18 08/30/18 23:00 23:31 00:34 02:26 Temp 98.2 98.2 Pulse 92 Resp 18 B/P (MAP) 186/112 (136) Pulse Ox 98 O2 Delivery Nasal Cannula Room Air Room Air Room Air 08/30/18 08/30/18 08/30/18 08/30/18 03:00 03:51 07:00 08:18 Temp 98.3 98.3 98.3 98.3 Pulse 93 93 99 93 Resp 18 18 B/P (MAP) 193/122 (145) 193/122 144/89 (107) 193/122 Pulse Ox 99 98 O2 Delivery Room Air Room Air 08/30/18 08/30/18 08/30/18 08/30/18 08:19 08:20 08:21 08:35 Pulse 93 93 Resp 22 B/P (MAP) 193/122 193/122 Pulse Ox 98 O2 Delivery Room Air O2 Flow Rate 2.0 08/30/18 08/30/18 08/30/18 08/30/18 09:05 10:39 11:00 12:04 Temp 99.0 99.0 Pulse 89 Resp 18 24 B/P (MAP) 105/78 (87) Pulse Ox 98 98 96 98 O2 Delivery Room Air Room Air Room Air Room Air O2 Flow Rate 2.0 2.0 2.0 08/30/18 08/30/18 12:19 12:19 Pulse Ox 98 98 O2 Delivery Room Air Room Air O2 Flow Rate 2.0 2.0 Intake and Output 08/29/18 08/29/18 08/30/18 15:00 23:00 07:00 Intake Total 650 ml 280 ml 300 ml Output Total 250 ml Balance 650 ml 30 ml 300 ml KIM MOLINA III DO Aug 30, 2018 12:54
--- NOTE | 2018-08-30 14:30 | NUR ---
Spoke with Doctor: Dr. Prince said that patient was agreeable and to restart the RISK MGR pain pump & also give an IVP dose of pain medication (see eMar) for patient's extreme pain.
[2018-08-30] MEDS: MORPHINE SULFATE/PF 30 ML IV PRN ×2 (14:33→21:58)
[2018-08-30 15:00] VITALS: BP 120/87
--- NOTE | 2018-08-30 16:09 | PDOC2 ---
PALLIATIVE CARE Palliative Care Note Palliative Care Patient anxious today. Complains of severe abdominal pain, but refusing IV Morphine--continuous drip. Receiving Ativan and Dilaudid. Spoke with brother/DPOA Noah last evening and again today. Updated on patient's condition, pulling IV's out last night and refusal for IV continues pain medication. Noah remains hopeful that patient will eat properly and "mind the nurses" and improve---"it is up to God" Offered family meeting to discuss goals and discharge plan. Declined family meeting. He would like to have [facility]. Discussed patients lack of capacity to make complex decisions. Noah asked that he be called any time patient needs to be "talked to" States he will listen to him. Plan: Continue current treatment plan. [facility] with [facility] when discharged. DNR/DNI ELIZABETH CHASE Aug 30, 2018 16:09
--- NOTE | 2018-08-30 17:03 | PDOC ---
PROGRESS NOTES Subjective Subjective HPI - f/u of Stage 4 pancreatic cancer ROS - no CP Objective Objective Vital Signs Date Time Temp Pulse Resp B/P (MAP) Pulse Ox O2 Delivery O2 Flow Rate FiO2 08/30/18 16:58 92 120/87 08/30/18 15:03 98 Room Air 08/30/18 15:00 98.9 18 98.9 08/30/18 14:46 2.0 Intake and Output 08/30/18 06:59 Intake Total 1230 ml Output Total 250 ml Balance 980 ml Intake Oral 1230 ml Output Urine Total 250 ml # Voids 10 Physical Exam General: No acute distress Neck: No JVD Assessment Assessment Problems Medical Problems: (1) Elevated liver function tests Status: Acute (2) Hypercalcemia Status: Acute (3) Jaundice Status: Acute (4) Primary malignant neoplasm of pancreas with metastasis to other site Status: Acute (5) Pulmonary embolism Status: Acute (6) Pulmonary infarction Status: Acute IMPRESSION AND PLAN: 1. Stage 4 pancreatic cancer with liver metastasis diagnosed in 07/2018. The patient prefers comfort care and supportive care with the help of hospice. Plan to discharge to hospice when stable. 2. Acute pulmonary embolism diagnosed on 08/28/2018. Continue anticoagulation, he is currently on Lovenox. Okay to switch to oral anticoagulation at the time of discharge. Appreciate pulmonary consultation. Agree with shruthi. Comment Review of Relevant I have reviewed the following items himanshu (where applicable) has been applied. Labs Microbiology 08/28/18 Urine Culture - Final, Complete 08/28/18 Urine Culture Result 1 (LAYO) - Final, Complete Medications Current Medications Sodium Chloride 1,000 ml @ 1,000 mls/hr Q1H IV Last administered on 08/28/18at 12:28; Start 08/28/18 at 11:44; Stop 08/28/18 at 12:43; Status DC Morphine Sulfate (Morphine Sulfate) 4 mg 1X ONCE IV Last administered on 08/28/18at 12:38; Start 08/28/18 at 12:45; Stop 08/28/18 at 12:46; Status DC Iohexol (Omnipaque 350 Mg/ml) 90 ml 1X ONCE IV Last administered on 08/28/18at 1 4:00; Start 08/28/18 at 14:00; Stop 08/28/18 at 14:01; Status DC Info (CONTRAST GIVEN -- Rx MONITORING) 1 each PRN DAILY PRN MC SEE COMMENTS; Start 08/28/18 at 14:00; Stop 08/30/18 at 13:59; Status DC Enoxaparin Sodium (Lovenox 60mg Syringe) 60 mg 1X ONCE SQ Last administered on 08/28/18 14:46; Start 08/28/18 at 14:45; Stop 08/28/18 at 14:46; Status DC Hydromorphone HCl (Dilaudid) 1 mg 1X ONCE IV Last administered on 08/28/18 14:43; Start 08/28/18 at 14:45; Stop 08/28/18 at 14:46; Status DC Hydromorphone HCl (Dilaudid) 1 mg PRN Q1HR PRN IV MODERATE PAIN Last administered on 08/30/18 14:46; Start 08/28/18 at 15:15 Amlodipine Besylate (Norvasc) 5 mg DAILY PO Last administered on 08/30/18 08:21; Start 08/28/18 at 16:30 Carvedilol (Coreg) 3.125 mg BIDWMEALS PO Last administered on 08/30/18 16:58; Start 08/28/18 at 17:00 Cyclobenzaprine HCl (Flexeril) 10 mg TID PO Last administered on 08/30/18 14:30; Start 08/28/18 at 21:00 Docusate Sodium (Colace) 100 mg BID PO Last administered on 08/29/18 19:34; Start 08/28/18 at 21:00 Lisinopril (Prinivil) 10 mg DAILY PO Last administered on 08/30/18 08:20; Start 08/28/18 at 16:30 Oxycodone/ Acetaminophen (Percocet 10/325) 1 tab PRN Q4HRS PRN PO MODERATE PAIN 4-6 Last administered on 08/29/18 23:31; Start 08/28/18 at 15:30 Non-Formulary Medication (Naloxegol Oxalate (Movantik)) 25 mg PRN DAILY PRN PO CONSTIPATION; Start 08/28/18 at 15:30; Status UNV Polyethylene Glycol (miraLAX PACKET) 17 gm BID PO Last administered on 08/29/18 19:34; Start 08/28/18 at 21:00 Pantoprazole Sodium (Protonix) 40 mg DAILYAC PO Last administered on 08/30/18 08:18; Start 08/28/18 at 16:30 Morphine Sulfate (Ms Contin) 30 mg BID PO Last administered on 08/30/18 08:19; Start 08/28/18 at 21:00 Morphine Sulfate (Morphine Sulfate) 10 mg PRN Q4HRS PRN IV SEVERE PAIN Last administered on 08/30/18 08:35; Start 08/28/18 at 15:30 Ondansetron HCl (Zofran) 8 mg PRN Q8HRS PRN IV NAUSEA/VOMITING; Start 08/28/18 at 18:45 Lorazepam (Ativan) 1 mg PRN Q4HRS PRN PO ANXIETY / AGITATION Last administered on 08/29/18 09:25; Start 08/29/18 at 09:15; Stop 08/29/18 at 11:29; Status DC Enoxaparin Sodium (Lovenox 60mg Syringe) 55 mg Q12HR SQ Last administered on 08/30/18 08:22; Start 08/29/18 at 11:30 Info (Anti-Coagulation Monitoring By Pharmacy) 1 each PRN DAILY PRN MC SEE COMM ENTS; Start 08/29/18 at 11:00 Naloxone HCl (Narcan) 0.4 mg PRN Q2MIN PRN IV SEE INSTRUCTIONS; Start 08/29/18 at 11:15 Morphine Sulfate 30 ml @ 0 mls/hr CONT PRN PRN IV PER PROTOCOL Last administered on 08/30/18 14:33; Start 08/29/18 at 11:15 Lorazepam (Ativan) 1 mg Q4HRS PRN PO ANXIETY / AGITATION Last administered on 08/29/18 12:37; Start 08/29/18 at 14:00; Stop 08/29/18 at 14:00; Status DC Lorazepam (Ativan) 1 mg PRN Q4HRS PRN PO ANXIETY / AGITATION; Start 08/29/18 at 12:15 Lorazepam (Ativan) 1 mg Q4HRS PO Last administered on 08/30/18 16:56; Start 08/29/18 at 14:00 Clonidine HCl (Catapres) 0.2 mg PRN Q6HRS PRN PO HYPERTENSION Last administered on 6/5/19at 03:51; Start 08/29/18 at 17:45 Active Scripts Active Morphine Sulfate Er (Morphine Sulfate) 15 Mg Tablet.er 15 Mg PO BID MDD 1 Percocet 10-325 Mg Tablet (Oxycodone/Acetaminophen) 1 Each Tablet 1 Tab PO PRN Q4HRS PRN MDD 1 Movantik (Naloxegol Oxalate) 25 Mg Tablet 25 Mg PO PRN DAILY PRN 30 Days Colace (Docusate Sodium) 100 Mg Capsule 100 Mg PO BID 30 Days Polyethylene Glycol 3350 17 Gm Powd.pack 17 Gm PO BID 30 Days [Pantoprazole] 40 MG Tablet.dr 40 Mg PO DAILYAC 30 Days Morphine Sulfate Er (Morphine Sulfate) 15 Mg Tablet.er 15 Mg PO BID 30 Days Lisinopril 10 Mg Tablet 10 Mg PO DAILY 30 Days Amlodipine Besylate 5 Mg Tablet 5 Mg PO DAILY 30 Days Carvedilol (Carvedilol) 3.125 Mg Tablet 3.125 Mg PO BIDWMEALS 30 Days Cyclobenzaprine Hcl 10 Mg Tablet 10 Mg PO TID Vitals/I & O Vital Sign - Last 24 Hours 08/29/18 08/29/18 08/29/18 08/29/18 19:00 19:35 20:00 20:14 Temp 98.4 98.4 Pulse 98 Resp 18 B/P (MAP) 160/105 (123) Pulse Ox 100 O2 Delivery Nasal Cannula Room Air Room Air Room Air 08/29/18 08/29/18 08/30/18 08/30/18 23:00 23:31 00:34 02:26 Temp 98.2 98.2 Pulse 92 Resp 18 B/P (MAP) 186/112 (136) Pulse Ox 98 O2 Delivery Nasal Cannula Room Air Room Air Room Air 08/30/18 08/30/18 08/30/18 08/30/18 03:00 03:51 07:00 08:18 Temp 98.3 98.3 98.3 98.3 Pulse 93 93 99 93 Resp 18 18 B/P (MAP) 193/122 (145) 193/122 144/89 (107) 193/122 Pulse Ox 99 98 O2 Delivery Room Air Room Air 08/30/18 08/30/18 08/30/18 08/30/18 08:19 08:20 08:21 08:35 Pulse 93 93 Resp 22 B/P (MAP) 193/122 193/122 Pulse Ox 98 O2 Delivery Room Air O2 Flow Rate 2.0 08/30/18 08/30/18 08/30/18 08/30/18 09:05 10:39 11:00 12:04 Temp 99.0 99.0 Pulse 89 Resp 18 24 B/P (MAP) 105/78 (87) Pulse Ox 98 98 96 98 O2 Delivery Room Air Room Air Room Air Room Air O2 Flow Rate 2.0 2.0 2.0 08/30/18 08/30/18 08/30/18 08/30/18 12:19 12:19 14:33 14:46 Pulse Ox 98 98 O2 Delivery Room Air Room Air Room Air O2 Flow Rate 2.0 2.0 2.0 08/30/18 08/30/18 08/30/18 08/30/18 15:00 15:03 15:03 16:58 Temp 98.9 98.9 Pulse 92 92 Resp 18 B/P (MAP) 120/87 (98) 120/87 Pulse Ox 97 98 98 O2 Delivery Room Air Room Air Room Air Intake and Output 08/29/18 08/29/18 08/30/18 14:59 22:59 06:59 Intake Total 650 ml 280 ml 300 ml Output Total 250 ml Balance 650 ml 30 ml 300 ml NELSON MORRISSEY MD Aug 30, 2018 17:03
[2018-08-30 19:00] VITALS: BP 116/85
[2018-08-30 22:36] VITALS: BP 133/88
[2018-08-31] MEDS: LORazepam 1 MG TABLET PO SCH ×6 (00:02→19:49)
[2018-08-31] MEDS: MORPHINE SULFATE 10 MG/ML VIAL. IV PRN ×3 (00:08→13:30)
[2018-08-31 02:54] VITALS: BP 99/75
[2018-08-31] MEDS: LORazepam 1 MG TABLET PO PRN (05:00)
[2018-08-31] MEDS: HYDROmorphone 2 MG/ML VIAL IV PRN (05:47)
[2018-08-31] MEDS: MORPHINE SULFATE/PF 30 ML IV PRN ×2 (06:00→12:55)
[2018-08-31] MEDS: PANTOPRAZOLE 40 MG TABLET.DR. PO SCH (06:42)
[2018-08-31 07:00] VITALS: BP 126/84
[2018-08-31] MEDS: CYCLOBENZAPRINE 10 MG TABLET. PO SCH ×3 (08:17→22:28)
[2018-08-31] MEDS: POLYETHYLENE GLYCOL 3350 17 GM PACKET. PO SCH ×2 (08:18→21:00)
[2018-08-31] MEDS: CARVEDILOL 3.125 MG TABLET. PO SCH ×2 (08:18→17:12)
[2018-08-31] MEDS: amLODIPine BESYLATE 5 MG TABLET PO SCH (08:18)
[2018-08-31] MEDS: DOCUSATE SODIUM 100 MG CAPSULE. PO SCH ×2 (08:18→21:00)
[2018-08-31] MEDS: MORPHINE ER 15 MG TABLET.ER PO SCH (08:21)
[2018-08-31] MEDS: LISINOPRIL 10 MG TABLET PO SCH (08:23)
--- NOTE | 2018-08-31 08:24 | NUR ---
Prinivil not given r/t earlier low Blood pressure. See VS record.
--- NOTE | 2018-08-31 09:10 | PDOC ---
PULMONARY PROGRESS NOTES Subjective NOT MORE SOA Vitals Vital Signs Date Time Temp Pulse Resp B/P (MAP) Pulse Ox O2 Delivery O2 Flow Rate FiO2 08/31/18 08:23 98 126/84 08/31/18 08:21 15 08/31/18 07:00 99.6 95 CO2 detector 99.6 08/30/18 14:46 2.0 Lungs: Clear Cardiovascular: S1, S2 Abdomen: Soft Neuro Exam: Alert Extremities: No Edema Skin: Warm Medications Active Scripts Medications Dose Route/Sig Max Daily Dose Days Date Category Morphine Sulfate Er (Morphine Sulfate) 15 Mg Tablet.er 15 Mg PO BID MDD 1 08/17/18 Rx Percocet 10-325 Mg Tablet (Oxycodone/Acetaminophen) 1 Each Tablet 1 Tab PO PRN Q4HRS PRN MDD 1 08/17/18 Rx Movantik (Naloxegol Oxalate) 25 Mg Tablet 25 Mg PO PRN DAILY PRN 30 08/10/18 Rx Colace (Docusate Sodium) 100 Mg Capsule 100 Mg PO BID 30 08/10/18 Rx Polyethylene Glycol 3350 17 Gm Powd.pack 17 Gm PO BID 30 08/10/18 Rx [Pantoprazole] 40 MG Tablet.dr 40 Mg PO DAILYAC 30 08/10/18 Rx Morphine Sulfate Er (Morphine Sulfate) 15 Mg Tablet.er 15 Mg PO BID 30 08/10/18 Rx Lisinopril 10 Mg Tablet 10 Mg PO DAILY 30 08/10/18 Rx Amlodipine Besylate 5 Mg Tablet 5 Mg PO DAILY 30 08/10/18 Rx Carvedilol (Carvedilol) 3.125 Mg Tablet 3.125 Mg PO BIDWMEALS 30 08/10/18 Rx Cyclobenzaprine Hcl 10 Mg Tablet 10 Mg PO TID 11/11/15 Rx Impression . IMPRESSION: 1. Acute hypoxemic respiratory failure. 2. Acute pulmonary embolism with infarct. 3. End-stage pancreatic cancer. 4. Hypercalcemia. 5. Chronic kidney insufficiency. IMPRESSION: 1. No evidence of deep venous thrombosis. Plan . [facility] [address] [place] BY [place] D/W COMFORT CALDERA MD Aug 31, 2018 09:10
[2018-08-31 11:00] VITALS: BP 104/79
--- NOTE | 2018-08-31 14:35 | NUR ---
SW following pt. RODRI phoned and faxed clinicals/instructions to [facility] and [facility]. Pt will transport via facility arranged stretcher transport between [phone]. Pt and Pt's Noah MCGEE notified of plan, agreeable. Discussed with Palliative care and Bob from [facility]. RN notified. Addendum: 08/31/18 at 1456 by NAMITA MACE SW following Pt. Discharge cancelled as pt needs med adjustments for pain control. RODRI left a voice mail to pt's brother, Noah regarding change of plans. Ese at [facility] notified.
--- NOTE | 2018-08-31 14:36 | NUR ---
Report called to Yolette TABARES at [facility]. See orders, notes and nursing communication.
--- NOTE | 2018-08-31 14:37 | NUR ---
Addendum: Risa MACE to notifiy patient family of discharge to [facility], but states brother does not answer phone when she calls, she also notified patient. Patient very sleepy this afternoon, but still complains of high levels of pain.
--- NOTE | 2018-08-31 14:55 | NUR ---
Patient mother and nephew here to see patient. Risa MACE and Angelica Almonte Palliative RN spoke with patient and family. 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
--- NOTE | 2018-08-31 14:56 | PDOC ---
PROGRESS NOTES Subjective Subjective HPI - f/u of Stage 4 pancreatic cancer with liver metastasis ROS - has abd pain Objective Objective Vital Signs Date Time Temp Pulse Resp B/P (MAP) Pulse Ox O2 Delivery O2 Flow Rate FiO2 08/31/18 14:00 15 Room Air 08/31/18 11:00 99.6 88 104/79 (87) 95 99.6 08/30/18 14:46 2.0 Intake and Output 08/31/18 07:00 Output Total 1000 ml Balance -1000 ml Output Urine Total 1000 ml # Voids 3 Physical Exam Heart: Normal S1, Normal S2 General: Oriented X3, No acute distress Neuro: Normal speech Psych/Mental Status: Mental status NL Assessment Assessment Problems Medical Problems: (1) Elevated liver function tests Status: Acute (2) Hypercalcemia Status: Acute (3) Jaundice Status: Acute (4) Primary malignant neoplasm of pancreas with metastasis to other site Status: Acute (5) Pulmonary embolism Status: Acute (6) Pulmonary infarction Status: Acute IMPRESSION AND PLAN: 1. Stage 4 pancreatic cancer with liver metastasis diagnosed in 07/2018. The patient prefers comfort care and supportive care with the help of hospice. Agree with plan to discharge with hospice today. 2. Acute pulmonary embolism diagnosed on 08/28/2018. Continue anticoagulation, he is currently on Lovenox. Okay to switch to oral anticoagulation at the time of discharge. Appreciate pulmonary consultation. Agree with shruthi. Comment Review of Relevant I have reviewed the following items himanshu (where applicable) has been applied. Labs Microbiology 08/28/18 Urine Culture - Final, Complete 08/28/18 Urine Culture Result 1 (LAYO) - Final, Complete Medications Current Medications Sodium Chloride 1,000 ml @ 1,000 mls/hr Q1H IV Last administered on 08/28/18at 12:28; Start 08/28/18 at 11:44; Stop 08/28/18 at 12:43; Status DC Morphine Sulfate (Morphine Sulfate) 4 mg 1X ONCE IV Last administered on 08/28/18at 12:38; Start 08/28/18 at 12:45; Stop 08/28/18 at 12:46; Status DC Iohexol (Omnipaque 350 Mg/ml) 90 ml 1X ONCE IV Last administered on 08/28/18at 14:00; Start 08/28/18 at 14:00; Stop 08/28/18 at 14:01; Status DC Info (CONTRAST GIVEN -- Rx MONITORING) 1 each PRN DAILY PRN MC SEE COMMENTS; Start 08/28/18 at 14:00; Stop 08/30/18 at 13:59; Status DC Enoxaparin Sodium (Lovenox 60mg Syringe) 60 mg 1X ONCE SQ Last administered on 08/28/18 14:46; Start 08/28/18 at 14:45; Stop 08/28/18 at 14:46; Status DC Hydromorphone HCl (Dilaudid) 1 mg 1X ONCE IV Last administered on 08/28/18 14:43; Start 08/28/18 at 14:45; Stop 08/28/18 at 14:46; Status DC Hydromorphone HCl (Dilaudid) 1 mg PRN Q1HR PRN IV MODERATE PAIN Last administered on 08/31/18 05:47; Start 08/28/18 at 15:15 Amlodipine Besylate (Norvasc) 5 mg DAILY PO Last administered on 08/31/18 08:18; Start 08/28/18 at 16:30 Carvedilol (Coreg) 3.125 mg BIDWMEALS PO Last administered on 08/31/18 08:18; Start 08/28/18 at 17:00 Cyclobenzaprine HCl (Flexeril) 10 mg TID PO Last administered on 08/31/18 13:29; Start 08/28/18 at 21:00 Docusate Sodium (Colace) 100 mg BID PO Last administered on 08/31/18 08:18; Start 08/28/18 at 21:00 Lisinopril (Prinivil) 10 mg DAILY PO Last administered on 08/30/18 08:20; Start 08/28/18 at 16:30 Oxycodone/ Acetaminophen (Percocet 10/325) 1 tab PRN Q4HRS PRN PO MODERATE PAIN 4-6 Last administered on 08/29/18 23:31; Start 08/28/18 at 15:30 Non-Formulary Medication (Naloxegol Oxalate (Movantik)) 25 mg PRN DAILY PRN PO CONSTIPATION; Start 08/28/18 at 15:30; Status UNV Polyethylene Glycol (miraLAX PACKET) 17 gm BID PO Last administered on 08/31/18 08:18; Start 08/28/18 at 21:00 Pantoprazole Sodium (Protonix) 40 mg DAILYAC PO Last administered on 08/31/18 06:42; Start 08/28/18 at 16:30 Morphine Sulfate (Ms Contin) 30 mg BID PO Last administered on 08/31/18 08:21; Start 08/28/18 at 21:00 Morphine Sulfate (Morphine Sulfate) 10 mg PRN Q4HRS PRN IV SEVERE PAIN Last administered on 08/31/18 13:30; Start 08/28/18 at 15:30 Ondansetron HCl (Zofran) 8 mg PRN Q8HRS PRN IV NAUSEA/VOMITING; Start 08/28/18 at 18:45 Lorazepam (Ativan) 1 mg PRN Q4HRS PRN PO ANXIETY / AGITATION Last administered on 08/29/18 09:25; Start 08/29/18 at 09:15; Stop 08/29/18 at 11:29; Status DC Enoxaparin Sodium (Lovenox 60mg Syringe) 55 mg Q12HR SQ Last administered on 08/31/18 08:19; Start 08/29/18 at 11:30 Info (Anti-Coagulation Monitoring By Pharmacy) 1 each PRN DAILY PRN MC SEE COMMENTS; Start 08/29/18 at 11:00 Naloxone HCl (Narcan) 0.4 mg PRN Q2MIN PRN IV SEE INSTRUCTIONS; Start 08/29/18 at 11:15 Morphine Sulfate 30 ml @ 0 mls/hr CONT PRN PRN IV PER PROTOCOL Last administered on 08/31/18 12:55; Start 08/29/18 at 11:15 Lorazepam (Ativan) 1 mg Q4HRS PRN PO ANXIETY / AGITATION Last administered on 08/29/18 12:37; Start 08/29/18 at 14:00; Stop 08/29/18 at 14:00; Status DC Lorazepam (Ativan) 1 mg PRN Q4HRS PRN PO ANXIETY / AGITATION Last administered on 08/31/18 05:00; Start 08/29/18 at 12:15 Lorazepam (Ativan) 1 mg Q4HRS PO Last administered on 08/31/18 12:23; Start 08/29/18 at 14:00 Clonidine HCl (Catapres) 0.2 mg PRN Q6HRS PRN PO HYPERTENSION Last administered on 08/30/18at 03:51; Start 08/29/18 at 17:45 Active Scripts Active Morphine Sulfate Er (Morphine Sulfate) 15 Mg Tablet.er 15 Mg PO BID MDD 1 Percocet 10-325 Mg Tablet (Oxycodone/Acetaminophen) 1 Each Tablet 1 Tab PO PRN Q4HRS PRN MDD 1 Movantik (Naloxegol Oxalate) 25 Mg Tablet 25 Mg PO PRN DAILY PRN 30 Days Colace (Docusate Sodium) 100 Mg Capsule 100 Mg PO BID 30 Days Polyethylene Glycol 3350 17 Gm Powd.pack 17 Gm PO BID 30 Days [Pantoprazole] 40 MG Tablet.dr 40 Mg PO DAILYAC 30 Days Morphine Sulfate Er (Morphine Sulfate) 15 Mg Tablet.er 15 Mg PO BID 30 Days Lisinopril 10 Mg Tablet 10 Mg PO DAILY 30 Days Amlodipine Besylate 5 Mg Tablet 5 Mg PO DAILY 30 Days Carvedilol (Carvedilol) 3.125 Mg Tablet 3.125 Mg PO BIDWMEALS 30 Days Cyclobenzaprine Hcl 10 Mg Tablet 10 Mg PO TID Vitals/I & O Vital Sign - Last 24 Hours 08/30/18 08/30/18 08/30/18 08/30/18 15:00 15:03 15:03 16:58 Temp 98.9 98.9 Pulse 92 92 Resp 18 B/P (MAP) 120/87 (98) 120/87 Pulse Ox 97 98 98 O2 Delivery Room Air 08/30/18 08/30/18 08/30/18 08/30/18 19:00 20:00 20:28 21:58 Temp 97.5 97.5 Pulse 92 Resp 16 16 16 B/P (MAP) 116/85 (95) Pulse Ox 97 O2 Delivery Room Air Room Air Room Air 08/30/18 08/31/18 08/31/18 08/31/18 22:36 00:08 02:54 05:47 Temp 97.6 98.0 97.6 98.0 Pulse 95 93 Resp 15 18 15 14 B/P (MAP) 133/88 (103) 99/75 (83) Pulse Ox 96 95 O2 Delivery Room Air Room Air Room Air 08/31/18 08/31/18 08/31/18 08/31/18 06:00 06:07 07:00 08:00 Temp 99.6 99.6 Pulse 98 Resp 16 22 18 B/P (MAP) 126/84 (98) Pulse Ox 95 O2 Delivery Room Air Room Air CO2 detector Room Air 08/31/18 08/31/18 08/31/18 08/31/18 08:18 08:18 08:21 08:23 Pulse 98 98 98 Resp 15 B/P (MAP) 126/84 126/84 126/84 08/31/18 08/31/18 08/31/18 08/31/18 09:20 11:00 12:21 12:55 Temp 99.6 99.6 Pulse 88 Resp 32 18 24 23 B/P (MAP) 104/79 (87) Pulse Ox 95 O2 Delivery co2 detector Room Air Room Air 08/31/18 08/31/18 08/31/18 13:25 13:30 14:00 Resp 13 15 15 O2 Delivery Room Air Room Air Intake and Output 08/30/18 08/30/18 08/31/18 15:00 23:00 07:00 Output Total 1000 ml Balance -1000 ml NELSON MORRISSEY MD Aug 31, 2018 14:56
[2018-08-31 15:00] VITALS: BP 118/85
[2018-08-31] MEDS ORDERED: MORPHINE SULFATE 20 MG/ML CONC SOLUTION. SL PRN (15:00)
[2018-08-31] MEDS ORDERED: MORPHINE SULFATE/PF 30 ML IV PRN (15:15)
--- NOTE | 2018-08-31 17:32 | PDOC2 ---
PALLIATIVE CARE Palliative Care Note Palliative Care Patient awakens easily. Speaks with family visiting. Spoke with [facility], Dr. Prince regarding transitioning patient to po medication prior to transfer to Skilled Nursing. Will discontinue discharge. Dr. Prince will provide orders for MS Contin and Roxanol SL. Continue Ativan for restlessness. Discharge plan reviewed with Risa BROWN and ELIZABETH Dodd RN Aug 31, 2018 17:31
[2018-08-31 19:00] VITALS: BP 108/77
[2018-08-31] MEDS: MORPHINE SULFATE 20 MG/ML CONC SOLUTION. SL PRN ×2 (19:49→22:27)
[2018-08-31] MEDS: MORPHINE ER 30 MG TABLET.ER PO SCH (22:28)
[2018-08-31 22:42] VITALS: BP 122/80
[2018-09-01] MEDS: MORPHINE SULFATE 20 MG/ML CONC SOLUTION. SL PRN ×4 (00:09→15:32)
[2018-09-01] MEDS: LORazepam 1 MG TABLET PO SCH ×3 (00:09→08:00)
[2018-09-01 03:00] VITALS: BP 113/68
[2018-09-01 06:35] VITALS: BP 121/79
[2018-09-01] MEDS: LORazepam 1 MG TABLET PO PRN (06:37)
[2018-09-01] MEDS: PANTOPRAZOLE 40 MG TABLET.DR. PO SCH (07:30)
--- NOTE | 2018-09-01 07:33 | PDOC2 ---
PALLIATIVE CARE Palliative Care Note Palliative Care Patient awakens easily. On MS Contin 90mg BID. Roxanol 20mg given x3 last 8 hours. Ativan 1mg scheduled every 4 hours. Held x1 last night. Ativan 1mg prn given at 0630 this am. [facility]. Risa MACE assisting with transfer plans. Patient can not make complex decisions. Brother/DPOA Noah can be reached for assistance. MS Contin held this am. Dr. Ferrera here. adjusted medication. `1210 Patient awake--out of bed to the bathroom. Plan transfer today to [facility] [address] ELIZABETH CHASE Sep 01, 2018 07:33
[2018-09-01] MEDS: CARVEDILOL 3.125 MG TABLET. PO SCH (08:00)
[2018-09-01] MEDS: DOCUSATE SODIUM 100 MG CAPSULE. PO SCH (09:00)
[2018-09-01] MEDS: MORPHINE ER 30 MG TABLET.ER PO SCH (09:00)
[2018-09-01] MEDS: POLYETHYLENE GLYCOL 3350 17 GM PACKET. PO SCH (09:00)
[2018-09-01] MEDS: LISINOPRIL 10 MG TABLET PO SCH (09:00)
[2018-09-01] MEDS: CYCLOBENZAPRINE 10 MG TABLET. PO SCH (09:00)
[2018-09-01] MEDS: amLODIPine BESYLATE 5 MG TABLET PO SCH (09:00)
--- NOTE | 2018-09-01 09:50 | PN ---
DATE: 08/31/2018 SUBJECTIVE: The patient is complaining of pain, requesting more narcotics. OBJECTIVE: I saw and examined the patient this morning. HEART: His heart tones were normal, but he is in a lot of pain. LUNGS: Diminished. ABDOMEN: Tender to touch. EXTREMITIES: Trace edema. SKIN: No rashes. PLAN: I discussed the case with the case management team and Angelica Ann of the palliative care team. We have arranged for the patient to be changed over to p.o. narcotics including MS Contin 90 p.o. b.i.d. with p.r.n. Roxanol. ASSESSMENT: Pancreatic cancer with metastasis and intractable pain and pulmonary embolism. PLAN: We plan to discharge back to his facility tomorrow with hospice. We are going to start MS Contin 90 p.o. b.i.d. and p.r.n. Roxanol 20 mg sublingual hourly. DVT prophylaxis, I believe he is DNR. Total time 36 minutes. KIM MOLINA DO DR: SAMINA/silas JOB#: [id number] / [id number]
--- NOTE | 2018-09-01 10:18 | NUR ---
AM medication: Did not administer am PO meds as the pt was too lethargic. Will continue to monitor.
[2018-09-01 11:00] VITALS: BP 148/88
[2018-09-01] MEDS ORDERED: MORP30TA83 PO (11:07)
--- NOTE | 2018-09-01 11:07 | PDOC ---
PULMONARY PROGRESS NOTES Subjective PT CURRENTLY SLEEPY Vitals Vital Signs Date Time Temp Pulse Resp B/P (MAP) Pulse Ox O2 Delivery O2 Flow Rate FiO2 09/01/18 07:37 Room Air 09/01/18 06:37 21 09/01/18 06:35 99.7 94 121/79 (93) 90 99.7 Lungs: Clear Cardiovascular: S1, S2 Abdomen: Soft Neuro Exam: Alert Extremities: No Edema Skin: Warm Medications Active Scripts Medications Dose Route/Sig Max Daily Dose Days Date Category Morphine Sulfate Er (Morphine Sulfate) 15 Mg Tablet.er 15 Mg PO BID MDD 1 08/17/18 Rx Percocet 10-325 Mg Tablet (Oxycodone/Acetaminophen) 1 Each Tablet 1 Tab PO PRN Q4HRS PRN MDD 1 08/17/18 Rx Movantik (Naloxegol Oxalate) 25 Mg Tablet 25 Mg PO PRN DAILY PRN 30 08/10/18 Rx Colace (Docusate Sodium) 100 Mg Capsule 100 Mg PO BID 30 08/10/18 Rx Polyethylene Glycol 3350 17 Gm Powd.pack 17 Gm PO BID 30 08/10/18 Rx [Pantoprazole] 40 MG Tablet.dr 40 Mg PO DAILYAC 30 08/10/18 Rx Morphine Sulfate Er (Morphine Sulfate) 15 Mg Tablet.er 15 Mg PO BID 30 08/10/18 Rx Lisinopril 10 Mg Tablet 10 Mg PO DAILY 30 08/10/18 Rx Amlodipine Besylate 5 Mg Tablet 5 Mg PO DAILY 30 08/10/18 Rx Carvedilol (Carvedilol) 3.125 Mg Tablet 3.125 Mg PO BIDWMEALS 30 08/10/18 Rx Cyclobenzaprine Hcl 10 Mg Tablet 10 Mg PO TID 11/11/15 Rx Impression . IMPRESSION: 1. Acute hypoxemic respiratory failure. 2. Acute pulmonary embolism with infarct. 3. End-stage pancreatic cancer. 4. Hypercalcemia. 5. Chronic kidney insufficiency. IMPRESSION: 1. No evidence of deep venous thrombosis. Plan . HOSPICE DC, WILL HONOR PT WISHES OF DNR AND DNI OUT OF HOSPITAL DNR COMPLETED BY PHYSICIAN PATIENT IS NOT ABLE TO SIGN, DPOA IS IN AGREEMENT WITH HOSPICE AND DNR HOME ON [address] [place] BY COMFORT PIPER MD Sep 01, 2018 11:07
[2018-09-01] MEDS ORDERED: CYCL10TA2 PO (11:08)
[2018-09-01] MEDS ORDERED: LORA-434 PO (11:08)
--- NOTE | 2018-09-01 11:12 | PDOC3 ---
Discharge Summary Visit Information Date of Admission: Aug 28, 2018 Date of Discharge: Sep 01, 2018 Admitting Diagnosis Comment: HPI - f/u of Stage 4 pancreatic cancer with liver metastasis Final Diagnosis Problems Medical Problems: (1) Elevated liver function tests Status: Acute (2) Hypercalcemia Status: Acute (3) Jaundice Status: Acute (4) Primary malignant neoplasm of pancreas with metastasis to other site Status: Acute (5) Pulmonary embolism Status: Acute (6) Pulmonary infarction Status: Acute Brief Hospital Course Allergies Allergies Coded Allergies Type Severity Reaction Last Updated Verified ibuprofen Allergy Intermediate rash 11/11/15 Yes Vital Signs Vital Signs Date Time Temp Pulse Resp B/P (MAP) Pulse Ox O2 Delivery O2 Flow Rate FiO2 09/01/18 07:37 Room Air 09/01/18 06:37 21 09/01/18 06:35 99.7 94 121/79 (93) 90 99.7 Brief Hospital Course Mr. Jones is a 53 old [sex] who presented with uncontrolled cancer pain. 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 Awake but very drowsy. I have tapered dosages down to MS Contin 60 twice a day Percocet 10, lorazepam 1 by mouth when necessary not scheduled, Flexeril when necessary not scheduled. Significant time tapering medications, discussed with palliative and RN at bedside. He eats a diet. DNR. [facility] with [facility] dc 35 mins at least proc; none Consults: heme onc Discharge Information Condition at Discharge: Stable Disposition/Orders: Other (snu with hospice) Scheduled Amlodipine Besylate (Amlodipine Besylate) 5 Mg Tablet, 5 MG PO DAILY for HTN for 30 Days, #30 Ref 5 Prescribed by: TATIANA QUAN MD on 08/10/18 1418 Last Action: Continued on 08/28/18 1521 by SOL CERVANTES Carvedilol (Carvedilol ) 3.125 Mg Tablet, 3.125 MG PO BIDWMEALS for HTN for 30 Days, #60 Ref 5 Prescribed by: TATIANA QUAN MD on 08/10/181417 Last Action: Continued on 08/28/181520 by SOL CERVANTES Docusate Sodium (Colace) 100 Mg Capsule, 100 MG PO BID for constipation for 30 Days, #60 Ref 5 Prescribed by: TATIANA QUAN MD on 08/10/181417 Last Action: Continued on 08/28/181520 by SOL CERVANTES Lisinopril (Lisinopril) 10 Mg Tablet, 10 MG PO DAILY for HTN for 30 Days, #30 Ref 5 Prescribed by: TATIANA QUAN MD on 08/10/181417 Last Action: Continued on 08/28/181520 by SOL CERVANTES Morphine Sulfate Er (Ms Contin) 30 Mg Tablet.er, 2 TAB PO BID for cancer pain, #60 Prescribed by: JEAN PAUL BALDWIN on 09/01/18 110 Polyethylene Glycol 3350 (Polyethylene Glycol 3350) 17 Gm Powd.pack, 17 GM PO BID for constipation for 30 Days, #60 Prescribed by: TATIANA QUAN MD on 08/10/181417 Last Action: Converted on 08/28/181520 by SOL CERVANTES [Pantoprazole] 40 MG TABLET.DR, 40 MG PO DAILYAC for GERD for 30 Days, #30 Ref 5 Prescribed by: TATIANA QUAN MD on 08/10/181417 Last Action: Converted on 08/28/181520 by SOL CERVANTES Scheduled PRN Cyclobenzaprine Hcl (Cyclobenzaprine Hcl) 10 Mg Tablet, 10 MG PO TID PRN for pain MDD 1, #30 Prescribed by: JEAN PAUL BALDWIN on 09/01/18 1108 Lorazepam (Ativan) 1 Mg Tablet, 1 MG PO Q6HRS PRN for pain MDD 1, #30 Prescribed by: JEAN PAUL BALDWIN on 09/01/18 1108 Naloxegol Oxalate (Movantik) 25 Mg Tablet, 25 MG PO PRN DAILY PRN for CONSTIPATION for 30 Days, #30 Prescribed by: TATIANA QUAN MD on 08/10/181417 Last Action: Converted on 08/28/181520 by SOL CERVANTES Oxycodone/Apap 10-325 (Percocet 10-325 Mg Tablet ) 1 Each Tablet, 1 TAB PO PRN Q4HRS PRN for MODERATE PAIN 4-6 MDD 1, #30 Prescribed by: JEAN PAUL BALDWIN on 08/17/18936 Last Action: Continued on 08/28/181520 by SOL CERVANTES Discontinued Medications Cyclobenzaprine Hcl (Cyclobenzaprine Hcl) 10 Mg Tablet, 10 MG PO TID, #20 Prescribed by: MAGDA MELARA APRN on 11/11/15 0851 Last Action: Continued on 08/28/181520 by SOL CERVANTES Morphine Sulfate (Morphine Sulfate Er) 15 Mg Tablet.er, 15 MG PO BID for Pancreatic cancer for 30 Days, #60 Prescribed by: TATIANA QUAN MD on 08/10/18 1418 Last Action: HELD on 08/28/181520 by SOL CERVANTES Morphine Sulfate (Morphine Sulfate Er) 15 Mg Tablet.er, 15 MG PO BID for cancer pain MDD 1, #30 Prescribed by: JEAN PAUL BALDWIN on 08/17/18936 Last Action: HELD on 08/28/181520 by JEAN PAUL VIEYRA MD Sep 01, 2018 11:12
--- NOTE | 2018-09-01 11:13 | SNU/HH DC ---
DISCHARGE ORDERS DISCHARGE INFORMATION: DISCHARGE DATE: Sep 01, 2018 FINAL DIAGNOSIS Problems Medical Problems: (1) Elevated liver function tests Status: Acute (2) Hypercalcemia Status: Acute (3) Jaundice Status: Acute (4) Primary malignant neoplasm of pancreas with metastasis to other site Status: Acute (5) Pulmonary embolism Status: Acute (6) Pulmonary infarction Status: Acute CONDITION ON DISCHARGE: Stable CODE STATUS: Code Status: DNR/DNI LONG TERM: SNF STAY <30 DAYS: Yes HOSPICE: HOSPICE: Yes HOSPICE EVAL & TREAT: Yes LTAC: ADMIT TO LTAC: No POST DISCHARGE ORDERS: ACTIVITY ORDERS: Activity as tolerated WEIGHT BEARING STATUS: As tolerated DIET AFTER DISCHARGE: Regular WOUND/INCISION CARE: No wound care needed TREATMENT/EQUIPMENT ORDERS: ADAPTIVE EQUIPMENT NEEDED: None Physical Therapy For: Evalulation/Treatment Occupational Therapy For: Evaluation/Treatment DISCHARGE MEDICATIONS: Home Meds Active Scripts Lorazepam (ATIVAN) 1 Mg Tablet, 1 MG PO Q6HRS PRN for pain MDD 1, #30 TAB Prov:JEAN PAUL BALDWIN MD 09/01/18 Cyclobenzaprine Hcl (CYCLOBENZAPRINE HCL) 10 Mg Tablet, 10 MG PO TID PRN for pain MDD 1, #30 TAB Prov:JEAN PAUL BALDWIN MD 09/01/18 Morphine Sulfate Er (MS CONTIN) 30 Mg Tablet.er, 2 TAB PO BID for cancer pain, #60 TAB Prov:JEAN PAUL BALDWIN MD 09/01/18 Oxycodone/Apap 10-325 (PERCOCET 10-325 MG TABLET ) 1 Each Tablet, 1 TAB PO PRN Q4HRS PRN for MODERATE PAIN 4-6 MDD 1, #30 TAB Prov:JEAN PAUL BALDWIN MD 08/17/18 Naloxegol Oxalate (Movantik) 25 Mg Tablet, 25 MG PO PRN DAILY PRN for CONSTIPATION for 30 Days, #30 TAB Prov:TATIANA QUAN MD 08/10/18 Docusate Sodium (COLACE) 100 Mg Capsule, 100 MG PO BID for constipation for 30 Days, #60 CAP 5 Refills Prov:TATIANA QUAN MD 08/10/18 Polyethylene Glycol 3350 (POLYETHYLENE GLYCOL 3350) 17 Gm Powd.pack, 17 GM PO BID for constipation for 30 Days, #60 PKT Prov:TATIANA QUAN MD 08/10/18 [Pantoprazole] [address] Reyna Conflict Check, 40 MG PO DAILYAC for GERD for 30 Days, #30 5 Refills Prov:TATIANA QUAN MD 08/10/18 Lisinopril (LISINOPRIL) 10 Mg Tablet, 10 MG PO DAILY for HTN for 30 Days, #30 TAB 5 Refills Prov:TATIANA QUAN MD 08/10/18 Amlodipine Besylate (AMLODIPINE BESYLATE) 5 Mg Tablet, 5 MG PO DAILY for HTN for 30 Days, #30 TAB 5 Refills Prov:TATIANA QUAN MD 08/10/18 Carvedilol (CARVEDILOL ) 3.125 Mg Tablet, 3.125 MG PO BIDWMEALS for HTN for 30 Days, #60 TAB 5 Refills Prov:TATIANA QUAN MD 08/10/18 Discontinued Scripts Morphine Sulfate (MORPHINE SULFATE ER) 15 Mg Tablet.er, 15 MG PO BID for cancer pain MDD 1, #30 TAB.SR Prov:JEAN PAUL BALDWIN MD 08/17/18 Morphine Sulfate (MORPHINE SULFATE ER) 15 Mg Tablet.er, 15 MG PO BID for Pa ncreatic cancer for 30 Days, #60 TAB.SR Prov:TATIANA QUAN MD 08/10/18 Cyclobenzaprine Hcl (CYCLOBENZAPRINE HCL) 10 Mg Tablet, 10 MG PO TID, #20 TAB Prov:MAGDA MELARA APRN 11/11/15 JEAN PAUL BALDWIN MD Sep 01, 2018 11:13
[2018-09-01] MEDS ORDERED: MORPHINE SULFATE 10 MG/ML VIAL. IV PRN (11:15)
[2018-09-01] MEDS ORDERED: CYCLOBENZAPRINE 10 MG TABLET. PO PRN (11:15)
[2018-09-01] MEDS ORDERED: ONDANSETRON PF 4 MG/2 ML VIAL. IV PRN (11:15)
[2018-09-01] MEDS ORDERED: LORazepam 1 MG TABLET PO PRN (11:15)
--- NOTE | 2018-09-01 13:06 | NUR ---
RODRI phoned and faxed orders to [facility] and [facility]. Pt will transport via facility arranged stretcher transport at 1600. RODRI left a voice mail to Pt's Noah MCGEE . Discussed with Palliative care and Bob from [facility]. RN notified.
[2018-09-01 15:00] VITALS: BP 106/70
--- NOTE | 2018-09-01 15:58 | NUR ---
Called report to Darin at [facility].
--- NOTE | 2018-09-01 16:05 | PDOC2 ---
PALLIATIVE CARE Palliative Care Note Patient more alert this afternoon. Complains of pain abdomen. Medicated with Roxanol 20mg. Outside the Hospital DNR/DNI signed by Dr. Ferrera. Patient copy of previous Outside the Hospital DNR/DNI had been signed by patient. Spoke with Bernadine and Lashaun. Zakiya MCGEE refused to sign document.---stating "he wants this" Jimbokeisha is unable to be here or sign until tomorrow. Asked that [facility] to [facility] and he will address tomorrow. Spoke with Dr. Castellanos and transport staff. Dr Castellanos agree that patient will be transferred and remain DNR/DNI. Transport staff maintained copy of previous outside the Hospital DNR/DNI and current DNR/DNI . Stephen TABARES called report to [facility] staff and above reviewed with staff--ELIZABETH Mills RN Sep 01, 2018 16:05
--- NOTE | 2018-09-01 16:56 | NUR ---
Discharge Note: RUDDY CHANG Discharge instructions and discharge home medications reviewed with Other facility and a copy given. All questions have been answered and understanding verbalized. The following instructions and handouts were given: follow up care, medication orders. Continued lines and drains: peripheral line intact. Patient discharged to nursing facility with hospice via other facility transportation. Patient left unit alert and stable. Personal belongings were given to family at bedside.
[2018-09-01] MEDS ORDERED: MORPHINE ER 30 MG TABLET.ER PO SCH (21:00)
== END 2018-09-01 15:30 | disposition hospice, inpatient (51) | DRG 175 ==
LOC: ER 11:25 → 6 SOUTH 14:31 → 5 NORTH 08-29 18:05
PROVIDERS: ADMIT Internal Medicine; ATTEND Internal Medicine
DX: I26.99 Other pulmonary embolism without acute cor pulmonale (principal); J96.01 Acute respiratory failure with hypoxia; C25.9 Malignant neoplasm of pancreas, unspecified; C78.7 Secondary malignant neoplasm of liver and intrahepatic bile duct; F11.20 Opioid dependence, uncomplicated; E83.52 Hypercalcemia; G89.29 Other chronic pain; Z88.6 Allergy status to analgesic agent; Z51.5 Encounter for palliative care; Z66 Do not resuscitate; N18.9 Chronic kidney disease, unspecified; Z80.0 Family history of malignant neoplasm of digestive organs; Z87.891 Personal history of nicotine dependence; Z79.01 Long term (current) use of anticoagulants
CPT/HCPCS: 36415; 70450; 71045; 71275; 80053; 81001; 83690; 84484; 85025; 85379; 85610; 87086; 93005; 93970; 96361; 96372; 96374; 96375; J1170; J1650; J2270; J7030; Q9967; 99285-25